=== PATIENT | female | born 1940 | race Caucasian/White ===

== ENCOUNTER 2017-03-13 14:03 | Inpatient (IN) | payer OTHER ==
[2017-03-13] MEDS ORDERED: ACETAMINOPHEN 1000 MG/100 ML VIAL (NON FORMULARY) IVPB ONE (14:24)
[2017-03-13] MEDS ORDERED: SODIUM CHLORIDE 1,000 ML IV STA ×2 (14:24→16:05)
[2017-03-13] MEDS ORDERED: ACETAMINOPHEN INJECTION 100 ML IVPB ONE (14:29)
--- NOTE | 2017-03-13 14:39 | PDOC ---
History of Present Illness - General History Source: Old Records Exam Limitations: Clinical Condition <ShayeVidya - Last Filed: 03/13/17 16:14> - General History Source: EMS, Old Records Exam Limitations: Other (AMS) - History of Present Illness Initial Comments: 03/13/17 14:44 The patient is a 76-year-old woman, from [facility], with a significant past medical history of hypertension, diabetes mellitus and Alzheimer's dementia who presents to the emergency department via EMS for further evaluation of altered mental status. Patient has been admitted in the past for hyperglycemia and hypotension. Upon ER arrival, patient was noted to have a rectal temperature of 101.6, heart rate of 104, respiratory rate of 24, blood pressure of 112/59 and an oxygen saturation of 100%. Today, patient was noted to be hyperglycemic at 411. HPI is limited, as patient syffers form dementia and is unable to provide history. Sepsis protocol initiated. Allergies: No Known Drug Allergies. Past Surgical History: None reported Social History: Unknown if ever smoked. No EtOH and recreational drug use, Primary Care Physician: Dr. Cash Reynoso <Sarah Kumari - Last Filed: 03/13/17 16:35> - General Chief Complaint: Altered Mental Status Stated Complaint: ALTERED MENTAL STATUS Time Seen by Provider: 03/13/17 14:20 Past History - Past Medical History Dementia: Yes Diabetes: Yes (ALZHEIMERS) HTN: Yes - Psycho/Social/Smoking Cessation Hx Anxiety: No Suicidal Ideation: No Smoking Status: No Smoking History: Unknown if ever smoked Number of Cigarettes Smoked Daily: 0 Hx Alcohol Use: No Drug/Substance Use Hx: No Substance Use Type: None <Vidya Cr - Last Filed: 03/13/17 16:14> <Sarah Kumari - Last Filed: 03/13/17 16:35> - Past Medical History Allergies/Adverse Reactions: Allergies Allergy/AdvReac Type Severity Reaction Status Date / Time No Known Allergies Allergy Verified 08/18/16 16:47 Home Medications: Ambulatory Orders Acetaminophen [Pain Relief] 650 mg PO QID PRN 03/13/17 Cholecalciferol (Vitamin D3) [Vitamin D3] 1,000 unit PO DAILY 03/13/17 Glimepiride [Amaryl] 4 mg PO DAILY 03/13/17 Guaifenesin/D-Methorphan Hb/PE [Tussin Cf Max M-S Cold Liquid] 118 ml PO QID PRN 03/13/17 Insulin Glargine,Hum.rec.anlog [Lantus Solostar PEN (NF)] 0 units SQ ACBK Insulin Lispro [Humalog] 0 unit SQ ASDIR 03/13/17 Memantine HCl [Namenda -] 10 mg PO BID 03/13/17 Review of Systems - Review of Systems Able to Perform ROS?: No (AMS) <KumariSarah lopes - Last Filed: 03/13/17 16:35> *Physical Exam - Vital Signs Last Vital Signs Temp Pulse Resp BP Pulse Ox 101.6 F H 104 H 24 112/59 100 03/13/17 14:15 03/13/17 14:15 03/13/17 14:15 03/13/17 14:15 03/13/17 14:15 <Vidya Cr - Last Filed: 03/13/17 16:14> - Vital Signs Last Vital Signs Temp Pulse Resp BP Pulse Ox 101.6 F H 104 H 24 112/59 100 03/13/17 14:15 03/13/17 14:15 03/13/17 14:15 03/13/17 14:15 03/13/17 14:15 - Physical Exam Comments: 03/13/17 14:45 GENERAL: Somnolent. Not arousable to painful stimuli. HEENT: Normocephalic, atraumatic. PERRLA, EOMI. No conjunctival pallor. Sclera are non-icteric. Dry mucous membranes. Oropharynx is clear. NECK: Supple. Full ROM. No JVD. CARDIOVASCULAR: Regular rate and rhythm. No murmurs, rubs, or gallops. PULMONARY: Crackles at the left lung base ABDOMINAL: Soft. Non-tender. Non-distended. No rebound or guarding. No organomegaly. Normoactive bowel sounds. : Indwelling Menchaca with foul odor. MUSCULOSKELETAL: Normal range of motion at all joints. No bony deformities or tenderness. No CVA tenderness. EXTREMITIES: No cyanosis. No clubbing. No edema. No calf tenderness. SKIN: Warm and dry. Normal capillary refill. No rashes. No jaundice. NEUROLOGICAL: Somnolent. Not arousable to painful stimuli. PSYCHIATRIC: Cooperative. Good eye contact. Appropriate mood and affect. <Sarah Kumari - Last Filed: 03/13/17 16:35> Heart Score/ECG Review #1 General ECG Interpretation: Normal Rate (Sinus tachycardia at 105 bpm), Normal Intervals, No acute ischemic changes <Sarah Kumari - Last Filed: 03/13/17 16:35> ED Treatment Course - LABORATORY CBC & Chemistry Diagram: 03/13/17 14:45 03/13/17 14:45 - RADIOLOGY Radiology Studies Ordered: Category Date Time Status HEAD CT WITHOUT CONTRAST [CT] Stat CT Scan 03/13/17 14:29 Ordered CHEST X-RAY PORTABLE* [RAD] Stat Radiology 03/13/17 14:23 Taken <MaxlukeVidya - Last Filed: 03/13/17 16:14> - LABORATORY CBC & Chemistry Diagram: 03/13/17 14:45 03/13/17 14:45 - RADIOLOGY Radiograph Interpretation: 03/13/17 14:46 EXAM: RAD/CHEST X-RAY PORTABLE Interpreted by Dr. Ulices Oviedo IMPRESSION: No evidence of pneumonia, atelectasis, pleural effusion or pneumothorax. No evidence of vascular congestion. The cardiac silhouette is not enlarged. No evidence of widening of the superior mediastinum. EKG leads are noted. Radiopaque tubing projecting over the lungs. EKG leads are noted. Intact visualized osseous structures. <Sarah Kumari - Last Filed: 03/13/17 16:35> Medical Decision Making - Medical Decision Making 03/13/17 16:06 76-year-old female with history of diabetes, dementia and Alzheimer's disease, indwelling menchaca presents the emergency department with altered mental status; the urine in the menchaca bag appears purulent. Differential diagnosis includes but is not limited to: Urinary tract infection, pneumonia, electrolyte abnormality, dehydration, toxic/metabolic derangement, intra-cranial process. Plan: 1. Prieto culture 2. CT head 3. IV fluids for hydration 4. IV antibiotics 6. Observe and reevaluate 03/13/17 16:07 Addendum: Labs were reviewed and are noted in the EMR. Her WBC is 17k and the urine analysis is positive for UTI. The BUN/creatinine are elevated from the baseline. The patient was given ceftriaxone. Will admit to medicine for IV antibiotics, IVF hydration and monitoring of SHERLYN. <Vidya Cr - Last Filed: 03/13/17 16:14> *DC/Admit/Observation/Transfer - Discharge Dispostion Admit: Yes <Vidya Cr - Last Filed: 03/13/17 16:14> - Attestations Scribe Attestion: 03/13/17 14:45 Documentation prepared by Sarah Kumari, acting as medical editor for Vidya Cr MD. <Sarah Kumari - Last Filed: 03/13/17 16:35> Diagnosis at time of Disposition: Altered mental status, Urinary tract infection, Acute kidney injury, Sepsis - Discharge Dispostion Condition at time of disposition: Stable - Referrals Referrals: Cash Reynoso MD [Primary Care Provider] -
[2017-03-13 15:30] LABS: BASOPHIL 0.2 % (0-2.0); MCH 28.6 pg (25.7-33.7); MCHC 32.2 g/dl (32.0-36.0); MEAN CELL VOLUME 88.9 fl (80-96); MEAN PLT VOLUME 8.9 fl (7.5-11.1); NEUTROPHILS 85.6 % (42.8-82.8); PLATELET COUNT 338 K/MM3 (134-434); RDW 14.2 % (11.6-15.6); WHITE BLOOD COUNT 17.4 K/mm3 (4.0-10.0)
[2017-03-13 15:31] LABS: ALBUMIN 2.8 g/dl (3.4-5.0); ANION GAP 13 (8-16); BILIRUBIN,TOTAL 0.5 mg/dL (0.2-1.0); CALCIUM 9.2 mg/dL (8.5-10.1); CO2 22 mmol/L (21-32); COCKROFT - GAULT 19.1165; CREATININE 2.2 mg/dL (0.55-1.02); PHOSPHOROUS 2.3 mg/dL (2.5-4.9); SGPT/ALT 51 U/L (12-78); TOT PROT 7.1 g/dl (6.4-8.2)
[2017-03-13 15:34] LABS: ALK PHOS 186 U/L (45-117); TROPONIN I 0.02 ng/ml (0.00-0.05)
[2017-03-13 15:36] LABS: MAGNESIUM 2.2 mg/dL (1.8-2.4); SGOT/AST 48 U/L (15-37)
[2017-03-13 15:37] LABS: GLUCOSE,RANDOM 384 mg/dL (74-106)
[2017-03-13 15:41] LABS: URINE APPEARANCE TURBID; URINE BILIRUBIN NEGATIVE (NEGATIVE); URINE COLOR YELLOW; URINE GLUCOSE (UA) 3+ (NEGATIVE); URINE KETONE TRACE (NEGATIVE); URINE NITRITE NEGATIVE (NEGATIVE); URINE UROBILINOGEN NEGATIVE E.U./dl (0.2-1.0)
[2017-03-13 15:49] LABS: URINE BLOOD 2+ (NEGATIVE); URINE LEUK ESTERASE 3+ (NEGATIVE); URINE PROTEIN 2+ (NEGATIVE)
[2017-03-13] MEDS ORDERED: CEFTRIAXONE 2 GM in DEXTROSE 5%-WATER - 100 ML IVPB ONE (16:04)
[2017-03-13 16:12] LABS: URINE WBC 2006 /hpf (3-5)
[2017-03-13 16:13] LABS: URINE RBC 84 /hpf (0-3)
[2017-03-13] MEDS ORDERED: CEFTRIAXONE 100 ML IVPB ONE (16:16)
--- NOTE | 2017-03-13 16:33 | HP ---
CHIEF COMPLAINT: Altered mental status PCP: Dr. Reynoso HISTORY OF PRESENT ILLNESS: This is a 76-year-old female resident of the [facility] with a history of HTN, IDDM, obstructive uropathy with chronic indwelling Engel catheter and Alzheimer's dementia brought in to the ED via EMS with a report of altered mental status. Her daughter reports that the patient is non-verbal at baseline, but today is not interacting at all. ER course was notable for: (1) EBC 17.4 (2) UA with 2006 WBCs (3) Cr 2.2 (0.9 on prior visit in 08/2016) (4) Glucose 384 with AG 13 and negative acetone Recent Travel: None PAST MEDICAL HISTORY: As above PAST SURGICAL HISTORY: None reported Social History: SNF resident Smoking: None Alcohol: None Family History: Non-contributory to this admission Allergies No Known Allergies Allergy (Verified 08/18/16 16:47) HOME MEDICATIONS: Home Medications Medication Instructions Recorded Acetaminophen [Pain Relief] 650 mg PO QID PRN 03/13/17 Cholecalciferol (Vitamin D3) 1,000 unit PO DAILY 03/13/17 [Vitamin D3] Glimepiride [Amaryl] 4 mg PO DAILY 03/13/17 Guaifenesin/D-Methorphan Hb/PE 118 ml PO QID PRN 03/13/17 [Tussin Cf Max M-S Cold Liquid] Insulin Glargine,Hum.rec.anlog 0 units SQ ACBK 03/13/17 [Lantus Solostar PEN (NF)] Insulin Lispro [Humalog] 0 unit SQ ASDIR 03/13/17 Memantine HCl [Namenda -] 10 mg PO BID 03/13/17 REVIEW OF SYSTEMS Patient is unable to participate PHYSICAL EXAMINATION Vital Signs - 24 hr 03/13/17 03/13/17 14:15 14:51 Temperature 101.6 F H Pulse Rate 104 H Pulse Rate [ 98 H Left Radial] Respiratory 24 16 Rate Blood Pressure 112/59 Blood Pressure 116/74 [Right Arm] O2 Sat by Pulse 100 100 Oximetry (%) GENERAL: Lethargic but arousable. HEAD: Normal with no signs of trauma. EYES: Pupils equal, round and reactive to light, extraocular movements intact, sclera anicteric, conjunctiva clear. No lid lag. EARS, NOSE, THROAT: Ears normal, nares patent, oropharynx clear without exudates. Moist mucous membranes. NECK: Normal range of motion, supple without lymphadenopathy, JVD, or masses. LUNGS: Breath sounds equal, clear to auscultation bilaterally. No wheezes, and no crackles. No accessory muscle use. HEART: Regular rate and rhythm, normal S1 and S2 without murmur, rub or gallop. ABDOMEN: Soft, suprapubic tenderness, not distended, normoactive bowel sounds, no guarding, no rebound, no masses. No hepatomegaly or splenomegaly. MUSCULOSKELETAL: Normal range of motion at all joints. No bony deformities or tenderness. No CVA tenderness. UPPER EXTREMITIES: 2+ pulses, warm, well-perfused. No cyanosis. No clubbing. No peripheral edema. LOWER EXTREMITIES: 2+ pulses, warm, well-perfused. No calf tenderness. No peripheral edema. NEUROLOGICAL: Cranial nerves II-XII intact. Nonverbal at baseline. SKIN: Warm, dry, normal turgor, no rashes or lesions noted, normal capillary refill. Laboratory Results - last 24 hr 03/13/17 03/13/17 03/13/17 14:39 14:45 14:45 WBC 17.4 H D RBC 4.56 Hgb 13.0 D Hct 40.6 MCV 88.9 MCHC 32.2 RDW 14.2 D Plt Count 338 D MPV 8.9 Neutrophils % 85.6 H D Lymphocytes % 7.3 L D Monocytes % 6.9 Eosinophils % 0.0 D Basophils % 0.2 Sodium Potassium Chloride Carbon Dioxide Anion Gap BUN Creatinine Creat Clearance w eGFR POC Glucometer > 400 Random Glucose Lactic Acid 2.875 H* Calcium Phosphorus Magnesium Total Bilirubin AST ALT Alkaline Phosphatase Troponin I Total Protein Albumin Urine Color Urine Appearance Urine pH Urine Protein Urine Glucose (UA) Urine Ketones Urine Blood Urine Nitrite Urine Bilirubin Urine Urobilinogen Ur Leukocyte Esterase Urine RBC Urine WBC 03/13/17 03/13/17 14:45 15:10 WBC RBC Hgb Hct MCV MCHC RDW Plt Count MPV Neutrophils % Lymphocytes % Monocytes % Eosinophils % Basophils % Sodium 139 Potassium 5.9 H D Chloride 104 Carbon Dioxide 22 Anion Gap 13 BUN 48 H D Creatinine 2.2 H D Creat Clearance w eGFR 21.82 POC Glucometer Random Glucose 384 H* D Lactic Acid Calcium 9.2 Phosphorus 2.3 L D Magnesium 2.2 Total Bilirubin 0.5 D AST 48 H D ALT 51 D Alkaline Phosphatase 186 H D Troponin I 0.02 Total Protein 7.1 Albumin 2.8 L Urine Color Yellow Urine Appearance Turbid Urine pH 8.0 D Urine Protein 2+ H Urine Glucose (UA) 3+ H Urine Ketones Trace H Urine Blood 2+ H Urine Nitrite Negative Urine Bilirubin Negative Urine Urobilinogen Negative Ur Leukocyte Esterase 3+ H Urine RBC 84 Urine WBC 2005 ASSESSMENT/PLAN: 76 year old female with altered mental status, likely secondary to UTI/sepsis. Problem List - Problem (1) Sepsis Assessment/Plan: -Likely secondary to UTI -Ceftriaxone 1g daily based on prior cultures showing graham-sensitive E coli; low threshold to broaden coverage if not clinically improving -IVF -Lactic acid intermediate at 2.8 - repeat now -Change Engel catheter -Follow up blood and urine cultures -Tylenol prn fever Code(s): A41.9 - SEPSIS, UNSPECIFIED ORGANISM (2) Urinary tract infection Assessment/Plan: -As above Code(s): N39.0 - URINARY TRACT INFECTION, SITE NOT SPECIFIED (3) Acute kidney injury Assessment/Plan: -Suspect secondary to dehydration; expect improvement with IVF -Follow, avoid nephrotoxic meds as able Code(s): N17.9 - ACUTE KIDNEY FAILURE, UNSPECIFIED (4) Altered mental status Assessment/Plan: -Likely secondary to infection Code(s): R41.82 - ALTERED MENTAL STATUS, UNSPECIFIED (5) HTN (hypertension) Assessment/Plan: -At goal -No home medications listed -Observe Code(s): I10 - ESSENTIAL (PRIMARY) HYPERTENSION (6) Dementia Assessment/Plan: -Continue Namenda -Fall risk precautions Code(s): F03.90 - UNSPECIFIED DEMENTIA WITHOUT BEHAVIORAL DISTURBANCE Qualifiers: Dementia type: Alzheimer's disease Alzheimer's disease onset: unspecified onset Dementia behavioral disturbance: without behavioral disturbance Qualified Code(s): G30.9 - Alzheimer's disease, unspecified; F02.80 - Dementia in other diseases classified elsewhere without behavioral disturbance (7) Insulin dependent diabetes mellitus Assessment/Plan: -Hold Glimepiride while inpatient -ISS -FSACHS -Diabetic diet Code(s): E11.9 - TYPE 2 DIABETES MELLITUS WITHOUT COMPLICATIONS Z79.4 - GROUP HOME (CURRENT) USE OF INSULIN (8) Hyperkalemia Assessment/Plan: -No associated EKG changes -Expect improvement with hydration, insulin -Follow closely Code(s): E87.5 - HYPERKALEMIA (9) DVT prophylaxis Assessment/Plan: -Moderate risk -Sqh 5000 units tid -PT DNR/DNI Code(s): [id number] - Visit type - Emergency Visit Emergency Visit: Yes ED Registration Date: 03/13/17 Care time: The patient presented to the Emergency Department on the above date and was hospitalized for further evaluation of their emergent condition. - New Patient This patient is new to me today: Yes Date on this admission: 03/14/17 - Critical Care Critical Care patient: No
[2017-03-13] MEDS ORDERED: ONDANSETRON 4 MG/2 ML VIAL IVPB PRN (16:52)
[2017-03-13 16:59] LABS: ACETONE SERUM NEGATIVE (NEGATIVE)
[2017-03-13] MEDS ORDERED: SODIUM CHLORIDE 1,000 ML IV SCH (17:00)
[2017-03-13] MEDS: HEPARIN NA (PORCINE) 5,000 UNITS/ML 1ML VIAL SQ SCH (21:53)
[2017-03-13] MEDS: DOCUSATE SODIUM 100 MG CAPSULE (FP) PO SCH (21:53)
[2017-03-13] MEDS: MEMANTINE HCL 10 MG TABLET (FP) PO SCH (21:54)
[2017-03-13] MEDS: INSULIN SLIDING SCALE (NOVOLOG) 1 VIAL SQ SCH (21:56)
[2017-03-14 02:50] VITALS: BMI 22.2
[2017-03-14] MEDS: DOCUSATE SODIUM 100 MG CAPSULE (FP) PO SCH ×4 (06:37→21:58)
[2017-03-14] MEDS: INSULIN SLIDING SCALE (NOVOLOG) 1 VIAL SQ SCH ×4 (06:40→22:01)
[2017-03-14] MEDS: HEPARIN NA (PORCINE) 5,000 UNITS/ML 1ML VIAL SQ SCH ×3 (06:40→21:53)
[2017-03-14 07:32] LABS: BASOPHIL 0.2 % (0-2.0); EOSINOPHIL 0.2 % (0-4.5); MCH 29.1 pg (25.7-33.7); MCHC 33.1 g/dl (32.0-36.0); MEAN CELL VOLUME 88.1 fl (80-96); MEAN PLT VOLUME 8.5 fl (7.5-11.1); NEUTROPHILS 84.5 % (42.8-82.8); PLATELET COUNT 270 K/MM3 (134-434); WHITE BLOOD COUNT 15.6 K/mm3 (4.0-10.0)
[2017-03-14 08:37] LABS: ALBUMIN 2.5 g/dl (3.4-5.0); BILIRUBIN,TOTAL 0.5 mg/dL (0.2-1.0); CALCIUM 8.4 mg/dL (8.5-10.1); COCKROFT - GAULT 36.958; CREATININE 1.2 mg/dL (0.55-1.02); MAGNESIUM 2.1 mg/dL (1.8-2.4); TOT PROT 6.2 g/dl (6.4-8.2)
[2017-03-14] MEDS ORDERED: PT OWN MED DRAWER 7, Y5N ONE (09:14)
[2017-03-14] MEDS: cefTRIAXone 1 GM/50 ML BAG (PRE-DOCKED) IVPB SCH (09:16)
[2017-03-14] MEDS: CHOLECALCIFEROL (VITAMIN D3) 1,000 UNIT TABLET (FP) PO SCH (09:16)
[2017-03-14] MEDS: MEMANTINE HCL 10 MG TABLET (FP) PO SCH ×2 (09:16→21:54)
[2017-03-14] MEDS ORDERED: CEFTRIAXONE 1 GM in DEXTROSE 5%-WATER - 50 ML IVPB SCH (10:00)
[2017-03-14] MEDS ORDERED: INSULIN (NOVOLOG) ASPART 100 UNITS/ML 10ML VIAL ONE ×2 (12:24→20:25)
--- NOTE | 2017-03-14 13:26 | EKG ---
Test Reason : Blood Pressure : / mmHG Vent. Rate : 104 BPM Atrial Rate : 104 BPM P-R Int : 128 ms QRS Dur : 068 ms QT Int : 328 ms P-R-T Axes : 071 039 054 degrees QTc Int : 431 ms SINUS TACHYCARDIA OTHERWISE NORMAL ECG WHEN COMPARED WITH ECG OF 19-AUG-2016 09:48, T WAVE INVERSION NO LONGER EVIDENT IN INFERIOR LEADS T WAVE INVERSION NO LONGER EVIDENT IN ANTERIOR LEADS Confirmed by MELA BECK, LETICIA ([id number]) on 03/14/2017 1:26:05 PM Referred By: Confirmed By:LETICIA PLAZA MD
--- NOTE | 2017-03-14 16:42 | PN ---
Physical Exam: SUBJECTIVE: Patient seen and examined. She is awake, non verbal at baseline. OBJECTIVE: Vital Signs Period Temp Pulse Resp BP Sys/Bob Pulse Ox Last 24 Hr 97.7 F-100.6 F 87-105 16-20 119-128/63-74 93-100 Pe Neuro: non verbal, awake, alert Pulm: diminished bases, no cough, no wheezing CV: s1 s2 rrr no mrg Abd: s nt nd +bs : menchaca Ext: no le edema msk: + rigidity CBCD WBC 15.6 K/mm3 (4.0-10.0) H 03/14/17 06:00 RBC 3.98 M/mm3 (3.60-5.2) 03/14/17 06:00 Hgb 11.6 GM/dL (10.7-15.3) D 03/14/17 06:00 Hct 35.1 % (32.4-45.2) 03/14/17 06:00 MCV 88.1 fl (80-96) 03/14/17 06:00 MCHC 33.1 g/dl (32.0-36.0) 03/14/17 06:00 RDW 14.0 % (11.6-15.6) 03/14/17 06:00 Plt Count 270 K/MM3 (134-434) D 03/14/17 06:00 MPV 8.5 fl (7.5-11.1) 03/14/17 06:00 CMP Sodium 144 mmol/L (136-145) 03/14/17 06:00 Potassium 4.3 mmol/L (3.5-5.1) D 03/14/17 06:00 Chloride 111 mmol/L (98-107) H 03/14/17 06:00 Carbon Dioxide 20 mmol/L (21-32) L 03/14/17 06:00 Anion Gap 13 (8-16) 03/14/17 06:00 BUN 44 mg/dL (7-18) H 03/14/17 06:00 Creatinine 1.2 mg/dL (0.55-1.02) H D 03/14/17 06:00 Creat Clearance w eGFR 43.91 (>60) 03/14/17 06:00 Calcium 8.4 mg/dL (8.5-10.1) L 03/14/17 06:00 Total Bilirubin 0.5 mg/dL (0.2-1.0) 03/14/17 06:00 AST 46 U/L (15-37) H 03/14/17 06:00 ALT 44 U/L (12-78) 03/14/17 06:00 Alkaline Phosphatase 151 U/L (45-117) H 03/14/17 06:00 Total Protein 6.2 g/dl (6.4-8.2) L 03/14/17 06:00 Albumin 2.5 g/dl (3.4-5.0) L 03/14/17 06:00 Laboratory Tests 03/13/17 20:30 Lactic Acid 1.851 Active Medications Generic Name Dose Route Start Last Admin Trade Name Freq PRN Reason Stop Dose Admin Acetaminophen 650 mg 03/13/17 16:52 Tylenol - PO Q4H PRN FEVER OR PAIN Ceftriaxone Sodium 1 gm 03/14/17 10:00 03/14/17 09:16 Rocephin 1gm Ivpb (Pre-Docked) IVPB 1 gm DAILY DAVID Administration Cholecalciferol 1,000 unit 03/14/17 10:00 03/14/17 09:16 Vitamin D3 - PO 1,000 unit DAILY DAVID Administration Docusate Sodium 100 mg 03/13/17 22:00 03/14/17 14:45 Colace - PO Not Given TID DAVID Heparin Sodium (Porcine) 5,000 unit 03/13/17 22:00 03/14/17 14:44 Heparin - SQ 5,000 unit TID DAVID Administration Insulin Aspart 1 vial 03/13/17 22:00 03/14/17 11:26 Novolog Vial Sliding Scale - SQ 4 unit ACHS DAVID Administration Protocol Memantine 10 mg 03/13/17 22:00 03/14/17 09:16 Namenda - PO 10 mg BID DAVID Administration Ondansetron HCl 4 mg 03/13/17 16:52 Zofran Injection IVPB Q6H PRN NAUSEA Assessment: 76 year old female with altered mental status, likely secondary to UTI/sepsis. Plan: 1. Sepsis d/t UTI - Ux pre trivedi proteus species, await finalization - Continue ceftriaxone (day 2) - Menchaca changed 03/13 - Blood cx negative 2. Urinary tract infection -As above 3. SHERLYN - Improved with fluids, likely due to dehydration - Continue gentle fluids 4. Altered mental status -Likely secondary to infection 5. HTN - Controlled off meds - Monitor 6. Dementia -Continue Namenda 7. DM II -Hold Glimepiride while inpatient -ISS, BGM ACHS 8. DVT prophylaxis -Sqh 5000 units tid -PT CODE STATUS: DNR/DNI Visit type - Emergency Visit Emergency Visit: Yes ED Registration Date: 03/13/17 Care time: The patient presented to the Emergency Department on the above date and was hospitalized for further evaluation of their emergent condition. - New Patient This patient is new to me today: Yes Date on this admission: 03/14/17 - Critical Care Critical Care patient: No
[2017-03-14] MEDS: SODIUM CHLORIDE 1,000 ML IV SCH (18:01)
[2017-03-14] MEDS: ACETAMINOPHEN 325 MG TABLET (FP) PO PRN (21:54)
[2017-03-15] MEDS: DOCUSATE SODIUM 100 MG CAPSULE (FP) PO SCH ×3 (06:32→22:23)
[2017-03-15] MEDS: HEPARIN NA (PORCINE) 5,000 UNITS/ML 1ML VIAL SQ SCH ×3 (06:33→22:28)
[2017-03-15] MEDS: INSULIN SLIDING SCALE (NOVOLOG) 1 VIAL SQ SCH ×4 (06:35→22:36)
[2017-03-15] MEDS: SODIUM CHLORIDE 1,000 ML IV SCH (06:50)
[2017-03-15 07:27] LABS: BASOPHIL 0.1 % (0-2.0); EOSINOPHIL 0.8 % (0-4.5); MCH 29.4 pg (25.7-33.7); MEAN CELL VOLUME 89.2 fl (80-96); MEAN PLT VOLUME 8.5 fl (7.5-11.1); NEUTROPHILS 79.7 % (42.8-82.8); PLATELET COUNT 224 K/MM3 (134-434); RDW 14.5 % (11.6-15.6); WHITE BLOOD COUNT 7.6 K/mm3 (4.0-10.0)
[2017-03-15 07:45] LABS: ALBUMIN 2.2 g/dl (3.4-5.0); ANION GAP 11 (8-16); CALCIUM 8.2 mg/dL (8.5-10.1); CO2 23 mmol/L (21-32); GLUCOSE,RANDOM 158 mg/dL (74-106)
[2017-03-15 07:51] LABS: ALK PHOS 139 U/L (45-117); BILIRUBIN,TOTAL 0.3 mg/dL (0.2-1.0); CREATININE 0.8 mg/dL (0.55-1.02); SGOT/AST 36 U/L (15-37); SGPT/ALT 37 U/L (12-78); TOT PROT 5.6 g/dl (6.4-8.2)
[2017-03-15] MEDS: MEMANTINE HCL 10 MG TABLET (FP) PO SCH ×2 (10:01→22:28)
[2017-03-15] MEDS: cefTRIAXone 1 GM/50 ML BAG (PRE-DOCKED) IVPB SCH (10:01)
[2017-03-15] MEDS: CHOLECALCIFEROL (VITAMIN D3) 1,000 UNIT TABLET (FP) PO SCH (10:02)
--- NOTE | 2017-03-15 10:44 | PN ---
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, Physician Chief Complaint: patient is more awake today on ivf WBC trending down - Current Medication List Current Medications: Active Medications Acetaminophen (Tylenol -) 650 mg PO Q4H PRN PRN Reason: FEVER OR PAIN Last Admin: 03/14/17 21:54 Dose: 650 mg Ceftriaxone Sodium (Rocephin 1gm Ivpb (Pre-Docked)) 1 gm IVPB DAILY [facility] Last Admin: 03/15/17 10:01 Dose: 1 gm Cholecalciferol (Vitamin D3 -) 1,000 unit PO DAILY [facility] Last Admin: 03/15/17 10:02 Dose: 1,000 unit Docusate Sodium (Colace -) 100 mg PO TID [facility] Last Admin: 03/15/17 06:32 Dose: Not Given Heparin Sodium (Porcine) (Heparin -) 5,000 unit SQ TID [facility] Last Admin: 03/15/17 06:33 Dose: 5,000 unit Sodium Chloride (Normal Saline -) 1,000 mls @ 83 mls/hr IV ASDIR [facility] Last Admin: 03/15/17 06:50 Dose: 83 mls/hr Insulin Aspart (Novolog Vial Sliding Scale -) 1 vial SQ ACHS [facility] PRN Reason: Protocol Last Admin: 03/15/17 06:35 Dose: Not Given Memantine (Namenda -) 10 mg PO BID [facility] Last Admin: 03/15/17 10:01 Dose: 10 mg Ondansetron HCl (Zofran Injection) 4 mg IVPB Q6H PRN PRN Reason: NAUSEA - Objective Vital Signs: Vital Signs Temperature 99.8 F H 03/15/17 10:13 Pulse Rate 79 03/15/17 10:13 Respiratory Rate 18 03/15/17 10:13 Blood Pressure 140/60 03/15/17 10:13 O2 Sat by Pulse Oximetry (%) 100 03/14/17 21:00 Constitutional: Yes: Calm Cardiovascular: Yes: Regular Rate and Rhythm, S1, S2 Respiratory: Yes: CTA Bilaterally Gastrointestinal: Yes: Soft Genitourinary: Yes: Engel Present Edema: No Labs: CBC, BMP 03/15/17 06:00 03/15/17 06:00 Problem List - Problems (1) Hypernatremia Assessment/Plan: stop NS as sodium is 150 and chloride is high as well renal eval patient is diabetic as well ,will await renal input regarding choice of ivf fluids trend sodium Code(s): E87.0 - HYPEROSMOLALITY AND HYPERNATREMIA (2) Acute kidney injury Assessment/Plan: improving with hydration Code(s): N17.9 - ACUTE KIDNEY FAILURE, UNSPECIFIED (3) Altered mental status Assessment/Plan: sec to uti now improving Code(s): R41.82 - ALTERED MENTAL STATUS, UNSPECIFIED (4) Sepsis Assessment/Plan: fever curve trending down as well iv abx proteus UTI awaitng final report wbc and lactic acid is normal too Code(s): A41.9 - SEPSIS, UNSPECIFIED ORGANISM (5) Urinary tract infection Assessment/Plan: iv rocephin awaiting sensititvite with regards to aabx Code(s): N39.0 - URINARY TRACT INFECTION, SITE NOT SPECIFIED (6) Diabetes Assessment/Plan: will restart amaryl slding scale Code(s): E11.9 - TYPE 2 DIABETES MELLITUS WITHOUT COMPLICATIONS Qualifiers: Diabetes mellitus type: type 2 (7) Dementia Assessment/Plan: namenda Code(s): F03.90 - UNSPECIFIED DEMENTIA WITHOUT BEHAVIORAL DISTURBANCE Qualifiers: Dementia type: Alzheimer's disease Alzheimer's disease onset: unspecified onset Dementia behavioral disturbance: without behavioral disturbance Qualified Code(s): G30.9 - Alzheimer's disease, unspecified; F02.80 - Dementia in other diseases classified elsewhere without behavioral disturbance Assessment/Plan folow sodium awaiting final urine cx report
--- NOTE | 2017-03-15 12:52 | PN ---
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 (short form) - Note 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: will repeat bMP to see sodium and chloride level Problem List - Problems (1) Hypernatremia Code(s): E87.0 - HYPEROSMOLALITY AND HYPERNATREMIA (2) Acute kidney injury Code(s): N17.9 - ACUTE KIDNEY FAILURE, UNSPECIFIED (3) Altered mental status Code(s): R41.82 - ALTERED MENTAL STATUS, UNSPECIFIED (4) Sepsis Code(s): A41.9 - SEPSIS, UNSPECIFIED ORGANISM (5) Urinary tract infection Code(s): N39.0 - URINARY TRACT INFECTION, SITE NOT SPECIFIED (6) Diabetes Code(s): E11.9 - TYPE 2 DIABETES MELLITUS WITHOUT COMPLICATIONS Qualifiers: Diabetes mellitus type: type 2 (7) Dementia Code(s): F03.90 - UNSPECIFIED DEMENTIA WITHOUT BEHAVIORAL DISTURBANCE Qualifiers: Dementia type: Alzheimer's disease Alzheimer's disease onset: unspecified onset Dementia behavioral disturbance: without behavioral disturbance Qualified Code(s): G30.9 - Alzheimer's disease, unspecified; F02.80 - Dementia in other diseases classified elsewhere without behavioral disturbance
[2017-03-15] MEDS ORDERED: SODIUM CHLORIDE 0.45% 1,000 ML IV SCH (13:00)
[2017-03-15] MEDS ORDERED: sitaGLIPtin PHOSPHATE 50 MG TABLET PO ONE (13:15)
--- NOTE | 2017-03-15 13:22 | CONSULT ---
Consult - text type - Consultation Consultation Note: Renal Consult for SHERLYN and Hypernatremia This is a 76 year old woman with PMhx of Hypertension, DM Type 2, Alzheimers Dementia, non-verbal who presented to the ED with AMS and found to have SHERLYN adn Hypernatremia. Pt was more lethargic in the NH as per the daughter. Pt found to have fever upon ED evalulation. Pt started on isotonic saline and Abx since admission. SHERLYN resolvd but Na up trended to 150. Pt is non-verbal. As per nurse she is able to eat and drink with assistance. PMhx: as above Allergies: NKDA Family Hx: NC Social Hx: No T/A/D ROS: unable to obtain because of clinical status Home Medications Medication Instructions Recorded Acetaminophen [Pain Relief] 650 mg PO QID PRN 03/13/17 Cholecalciferol (Vitamin D3) 1,000 unit PO DAILY 03/13/17 [Vitamin D3] Glimepiride [Amaryl] 4 mg PO DAILY 03/13/17 Guaifenesin/D-Methorphan Hb/PE 118 ml PO QID PRN 03/13/17 [Tussin Cf Max M-S Cold Liquid] Insulin Glargine,Hum.rec.anlog 0 units SQ ACBK 03/13/17 [Lantus Solostar PEN (NF)] Insulin Lispro [Humalog] 0 unit SQ ASDIR 03/13/17 Memantine HCl [Namenda -] 10 mg PO BID 03/13/17 Vital Signs Temperature 99.8 F H 03/15/17 10:13 Pulse Rate 79 03/15/17 10:13 Respiratory Rate 18 03/15/17 10:13 Blood Pressure 140/60 03/15/17 10:13 O2 Sat by Pulse Oximetry (%) 100 03/14/17 21:00 Intake & Output 03/12/17 03/13/17 03/14/17 03/15/17 23:59 23:59 23:59 23:59 Intake Total 1000 1200 1000 Output Total 2100 1300 300 Balance -1100 -100 700 Weight 125 lb 8 oz Gen: NAD, awake and alert but non-verbal HEENT: NC/AT, MMM, No JVD CVS: RRR, No M/R Lungs: CTA, no rales or wheeze Abd: soft NT/ND Ext: No edema, clubbing or cyanosis : No bladder distension CBC, BMP 03/15/17 06:00 03/15/17 06:00 Laboratory Tests 03/15/17 06:00 Calcium 8.2 L Current Medications Acetaminophen (Tylenol -) 650 mg PO Q4H PRN PRN Reason: FEVER OR PAIN Last Admin: 03/14/17 21:54 Dose: 650 mg Ceftriaxone Sodium (Rocephin 1gm Ivpb (Pre-Docked)) 1 gm IVPB DAILY [facility] Last Admin: 03/15/17 10:01 Dose: 1 gm Cholecalciferol (Vitamin D3 -) 1,000 unit PO DAILY [facility] Last Admin: 03/15/17 10:02 Dose: 1,000 unit Docusate Sodium (Colace -) 100 mg PO TID [facility] Last Admin: 03/15/17 06:32 Dose: Not Given Glimepiride (Amaryl -) 2 mg PO DAILY@0700 [facility] Heparin Sodium (Porcine) (Heparin -) 5,000 unit SQ TID [facility] Last Admin: 03/15/17 06:33 Dose: 5,000 unit Sodium Chloride (1/2 Normal Saline) 1,000 mls @ 75 mls/hr IV ASDIR [facility] Insulin Aspart (Novolog Vial Sliding Scale -) 1 vial SQ ACHS [facility] PRN Reason: Protocol Last Admin: 03/15/17 12:21 Dose: 4 unit Memantine (Namenda -) 10 mg PO BID [facility] Last Admin: 03/15/17 10:01 Dose: 10 mg Ondansetron HCl (Zofran Injection) 4 mg IVPB Q6H PRN PRN Reason: NAUSEA Sitagliptin Phosphate (Januvia -) 50 mg PO DAILY@0700 [facility] A/P 76 year old woman with PMhx of Hypertension, DM Type 2, Alzheimers Dementia who presented to the ED with AMS and found to have SHERLYN adn Hypernatremia. #Hypernatremia Free water deficit is 2L start 1/2 NS at 100cc per hour Trend Na Q24hrs Free water intake as tolerated no clinical signs to indicate DI #Acute Renal failure Secondary to volume deletion in setting of UTI improved s/p isotonic saline #UTI on Ceftriaxone #AMS likely secondary to UTI near baseline now #Anemia Trend CBC no indication for transfusion at this time Check iron studies Thank you will follow Orlin Toledo DO
[2017-03-15] MEDS: SODIUM CHLORIDE 0.45% 1,000 ML IV SCH ×2 (13:43→23:40)
[2017-03-15] MEDS: ACETAMINOPHEN 325 MG TABLET (FP) PO PRN ×2 (17:31→22:32)
[2017-03-16] MEDS ORDERED: PT OWN MED DRAWER 7, Y5N ONE ×2 (06:15→09:22)
[2017-03-16] MEDS: DOCUSATE SODIUM 100 MG CAPSULE (FP) PO SCH ×2 (06:26→14:50)
[2017-03-16] MEDS: INSULIN SLIDING SCALE (NOVOLOG) 1 VIAL SQ SCH ×2 (06:26→11:45)
[2017-03-16] MEDS: HEPARIN NA (PORCINE) 5,000 UNITS/ML 1ML VIAL SQ SCH ×2 (06:26→15:08)
[2017-03-16] MEDS ORDERED: GLIMEPIRIDE 2 MG TABLET (FP) PO SCH (07:00)
[2017-03-16] MEDS ORDERED: sitaGLIPtin PHOSPHATE 50 MG TABLET PO SCH (07:00)
[2017-03-16 07:58] LABS: ALBUMIN 2.1 g/dl (3.4-5.0); ANION GAP 12 (8-16); CO2 22 mmol/L (21-32); GLUCOSE,RANDOM 211 mg/dL (74-106); MAGNESIUM 1.8 mg/dL (1.8-2.4); SGOT/AST 26 U/L (15-37)
[2017-03-16 08:02] LABS: ALK PHOS 153 U/L (45-117); BILIRUBIN,TOTAL 0.2 mg/dL (0.2-1.0); CREATININE 0.8 mg/dL (0.55-1.02); PHOSPHOROUS 2.6 mg/dL (2.5-4.9); SGPT/ALT 32 U/L (12-78); TOT PROT 5.5 g/dl (6.4-8.2)
[2017-03-16] MEDS: cefTRIAXone 1 GM/50 ML BAG (PRE-DOCKED) IVPB SCH (09:29)
[2017-03-16] MEDS: MEMANTINE HCL 10 MG TABLET (FP) PO SCH (09:29)
[2017-03-16] MEDS: CHOLECALCIFEROL (VITAMIN D3) 1,000 UNIT TABLET (FP) PO SCH (09:29)
[2017-03-16] MEDS: SODIUM CHLORIDE 0.45% 1,000 ML IV SCH (11:05)
--- NOTE | 2017-03-16 11:16 | PN ---
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 (short form) - Note 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: Pt was seen by Dr. Markham on prior visit, he will resume care going forward. Orlin Toledo DO
[2017-03-16] MEDS ORDERED: INSULIN (NOVOLOG) ASPART 100 UNITS/ML 10ML VIAL ONE (11:38)
[2017-03-16 13:33] LABS: CALCIUM 7.9 mg/dL (8.5-10.1); COCKROFT - GAULT 55.437; CREATININE 0.8 mg/dL (0.55-1.02)
[2017-03-16 14:21] VITALS: BP 135/58; PULSE 91; TEMP 99.6
--- NOTE | 2017-03-16 14:54 | DS ---
Physical Examination Vital Signs: Vital Signs Temperature 99.6 F 03/16/17 14:19 Pulse Rate 91 H 03/16/17 14:19 Respiratory Rate 20 03/16/17 14:19 Blood Pressure 135/58 03/16/17 14:19 O2 Sat by Pulse Oximetry (%) 100 03/15/17 21:00 sleeping in bed but arousable no distress no fever today wbc now normal labs improving Constitutional: Yes: Calm, Thin Cardiovascular: Yes: Regular Rate and Rhythm, S1, S2 Respiratory: Yes: CTA Bilaterally Gastrointestinal: Yes: Normal Bowel Sounds, Soft Edema: No Neurological: Yes: Alert (responds to her name) Labs: CBC, BMP 03/15/17 06:00 03/16/17 12:35 Discharge Summary Reason For Visit: SEPSIS,ALTERED MENTAL STATUS,ACUTE KIDNEY INJURY Current Active Problems Acute kidney injury (Acute) Altered mental status (Acute) DVT prophylaxis (Acute) Diabetes (Acute) Hyperkalemia (Acute) Hypernatremia (Acute) Insulin dependent diabetes mellitus (Acute) Sepsis (Acute) Urinary tract infection (Acute) Hospital Course: HISTORY OF PRESENT ILLNESS: This is a 76-year-old female resident of the [facility] with a history of HTN, IDDM, obstructive uropathy with chronic indwelling Engel catheter and Alzheimer's dementia brought in to the ED via EMS with a report of altered mental status. Her daughter reports that the patient is non-verbal at baseline, but today is not interacting at all. ER course was notable for: (1) EBC 17.4 (2) UA with 2006 WBCs (3) Cr 2.2 (0.9 on prior visit in 08/2016) (4) Glucose 384 with AG 13 and negative acetone got iv rocephin and 1/2 NS fluids sodium improved UTI proteus sensitive to iv rocephin bgm better will send back to [facility] Condition: Stable - Instructions Referrals: Cash Reynoso MD [Primary Care Provider] - Nevin Parmar MD [Staff Physician] - [facility]position: [facility] - Home Medications Comprehensive Discharge Medication List: Ambulatory Orders Acetaminophen [Pain Relief] 650 mg PO QID PRN 03/13/17 Cholecalciferol (Vitamin D3) [Vitamin D3] 1,000 unit PO DAILY 03/13/17 Glimepiride [Amaryl] 4 mg PO DAILY 03/13/17 Guaifenesin/D-Methorphan Hb/PE [Tussin Cf Max M-S Cold Liquid] 118 ml PO QID PRN 03/13/17 Insulin Glargine,Hum.rec.anlog [Lantus Solostar PEN (NF)] 0 units SQ ACBK Insulin Lispro [Humalog] 0 unit SQ ASDIR 03/13/17 Memantine HCl [Namenda -] 10 mg PO BID 03/13/17
--- NOTE | 2017-03-16 15:20 | PN ---
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, Physician History of Present Illness: Pt seen and examined at bedside. She is known to me from prior admissions. - Current Medication List Current Medications: Active Medications Acetaminophen (Tylenol -) 650 mg PO Q4H PRN PRN Reason: FEVER OR PAIN Last Admin: 03/15/17 22:32 Dose: 650 mg Ceftriaxone Sodium (Rocephin 1gm Ivpb (Pre-Docked)) 1 gm IVPB DAILY [facility] Last Admin: 03/16/17 09:29 Dose: 1 gm Cholecalciferol (Vitamin D3 -) 1,000 unit PO DAILY [facility] Last Admin: 03/16/17 09:29 Dose: 1,000 unit Docusate Sodium (Colace -) 100 mg PO TID [facility] Last Admin: 03/16/17 14:50 Dose: Not Given Glimepiride (Amaryl -) 4 mg PO DAILY@0700 [facility] Heparin Sodium (Porcine) (Heparin -) 5,000 unit SQ TID [facility] Last Admin: 03/16/17 15:08 Dose: 5,000 unit Sodium Chloride (1/2 Normal Saline) 1,000 mls @ 100 mls/hr IV ASDIR [facility] Last Admin: 03/16/17 11:05 Dose: 100 mls/hr Insulin Aspart (Novolog Vial Sliding Scale -) 1 vial SQ ACHS [facility] PRN Reason: Protocol Last Admin: 03/16/17 11:45 Dose: 2 unit Memantine (Namenda -) 10 mg PO BID [facility] Last Admin: 03/16/17 09:29 Dose: 10 mg Ondansetron HCl (Zofran Injection) 4 mg IVPB Q6H PRN PRN Reason: NAUSEA Sitagliptin Phosphate (Januvia -) 50 mg PO DAILY@0700 [facility] Last Admin: 03/16/17 06:26 Dose: 50 mg - Objective Vital Signs: Vital Signs Temperature 99.6 F 03/16/17 14:19 Pulse Rate 91 H 03/16/17 14:19 Respiratory Rate 20 03/16/17 14:19 Blood Pressure 135/58 03/16/17 14:19 O2 Sat by Pulse Oximetry (%) 100 03/15/17 21:00 Constitutional: Yes: Calm Eyes: Yes: Conjunctiva Clear Cardiovascular: Yes: S1, S2 Respiratory: Yes: CTA Bilaterally Gastrointestinal: Yes: Soft Genitourinary: Yes: Engel Present Edema: No Neurological: Yes: Lethargy Labs: CBC, BMP 03/15/17 06:00 03/16/17 12:35 Problem List - Problems (1) Hypernatremia Code(s): E87.0 - HYPEROSMOLALITY AND HYPERNATREMIA Assessment/Plan Current Medications Generic Name Dose Route Start Last Admin Trade Name Freq PRN Reason Stop Dose Admin Acetaminophen 650 mg 03/13/17 16:52 03/15/17 22:32 Tylenol - PO 650 mg Q4H PRN Administration FEVER OR PAIN Ceftriaxone Sodium 1 gm 03/14/17 10:00 03/16/17 09:29 Rocephin 1gm Ivpb (Pre-Docked) IVPB 1 gm DAILY [facility] Administration Cholecalciferol 1,000 unit 03/14/17 10:00 03/16/17 09:29 Vitamin D3 - PO 1,000 unit DAILY [facility] Administration Docusate Sodium 100 mg 03/13/17 22:00 03/16/17 14:50 Colace - PO Not Given TID [facility] Glimepiride 4 mg 03/17/17 07:00 Amaryl - PO DAILY@0700 [facility] Heparin Sodium (Porcine) 5,000 unit 03/13/17 22:00 03/16/17 15:08 Heparin - SQ 5,000 unit TID [facility] Administration Sodium Chloride 1,000 mls @ 100 mls/hr 03/15/17 13:32 03/16/17 11:05 1/2 Normal Saline IV 100 mls/hr ASDIR [facility] Administration Insulin Aspart 1 vial 03/13/17 22:00 03/16/17 11:45 Novolog Vial Sliding Scale - SQ 2 unit ACHS [facility] Administration Protocol Memantine 10 mg 03/13/17 22:00 03/16/17 09:29 Namenda - PO 10 mg BID [facility] Administration Ondansetron HCl 4 mg 03/13/17 16:52 Zofran Injection IVPB Q6H PRN NAUSEA Sitagliptin Phosphate 50 mg 03/16/17 07:00 03/16/17 06:26 Januvia - PO 50 mg DAILY@0700 [facility] Administration Impression 1. SHERLYN resolving 2. hypernatremia improving 3. dementia 4. DM 5. UTI 6. HTN Plan - renal function is improving - sodium is improving - monitor bmp - cont abx for UTI - discussed with medical attending - will follow Dr Markham
[2017-03-17 06:06] LABS: SERUM IRON 22 ug/dL (27-139); TOTAL IRON BINDING CAPACITY 180 ug/dL (250-450); UIBC 158 ug/dL (118-369)
[2017-03-17] MEDS ORDERED: GLIMEPIRIDE 2 MG TABLET (FP) PO SCH (07:00)
== END 2017-03-16 18:18 | DRG 872 ==
LOC: JER 14:03 → JERBED 16:14 → J7W 18:10
PROVIDERS: ADMIT Internal Medicine; ATTEND Family Medicine
DX: A41.9 Sepsis, unspecified organism (principal); N17.9 Acute kidney failure, unspecified; E87.0 Hyperosmolality and hypernatremia; N39.0 Urinary tract infection, site not specified; B96.4 Proteus (mirabilis) (morganii) as the cause of diseases classified elsewhere; I10 Essential (primary) hypertension; E11.9 Type 2 diabetes mellitus without complications; Z79.4 Long term (current) use of insulin; E86.0 Dehydration; G30.9 Alzheimer's disease, unspecified; F02.80 Dementia in other diseases classified elsewhere, unspecified severity, without behavioral disturbance, psychotic disturbance, mood disturbance, and anxiety; E87.5 Hyperkalemia; N13.9 Obstructive and reflux uropathy, unspecified
CPT/HCPCS: 36415; 70450-TC; 71010-TC; 80048; 80053; 81003; 81015; 82009; 82550; 82570; 82728; 82977; 83036; 83540; 83550; 83605; 83735; 84100; 84156; 84300; 84484; 85025; 87040; 87086; 87186; 93005; 93010; 97116-GP; 97161-GP; 99285-25; J1644

== ENCOUNTER 2017-03-19 15:10 | Inpatient (IN) | payer OTHER ==
[2017-03-19 15:57] VITALS: BMI 22.1
--- NOTE | 2017-03-19 16:52 | PDOC ---
History of Present Illness <Bonnie Castrejon - Last Filed: 03/19/17 18:50> - General History Source: Patient Exam Limitations: Clinical Condition - History of Present Illness Initial Comments: 03/19/17 17:16 The patient is a 76 year old female, from [facility], with a significant past medical history of hypertension, diabetes mellitus and Alzheimer's dementia, who presents to the emergency department today for repeat lab work after lab variances from her previous lab work. The rest of the HPI is limited due to the patients clinical condition. PCP: Dr. Cash Reynoso PAST SURGICAL HISTORY: No significant history reported FAMILY HISTORY: No pertinent history reported SOCIAL HISTORY: Unknown if ever smoked. No EtOH. No drug use. MEDICATIONS: Reviewed ALLERGIES: NKDA <Jim Coto - Last Filed: 03/20/17 01:36> - General Chief Complaint: Urinary Problem Stated Complaint: Revisit, Lab Variance Time Seen by Provider: 03/19/17 16:24 Past History - Past Medical History Anemia: No Asthma: No Cancer: No Cardiac Disorders: No CVA: No COPD: No CHF: No Dementia: Yes Diabetes: Yes (ALZHEIMERS) GI Disorders: No Disorders: No HTN: Yes Hypercholesterolemia: No Liver Disease: No Seizures: No Thyroid Disease: No - Surgical History Abdominal Surgery: No Appendectomy: No Cardiac Surgery: No Cholecystectomy: No Lung Surgery: No Neurologic Surgery: No Orthopedic Surgery: No - Psycho/Social/Smoking Cessation Hx Anxiety: No Suicidal Ideation: No Smoking Status: No Smoking History: Unknown if ever smoked Have you smoked in the past 12 months: No Number of Cigarettes Smoked Daily: 0 Hx Alcohol Use: No Drug/Substance Use Hx: No Substance Use Type: None Hx Substance Use Treatment: No <Bonnie Castrejon - Last Filed: 03/19/17 18:50> <Jim Coto - Last Filed: 03/20/17 01:36> - Past Medical History Allergies/Adverse Reactions: Allergies Allergy/AdvReac Type Severity Reaction Status Date / Time No Known Allergies Allergy Verified 08/18/16 16:47 Home Medications: Ambulatory Orders Acetaminophen [Pain Relief] 650 mg PO QID PRN 03/13/17 Cholecalciferol (Vitamin D3) [Vitamin D3] 1,000 unit PO DAILY 03/13/17 Glimepiride [Amaryl] 4 mg PO DAILY 03/13/17 Insulin Lispro [Humalog] 0 unit SQ ASDIR 03/13/17 Memantine HCl [Namenda -] 10 mg PO BID 03/13/17 Guaifenesin/D-Methorphan Hb/PE [Tussin Cf Max M-S Cold Liquid] 5 ml PO QID PRN 03/19/17 Insulin Glargine,Hum.rec.anlog [Lantus (nf)] 15 units SQ AM 03/19/17 Nut.tx.gluc.intoler,Lac-Fr,Soy [Glucerna] 237 ml PO TID 03/19/17 Review of Systems - Review of Systems Able to Perform ROS?: No <Jim Coto - Last Filed: 03/20/17 01:36> *Physical Exam - Vital Signs Last Vital Signs Temp Pulse Resp BP Pulse Ox 98.0 F 79 18 140/80 98 03/19/17 15:15 03/19/17 15:15 03/19/17 15:15 03/19/17 15:15 03/19/17 15:15 <Bonnie Castrejon - Last Filed: 03/19/17 18:50> - Vital Signs Last Vital Signs Temp Pulse Resp BP Pulse Ox 98.0 F 79 18 140/80 98 03/19/17 15:15 03/19/17 15:15 03/19/17 15:15 03/19/17 15:15 03/19/17 15:15 - Physical Exam Comments: GENERAL: Well developed, well nourished. Awake and alert. No acute distress. HEENT: Normocephalic, atraumatic. PERRLA, EOMI. No conjunctival pallor. Sclera are non- icteric. Moist mucous membranes. Oropharynx is clear. NECK: Supple. Full ROM. No JVD. Carotid pulses 2+ and symmetric, without bruits. No thyromegaly. No lymphadenopathy. CARDIOVASCULAR: Regular rate and rhythm. No murmurs, rubs, or gallops. Distal pulses are 2+ and symmetric. PULMONARY: No evidence of respiratory distress. Lungs clear to auscultation bilaterally. No wheezing, rales or rhonchi. ABDOMINAL: (+) Soft. protuberant, tender on palpation. With [place] and leg bag No rebound or guarding. No organomegaly. Normoactive bowel sounds. MUSCULOSKELETAL Normal range of motion at all joints. No bony deformities or tenderness. No CVA tenderness. EXTREMITIES: No cyanosis. No clubbing. No edema. No calf tenderness. SKIN: (+) Very warm. Dry. Normal capillary refill. No rashes. No jaundice. NEUROLOGICAL: Alert, awake, appropriate. Cranial nerves 2-12 intact. No deficits to light touch and temperature in face, upper extremities and lower extremities. No motor deficits in the in face, upper extremities and lower extremities. Normoreflexic in the upper and lower extremities. Normal speech. Toes are down-going bilaterally. Gait is normal without ataxia. PSYCHIATRIC: Cooperative. Good eye contact. Appropriate mood and affect. <Jim Coto - Last Filed: 03/20/17 01:36> Heart Score/ECG Review - ECG Impressions Comment:: Sinus rhythm with premature atrial complexes. Otherwise normal ECG Vent rate 77 bpm <Jim Coto - Last Filed: 03/20/17 01:36> ED Treatment Course - LABORATORY CBC & Chemistry Diagram: 03/19/17 17:10 03/19/17 17:10 - RADIOLOGY Radiology Studies Ordered: Category Date Time Status CHEST X-RAY PORTABLE* [RAD] Stat Radiology 03/19/17 16:37 Ordered <Bonnie Castrejon - Last Filed: 03/19/17 18:50> - LABORATORY CBC & Chemistry Diagram: 03/19/17 17:10 03/19/17 17:10 - RADIOLOGY Radiograph Interpretation: 03/19/17 18:41 EXAM#: TYPE/EXAM: RESULT: [id number] RAD/CHEST X-RAY PORTABLE* HISTORY PROVIDED: Sepsis. A single frontal portable projection of the chest at 5:10 PM is submitted. The heart size is within normal limits. The lung tracy are free of pulmonary infiltrates or pleural effusions. There is tortuosity and calcification of the thoracic aorta and degenerative changes of the thoracic spine. IMPRESSION: No acute disease. Reported By: Garland Lagos MD 03/19/17 1964 <Jim Coto - Last Filed: 03/20/17 01:36> Medical Decision Making - Medical Decision Making 03/19/17 17:[address] Lesia monsivais. Awaiting call back. 03/19/17 18:[address] Graf placed. Awaiting call back. 03/19/17 18:25 Dr. Graf called into ED to inform us that the patient is under Dr. Parmar's care. 03/19/17 18:[address] Agata monsivais, Dr. Haile is commercial collections specialist. Awaiting call back. 03/19/17 18:38 Dr. Haile called into ED. Case discussed. Agreed to admit. EXAM: Ultrasound abdomen limited, right upper quadrant IMAGES: 54 INDICATION: Elevated LFTs DATE OF SERVICE: 2017-03-20 00:53:07.0 COMPARISON: none FINDINGS: The liver is normal, without mass or biliary duct dilation. A tiny gallstones or sludge without secondary findings of cholecystitis. The CBD is not dilated and measures3 millimeters in diameter. Right kidney measures 9.0centimeters in length and is unremarkable. The visualized aorta and IVC are normal. Pancreas is partially obscured, but contains a 7 mm mm hypoechogenic structure, possibly a cyst IMPRESSION: Tiny gallstones or sludge without secondary signs for cholecystitis. Possible pancreatic head cyst may be followed up with nonemergent enhanced CT or MRI. THIS DOCUMENT HAS BEEN ELECTRONICALLY SIGNED Alvaro Escobar MD 03/20/2017 01:31 EST <Jim Coto - Last Filed: 03/20/17 01:36> *DC/Admit/Observation/Transfer - Discharge Dispostion Admit: Yes <Bonnie Castrejon - Last Filed: 03/19/17 18:50> - Attestations Scribe Attestion: Documentation prepared by Jim Coto, acting as medical education manager for Bonnie Castrejon MD. <Jim Coto - Last Filed: 03/20/17 01:36> Diagnosis at time of Disposition: Gram-positive bacteremia, Elevated liver function tests, Insulin dependent diabetes mellitus Dementia Qualifiers: Dementia type: Alzheimer's disease Alzheimer's disease onset: unspecified onset Dementia behavioral disturbance: without behavioral disturbance Qualified Code(s): G30.9 - Alzheimer's disease, unspecified - Referrals
[2017-03-19 17:21] LABS: EOSINOPHIL 1.6 % (0-4.5); MCH 28.6 pg (25.7-33.7); MCHC 32.9 g/dl (32.0-36.0); MEAN CELL VOLUME 86.8 fl (80-96); MEAN PLT VOLUME 8.4 fl (7.5-11.1); NEUTROPHILS 62.6 % (42.8-82.8); PLATELET COUNT 327 K/MM3 (134-434); RDW 14.1 % (11.6-15.6)
[2017-03-19] MEDS ORDERED: VANCOMYCIN 1,000 MG in DEXTROSE 5%-WATER - 250 ML IVPB ONE (17:35)
[2017-03-19] MEDS ORDERED: PIPERACILLIN/TAZOB 3.375 GM 3.375 GM in DEXTROSE 5%-WATER - 50 ML IVPB ONE (17:36)
[2017-03-19] MEDS ORDERED: VANCOMYCIN 1 GRAM (PRE-DOCKED) 250 ML IVPB ONE (17:38)
[2017-03-19 17:57] LABS: INR 1.03 (0.82-1.09); PROTHROMBIN TIME (PATIENT) 11.3 SEC (9.98-11.88)
[2017-03-19 18:25] LABS: ALBUMIN 2.4 g/dl (3.4-5.0); ALK PHOS 382 U/L (45-117); ANION GAP 14 (8-16); BILIRUBIN,TOTAL 0.2 mg/dL (0.2-1.0); CALCIUM 8.3 mg/dL (8.5-10.1); CO2 25 mmol/L (21-32); CREATININE 0.8 mg/dL (0.55-1.02); GLUCOSE,RANDOM 232 mg/dL (74-106); SGOT/AST 113 U/L (15-37); SGPT/ALT 100 U/L (12-78); TOT PROT 6.4 g/dl (6.4-8.2)
[2017-03-19 18:48] LABS: URINE APPEARANCE CLEAR; URINE BILIRUBIN NEGATIVE (NEGATIVE); URINE BLOOD NEGATIVE (NEGATIVE); URINE COLOR LTYELLOW; URINE GLUCOSE (UA) 3+ (NEGATIVE); URINE KETONE NEGATIVE (NEGATIVE); URINE NITRITE NEGATIVE (NEGATIVE); URINE UROBILINOGEN NEGATIVE E.U./dl (0.2-1.0)
[2017-03-19 18:59] LABS: URINE LEUK ESTERASE TRACE (NEGATIVE); URINE PROTEIN 2+ (NEGATIVE)
[2017-03-19 19:00] LABS: URINE HYALINE CAST 1 /lpf; URINE RBC 4 /hpf (0-3); URINE WBC 6 /hpf (3-5)
[2017-03-19] MEDS ORDERED: PIPERACILLIN/TAZOB 3.375 GM 50 ML IVPB ONE (19:54)
[2017-03-19] MEDS ORDERED: ACETAMINOPHEN 325 MG TABLET (FP) PO PRN (20:31)
[2017-03-19] MEDS: INSULIN DETEMIR 100 UNITS/ML MDV SQ SCH (22:55)
[2017-03-19] MEDS: MEMANTINE HCL 5 MG TABLET (UD) PO SCH (23:00)
[2017-03-20] MEDS ORDERED: INSULIN DETEMIR 100 UNITS/ML MDV SQ ONE
[2017-03-20] MEDS ORDERED: HEMOQUE TEST 1 EACH EACH ONE (00:06)
[2017-03-20 01:29] LABS: MCH 28.6 pg (25.7-33.7); MCHC 33.1 g/dl (32.0-36.0); MEAN CELL VOLUME 86.2 fl (80-96); PLATELET COUNT 324 K/MM3 (134-434)
[2017-03-20 01:57] LABS: ALBUMIN 2.3 g/dl (3.4-5.0); ALK PHOS 349 U/L (45-117); ANION GAP 10 (8-16); BILIRUBIN,TOTAL 0.2 mg/dL (0.2-1.0); CALCIUM 8.3 mg/dL (8.5-10.1); CO2 28 mmol/L (21-32); CREATININE 0.7 mg/dL (0.55-1.02); GLUCOSE,RANDOM 132 mg/dL (74-106); SGOT/AST 84 U/L (15-37); SGPT/ALT 90 U/L (12-78); TOT PROT 6.2 g/dl (6.4-8.2)
[2017-03-20] MEDS: INSULIN SLIDING SCALE (NOVOLOG) 1 VIAL SQ SCH ×4 (08:22→21:33)
[2017-03-20] MEDS: GLIMEPIRIDE 4 MG TABLET (FP) PO SCH (08:43)
[2017-03-20] MEDS: MEMANTINE HCL 5 MG TABLET (UD) PO SCH ×2 (09:12→21:34)
--- NOTE | 2017-03-20 09:15 | HP ---
Admitting History and Physical - Admission History of Present Illness: 76 year old female, from [facility], with a significant past medical history of hypertension, diabetes mellitus and Alzheimer's dementia, who presents to the emergency department today for repeat lab work after lab variances from her previous lab work. The rest of the HPI is limited due to the patients clinical condition. - Past Medical History VEIN PUMPER: Yes: Dementia Cardiovascular: Yes: HTN, Hyperlipdemia, Other (PSVT) Endocrine: Yes: Diabetes Mellitus - Smoking History Smoking history: Unknown if ever smoked Have you smoked in the past 12 months: No Aproximately how many cigarettes per day: 0 - Alcohol/Substance Use Hx Alcohol Use: No - Social History ADL: Support Services History of Recent Travel: No Home Medications - Allergies Allergies/Adverse Reactions: Allergies Allergy/AdvReac Type Severity Reaction Status Date / Time No Known Allergies Allergy Verified 08/18/16 16:47 - Home Medications Home Medications: Ambulatory Orders Acetaminophen [Pain Relief] 650 mg PO QID PRN 03/13/17 Cholecalciferol (Vitamin D3) [Vitamin D3] 1,000 unit PO DAILY 03/13/17 Glimepiride [Amaryl] 4 mg PO DAILY 03/13/17 Insulin Lispro [Humalog] 0 unit SQ ASDIR 03/13/17 Memantine HCl [Namenda -] 10 mg PO BID 03/13/17 Guaifenesin/D-Methorphan Hb/PE [Tussin Cf Max M-S Cold Liquid] 5 ml PO QID PRN 03/19/17 Insulin Glargine,Hum.rec.anlog [Lantus (nf)] 15 units SQ AM 03/19/17 Nut.tx.gluc.intoler,Lac-Fr,Soy [Glucerna] 237 ml PO TID 03/19/17 Physical Examination Vital Signs: Vital Signs Temperature 98.6 F 03/20/17 08:26 Pulse Rate 82 03/20/17 07:17 Respiratory Rate 17 03/20/17 07:17 Blood Pressure 141/63 03/20/17 07:17 O2 Sat by Pulse Oximetry (%) 98 03/20/17 08:08 Cardiovascular: Yes: S1, S2 Respiratory: Yes: Regular, CTA Bilaterally Gastrointestinal: Yes: Normal Bowel Sounds, Soft Edema: No Neurological: Yes: Confusion Labs: CBC, BMP 03/20/17 01:22 03/20/17 01:22 Problem List - Problems (1) Gram-positive bacteremia Assessment/Plan: IV ABX ID CONSULT Code(s): R78.81 - BACTEREMIA (2) Insulin dependent diabetes mellitus Assessment/Plan: BGM SS ENDO Code(s): E11.9 - TYPE 2 DIABETES MELLITUS WITHOUT COMPLICATIONS Z79.4 - FDC (CURRENT) USE OF INSULIN (3) Dementia Assessment/Plan: MONITOR NEURO Code(s): F03.90 - UNSPECIFIED DEMENTIA WITHOUT BEHAVIORAL DISTURBANCE Qualifiers: Dementia type: Alzheimer's disease Alzheimer's disease onset: unspecified onset Dementia behavioral disturbance: without behavioral disturbance Qualified Code(s): G30.9 - Alzheimer's disease, unspecified; F02.80 - Dementia in other diseases classified elsewhere without behavioral disturbance (4) HTN (hypertension) Assessment/Plan: MONITOR ON MEDS Code(s): I10 - ESSENTIAL (PRIMARY) HYPERTENSION
[2017-03-20] MEDS ORDERED: PIPERACILLIN/TAZOB 3.375 GM/50 ML PRE-DOCKED IVPB ONE (10:00)
--- NOTE | 2017-03-20 10:06 | CONSULT ---
Consultation: REQUESTING PROVIDER: Dr. Haile CONSULT REQUEST: We have been asked to medically evaluate this patient for gram positive bacteremia?. HISTORY OF PRESENT ILLNESS: 76 year old female with dementia, brought from [facility] due to lab variance. Patient was recently treated here at [facility] for sepsis secondary to urinary tract infection on 03/13/17. Urine culture was positive for proteus, sensitive to rocephin, which she was treated for. Blood cultures from that admission grew corynebacterium afernetam. Upon today's admission patient was afebrile, no white count, urine analysis was not evident for nitrite or leukocyte esterase. CXR was negative. Patient liver enzymes were elevated along with alk phos. Abdominal ultrasound showed possible pancreatic cyst, negative cholecystitis, or other acute pathology. History/ROS is limited due to patient severe dementia. PMHx included HTN, DM. PHYSICAL EXAMINATION Vital Signs - 24 hr 03/20/17 03/20/17 03/20/17 03:30 07:07 07:17 Temperature 98.9 F 98.0 F Pulse Rate [ 75 78 82 Left] Respiratory 16 17 Rate Blood Pressure 157/76 137/59 141/63 [Left] O2 Sat by Pulse 97 96 97 Oximetry (%) 03/20/17 03/20/17 08:08 08:26 Temperature 98.6 F Pulse Rate [ Left] Respiratory Rate Blood Pressure [Left] O2 Sat by Pulse 98 Oximetry (%) GENERAL: Awake, alert, does not respond to questioning; not oriented HEAD: Normal with no signs of trauma. EYES: Pupils equal, round and reactive to light, extraocular movements intact, sclera anicteric, conjunctiva clear. No lid lag. LUNGS: Breath sounds equal, clear to auscultation bilaterally. No wheezes, and no crackles. No accessory muscle use. HEART: Regular rate and rhythm, normal S1 and S2 without murmur, rub or gallop. ABDOMEN: Soft, slight tenderness to palpation, not distended, normoactive bowel sounds, no guarding, no rebound, no masses. No hepatomegaly or splenomegaly. MUSCULOSKELETAL: Normal range of motion at all joints. No bony deformities or tenderness. No CVA tenderness. UPPER EXTREMITIES: 2+ pulses, warm, well-perfused. No cyanosis. No clubbing. Cap refill <2 seconds. No peripheral edema. LOWER EXTREMITIES: 2+ pulses, warm, well-perfused. No calf tenderness. No peripheral edema. NEUROLOGICAL: demented SKIN: Warm, dry, normal turgor, no rashes or lesions noted. stage I decubitus; no break down CBC, BMP 03/20/17 01:22 03/20/17 01:22 Active Medications Generic Name Dose Route Start Last Admin Trade Name Sheldon PRN Reason Stop Dose Admin Acetaminophen 650 mg 03/19/17 20:31 Tylenol - PO Q6H PRN FEVER OR PAIN Glimepiride 4 mg 03/20/17 07:00 03/20/17 08:43 Amaryl - PO Not Given DAILY@0700 [facility] Insulin Aspart 1 vial 03/19/17 22:00 03/20/17 08:22 Novolog Vial Sliding Scale - SQ Not Given ACHS [facility] Protocol Insulin Detemir 15 units 03/19/17 22:00 03/19/17 22:55 Levemir Vial SQ 15 unit HS DAVID Administration Memantine 5 mg 03/19/17 22:00 03/20/17 09:12 Namenda - PO 5 mg BID DAVID Administration Piperacillin Sod/Tazobactam Sod 3.375 gm 03/20/17 18:00 Zosyn 3.375gm Ivpb (Pre-Docked) IVPB Q8H-IV DAVID Protocol ASSESSMENT/PLAN: 76 year old female, with dementia, [place] due to lab variance. Previous admission blood cultures were positive for cornybacterium, this is most likely a skin contaminant, patient does not show signs of bacteremia or acute infection. Will watch off antibiotics and follow up repeat blood cultures. #lab variance: positive blood cultures form last admission: -afebrile, vital signs wnl; no acute signs of infection -blood cultures from previous admission grew cornybacterium, which is most likely skin contaminant -previous UTI treated and resolved with rocephin -watch off antibiotics -follow up repeat blood cultures #elevated liver function enzymes: -abdominal US significant for 7mm pancreatic cyst , head of pancreas -would recommend follow up with Abdominal/pelvic CT with po/IV contrast Dispo: We will continue to follow the patient. Thank you for this consultative opportunity. Visit type - Emergency Visit Emergency Visit: Yes ED Registration Date: 03/19/17 Care time: The patient presented to the Emergency Department on the above date and was hospitalized for further evaluation of their emergent condition. - New Patient This patient is new to me today: Yes Date on this admission: 03/20/17 - Critical Care Critical Care patient: No
--- NOTE | 2017-03-20 11:06 | PN ---
Teaching Attending Note Name of Resident: Queenie Moreno ATTENDING PHYSICIAN STATEMENT I saw and evaluated the patient. I reviewed the resident's note and discussed the case with the resident. I agree with the resident's findings and plan as documented. SUBJECTIVE: Confused Offers no complaints OBJECTIVE: Cor S1S2 no murmur Lungs clear Abdomen soft, non tender ASSESSMENT AND PLAN: +BC Corynebacterium sp= contaminant UTI- treated Elevated LFTs/ cholelithiasis Observe off antibiotics Consider CT abdo/pelvis / GI evaluation for elevated LFTs/ cholelithiasis
--- NOTE | 2017-03-20 17:12 | EKG ---
Test Reason : Blood Pressure : / mmHG Vent. Rate : 077 BPM Atrial Rate : 077 BPM P-R Int : 126 ms QRS Dur : 070 ms QT Int : 394 ms P-R-T Axes : 069 025 041 degrees QTc Int : 445 ms SINUS RHYTHM WITH PREMATURE ATRIAL COMPLEXES OTHERWISE NORMAL ECG WHEN COMPARED WITH ECG OF 13-MAR-2017 14:18, PREMATURE ATRIAL COMPLEXES ARE NOW PRESENT T WAVE VARIATION Confirmed by KATINA BECK, CINTIA ([id number]) on 03/20/2017 5:12:12 PM Referred By: Confirmed By:CINTIA AMBRIZ MD
--- NOTE | 2017-03-20 17:13 | EKG ---
Test Reason : Blood Pressure : / mmHG Vent. Rate : 076 BPM Atrial Rate : 076 BPM P-R Int : 142 ms QRS Dur : 074 ms QT Int : 390 ms P-R-T Axes : 054 016 031 degrees QTc Int : 438 ms NORMAL SINUS RHYTHM NORMAL ECG WHEN COMPARED WITH ECG OF 13-MAR-2017 14:18, NO SIGNIFICANT CHANGE WAS FOUND Confirmed by CNITIA AMBRIZ MD ([id number]) on 03/20/2017 5:13:03 PM Referred By: Confirmed By:CINTIA AMBRIZ MD
[2017-03-20] MEDS ORDERED: PIPERACILLIN/TAZOB 3.375 GM/50 ML PRE-DOCKED IVPB SCH (18:00)
[2017-03-20] MEDS: INSULIN DETEMIR 100 UNITS/ML MDV SQ SCH (21:34)
[2017-03-21] MEDS: INSULIN SLIDING SCALE (NOVOLOG) 1 VIAL SQ SCH ×4 (06:04→21:42)
[2017-03-21] MEDS: GLIMEPIRIDE 4 MG TABLET (FP) PO SCH (06:34)
--- NOTE | 2017-03-21 08:22 | PN ---
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, Physician - Current Medication List Current Medications: Active Medications Acetaminophen (Tylenol -) 650 mg PO Q6H PRN PRN Reason: FEVER OR PAIN Glimepiride (Amaryl -) 4 mg PO DAILY@0700 [facility] Last Admin: 03/21/17 06:34 Dose: 4 mg Insulin Aspart (Novolog Vial Sliding Scale -) 1 vial SQ ACHS [facility] PRN Reason: Protocol Last Admin: 03/21/17 06:04 Dose: Not Given Insulin Detemir (Levemir Vial) 15 units SQ HS [facility] Last Admin: 03/20/17 21:34 Dose: 15 unit Memantine (Namenda -) 5 mg PO BID [facility] Last Admin: 03/20/17 21:34 Dose: 5 mg Piperacillin Sod/Tazobactam Sod (Zosyn 3.375gm Ivpb (Pre-Docked)) 3.375 gm IVPB Q8H-IV DAVID PRN Reason: Protocol Pneumococcal 13-Valent Conj Vacc (Prevnar 13 Syringe -) 0.5 ml IM .ONCE ONE Stop: 03/21/17 07:27 - Objective Vital Signs: Vital Signs Temperature 97.7 F 03/21/17 07:16 Pulse Rate 98 H 03/21/17 07:16 Respiratory Rate 20 03/21/17 07:16 Blood Pressure 134/62 03/21/17 07:16 O2 Sat by Pulse Oximetry (%) 97 03/20/17 20:47 Cardiovascular: Yes: S1, S2 Respiratory: Yes: Regular, CTA Bilaterally Gastrointestinal: Yes: Normal Bowel Sounds, Soft Neurological: Yes: Confusion Labs: CBC, BMP 03/20/17 01:22 03/20/17 01:22 INR, PTT INR 1.03 (0.82-1.09) 03/19/17 17:10 Problem List - Problems (1) Gram-positive bacteremia Assessment/Plan: OFF ABX PER ID ID CONSULT NOTED--CT SCAN Code(s): R78.81 - BACTEREMIA (2) Insulin dependent diabetes mellitus Assessment/Plan: BGM SS ENDO Code(s): E11.9 - TYPE 2 DIABETES MELLITUS WITHOUT COMPLICATIONS Z79.4 - PRODUCTION TRAINER (CURRENT) USE OF INSULIN (3) Dementia Assessment/Plan: MONITOR NEURO Code(s): F03.90 - UNSPECIFIED DEMENTIA WITHOUT BEHAVIORAL DISTURBANCE Qualifiers: Dementia type: Alzheimer's disease Alzheimer's disease onset: unspecified onset Dementia behavioral disturbance: without behavioral disturbance Qualified Code(s): G30.9 - Alzheimer's disease, unspecified; F02.80 - Dementia in other diseases classified elsewhere without behavioral disturbance (4) HTN (hypertension) Assessment/Plan: MONITOR ON MEDS Code(s): I10 - ESSENTIAL (PRIMARY) HYPERTENSION (5) Abnormal LFTs Assessment/Plan: FOLLOW LABS GI CONSULT CT SCAN Code(s): R79.89 - OTHER SPECIFIED ABNORMAL FINDINGS OF BLOOD CHEMISTRY
[2017-03-21 10:27] LABS: BASOPHIL 0.3 % (0-2.0); MCH 28.8 pg (25.7-33.7); MCHC 33.3 g/dl (32.0-36.0); MEAN CELL VOLUME 86.4 fl (80-96); MEAN PLT VOLUME 7.6 fl (7.5-11.1); NEUTROPHILS 70.1 % (42.8-82.8); PLATELET COUNT 397 K/MM3 (134-434)
[2017-03-21] MEDS: MEMANTINE HCL 5 MG TABLET (UD) PO SCH ×2 (10:35→21:42)
[2017-03-21 10:55] LABS: ALBUMIN 2.5 g/dl (3.4-5.0); ALK PHOS 394 U/L (45-117); ANION GAP 13 (8-16); BILIRUBIN,TOTAL 0.6 mg/dL (0.2-1.0); CALCIUM 8.9 mg/dL (8.5-10.1); CO2 26 mmol/L (21-32); CREATININE 0.6 mg/dL (0.55-1.02); GLUCOSE,RANDOM 115 mg/dL (74-106); SGOT/AST 48 U/L (15-37); SGPT/ALT 73 U/L (12-78)
[2017-03-21] MEDS ORDERED: PNEUMOC 13-VAL CONJ-DIP CRM/PF 0.5 ML DISP.SYRIN IM ONE (11:00)
--- NOTE | 2017-03-21 11:47 | CONSULT ---
Consult Consult Specialty:: endocrine Referred by:: brock kowalski Reason for Consultation:: diabetes mellitus - History of Present Illness Chief Complaint: weakness lethary History of Present Illness: 76 year old female, from [facility], with a significant past medical history of hypertension, diabetes mellitus and Alzheimer's dementia, who presents to the emergency department today for repeat lab work after lab variances from her previous lab work. 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 Cardio/Vascular: Yes: HTN, Hyperlipdemia, Other (PSVT) Endocrine: Yes: Diabetes Mellitus - Alcohol/Substance Use Hx Alcohol Use: No - Smoking History Smoking history: Unknown if ever smoked Have you smoked in the past 12 months: No Aproximately how many cigarettes per day: 0 - Social History ADL: Support Services History of Recent Travel: No Home Medications - Allergies Allergies/Adverse Reactions: Allergies Allergy/AdvReac Type Severity Reaction Status Date / Time No Known Allergies Allergy Verified 08/18/16 16:47 - Home Medications Home Medications: Ambulatory Orders Acetaminophen [Pain Relief] 650 mg PO QID PRN 03/13/17 Cholecalciferol (Vitamin D3) [Vitamin D3] 1,000 unit PO DAILY 03/13/17 Glimepiride [Amaryl] 4 mg PO DAILY 03/13/17 Insulin Lispro [Humalog] 0 unit SQ ASDIR 03/13/17 Memantine HCl [Namenda -] 10 mg PO BID 03/13/17 Guaifenesin/D-Methorphan Hb/PE [Tussin Cf Max M-S Cold Liquid] 5 ml PO QID PRN 03/19/17 Insulin Glargine,Hum.rec.anlog [Lantus (nf)] 15 units SQ AM 03/19/17 Nut.tx.gluc.intoler,Lac-Fr,Soy [Glucerna] 237 ml PO TID 03/19/17 Review of Systems Unable to obtain ROS, reason: dementia - Review of Systems Constitutional: reports: Lethargy, Loss of Appetite, Weakness Physical Exam Vital Signs: Vital Signs Temperature 97.7 F 03/21/17 07:16 Pulse Rate 98 H 03/21/17 07:16 Respiratory Rate 20 03/21/17 07:16 Blood Pressure 134/62 03/21/17 07:16 O2 Sat by Pulse Oximetry (%) 97 03/20/17 20:47 Constitutional: Yes: Calm Eyes: Yes: EOM Intact HENT: Yes: Normocephalic Neck: Yes: Trachea Midline Cardiovascular: Yes: Regular Rate and Rhythm Respiratory: Yes: CTA Bilaterally Gastrointestinal: Yes: Normal Bowel Sounds ...Rectal Exam: Yes: Deferred Renal/: Yes: WNL Breast(s): Yes: WNL Musculoskeletal: Yes: Joint Stiffness, Muscle Pain, Muscle Weakness Extremities: Yes: WNL Edema: No Integumentary: Yes: WNL Neurological: Yes: Alert ...Motor Strength: WNL Psychiatric: Yes: Alert Labs: CBC, BMP 03/21/17 10:01 03/21/17 10:01 Assessment/Plan Current Active Problems Abnormal LFTs (Acute) Elevated liver function tests (Acute) Gram-positive bacteremia (Acute) Insulin dependent diabetes mellitus (Acute) Dementia (Chronic) Abnormal Lab Results 03/21/17 10:01 Random Glucose 115 H AST 48 H D Alkaline Phosphatase 394 H Albumin 2.5 L Laboratory Results - last 24 hr 03/20/17 03/20/17 03/20/17 08:22 18:33 21:32 WBC RBC Hgb Hct MCV MCHC RDW Plt Count MPV Neutrophils % Lymphocytes % Monocytes % Eosinophils % Basophils % Sodium Potassium Chloride Carbon Dioxide Anion Gap BUN Creatinine Creat Clearance w eGFR POC Glucometer 65.90464 184.47743 120 Random Glucose Calcium Total Bilirubin AST ALT Alkaline Phosphatase Total Protein Albumin 03/21/17 03/21/17 03/21/17 05:06 10:01 10:01 WBC 9.0 RBC 4.31 Hgb 12.4 Hct 37.2 MCV 86.4 MCHC 33.3 RDW 14.0 Plt Count 397 D MPV 7.6 Neutrophils % 70.1 Lymphocytes % 20.4 Monocytes % 8.2 Eosinophils % 1.0 Basophils % 0.3 Sodium 139 Potassium 4.1 Chloride 100 Carbon Dioxide 26 Anion Gap 13 BUN 8 D Creatinine 0.6 Creat Clearance w eGFR > 60 POC Glucometer 117 Random Glucose 115 H Calcium 8.9 Total Bilirubin 0.6 D AST 48 H D ALT 73 Alkaline Phosphatase 394 H Total Protein 7.0 Albumin 2.5 L plan:bgm ac hs novolog cvg check hb a1c tsh
--- NOTE | 2017-03-21 18:22 | CONSULT ---
Consult - text type - Consultation Consultation Note: NEUROLOGY CONSULTATION is great appreciated: This 76 yo female [facility] resident with h/o DM, HTN, and Alzheimer's disease. On Insulins, glimepiride and namenda 5 mg BID. Now admitted for infection and elevated LFT's. On Zosyn. ARLEN: Neck rigid in all directions. No bruits. No head trauma. No obvious skin breakdown. NEURO: Lethargic but easily arousable to gentle shake. Follows no commands. No speech. + Glabella, snout, suck, grasps (symmetrical). Full tracy to threat. No facial weakness. Moves all fours with rigid tone. Normal reflexes, reduced KJ's and AJ's. Toes downgoing. Withdraws all fours symetrically to pinch. IMP: Non-focal exam with severe, B/L, cerebral dysfunction (OMS, Chronic) Most likely advanced Alzheimer's Disease (AD). Suggest: Continue nutrition, hydration and supportive care. Doubt efficacy of memantine and would D/C, especially if etiology of elevated LFT's is not apparent. Check B12, TSH. Thank you very much, Kenneth Chou MD
--- NOTE | 2017-03-21 21:25 | CON.GI ---
Consult - History of Present Illness History of Present Illness: 76 F with h/o advanced Alzheimers, DM, HTN, HLD, admitted for evaluation of abnormal labs suggesting sepsis. Repeat BC and Urine C&S negative. I am called to evaluate elevated LFT's. AST/ALT 2 x normal on admission and normal at this time. Aldk phos has remained elevated at ~300 and bilirubin has been normal throughout. (0.2) She is non-verbal and incoherent. CT shows only retained stool. 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 Cardio/Vascular: Yes: HTN, Hyperlipdemia, Other (PSVT) Endocrine: Yes: Diabetes Mellitus - Alcohol/Substance Use Hx Alcohol Use: No - Smoking History Smoking history: Unknown if ever smoked Have you smoked in the past 12 months: No Aproximately how many cigarettes per day: 0 - Social History ADL: Support Services History of Recent Travel: No Home Medications - Allergies Allergies/Adverse Reactions: Allergies Allergy/AdvReac Type Severity Reaction Status Date / Time No Known Allergies Allergy Verified 08/18/16 16:47 - Home Medications Home Medications: Ambulatory Orders Acetaminophen [Pain Relief] 650 mg PO QID PRN 03/13/17 Cholecalciferol (Vitamin D3) [Vitamin D3] 1,000 unit PO DAILY 03/13/17 Glimepiride [Amaryl] 4 mg PO DAILY 03/13/17 Insulin Lispro [Humalog] 0 unit SQ ASDIR 03/13/17 Memantine HCl [Namenda -] 10 mg PO BID 03/13/17 Guaifenesin/D-Methorphan Hb/PE [Tussin Cf Max M-S Cold Liquid] 5 ml PO QID PRN 03/19/17 Insulin Glargine,Hum.rec.anlog [Lantus (nf)] 15 units SQ AM 03/19/17 Nut.tx.gluc.intoler,Lac-Fr,Soy [Glucerna] 237 ml PO TID 03/19/17 Physical Exam-GI Vital Signs: Vital Signs Temperature 97.9 F 03/21/17 15:38 Pulse Rate 97 H 03/21/17 15:38 Respiratory Rate 18 03/21/17 15:38 Blood Pressure 161/91 03/21/17 15:38 O2 Sat by Pulse Oximetry (%) 95 03/21/17 09:00 Constitutional: Yes: Calm, Thin HENT: Yes: Normocephalic Neck: Yes: Supple Cardiovascular: Yes: Regular Rate and Rhythm Respiratory: Yes: CTA Bilaterally Gastrointestinal Inspection: Yes: WNL ...Auscultate: Yes: Normoactive Bowel Sounds ...Palpate: Yes: Soft. No: Hepatomegaly, Tenderness Labs: CBC, BMP 03/21/17 10:01 03/21/17 10:01 INR, PTT INR 1.03 (0.82-1.09) 03/19/17 17:10 Hepatic Panel Total Bilirubin 0.6 mg/dL (0.2-1.0) D 03/21/17 10:01 AST 48 U/L (15-37) H D 03/21/17 10:01 ALT 73 U/L (12-78) 03/21/17 10:01 Alkaline Phosphatase 394 U/L (45-117) H 03/21/17 10:01 Albumin 2.5 g/dl (3.4-5.0) L 03/21/17 10:01 Imaging - Results Cat Scan: Report Reviewed Assessment/Plan 76 F with dementia and an elevated alk phos. CT shows no biliary issue. The U/S reveals gallstones/sludge and a 7 mm cystic lesion in the pancreatic head Rec: Fractionate alk phos. R/O bone source Poss passed stones and sludge. As transaminases are now near normal and no bump in t bili, would manage conservatively. Unlikely she would tolerate MR Start actigal and continue diet
[2017-03-21] MEDS: INSULIN DETEMIR 100 UNITS/ML MDV SQ SCH (21:42)
[2017-03-21] MEDS: URSODIOL 300 MG CAPSULE PO SCH (22:41)
[2017-03-22] MEDS: GLIMEPIRIDE 4 MG TABLET (FP) PO SCH (06:06)
[2017-03-22] MEDS: INSULIN SLIDING SCALE (NOVOLOG) 1 VIAL SQ SCH (06:08)
--- NOTE | 2017-03-22 08:00 | DS ---
Physical Examination Vital Signs: Vital Signs Temperature 97.8 F 03/22/17 07:44 Pulse Rate 78 03/22/17 07:44 Respiratory Rate 20 03/22/17 07:44 Blood Pressure 142/86 03/22/17 07:44 O2 Sat by Pulse Oximetry (%) 95 03/21/17 22:00 Cardiovascular: Yes: S1, S2 Respiratory: Yes: Regular, CTA Bilaterally Gastrointestinal: Yes: Normal Bowel Sounds, Soft Edema: No Neurological: Yes: Alert, Confusion Labs: CBC, BMP 03/21/17 10:01 03/21/17 10:01 Discharge Summary Reason For Visit: DIABETES MELLITIS, GRAM POSITIVE BACTEREMIA Current Active Problems Abnormal LFTs (Acute) Elevated liver function tests (Acute) Gram-positive bacteremia (Acute) Insulin dependent diabetes mellitus (Acute) Dementia (Chronic) Hospital Course: 76 year old female, from [facility], with a significant past medical history of hypertension, diabetes mellitus and Alzheimer's dementia, who presents to the emergency department today for repeat lab work after lab variances from her previous lab work. The rest of the HPI is limited due to the patients clinical condition. 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 Cardiovascular: Yes: HTN, Hyperlipdemia, Other (PSVT) Endocrine: Yes: Diabetes Mellitus Problems (1) Gram-positive bacteremia Assessment/Plan: OFF ABX PER ID ID CONSULT NOTED--CT SCAN NOTED REPEAT NEGATIVE Code(s): R78.81 - BACTEREMIA (2) Insulin dependent [facility] mellitus [facility]): E11.9 - TYPE 2 DIABETES MELLITUS WITHOUT COMPLICATIONS Z79.4 - [facility]CI (CURRENT) USE OF INSULIN (3) Dementia Assessment/Plan: MONITOR NEURO Code(s): F03.90 - UNSPECIFIED DEMENTIA WITHOUT BEHAVIORAL DISTURBANCE Qualifiers: Dementia type: Alzheimer's disease Alzheimer's disease onset: unspecified onset Dementia behavioral disturbance: without behavioral disturbance Qualified Code(s): G30.9 - Alzheimer's disease, unspecified; F02.80 - Dementia in other diseases classified elsewhere without behavioral disturbance (4) HTN (hypertension) Assessment/Plan: MONITOR ON MEDS Code(s): I10 - ESSENTIAL (PRIMARY) HYPERTENSION (5) Abnormal LFTs Assessment/Plan: FOLLOW LABS GI CONSULT--NOTED--POSSIBLE PASSED STONE CT SCAN Code(s): R79.89 - OTHER SPECIFIED ABNORMAL FINDINGS OF BLOOD CHEMISTRY Condition: Stable - Instructions Diet, Activity, Other Instructions: cmp cbc one week Referrals: Nevin Parmar MD [Primary Care Provider] - Disposition: [facility] - Home Medications Comprehensive Discharge Medication List: Ambulatory Orders Acetaminophen [Pain Relief] 650 mg PO QID PRN 03/13/17 Cholecalciferol (Vitamin D3) [Vitamin D3] 1,000 unit PO DAILY 03/13/17 Glimepiride [Amaryl] 4 mg PO DAILY 03/13/17 Insulin Lispro [Humalog] 0 unit SQ ASDIR 03/13/17 Memantine HCl [Namenda -] 10 mg PO BID 03/13/17 Guaifenesin/D-Methorphan Hb/PE [Tussin Cf Max M-S Cold Liquid] 5 ml PO QID PRN 03/19/17 Insulin Glargine,Hum.rec.anlog [Lantus (10mL VIAL) -] 15 units SQ AM 03/19/17 Nut.tx.gluc.intoler,Lac-Fr,Soy [Glucerna] 237 ml PO TID 03/19/17 Ursodiol [Actigal -] 300 mg PO BID #60 tab 03/22/17
[2017-03-22] MEDS ORDERED: PT OWN MED DRAWER 7, Y5N ONE (09:41)
[2017-03-22] MEDS: URSODIOL 300 MG CAPSULE PO SCH (09:49)
[2017-03-22] MEDS: MEMANTINE HCL 5 MG TABLET (UD) PO SCH (09:49)
[2017-03-22 09:52] VITALS: BP 180/67; PULSE 95; TEMP 98.7
[2017-03-26 14:12] LABS: ALKALINE PHOSPHATASE 318 IU/L (39-117); INTESTINAL FRAC.: 0 % (0-18)
== END 2017-03-22 10:58 | DRG 445 ==
LOC: JER 15:10 → JERBED 18:51 → J5S 03-20 19:03
PROVIDERS: ADMIT Family Medicine; ATTEND Family Medicine
DX: K80.20 Calculus of gallbladder without cholecystitis without obstruction (principal); R78.81 Bacteremia; K86.2 Cyst of pancreas; E11.9 Type 2 diabetes mellitus without complications; Z79.4 Long term (current) use of insulin; I10 Essential (primary) hypertension; G30.9 Alzheimer's disease, unspecified; F02.80 Dementia in other diseases classified elsewhere, unspecified severity, without behavioral disturbance, psychotic disturbance, mood disturbance, and anxiety; E78.5 Hyperlipidemia, unspecified; R79.89 Other specified abnormal findings of blood chemistry
CPT/HCPCS: 36415; 71010-TC; 74176-TC; 76705-TC; 80053; 81003; 81015; 84080; 85025; 85027; 85610; 87040; 87086; 90670; 93005; 93010; 99285-25; G0480

== ENCOUNTER 2017-11-27 07:43 | Inpatient (IN) | payer OTHER ==
--- NOTE | 2017-11-27 08:50 | PDOC ---
Attending Attestation - HPI HPI: 11/27/17 16:58 This is a 76 with h/o IDDM, right heel pressure ulcer, HTN, Alzheimer's dementia , SHERLYN, UTI, PNA, and gallstones, BIBA from [facility] for rectal temperature of 102.5. No additional medical history is provided. The patient herself is nonverbal and unable to provide any of her medical history. - Physicial Exam PE: 11/27/17 15:00 GENERAL: Nonverbal, in no acute distress HEAD: No signs of trauma EYES: PERRLA, EOMI, sclera anicteric, conjunctiva clear ENT: Auricles normal inspection, hearing grossly normal, nares patent, oropharynx clear without exudates. Moist mucosa NECK: Normal ROM, supple, no lymphadenopathy, JVD, or masses LUNGS: Breath sounds equal, clear to auscultation bilaterally. No wheezes, and no crackles HEART: Regular rate and rhythm, normal S1 and S2, no murmurs, rubs or gallops ABDOMEN: Soft, nontender, normoactive bowel sounds. No guarding, no rebound. No masses EXTREMITIES: Normal range of motion, no edema. No clubbing or cyanosis. No cords , erythema, or tenderness BACK: No midline spinal tenderness in cervical/thoracic/lumbar region NEUROLOGICAL: Normal speech, cranial nerves intact, negative pronator drift, 5/ 5 strength in all 4 extremities, normal sensation to light touch in all 4 extremities, normal cerebellar exam, normal gait, normal reflexes and tone SKIN: Warm, Dry, normal turgor, no rashes or lesions noted. <Diana Wilder - Last Filed: 11/27/17 16:58> - Resident Resident Name: Dyan Ortiz - ED Attending Attestation I have performed the following: I have examined & evaluated the patient, The case was reviewed & discussed with the resident, I agree w/resident's findings & plan, Exceptions are as noted - Medical Decision Making 11/27/17 10:07 77-year-old female fpc patient with multiple medical problems presents with rectal temperature of 102.5. History is limited. Vitals remarkable for rectal temperature 100.6, vitals otherwise unremarkable. Will do sepsis work up and admit 11/27/17 18:27 Please ignore above physical exam. My exam: GENERAL: Nonverbal, in no acute distress HEAD: No signs of trauma EYES: PERRLA, EOMI, sclera anicteric, conjunctiva clear NECK: Normal ROM, supple, no lymphadenopathy, JVD, or masses LUNGS: Breath sounds equal, clear to auscultation bilaterally. No wheezes, and no crackles HEART: Regular rate and rhythm, normal S1 and S2, no murmurs, rubs or gallops ABDOMEN: Soft, non distended EXTREMITIES: No edema. No clubbing or cyanosis. No cords, erythema, or tenderness NEUROLOGICAL: cranial nerves grossly intact SKIN: Warm, Dry, normal turgor, no rashes or lesions noted. UA + for UTI, lactate elevated to 2.7, pt admitted. <RomanYomna - Last Filed: 11/27/17 18:30>
[2017-11-27 08:53] VITALS: BMI 22.1
[2017-11-27] MEDS ORDERED: SODIUM CHLORIDE 0.9% 1000 ML INFUS.BAG IV PRN (09:01)
--- NOTE | 2017-11-27 09:07 | PDOC ---
History of Present Illness - General Chief Complaint: SIRS, Suspected/Possible Stated Complaint: FEVER Time Seen by Provider: 11/27/17 08:17 History Source: EMS, Jail Records Exam Limitations: Clinical Condition - History of Present Illness Initial Comments: This is a 76 with h/o IDDM, right heel pressure ulcer, HTN, Alzheimer's dementia , SHERLYN, UTI, PNA, pancreatic head mass, and gallstones, BIBA from [facility] for rectal temperature of 102.5. No additional medical history is provided. The patient herself is nonverbal and unable to provide any of her medical history. Past History - Past Medical History Allergies/Adverse Reactions: Allergies Allergy/AdvReac Type Severity Reaction Status Date / Time No Known Allergies Allergy Verified 11/27/17 08:38 Home Medications: Ambulatory Orders Acetaminophen [Pain Relief] 650 mg PO QID PRN 03/13/17 Acetaminophen [Extra Strength Non-Aspirin] 500 mg PO TID PRN 11/27/17 Amlodipine Besylate [Norvasc -] 5 mg PO ONCE 11/27/17 Ascorbate Calcium [Vitamin C] 500 mg PO DAILY 11/27/17 Bethanechol Chloride [Urecholine] 50 mg PO TID 11/27/17 Glimepiride [Amaryl] 4 mg PO DAILY 11/27/17 Heparin - 5,000 unit SCJ BID 11/27/17 Insulin (LOG) Aspart [NovoLOG -] 11/27/17 Insulin (Levemir) [Levemir Vial] 100 unit SCJ ONCE 11/27/17 Memantine HCl [Namenda -] 10 mg PO BID 11/27/17 Multivit with Minerals No.55 [Centrum Flavor Burst Adult] 11/27/17 Ursodiol [Actigall] 300 mg PO BID 11/27/17 Anemia: No Asthma: No Cancer: No Cardiac Disorders: No CVA: No COPD: No CHF: No DVT: No Dementia: Yes Diabetes: Yes (ALZHEIMERS) GI Disorders: No Disorders: No HTN: Yes Hypercholesterolemia: No Liver Disease: No Seizures: No Thyroid Disease: No - Surgical History Abdominal Surgery: No Appendectomy: No Cardiac Surgery: No Cholecystectomy: No Lung Surgery: No Neurologic Surgery: No Orthopedic Surgery: No - Suicide/Smoking/Psychosocial Hx Smoking Status: No Smoking History: Unknown if ever smoked Have you smoked in the past 12 months: No Number of Cigarettes Smoked Daily: 0 Information on smoking cessation initiated: No Hx Alcohol Use: No Drug/Substance Use Hx: No Substance Use Type: None Hx Substance Use Treatment: No *Physical Exam - Vital Signs Last Vital Signs Temp Pulse Resp BP Pulse Ox 100.6 F H 77 18 122/62 100 11/27/17 07:43 11/27/17 07:43 11/27/17 07:43 11/27/17 07:43 11/27/17 07:43 - Physical Exam General Appearance: Yes: Other (chronically ill appearing and malnourished, nonverbal, makes occasional eye contact but is unable to track). No: Apparent Distress HEENT: positive: EOMI, CARLI, Hearing Grossly Normal, Other (dry mucous membranes ). negative: Scleral Icterus (R), Scleral Icterus (L), Nasal Congestion Neck: positive: Trachea midline, Supple. negative: Tender, Rigid, Lymphadenopathy (R), Lymphadenopathy (L) Respiratory/Chest: positive: Lungs Clear, Normal Breath Sounds. negative: Respiratory Distress, Crackles, Rhonchi, Stridor, Wheezing Cardiovascular: positive: Regular Rhythm, Regular Rate, S1, S2, Systolic Murmur (3/6). negative: Edema, JVD Gastrointestinal/Abdominal: positive: Normal Bowel Sounds, Tender (mild tenderness to suprapubic and LLQ regions, no rebound), Soft. negative: Organomegaly, Pulsatile Mass, Guarding Musculoskeletal: positive: Normal Inspection. negative: Decreased Range of Motion, Vertebral Tenderness Extremity: positive: Normal Capillary Refill, Normal Inspection, Normal Range of Motion. negative: Tender, Cyanosis Integumentary: positive: Normal Color, Dry, Warm, Other (healing right heel ulcer without drainage or erythema). negative: Erythema, Rash, Bruising Neurologic: positive: Alert, Other (moves all four extremities, eyes open spontaneously, squeezes examiners fingers when prompted but does not let go when prompted, no vocalizations, patient otherwise unable to participate in neuro exam) ED Treatment Course - LABORATORY CBC & Chemistry Diagram: 11/27/17 09:30 11/27/17 09:30 Medical Decision Making - Medical Decision Making This is a 76 with h/o Alzheimer's dementia, IDDM, UTI, PNA, gallstones; BIBA from [facility] for rectal temp 102.5. On exam she is febrile, mild tachycardia, is nonverbal, reacts with wincing on palpation of LLQ and suprapubic abdomen. DDX IBNLT UTI, PNA, flu, bronchitis, skin infection, etc. Ordered is septic workup incl CBCD CMP Mg Phos lactate cardiac panel VBG PT INR TS UA cx EKG CXR. 11/27/17 10:37 Patient with WBC >13k, Cr 1.4, BG 298, UA positive for UTI. Page is sent to [facility] for patient's PCP Dr. Parmar. Finn ordered and given. 11/27/17 13:28 Second page sent to speak with Pt's primary care team. 11/27/17 13:57 Overhead page sent for Dr. Parmar. 11/27/17 14:34 Dr. Haile is on the phone and I discuss the patient's case with him. He will kindly put in orders for the patient's admission. Per his recommendation, decision to admit is placed for Dr. Parmar. *DC/Admit/Observation/Transfer Diagnosis at time of Disposition: Acute kidney injury Sepsis Qualifiers: Sepsis type: sepsis due to unspecified organism Qualified Code(s): A41.9 - Sepsis, unspecified organism Urinary tract infection Qualifiers: Urinary tract infection type: site unspecified Hematuria presence: with hematuria Qualified Code(s): N39.0 - Urinary tract infection, site not specified - Discharge Dispostion Condition at time of disposition: Guarded Admit: Yes - Referrals - Patient Instructions - Post Discharge Activity
[2017-11-27 09:46] LABS: BASO % 0.5 % (0-2.0); EOS % 0.2 % (0-4.5); HEMATOCRIT 40.7 % (32.4-45.2); HEMOGLOBIN 13.2 GM/dL (10.7-15.3); LYMPH % 13.8 % (8-40); MCH 29.2 pg (25.7-33.7); MCHC 32.4 g/dl (32.0-36.0); MEAN CELL VOLUME 89.9 fl (80-96); MEAN PLT VOLUME 8.3 fl (7.5-11.1); NEUT % 78.5 % (42.8-82.8); PLATELET COUNT 330 K/MM3 (134-434); RBC 4.53 M/mm3 (3.60-5.2); RDW 13.7 % (11.6-15.6); WHITE BLOOD COUNT 13.4 K/mm3 (4.0-10.0)
[2017-11-27 09:56] LABS: INR 1.04 (0.82-1.09); PROTHROMBIN TIME (PATIENT) 11.8 SEC (9.98-11.88)
[2017-11-27 09:58] LABS: ACTIVATED PTT 26.7 SECONDS (26.9-34.4)
[2017-11-27 10:29] LABS: ANION GAP 11 (8-16); BLOOD UREA NITROGEN 45 mg/dL (7-18); CALCIUM 9.6 mg/dL (8.5-10.1); CHLORIDE 102 mmol/L (98-107); CO2 26 mmol/L (21-32); GLUCOSE,RANDOM 298 mg/dL (74-106); POTASSIUM 4.2 mmol/L (3.5-5.1); SGOT/AST 17 U/L (15-37); SODIUM 139 mmol/L (136-145)
[2017-11-27 10:33] LABS: ALBUMIN 3.4 g/dl (3.4-5.0); ALK PHOS 122 U/L (45-117); BILIRUBIN,TOTAL 0.5 mg/dL (0.2-1.0); CREATININE 1.4 mg/dL (0.55-1.02); SGPT/ALT 26 U/L (12-78); TOT PROT 8.2 g/dl (6.4-8.2)
[2017-11-27] MEDS ORDERED: SODIUM CHLORIDE 0.9% 1000 ML INFUS.BAG IV ONE (10:35)
[2017-11-27 10:38] LABS: VENOUS PC02 43.8 mmHg (38-52); VENOUS PH 7.38 (7.32-7.42); VENOUS PO2 28.2 mmHg (28-48)
[2017-11-27 11:48] LABS: URINE APPEARANCE SLCLOUDY; URINE BILIRUBIN NEGATIVE (NEGATIVE); URINE BLOOD 1+ (NEGATIVE); URINE COLOR YELLOW; URINE GLUCOSE (UA) 3+ (NEGATIVE); URINE KETONE NEGATIVE (NEGATIVE); URINE NITRITE POSITIVE (NEGATIVE); URINE UROBILINOGEN NEGATIVE mg/dL (0.2-1.0)
[2017-11-27 12:04] LABS: URINE LEUK ESTERASE 2+ (NEGATIVE); URINE PROTEIN 1+ (NEGATIVE)
[2017-11-27 12:08] LABS: EPI CELLS RARE /HPF (FEW); URINE BACTERIA MODERATE /hpf (NONE SEEN); URINE HYALINE CAST 3 /lpf; URINE MUCUS RARE
[2017-11-27] MEDS ORDERED: PIPERACILLIN/TAZOB 4.5 GM 4.5 GM in DEXTROSE 5%-WATER - 100 ML IVPB ONE (12:11)
[2017-11-27] MEDS ORDERED: PIPERACILLIN/TAZOB 4.5 GM 4.5 GM/100 ML BAG IVPB ONE (13:17)
--- NOTE | 2017-11-27 15:58 | HP ---
Admitting History and Physical - Admission History of Present Illness: This is a 76 with h/o IDDM, right heel pressure ulcer, HTN, Alzheimer's dementia , SHERLYN, UTI, PNA, pancreatic head mass, and gallstones, BIBA from [facility] for rectal temperature of 102.5. No additional medical history is provided. The patient herself is nonverbal and unable to provide any of her medical history. 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 Cardiovascular: Yes: HTN, Hyperlipdemia, Other (PSVT) Endocrine: Yes: Diabetes Mellitus - Smoking History Smoking history: Unknown if ever smoked Have you smoked in the past 12 months: No Aproximately how many cigarettes per day: 0 - Alcohol/Substance Use Hx Alcohol Use: No - Social History ADL: Support Services History of Recent Travel: No Home Medications - Allergies Allergies/Adverse Reactions: Allergies Allergy/AdvReac Type Severity Reaction Status Date / Time No Known Allergies Allergy Verified 11/27/17 08:38 - Home Medications Home Medications: Ambulatory Orders Acetaminophen [Pain Relief] 650 mg PO QID PRN 03/13/17 Cholecalciferol (Vitamin D3) [Vitamin D3] 1,000 unit PO DAILY 03/13/17 Glimepiride [Amaryl] 4 mg PO DAILY 03/13/17 Insulin Lispro [Humalog] 0 unit SQ ASDIR 03/13/17 Memantine HCl [Namenda -] 10 mg PO BID 03/13/17 Guaifen/Dextromethorphan/PE [Tussin Cf Max M-S Cold Liquid] 5 ml PO QID PRN Insulin Glargine,Hum.rec.anlog [Lantus (10mL VIAL) -] 15 units SQ AM 03/19/17 Nut.tx.gluc.intoler,Lac-Fr,Soy [Glucerna] 237 ml PO TID 03/19/17 Ursodiol [Actigal -] 300 mg PO BID #60 tab 03/22/17 Review of Systems Unable to obtain ROS, reason: lethargic Physical Examination Vital Signs: Vital Signs Temperature 100.9 F H 11/27/17 15:47 Pulse Rate 98 H 11/27/17 15:46 Respiratory Rate 22 11/27/17 15:46 Blood Pressure 114/67 11/27/17 15:46 O2 Sat by Pulse Oximetry (%) 100 11/27/17 15:46 Constitutional: Yes: Calm, Thin Cardiovascular: Yes: Regular Rate and Rhythm, S1, S2 Respiratory: Yes: CTA Bilaterally Gastrointestinal: Yes: Normal Bowel Sounds, Soft Edema: No Neurological: Yes: Other (lethargic responds to sternal rub by moving extreites but not talking) Labs: CBC, BMP 11/27/17 09:30 11/27/17 09:30 Problem List - Problems (1) Urinary tract infection Assessment/Plan: med surg iv antibiotic ID eval urine culture Code(s): N39.0 - URINARY TRACT INFECTION, SITE NOT SPECIFIED Qualifiers: Urinary tract infection type: site unspecified Hematuria presence: with hematuria Qualified Code(s): N39.0 - Urinary tract infection, site not specified; R31.9 - Hematuria, unspecified; R31.9 - Hematuria, unspecified (2) Altered mental status Assessment/Plan: toxic metabolic encephalopathy secondary to uti npo for now dvt ppx Code(s): R41.82 - ALTERED MENTAL STATUS, UNSPECIFIED (3) Diabetes Assessment/Plan: bgm sliding scale Code(s): E11.9 - TYPE 2 DIABETES MELLITUS WITHOUT COMPLICATIONS
--- NOTE | 2017-11-27 17:00 | CONSULT ---
Consult Consult Specialty:: Nephrology Reason for Consultation:: SHERLYN - History of Present Illness Chief Complaint: sent in for fever History of Present Illness: Pt is a 77 year old female with pmhx of htn, Alzheimer dementia, SHERLYN, UTI, PNA, and pancreatic head mass who was sent to the ER for fever. She is arousable but unable to give much history. She not verbal. I was called to evaluate her for SHERLYN. 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 Cardio/Vascular: Yes: HTN, Hyperlipdemia, Other (PSVT) Endocrine: Yes: Diabetes Mellitus - Alcohol/Substance Use Hx Alcohol Use: No - Smoking History Smoking history: Unknown if ever smoked Have you smoked in the past 12 months: No Aproximately how many cigarettes per day: 0 - Social History ADL: Support Services History of Recent Travel: No Home Medications - Allergies Allergies/Adverse Reactions: Allergies Allergy/AdvReac Type Severity Reaction Status Date / Time No Known Allergies Allergy Verified 11/27/17 08:38 - Home Medications Home Medications: Ambulatory Orders Acetaminophen [Pain Relief] 650 mg PO QID PRN 03/13/17 Cholecalciferol (Vitamin D3) [Vitamin D3] 1,000 unit PO DAILY 03/13/17 Glimepiride [Amaryl] 4 mg PO DAILY 03/13/17 Insulin Lispro [Humalog] 0 unit SQ ASDIR 03/13/17 Memantine HCl [Namenda -] 10 mg PO BID 03/13/17 Guaifen/Dextromethorphan/PE [Tussin Cf Max M-S Cold Liquid] 5 ml PO QID PRN Insulin Glargine,Hum.rec.anlog [Lantus (10mL VIAL) -] 15 units SQ AM 03/19/17 Nut.tx.gluc.intoler,Lac-Fr,Soy [Glucerna] 237 ml PO TID 03/19/17 Ursodiol [Actigal -] 300 mg PO BID #60 tab 03/22/17 Family Disease History - Family Disease History Family History: Unable to Obtain Review of Systems Unable to obtain ROS, reason: not verbal Physical Exam Vital Signs: Vital Signs Temperature 100.9 F H 11/27/17 15:47 Pulse Rate 98 H 11/27/17 15:46 Respiratory Rate 22 11/27/17 15:46 Blood Pressure 114/67 11/27/17 15:46 O2 Sat by Pulse Oximetry (%) 100 11/27/17 15:46 Constitutional: Yes: Calm Eyes: Yes: Conjunctiva Clear HENT: Yes: Atraumatic Neck: Yes: Supple Cardiovascular: Yes: S1, S2 Respiratory: Yes: CTA Bilaterally Gastrointestinal: Yes: Soft Renal/: Yes: Incontinence Musculoskeletal: Yes: Muscle Weakness Edema: No Neurological: Yes: Other (awake) Labs: CBC, BMP 11/27/17 09:30 11/27/17 09:30 Laboratory Tests 03/19/17 03/20/17 03/21/17 17:10 01:22 10:01 WBC Hgb Sodium Potassium Chloride Carbon Dioxide Anion Gap BUN Creatinine 0.8 0.7 0.6 Lactic Acid 11/27/17 11/27/17 11/27/17 09:30 09:30 09:30 WBC 13.4 H D Hgb 13.2 Sodium 139 Potassium 4.2 Chloride 102 Carbon Dioxide 26 Anion Gap 11 BUN 45 H Creatinine 1.4 H Lactic Acid 2.7 H* 11/27/17 11:50 WBC Hgb Sodium Potassium Chloride Carbon Dioxide Anion Gap BUN Creatinine Lactic Acid 1.8 Imaging - Results Chest X-ray: Report Reviewed Problem List - Problems (1) Acute kidney injury Code(s): N17.9 - ACUTE KIDNEY FAILURE, UNSPECIFIED (2) Sepsis Code(s): A41.9 - SEPSIS, UNSPECIFIED ORGANISM Qualifiers: Sepsis type: sepsis due to unspecified organism Qualified Code(s): A41.9 - Sepsis, unspecified organism (3) Diabetes Code(s): E11.9 - TYPE 2 DIABETES MELLITUS WITHOUT COMPLICATIONS Assessment/Plan Current Medications Generic Name Dose Route Start Last Admin Trade Name Freq PRN Reason Stop Dose Admin Acetaminophen 650 mg 11/27/17 14:42 Tylenol - PO Q6H PRN PAIN OR FEVER Insulin Aspart 1 vial 11/27/17 16:30 Novolog Vial Sliding Scale - SQ ACHS DAVID Protocol Insulin Detemir 15 units 11/27/17 22:00 Levemir Vial SQ HS DAVID Impression 1. SHERLYN 2. fever 3. dementia 4. DM 5. UTI 6. HTN Plan - will start fluids - repeat labs in am - check urine lytes and creatinine - send cultures - will follow - likely sherlyn from prerenal disease - check renal ultrasound Dr Markham
[2017-11-27] MEDS ORDERED: ACETAMINOPHEN 325 MG TABLET (FP) ONE ×2 (17:49→22:20)
[2017-11-27] MEDS: ACETAMINOPHEN 325 MG TABLET (FP) PO PRN ×2 (17:51→22:28)
[2017-11-27] MEDS: INSULIN SLIDING SCALE (NOVOLOG) 1 VIAL SQ SCH ×2 (17:58→23:56)
[2017-11-27] MEDS: SODIUM CHLORIDE 1,000 ML IV SCH ×2 (17:58→23:59)
[2017-11-27] MEDS ORDERED: INSULIN (NOVOLOG) ASPART 100 UNITS/ML 10ML VIAL ONE (23:37)
[2017-11-28] MEDS: INSULIN DETEMIR 100 UNITS/ML MDV SQ SCH ×2 (01:17→21:57)
[2017-11-28] MEDS: ACETAMINOPHEN 325 MG TABLET (FP) PO PRN ×2 (05:18→16:43)
[2017-11-28] MEDS: INSULIN SLIDING SCALE (NOVOLOG) 1 VIAL SQ SCH ×4 (06:20→21:58)
--- NOTE | 2017-11-28 08:09 | EKG ---
Test Reason : Blood Pressure : / mmHG Vent. Rate : 093 BPM Atrial Rate : 093 BPM P-R Int : 138 ms QRS Dur : 068 ms QT Int : 326 ms P-R-T Axes : 065 035 024 degrees QTc Int : 405 ms POOR DATA QUALITY, INTERPRETATION MAY BE ADVERSELY AFFECTED NORMAL SINUS RHYTHM NORMAL ECG WHEN COMPARED WITH ECG OF 19-MAR-2017 17:24, PREMATURE ATRIAL COMPLEXES ARE NO LONGER PRESENT Confirmed by MELA BECK, LETICIA ([id number]) on 11/28/2017 8:09:28 AM Referred By: Confirmed By:LETICIA PLAZA MD
[2017-11-28 08:40] LABS: HEMATOCRIT 33.9 % (32.4-45.2); HEMOGLOBIN 11.3 GM/dL (10.7-15.3); MCH 29.6 pg (25.7-33.7); MCHC 33.3 g/dl (32.0-36.0); MEAN PLT VOLUME 7.7 fl (7.5-11.1); PLATELET COUNT 258 K/MM3 (134-434); RBC 3.81 M/mm3 (3.60-5.2); RDW 13.8 % (11.6-15.6); WHITE BLOOD COUNT 6.7 K/mm3 (4.0-10.0)
[2017-11-28] MEDS ORDERED: PIPERACILLIN/TAZOB 3.375 GM/50 ML PRE-DOCKED IVPB SCH (09:15)
--- NOTE | 2017-11-28 09:17 | CON.ID ---
Consult Consult Specialty:: infectious disease Referred by:: dr watson Reason for Consultation:: fever - History of Present Illness Chief Complaint: fever History of Present Illness: 77 year old femal nonverbal at baseline, sent from [place] with fever of 102, lactic acid 2.7 she was given zosyn in ED after cultures were sent fever workup notable for pyuria she was seen by renal for SHERLYN and IVF was started renal sonogram was done and shows mild left hydronephrosis and urinary retention she required straight cath twice last night, febrile to 102.8 this am blood culture this am GNR no nausea or vomiting noted or reported no diarrhea no cough - History Source History Provided By: Medical Record Limitations to Obtaining History: Clinical Condition - Past Medical History 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, 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 Cardio/Vascular: Yes: HTN, Hyperlipdemia, Other (PSVT) ...: No Endocrine: Yes: Diabetes Mellitus - Alcohol/Substance Use Hx Alcohol Use: No - Smoking History Smoking history: Unknown if ever smoked Have you smoked in the past 12 months: No Aproximately how many cigarettes per day: 0 - Social History Usual Living Arrangement: Longterm ADL: Support Services Occupation: unknown History of Recent Travel: No Home Medications - Allergies Allergies/Adverse Reactions: Allergies Allergy/AdvReac Type Severity Reaction Status Date / Time No Known Allergies Allergy Verified 11/27/17 08:38 - Home Medications Home Medications: Ambulatory Orders Acetaminophen [Pain Relief] 650 mg PO QID PRN 03/13/17 Acetaminophen [Extra Strength Non-Aspirin] 500 mg PO TID PRN 11/27/17 Amlodipine Besylate [Norvasc -] 5 mg PO ONCE 11/27/17 Ascorbate Calcium [Vitamin C] 500 mg PO DAILY 11/27/17 Bethanechol Chloride [Urecholine] 50 mg PO TID 11/27/17 Glimepiride [Amaryl] 4 mg PO DAILY 11/27/17 Heparin - 5,000 unit SCJ BID 11/27/17 Insulin (LOG) Aspart [NovoLOG -] 11/27/17 Insulin (Levemir) [Levemir Vial] 100 unit SCJ ONCE 11/27/17 Memantine HCl [Namenda -] 10 mg PO BID 11/27/17 Multivit with Minerals No.55 [Centrum Flavor Burst Adult] 11/27/17 Ursodiol [Actigall] 300 mg PO BID 11/27/17 Family Disease History - Family Disease History Family History: Unable to Obtain Review of Systems Unable to obtain ROS, reason: limited to RN report - Review of Systems Constitutional: reports: Fever Respiratory: denies: Cough, SOB Gastrointestinal: denies: Diarrhea, Vomiting Physical Exam Vital Signs: Vital Signs Temperature 98.7 F 11/28/17 08:58 Pulse Rate 105 H 11/28/17 06:00 Respiratory Rate 18 11/28/17 06:00 Blood Pressure 135/65 11/28/17 06:00 O2 Sat by Pulse Oximetry (%) 99 11/27/17 23:30 Constitutional: Yes: Well Nourished, No Distress, Calm HENT: Yes: WNL, Atraumatic, Normocephalic Neck: Yes: Supple Respiratory: Yes: CTA Bilaterally Gastrointestinal: Yes: Normal Bowel Sounds, Soft ...Rectal Exam: Yes: Other (suprapubic pain on exam with palpable bladder) Extremities: Yes: WNL Edema: No Wound/Incision: Yes: Other (stage 1 sacral and right heel ulcers) Psychiatric: Yes: Alert (nonverbal) Labs: CBC, BMP 11/28/17 08:10 Microbiology 11/27/17 09:30 Blood Culture - Preliminary Blood - Peripheral Venous Lactose Fermenting Neg Bacilli Imaging - Results Chest X-ray: Report Reviewed, Image Reviewed (no acute infiltate) Ultrasound: Report Reviewed (mild left hydronephrosis, urinary retention) Problem List - Problems (1) Sepsis Code(s): A41.9 - SEPSIS, UNSPECIFIED ORGANISM Qualifiers: Sepsis type: sepsis due to unspecified organism Qualified Code(s): A41.9 - Sepsis, unspecified organism (2) Gram-negative bacteremia Code(s): R78.81 - BACTEREMIA (3) UTI (urinary tract infection) Code(s): N39.0 - URINARY TRACT INFECTION, SITE NOT SPECIFIED (4) Acute urinary retention Code(s): R33.8 - OTHER RETENTION OF URINE (5) Hydronephrosis, left Code(s): N13.30 - UNSPECIFIED HYDRONEPHROSIS Assessment/Plan sepsis with GNR bacteremia- suspected urinary source urinary retention with suprapubic pain [place] placement zosyn ivf f/u cultures further reccomendations to follow
[2017-11-28 09:18] LABS: CHLORIDE 111 mmol/L (98-107); POTASSIUM 3.9 mmol/L (3.5-5.1); SODIUM 146 mmol/L (136-145)
[2017-11-28 11:06] LABS: SGPT/ALT 20 U/L (12-78)
--- NOTE | 2017-11-28 11:36 | PN ---
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, Physician Chief Complaint: UTI,fever History of Present Illness: NAD, in bed seen by Nephrology and ID on iv abx - Current Medication List Current Medications: Active Medications Acetaminophen (Tylenol -) 650 mg PO Q6H PRN PRN Reason: PAIN OR FEVER Last Admin: 11/28/17 05:18 Dose: 650 mg Sodium Chloride (Normal Saline -) 1,000 mls @ 50 mls/hr IV ASDIR DAVID Stop: 11/28/17 17:05 Last Admin: 11/27/17 23:59 Dose: 50 mls/hr Piperacillin Sod/Tazobactam (Sod 3.375 gm/ Dextrose) 100 mls @ 200 mls/hr IVPB Q8H-IV DAVID Insulin Aspart (Novolog Vial Sliding Scale -) 1 vial SQ ACHS DAVID PRN Reason: Protocol Last Admin: 11/28/17 06:20 Dose: 2 units Insulin Detemir (Levemir Vial) 15 units SQ HS DAVID Last Admin: 11/28/17 01:17 Dose: Not Given - Objective Vital Signs: Vital Signs Temperature 98.4 F 11/28/17 10:00 Pulse Rate 76 11/28/17 10:00 Respiratory Rate 18 11/28/17 10:00 Blood Pressure 99/41 11/28/17 10:00 O2 Sat by Pulse Oximetry (%) 97 11/28/17 09:00 Constitutional: Yes: Well Nourished, No Distress, Calm Cardiovascular: Yes: Regular Rate and Rhythm Respiratory: Yes: Regular Gastrointestinal: Yes: WNL Musculoskeletal: Yes: WNL Extremities: Yes: WNL Edema: No Peripheral Pulses WNL: Yes Neurological: Yes: Pre-Existing Deficit, Other (arousable) Labs: CBC, BMP 11/28/17 08:10 11/28/17 08:10 INR, PTT INR 1.04 (0.82-1.09) 11/27/17 09:30 Problem List - Problems (1) Acute kidney injury Assessment/Plan: -seen by nephrology -IVF -renal/bladder u/s noted -monitor trend Code(s): N17.9 - ACUTE KIDNEY FAILURE, UNSPECIFIED (2) Gram-negative bacteremia Assessment/Plan: -seen by ID -on IV abx Code(s): R78.81 - BACTEREMIA (3) Sepsis Assessment/Plan: -seen by ID -on IV abx -IVF -Tyelnol 650 mg po Q6H PRN for fever over 100.0 F Code(s): A41.9 - SEPSIS, UNSPECIFIED ORGANISM Qualifiers: Sepsis type: sepsis due to unspecified organism Qualified Code(s): A41.9 - Sepsis, unspecified organism (4) UTI (urinary tract infection) Assessment/Plan: -seen by ID -on IV abx -IVF Code(s): N39.0 - URINARY TRACT INFECTION, SITE NOT SPECIFIED Assessment/Plan see problem list
[2017-11-28] MEDS: PIPERACILLIN/TAZOB 3.375 GM 3.375 GM in DEXTROSE 5%-WATER - 100 ML IVPB SCH ×2 (11:37→18:15)
[2017-11-28 16:40] LABS: ALBUMIN 2.6 g/dl (3.4-5.0); ANION GAP 10 (8-16); BLOOD UREA NITROGEN 26 mg/dL (7-18); CALCIUM 8.4 mg/dL (8.5-10.1); CO2 25 mmol/L (21-32); GLUCOSE,RANDOM 144 mg/dL (74-106); SGOT/AST 16 U/L (15-37)
[2017-11-28 16:41] LABS: ALK PHOS 79 U/L (45-117); BILIRUBIN,TOTAL 0.5 mg/dL (0.2-1.0); TOT PROT 6.3 g/dl (6.4-8.2)
--- NOTE | 2017-11-28 16:57 | PN ---
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, Physician History of Present Illness: Pt seen and examined at bedside. There is no great change in clinical status. She has positive blood cultures. - Current Medication List Current Medications: Active Medications Acetaminophen (Tylenol -) 650 mg PO Q6H PRN PRN Reason: PAIN OR FEVER Last Admin: 11/28/17 16:43 Dose: 650 mg Sodium Chloride (Normal Saline -) 1,000 mls @ 50 mls/hr IV ASDIR DAVID Stop: 11/28/17 17:05 Last Admin: 11/27/17 23:59 Dose: 50 mls/hr Piperacillin Sod/Tazobactam (Sod 3.375 gm/ Dextrose) 100 mls @ 200 mls/hr IVPB Q8H-IV DAVID Last Admin: 11/28/17 11:37 Dose: 200 mls/hr Insulin Aspart (Novolog Vial Sliding Scale -) 1 vial SQ ACHS DAVID PRN Reason: Protocol Last Admin: 11/28/17 12:12 Dose: 2 units Insulin Detemir (Levemir Vial) 15 units SQ HS DAVID Last Admin: 11/28/17 01:17 Dose: Not Given - Objective Vital Signs: Vital Signs Temperature 99.7 F H 11/28/17 14:55 Pulse Rate 87 11/28/17 14:55 Respiratory Rate 22 11/28/17 14:55 Blood Pressure 119/55 11/28/17 14:55 O2 Sat by Pulse Oximetry (%) 97 11/28/17 09:00 Constitutional: Yes: Calm Eyes: Yes: Conjunctiva Clear Cardiovascular: Yes: S1, S2 Respiratory: Yes: CTA Bilaterally Gastrointestinal: Yes: Soft Genitourinary: Yes: Incontinence Musculoskeletal: Yes: Muscle Weakness Edema: No Neurological: Yes: Confusion Labs: CBC, BMP 11/28/17 08:10 11/28/17 08:10 INR, PTT INR 1.04 (0.82-1.09) 11/27/17 09:30 - ....Imaging Ultrasound: Report Reviewed Problem List - Problems (1) Acute kidney injury Code(s): N17.9 - ACUTE KIDNEY FAILURE, UNSPECIFIED (2) Sepsis Code(s): A41.9 - SEPSIS, UNSPECIFIED ORGANISM Qualifiers: Sepsis type: sepsis due to unspecified organism Qualified Code(s): A41.9 - Sepsis, unspecified organism (3) Diabetes Code(s): E11.9 - TYPE 2 DIABETES MELLITUS WITHOUT COMPLICATIONS Assessment/Plan Current Medications Generic Name Dose Route Start Last Admin Trade Name Sheldon PRN Reason Stop Dose Admin Acetaminophen 650 mg 11/27/17 14:42 11/28/17 16:43 Tylenol - PO 650 mg Q6H PRN Administration PAIN OR FEVER Sodium Chloride 1,000 mls @ 50 mls/hr 11/27/17 17:15 11/27/17 23:59 Normal Saline - IV 11/28/17 17:05 50 mls/hr ASDIR DAVID Administration Piperacillin Sod/Tazobactam 100 mls @ 200 mls/hr 11/28/17 10:00 11/28/17 11: 37 Sod 3.375 gm/ Dextrose IVPB 200 mls/hr Q8H-IV DAVID Administration Insulin Aspart 1 vial 11/27/17 16:30 11/28/17 12:12 Novolog Vial Sliding Scale - SQ 2 units ACHS DAVID Administration Protocol Insulin Detemir 15 units 11/27/17 22:00 11/28/17 01:17 Levemir Vial SQ Not Given HS DAVID Impression 1. NEYMAR 2. fever 3. dementia 4. DM 5. UTI 6. HTN 7. sepsis 8. bacteremia 9. hydronephrosis Plan - follow up repeat labs, still pending - change fluids to 1/2 ns - place [place] as there is retention and mild hydro - urology eval - cont abx - blood cultures reviewed - likely neymar from prerenal disease Dr Markham
[2017-11-28] MEDS: SODIUM CHLORIDE 0.45% 1,000 ML IV SCH (18:09)
[2017-11-28] MEDS ORDERED: INSULIN (NOVOLOG) ASPART 100 UNITS/ML 10ML VIAL ONE (21:44)
[2017-11-28] MEDS ORDERED: amLODIPine BESYLATE 5 MG TABLET (FP) PO SCH (22:00)
[2017-11-28] MEDS: MEMANTINE HCL 10 MG TABLET (FP) PO SCH (22:31)
[2017-11-28] MEDS: HEPARIN NA (PORCINE) 5,000 UNITS/ML 1ML VIAL SQ SCH (22:31)
[2017-11-28] MEDS: URSODIOL 300 MG CAPSULE PO SCH (22:52)
[2017-11-29] MEDS ORDERED: PIPERACILLIN/TAZOB 3.375 GM 3.375 GM in DEXTROSE 5%-WATER - 100 ML IVPB ONE (02:00)
[2017-11-29] MEDS: SODIUM CHLORIDE 0.45% 1,000 ML IV SCH ×3 (06:20→22:06)
[2017-11-29] MEDS: GLIMEPIRIDE 4 MG TABLET (FP) PO SCH (06:21)
[2017-11-29] MEDS: INSULIN SLIDING SCALE (NOVOLOG) 1 VIAL SQ SCH ×4 (06:21→22:05)
[2017-11-29 08:24] LABS: BASO % 0.5 % (0-2.0); EOS % 1.2 % (0-4.5); HEMATOCRIT 31.9 % (32.4-45.2); HEMOGLOBIN 10.6 GM/dL (10.7-15.3); LYMPH % 24.2 % (8-40); MCH 29.5 pg (25.7-33.7); MCHC 33.1 g/dl (32.0-36.0); MEAN PLT VOLUME 7.9 fl (7.5-11.1); MONO % 9.1 % (3.8-10.2); PLATELET COUNT 230 K/MM3 (134-434); RBC 3.58 M/mm3 (3.60-5.2); RDW 13.7 % (11.6-15.6); WHITE BLOOD COUNT 5.1 K/mm3 (4.0-10.0)
[2017-11-29 08:36] LABS: ALBUMIN 2.4 g/dl (3.4-5.0); ALK PHOS 77 U/L (45-117); ANION GAP 12 (8-16); BILIRUBIN,TOTAL 0.3 mg/dL (0.2-1.0); BLOOD UREA NITROGEN 20 mg/dL (7-18); CALCIUM 8.5 mg/dL (8.5-10.1); CHLORIDE 109 mmol/L (98-107); CO2 23 mmol/L (21-32); CREATININE 0.9 mg/dL (0.55-1.02); GLUCOSE,RANDOM 69 mg/dL (74-106); POTASSIUM 3.3 mmol/L (3.5-5.1); SGOT/AST 17 U/L (15-37); SGPT/ALT 20 U/L (12-78); SODIUM 144 mmol/L (136-145); TOT PROT 6.4 g/dl (6.4-8.2)
[2017-11-29] MEDS ORDERED: PT OWN MED DRAWER 7, Y5N ONE ×3 (10:01→21:59)
[2017-11-29] MEDS: MULTIVITAMINS THER W-MINERALS COMBO TABLET (FP) PO SCH (10:18)
[2017-11-29] MEDS: amLODIPine BESYLATE 5 MG TABLET (FP) PO SCH (10:18)
[2017-11-29] MEDS: ASCORBIC ACID 500 MG TABLET (FP) PO SCH (10:19)
[2017-11-29] MEDS: URSODIOL 300 MG CAPSULE PO SCH ×2 (10:19→22:03)
[2017-11-29] MEDS: MEMANTINE HCL 10 MG TABLET (FP) PO SCH ×2 (10:19→22:04)
[2017-11-29] MEDS: HEPARIN NA (PORCINE) 5,000 UNITS/ML 1ML VIAL SQ SCH ×2 (10:19→22:03)
--- NOTE | 2017-11-29 10:37 | PN ---
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, Physician Chief Complaint: UTI,fever History of Present Illness: NAD, in bed seen by Nephrology and ID on iv abx - Current Medication List Current Medications: Active Medications Acetaminophen (Tylenol -) 650 mg PO Q6H PRN PRN Reason: PAIN OR FEVER Last Admin: 11/28/17 16:43 Dose: 650 mg Amlodipine Besylate (Norvasc -) 2.5 mg PO DAILY [facility] Last Admin: 11/29/17 10:18 Dose: 2.5 mg Ascorbic Acid (Vitamin C -) 500 mg PO DAILY [facility] Last Admin: 11/29/17 10:19 Dose: 500 mg Glimepiride (Amaryl -) 4 mg PO DAILY@0700 [facility] Last Admin: 11/29/17 06:21 Dose: 4 mg Heparin Sodium (Porcine) (Heparin -) 5,000 unit SQ BID [facility] Last Admin: 11/29/17 10:19 Dose: 5,000 unit Sodium Chloride (1/2 Normal Saline) 1,000 mls @ 75 mls/hr IV ASDIR [facility] Last Admin: 11/29/17 06:20 Dose: 75 mls/hr Piperacillin Sod/Tazobactam (Sod 3.375 gm/ Sodium Chloride) 100 mls @ 200 mls/ hr IVPB Q8H-IV [facility] Insulin Aspart (Novolog Vial Sliding Scale -) 1 vial SQ ACHS [facility] PRN Reason: Protocol Last Admin: 11/29/17 06:21 Dose: Not Given Insulin Detemir (Levemir Vial) 15 units SQ HS [facility] Last Admin: 11/28/17 21:57 Dose: 15 units Memantine (Namenda -) 10 mg PO BID [facility] Last Admin: 11/29/17 10:19 Dose: 10 mg Multivitamins/Minerals (Theragran-M) 1 each PO DAILY [facility] Last Admin: 11/29/17 10:18 Dose: 1 each Potassium Chloride (K-Dur -) 40 meq PO ONCE ONE Stop: 11/29/17 10:36 Ursodiol (Actigal -) 300 mg PO BID [facility] Last Admin: 11/29/17 10:19 Dose: 300 mg - Objective Vital Signs: Vital Signs Temperature 100.7 F H 11/29/17 06:00 Pulse Rate 75 11/29/17 06:00 Respiratory Rate 20 11/29/17 06:00 Blood Pressure 134/63 11/29/17 06:00 O2 Sat by Pulse Oximetry (%) 98 11/28/17 21:00 Constitutional: Yes: Well Nourished, No Distress, Calm Cardiovascular: Yes: Regular Rate and Rhythm Respiratory: Yes: Regular Gastrointestinal: Yes: Normal Bowel Sounds Musculoskeletal: Yes: WNL Extremities: Yes: WNL Edema: No Peripheral Pulses WNL: Yes Neurological: Yes: Alert, Oriented Psychiatric: Yes: Alert, Oriented Labs: CBC, BMP 11/29/17 07:15 11/29/17 07:15 INR, PTT INR 1.04 (0.82-1.09) 11/27/17 09:30 Problem List - Problems (1) Acute kidney injury Assessment/Plan: -seen by nephrology -IVF -renal/bladder u/s noted -monitor trend Code(s): N17.9 - ACUTE KIDNEY FAILURE, UNSPECIFIED (2) Gram-negative bacteremia Assessment/Plan: -seen by ID -on IV abx Code(s): R78.81 - BACTEREMIA (3) Sepsis Assessment/Plan: -seen by ID -on IV abx -IVF -Tyelnol 650 mg po Q6H PRN for fever over 100.0 F Code(s): A41.9 - SEPSIS, UNSPECIFIED ORGANISM Qualifiers: Sepsis type: sepsis due to unspecified organism Qualified Code(s): A41.9 - Sepsis, unspecified organism (4) UTI (urinary tract infection) Assessment/Plan: -seen by ID -on IV abx -IVF Code(s): N39.0 - URINARY TRACT INFECTION, SITE NOT SPECIFIED Assessment/Plan see problem list
[2017-11-29] MEDS ORDERED: POTASSIUM CHLORIDE TABS 20 MEQ TABLET.ER (FP) PO ONE (11:00)
[2017-11-29] MEDS ORDERED: MEROPENEM 500 MG VIAL (RESTRICTED TO ID) IVPB SCH (14:15)
[2017-11-29] MEDS ORDERED: MEROPENEM 500 MG PUSH 500 MG/10 ML DISP.SYRIN IVPUSH SCH (14:30)
[2017-11-29] MEDS ORDERED: POTASSIUM CHLORIDE ORAL LIQUID 20 MEQ/15 ML PO ONE (14:36)
--- NOTE | 2017-11-29 14:36 | PN ---
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, Physician History of Present Illness: Pt seen and examined at bedside. She appears more comfortable today. - Current Medication List Current Medications: Active Medications Acetaminophen (Tylenol -) 650 mg PO Q6H PRN PRN Reason: PAIN OR FEVER Last Admin: 11/28/17 16:43 Dose: 650 mg Amlodipine Besylate (Norvasc -) 2.5 mg PO DAILY [facility] Last Admin: 11/29/17 10:18 Dose: 2.5 mg Ascorbic Acid (Vitamin C -) 500 mg PO DAILY [facility] Last Admin: 11/29/17 10:19 Dose: 500 mg Glimepiride (Amaryl -) 4 mg PO DAILY@0700 [facility] Last Admin: 11/29/17 06:21 Dose: 4 mg Heparin Sodium (Porcine) (Heparin -) 5,000 unit SQ BID [facility] Last Admin: 11/29/17 10:19 Dose: 5,000 unit Sodium Chloride (1/2 Normal Saline) 1,000 mls @ 75 mls/hr IV ASDIR [facility] Last Admin: 11/29/17 06:20 Dose: 75 mls/hr Meropenem (Merrem (Restricted To Id) -) 500 mg in 10 mls @ 120 mls/hr IVPUSH Q8H-IV [facility] Insulin Aspart (Novolog Vial Sliding Scale -) 1 vial SQ ACHS [facility] PRN Reason: Protocol Last Admin: 11/29/17 11:35 Dose: Not Given Insulin Detemir (Levemir Vial) 15 units SQ HS [facility] Last Admin: 11/28/17 21:57 Dose: 15 units Memantine (Namenda -) 10 mg PO BID [facility] Last Admin: 11/29/17 10:19 Dose: 10 mg Multivitamins/Minerals (Theragran-M) 1 each PO DAILY [facility] Last Admin: 11/29/17 10:18 Dose: 1 each Ursodiol (Actigal -) 300 mg PO BID [facility] Last Admin: 11/29/17 10:19 Dose: 300 mg - Objective Vital Signs: Vital Signs Temperature 100.7 F H 11/29/17 06:00 Pulse Rate 75 11/29/17 06:00 Respiratory Rate 20 11/29/17 06:00 Blood Pressure 134/63 11/29/17 06:00 O2 Sat by Pulse Oximetry (%) 98 11/28/17 21:00 Constitutional: Yes: Calm Eyes: Yes: Conjunctiva Clear HENT: Yes: Atraumatic Neck: Yes: Supple Cardiovascular: Yes: S1, S2 Respiratory: Yes: CTA Bilaterally Gastrointestinal: Yes: Soft Genitourinary: Yes: [place] Present Musculoskeletal: Yes: Muscle Weakness Edema: No Neurological: Yes: Pre-Existing Deficit Labs: CBC, BMP 11/29/17 07:15 11/29/17 07:15 INR, PTT INR 1.04 (0.82-1.09) 11/27/17 09:30 Problem List - Problems (1) Acute kidney injury Code(s): N17.9 - ACUTE KIDNEY FAILURE, UNSPECIFIED (2) Sepsis Code(s): A41.9 - SEPSIS, UNSPECIFIED ORGANISM Qualifiers: Sepsis type: sepsis due to unspecified organism Qualified Code(s): A41.9 - Sepsis, unspecified organism (3) Diabetes Code(s): E11.9 - TYPE 2 DIABETES MELLITUS WITHOUT COMPLICATIONS Assessment/Plan Current Medications Generic Name Dose Route Start Last Admin Trade Name Freq PRN Reason Stop Dose Admin Acetaminophen 650 mg 11/27/17 14:42 11/28/17 16:43 Tylenol - PO 650 mg Q6H PRN Administration PAIN OR FEVER Amlodipine Besylate 2.5 mg 11/29/17 10:00 11/29/17 10:18 Norvasc - PO 2.5 mg DAILY [facility] Administration Ascorbic Acid 500 mg 11/29/17 10:00 11/29/17 10:19 Vitamin C - PO 500 mg DAILY [facility] Administration Glimepiride 4 mg 11/29/17 07:00 11/29/17 06:21 Amaryl - PO 4 mg DAILY@0700 [facility] Administration Heparin Sodium (Porcine) 5,000 unit 11/28/17 22:00 11/29/17 10:19 Heparin - SQ 5,000 unit BID [facility] Administration Sodium Chloride 1,000 mls @ 75 mls/hr 11/28/17 17:00 11/29/17 06:20 1/2 Normal Saline IV 75 mls/hr ASDIR [facility] Administration Meropenem 500 mg in 10 mls @ 120 mls/hr 11/29/17 14:30 Merrem (Restricted To Id) - IVPUSH Q8H-IV [facility] Insulin Aspart 1 vial 11/27/17 16:30 11/29/17 11:35 Novolog Vial Sliding Scale - SQ Not Given ACHS [facility] Protocol Insulin Detemir 15 units 11/27/17 22:00 11/28/17 21:57 Levemir Vial SQ 15 units HS [facility] Administration Memantine 10 mg 11/28/17 22:00 11/29/17 10:19 Namenda - PO 10 mg BID [facility] Administration Multivitamins/Minerals 1 each 11/29/17 10:00 11/29/17 10:18 Theragran-M PO 1 each DAILY [facility] Administration Ursodiol 300 mg 11/28/17 22:15 11/29/17 10:19 Actigal - PO 300 mg BID [facility] Administration Impression 1. SHERLYN 2. fever 3. dementia 4. DM 5. UTI 6. HTN 7. sepsis 8. bacteremia 9. hydronephrosis Plan - replace potassium - cont fluids - maintain menchaca - follow cultures - abx per ID - urology eval for hydro Dr Markham
[2017-11-29] MEDS: ACETAMINOPHEN 325 MG TABLET (FP) PO PRN (15:22)
[2017-11-29] MEDS: PIPERACILLIN/TAZOB 3.375 GM 3.375 GM in SODIUM CHLORIDE 100 ML IVPB SCH (15:44)
--- NOTE | 2017-11-29 15:55 | PN ---
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, Physician Chief Complaint: ID Final blood culture report ESBL E Col Appears comfortable was on Zosyn - Current Medication List Current Medications: Active Medications Acetaminophen (Tylenol -) 650 mg PO Q6H PRN PRN Reason: PAIN OR FEVER Last Admin: 11/29/17 15:22 Dose: 650 mg Amlodipine Besylate (Norvasc -) 2.5 mg PO DAILY [facility] Last Admin: 11/29/17 10:18 Dose: 2.5 mg Ascorbic Acid (Vitamin C -) 500 mg PO DAILY [facility] Last Admin: 11/29/17 10:19 Dose: 500 mg Glimepiride (Amaryl -) 4 mg PO DAILY@0700 [facility] Last Admin: 11/29/17 06:21 Dose: 4 mg Heparin Sodium (Porcine) (Heparin -) 5,000 unit SQ BID [facility] Last Admin: 11/29/17 10:19 Dose: 5,000 unit Sodium Chloride (1/2 Normal Saline) 1,000 mls @ 75 mls/hr IV ASDIR [facility] Last Admin: 11/29/17 06:20 Dose: 75 mls/hr Meropenem (Merrem (Restricted To Id) -) 500 mg in 10 mls @ 120 mls/hr IVPUSH Q8H-IV [facility] Insulin Aspart (Novolog Vial Sliding Scale -) 1 vial SQ ACHS [facility] PRN Reason: Protocol Last Admin: 11/29/17 11:35 Dose: Not Given Insulin Detemir (Levemir Vial) 15 units SQ HS [facility] Last Admin: 11/28/17 21:57 Dose: 15 units Memantine (Namenda -) 10 mg PO BID [facility] Last Admin: 11/29/17 10:19 Dose: 10 mg Multivitamins/Minerals (Theragran-M) 1 each PO DAILY [facility] Last Admin: 11/29/17 10:18 Dose: 1 each Ursodiol (Actigal -) 300 mg PO BID [facility] Last Admin: 11/29/17 10:19 Dose: 300 mg - Objective Vital Signs: Vital Signs Temperature 98.8 F 11/29/17 14:49 Pulse Rate 83 11/29/17 14:49 Respiratory Rate 20 11/29/17 14:49 Blood Pressure 104/59 11/29/17 14:49 O2 Sat by Pulse Oximetry (%) 98 11/28/17 21:00 Constitutional: Yes: Well Nourished, No Distress HENT: Yes: WNL, Atraumatic Neck: Yes: WNL, Supple Cardiovascular: Yes: S1, S2 Respiratory: Yes: WNL, Regular, CTA Bilaterally Gastrointestinal: Yes: WNL, Normal Bowel Sounds, Soft. No: Tenderness, Tenderness, Epigastrium Edema: No Labs: CBC, BMP 11/29/17 07:15 11/29/17 07:15 INR, PTT INR 1.04 (0.82-1.09) 11/27/17 09:30 Assessment/Plan Microbiology 11/27/17 11:30 Urine - Urine Clean Catch Urine Culture - Final Escherichia Coli Esbl [employer] Manager 11/27/17 09:30 Blood - Peripheral Venous Blood Culture - Final Escherichia Coli Esbl [employer] Manager Laboratory Tests 11/27/17 11/29/17 11/29/17 09:30 07:15 07:15 WBC 13.4 H D 5.1 Hgb 10.6 L Hct 31.9 L Plt Count 230 BUN 20 H Assessment Urinary retension left hydronephrosis Gram negative bactermeia uti Resistant organism Plan Contact isolation Ertepenem Will need 14 days of treatment so PICC line advisable [place] [facility]
[2017-11-29] MEDS ORDERED: DEXTROSE 50%-WATER - 25 GM/50 ML VIAL IVPUSH ONE (17:22)
[2017-11-29] MEDS ORDERED: DEXTROSE 50%-WATER - 25 GM/50 ML VIAL ONE (17:28)
[2017-11-29] MEDS: INSULIN DETEMIR 100 UNITS/ML MDV SQ SCH (22:05)
[2017-11-30] MEDS: ACETAMINOPHEN 325 MG TABLET (FP) PO PRN ×2 (01:25→18:02)
[2017-11-30] MEDS: GLIMEPIRIDE 4 MG TABLET (FP) PO SCH (06:38)
[2017-11-30] MEDS: INSULIN SLIDING SCALE (NOVOLOG) 1 VIAL SQ SCH ×4 (06:38→21:32)
[2017-11-30] MEDS ORDERED: PT OWN MED DRAWER 7, Y5N ONE ×2 (09:21→21:24)
[2017-11-30] MEDS: URSODIOL 300 MG CAPSULE PO SCH ×2 (09:42→21:30)
[2017-11-30] MEDS: MEMANTINE HCL 10 MG TABLET (FP) PO SCH ×2 (09:42→21:30)
[2017-11-30] MEDS: ASCORBIC ACID 500 MG TABLET (FP) PO SCH (09:42)
[2017-11-30] MEDS: ERTAPENEM SODIUM 1 GM in SODIUM CHLORIDE 100 ML IVPB SCH (09:42)
[2017-11-30] MEDS: HEPARIN NA (PORCINE) 5,000 UNITS/ML 1ML VIAL SQ SCH ×2 (09:43→21:30)
[2017-11-30] MEDS: amLODIPine BESYLATE 5 MG TABLET (FP) PO SCH (09:43)
[2017-11-30] MEDS: MULTIVITAMINS THER W-MINERALS COMBO TABLET (FP) PO SCH (09:43)
[2017-11-30] MEDS ORDERED: PICC LINE 8 ML FLUSH PROTOCOL IVPUSH PRN ×2 (10:25→10:33)
--- NOTE | 2017-11-30 13:03 | PN ---
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 (short form) - Note 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: intermittent fevers Vital Signs Period Temp Pulse Resp BP Sys/Bob Pulse Ox Last 24 Hr 98.6 F-101.7 F 63-83 18-20 104-141/59-72 98 cor-rrr lungs clear abd soft,mild suprapubic discomfort to palpation men[place]aca ext no edema CBC, BMP 11/29/17 07:15 11/29/17 07:15 Microbiology 11/27/17 09:30 Blood - Peripheral Venous Blood Culture - Preliminary NO GROWTH OBTAINED AFTER 72 HOURS, INCUBATION TO CONTINUE FOR 2 DAYS. 11/27/17 11:30 Urine - Urine Clean Catch Urine Culture - Final Escherichia Coli Esbl Systems Librarian 11/27/17 09:30 Blood - Peripheral Venous Blood Culture - Final Escherichia Coli Esbl Systems Librarian a/p ecoli esbl bacteremia secondary to UTI left hydronephrosis continue ertapenem plan 14 days ertapenem urology consult repeat blood cultures if fevers persist ct scan abd/pelvis if fevers persist d/w Dr Curran Problem List - Problems (1) Sepsis Code(s): A41.9 - SEPSIS, UNSPECIFIED ORGANISM Qualifiers: Sepsis type: sepsis due to unspecified organism Qualified Code(s): A41.9 - Sepsis, unspecified organism (2) Gram-negative bacteremia Code(s): R78.81 - BACTEREMIA (3) UTI (urinary tract infection) Code(s): N39.0 - URINARY TRACT INFECTION, SITE NOT SPECIFIED (4) Acute urinary retention Code(s): R33.8 - OTHER RETENTION OF URINE (5) Hydronephrosis, left Code(s): N13.30 - UNSPECIFIED HYDRONEPHROSIS
--- NOTE | 2017-11-30 13:33 | PN ---
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, Physician Chief Complaint: awake alert has fever 101 renal sono noted for hydropnephrosis and urinary retention urology consult ordered on iv abx got picc line - Current Medication List Current Medications: Active Medications Acetaminophen (Tylenol -) 650 mg PO Q6H PRN PRN Reason: PAIN OR FEVER Last Admin: 11/30/17 01:25 Dose: 650 mg Amlodipine Besylate (Norvasc -) 2.5 mg PO DAILY [facility] Last Admin: 11/30/17 09:43 Dose: 2.5 mg Ascorbic Acid (Vitamin C -) 500 mg PO DAILY [facility] Last Admin: 11/30/17 09:42 Dose: 500 mg Glimepiride (Amaryl -) 4 mg PO DAILY@0700 [facility] Last Admin: 11/30/17 06:38 Dose: 4 mg Heparin Sodium (Porcine) (Heparin -) 5,000 unit SQ BID [facility] Last Admin: 11/30/17 09:43 Dose: 5,000 unit IV Flush (Picc Line Flush) 8 ml IVPUSH PRN PRN PRN Reason: Protocol Sodium Chloride (1/2 Normal Saline) 1,000 mls @ 75 mls/hr IV ASDIR [facility] Last Admin: 11/29/17 22:06 Dose: 75 mls/hr Ertapenem 1 gm/ Sodium (Chloride) 100 mls @ 200 mls/hr IVPB DAILY [facility] PRN Reason: Protocol Last Admin: 11/30/17 09:42 Dose: 200 mls/hr Insulin Aspart (Novolog Vial Sliding Scale -) 1 vial SQ ACHS [facility] PRN Reason: Protocol Last Admin: 11/30/17 12:40 Dose: Not Given Insulin Detemir (Levemir Vial) 15 units SQ HS [facility] Last Admin: 11/29/17 22:05 Dose: 15 units Memantine (Namenda -) 10 mg PO BID [facility] Last Admin: 11/30/17 09:42 Dose: 10 mg Multivitamins/Minerals (Theragran-M) 1 each PO DAILY [facility] Last Admin: 11/30/17 09:43 Dose: 1 each Ursodiol (Actigal -) 300 mg PO BID [facility] Last Admin: 11/30/17 09:42 Dose: 300 mg - Objective Vital Signs: Vital Signs Temperature 98.6 F 11/30/17 09:45 Pulse Rate 72 11/30/17 09:45 Respiratory Rate 18 01/26/18 09:45 Blood Pressure 121/63 11/30/17 09:45 O2 Sat by Pulse Oximetry (%) 98 11/29/17 21:00 Constitutional: Yes: Calm Neck: Yes: Trachea Midline Cardiovascular: Yes: Regular Rate and Rhythm, S1, S2 Respiratory: Yes: CTA Bilaterally Gastrointestinal: Yes: Normal Bowel Sounds, Soft Genitourinary: Yes: [place] Present Neurological: Yes: Alert Labs: CBC, BMP 11/29/17 07:15 11/29/17 07:15 INR, PTT INR 1.04 (0.82-1.09) 11/27/17 09:30 Problem List - Problems (1) Hydronephrosis, left Assessment/Plan: hydro with urinary retention menchaca inserted needs urology evaluation prior to discharge still spiking fevers not ready to dc today Code(s): N13.30 - UNSPECIFIED HYDRONEPHROSIS (2) Urinary tract infection Assessment/Plan: med surg iv antibiotic ID eval noted resistant organism requires ertrapenem cannot be substituted to another abx, picc line for 14 days urine culture noted Microbiology 11/27/17 11:30 Urine - Urine Clean Catch Urine Culture - Final Escherichia Coli Esbl [employer] Technician 11/27/17 09:30 Blood - Peripheral Venous Blood Culture - Final Escherichia Coli Esbl [employer] Technician Code(s): N39.0 - URINARY TRACT INFECTION, SITE NOT SPECIFIED Qualifiers: Urinary tract infection type: site unspecified Hematuria presence: with hematuria Qualified Code(s): N39.0 - Urinary tract infection, site not specified; R31.9 - Hematuria, unspecified; R31.9 - Hematuria, unspecified (3) Altered mental status Assessment/Plan: 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
[2017-11-30] MEDS: SODIUM CHLORIDE 0.45% 1,000 ML IV SCH ×2 (15:36→17:15)
[2017-11-30] MEDS ORDERED: SODIUM CHLORIDE 0.45% 1,000 ML IV SCH (17:31)
--- NOTE | 2017-11-30 17:31 | PN ---
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, Physician History of Present Illness: Pt seen and examined at bedside. She appears comfortable. - Current Medication List Current Medications: Active Medications Acetaminophen (Tylenol -) 650 mg PO Q6H PRN PRN Reason: PAIN OR FEVER Last Admin: 11/30/17 01:25 Dose: 650 mg Amlodipine Besylate (Norvasc -) 2.5 mg PO DAILY [facility] Last Admin: 11/30/17 09:43 Dose: 2.5 mg Ascorbic Acid (Vitamin C -) 500 mg PO DAILY [facility] Last Admin: 11/30/17 09:42 Dose: 500 mg Glimepiride (Amaryl -) 4 mg PO DAILY@0700 [facility] Last Admin: 11/30/17 06:38 Dose: 4 mg Heparin Sodium (Porcine) (Heparin -) 5,000 unit SQ BID [facility] Last Admin: 11/30/17 09:43 Dose: 5,000 unit IV Flush (Picc Line Flush) 8 ml IVPUSH PRN PRN PRN Reason: Protocol Sodium Chloride (1/2 Normal Saline) 1,000 mls @ 75 mls/hr IV ASDIR [facility] Last Admin: 11/30/17 17:15 Dose: Not Given Ertapenem 1 gm/ Sodium (Chloride) 100 mls @ 200 mls/hr IVPB DAILY [facility] PRN Reason: Protocol Last Admin: 11/30/17 09:42 Dose: 200 mls/hr Insulin Aspart (Novolog Vial Sliding Scale -) 1 vial SQ ACHS [facility] PRN Reason: Protocol Last Admin: 11/30/17 17:17 Dose: Not Given Insulin Detemir (Levemir Vial) 15 units SQ HS [facility] Last Admin: 11/29/17 22:05 Dose: 15 units Memantine (Namenda -) 10 mg PO BID [facility] Last Admin: 11/30/17 09:42 Dose: 10 mg Multivitamins/Minerals (Theragran-M) 1 each PO DAILY [facility] Last Admin: 11/30/17 09:43 Dose: 1 each Ursodiol (Actigal -) 300 mg PO BID [facility] Last Admin: 11/30/17 09:42 Dose: 300 mg - Objective Vital Signs: Vital Signs Temperature 98.9 F 11/30/17 15:30 Pulse Rate 79 11/30/17 15:30 Respiratory Rate 18 11/30/17 15:30 Blood Pressure 119/62 11/30/17 15:30 O2 Sat by Pulse Oximetry (%) 98 11/30/17 09:00 Constitutional: Yes: Calm Eyes: Yes: Conjunctiva Clear HENT: Yes: Atraumatic Neck: Yes: Supple Cardiovascular: Yes: S1, S2 Respiratory: Yes: CTA Bilaterally Genitourinary: Yes: [place] Present Musculoskeletal: Yes: Muscle Weakness Extremities: Yes: WNL Edema: No Neurological: Yes: Confusion, Pre-Existing Deficit Labs: CBC, BMP 11/29/17 07:15 11/29/17 07:15 INR, PTT INR 1.04 (0.82-1.09) 11/27/17 09:30 Problem List - Problems (1) Acute kidney injury Code(s): N17.9 - ACUTE KIDNEY FAILURE, UNSPECIFIED (2) Sepsis Code(s): A41.9 - SEPSIS, UNSPECIFIED ORGANISM Qualifiers: Sepsis type: sepsis due to unspecified organism Qualified Code(s): A41.9 - Sepsis, unspecified organism (3) Diabetes Code(s): E11.9 - TYPE 2 DIABETES MELLITUS WITHOUT COMPLICATIONS Assessment/Plan Current Medications Generic Name Dose Route Start Last Admin Trade Name Freq PRN Reason Stop Dose Admin Acetaminophen 650 mg 11/27/17 14:42 11/30/17 01:25 Tylenol - PO 650 mg Q6H PRN Administration PAIN OR FEVER Amlodipine Besylate 2.5 mg 11/29/17 10:00 11/30/17 09:43 Norvasc - PO 2.5 mg DAILY [facility] Administration Ascorbic Acid 500 mg 11/29/17 10:00 11/30/17 09:42 Vitamin C - PO 500 mg DAILY [facility] Administration Glimepiride 4 mg 11/29/17 07:00 11/30/17 06:38 Amaryl - PO 4 mg DAILY@0700 [facility] Administration Heparin Sodium (Porcine) 5,000 unit 11/28/17 22:00 11/30/17 09:43 Heparin - SQ 5,000 unit BID [facility] Administration IV Flush 8 ml 11/30/17 10:33 Picc Line Flush IVPUSH PRN PRN Protocol Sodium Chloride 1,000 mls @ 75 mls/hr 11/28/17 17:00 11/30/17 17:15 1/2 Normal Saline IV Not Given ASDIR [facility] Ertapenem 1 gm/ Sodium 100 mls @ 200 mls/hr 11/30/17 10:00 11/30/17 09:42 Chloride IVPB 200 mls/hr DAILY [facility] Administration Protocol Insulin Aspart 1 vial 11/27/17 16:30 11/30/17 17:17 Novolog Vial Sliding Scale - SQ Not Given ACHS [facility] Protocol Insulin Detemir 15 units 11/27/17 22:00 11/29/17 22:05 Levemir Vial SQ 15 units HS [facility] Administration Memantine 10 mg 11/28/17 22:00 11/30/17 09:42 Namenda - PO 10 mg BID [facility] Administration Multivitamins/Minerals 1 each 11/29/17 10:00 11/30/17 09:43 Theragran-M PO 1 each DAILY [facility] Administration Ursodiol 300 mg 11/28/17 22:15 11/30/17 09:42 Actigal - PO 300 mg BID [facility] Administration Impression 1. SHERLYN 2. fever 3. dementia 4. DM 5. UTI 6. HTN 7. sepsis 8. bacteremia 9. hydronephrosis Plan - decrease rate of fluids - repeat labs in am - maintain menchaca - abx per ID - urology eval for hydro Dr Markham
--- NOTE | 2017-11-30 18:22 | CON.GU ---
Consult Consult Specialty:: urology Referred by:: Dewey - History of Present Illness Chief Complaint: urinary retention with UTI History of Present Illness: Patient is unable to give a history. The patient has a resistant uti treated with ertapenem. The patient was found on sonogram to have urinary retention with right hydronephrosis. Creatinine baseline in 0.9 and went up to 1.4 on . The creatinine has now normalized to baseline once menchaca catheter placed. 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 Cardio/Vascular: Yes: HTN, Hyperlipdemia, Other (PSVT) ...: No Endocrine: Yes: Diabetes Mellitus - Alcohol/Substance Use Hx Alcohol Use: No - Smoking History Smoking history: Unknown if ever smoked Have you smoked in the past 12 months: No Aproximately how many cigarettes per day: 0 - Social History Usual Living Arrangement: [facility] ADL: Support Services Occupation: unknown History of Recent Travel: No Home Medications - Allergies Allergies/Adverse Reactions: Allergies Allergy/AdvReac Type Severity Reaction Status Date / Time No Known Allergies Allergy Verified 11/27/17 08:38 - Home Medications Home Medications: Ambulatory Orders Acetaminophen [Pain Relief] 650 mg PO QID PRN 03/13/17 Acetaminophen [Extra Strength Non-Aspirin] 500 mg PO TID PRN 11/27/17 Amlodipine Besylate [Norvasc -] 5 mg PO ONCE 11/27/17 Ascorbate Calcium [Vitamin C] 500 mg PO DAILY 11/27/17 Bethanechol Chloride [Urecholine] 50 mg PO TID 11/27/17 Glimepiride [Amaryl] 4 mg PO DAILY 11/27/17 Heparin - 5,000 unit SCJ BID 11/27/17 Insulin (LOG) Aspart [NovoLOG -] 11/27/17 Insulin (Levemir) [Levemir Vial] 100 unit SCJ ONCE 11/27/17 Memantine HCl [Namenda -] 10 mg PO BID 11/27/17 Multivit with Minerals No.55 [Centrum Flavor Burst Adult] 11/27/17 Ursodiol [Actigall] 300 mg PO BID 11/27/17 Physical Exam- Vital Signs: Vital Signs Temperature 101.4 F H 11/30/17 17:59 Pulse Rate 79 11/30/17 15:30 Respiratory Rate 18 11/30/17 15:30 Blood Pressure 119/62 11/30/17 15:30 O2 Sat by Pulse Oximetry (%) 98 11/30/17 09:00 Constitutional: Yes: Calm Eyes: Yes: WNL, Conjunctiva Clear HENT: Yes: WNL, Atraumatic, Normocephalic Neck: Yes: WNL, Supple, Trachea Midline Cardiovascular: Yes: Regular Rate and Rhythm Respiratory: Yes: WNL, Regular Gastrointestinal: Yes: WNL, Normal Bowel Sounds Renal/: Yes: WNL, [place] Present Kidneys: Yes: WNL Pelvis: Yes: WNL, Bladder Non Palpable External Genitalia: Yes: WNL Labs: CBC, BMP 11/29/17 07:15 11/29/17 07:15 Assessment/Plan impression acute renal insufficiency uti urinary retention plan maintain menchaca until patient's antibiotic course has ended may be discharged with menchaca follow creatinine after menchaca removal thank you for this consultation
[2017-11-30] MEDS: INSULIN DETEMIR 100 UNITS/ML MDV SQ SCH (21:30)
[2017-11-30] MEDS ORDERED: INSULIN (NOVOLOG) ASPART 100 UNITS/ML 10ML VIAL ONE (21:32)
[2017-12-01] MEDS: ACETAMINOPHEN 325 MG TABLET (FP) PO PRN ×2 (02:08→09:10)
[2017-12-01] MEDS: GLIMEPIRIDE 4 MG TABLET (FP) PO SCH (06:35)
[2017-12-01] MEDS: INSULIN SLIDING SCALE (NOVOLOG) 1 VIAL SQ SCH ×4 (06:36→22:21)
[2017-12-01 07:54] LABS: ANION GAP 9 (8-16); BLOOD UREA NITROGEN 11 mg/dL (7-18); CALCIUM 8.5 mg/dL (8.5-10.1); CHLORIDE 99 mmol/L (98-107); CO2 25 mmol/L (21-32); GLUCOSE,RANDOM 170 mg/dL (74-106); POTASSIUM 3.9 mmol/L (3.5-5.1); SODIUM 133 mmol/L (136-145)
[2017-12-01 07:55] LABS: CREATININE 0.8 mg/dL (0.55-1.02)
--- NOTE | 2017-12-01 09:34 | PN ---
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, Physician Chief Complaint: ID Intermittent fevers discussed with Dr Agata Badillo day 2 - Current Medication List Current Medications: Active Medications Acetaminophen (Tylenol -) 650 mg PO Q6H PRN PRN Reason: PAIN OR FEVER Last Admin: 12/01/17 02:08 Dose: 650 mg Amlodipine Besylate (Norvasc -) 2.5 mg PO DAILY [facility] Last Admin: 11/30/17 09:43 Dose: 2.5 mg Ascorbic Acid (Vitamin C -) 500 mg PO DAILY [facility] Last Admin: 11/30/17 09:42 Dose: 500 mg Glimepiride (Amaryl -) 4 mg PO DAILY@0700 [facility] Last Admin: 12/01/17 06:35 Dose: 4 mg Heparin Sodium (Porcine) (Heparin -) 5,000 unit SQ BID [facility] Last Admin: 11/30/17 21:30 Dose: 5,000 unit IV Flush (Picc Line Flush) 8 ml IVPUSH PRN PRN PRN Reason: Protocol Ertapenem 1 gm/ Sodium (Chloride) 100 mls @ 200 mls/hr IVPB DAILY [facility]ID PRN Reason: Protocol Last Admin: 11/30/17 09:42 Dose: 200 mls/hr Sodium Chloride (1/2 Normal Saline) 1,000 mls @ 40 mls/hr IV ASDIR [facility] Last Admin: 11/30/17 18:02 Dose: 40 mls/hr Insulin Aspart (Novolog Vial Sliding Scale -) 1 vial SQ ACHS DAVID PRN Reason: Protocol Last Admin: 12/01/17 06:36 Dose: 2 units Insulin Detemir (Levemir Vial) 15 units SQ HS [facility] Last Admin: 11/30/17 21:30 Dose: 15 units Memantine (Namenda -) 10 mg PO BID [facility] Last Admin: 11/30/17 21:30 Dose: 10 mg Multivitamins/Minerals (Theragran-M) 1 each PO DAILY [facility] Last Admin: 11/30/17 09:43 Dose: 1 each Ursodiol (Actigal -) 300 mg PO BID [facility] Last Admin: 11/30/17 21:30 Dose: 300 mg - Objective Vital Signs: Vital Signs Temperature 102 F H 12/01/17 06:00 Pulse Rate 88 12/01/17 06:00 Respiratory Rate 20 12/01/17 06:00 Blood Pressure 150/80 12/01/17 06:00 O2 Sat by Pulse Oximetry (%) 98 11/30/17 21:00 Gastrointestinal: Yes: WNL, Normal Bowel Sounds, Soft. No: Tenderness, Tenderness, Epigastrium Labs: CBC, BMP 11/29/17 07:15 12/01/17 07:15 INR, PTT INR 1.04 (0.82-1.09) 11/27/17 09:30 Assessment/Plan Microbiology 11/27/17 11:30 Urine - Urine Clean Catch Urine Culture - Final Escherichia Coli Esbl [employer] 11/27/17 09:30 Blood - Peripheral Venous Blood Culture - Final Escherichia Coli Esbl [employer] Laboratory Tests 11/27/17 11/29/17 12/01/17 09:30 07:15 07:15 WBC 13.4 H D 5.1 Hgb 10.6 L Hct 31.9 L Plt Count 230 BUN 11 Creatinine 0.8 Assessment ESBL E COli pyelopnephritis Plan Suspect will take time to improve. Continue current therapy hopefully fever will diminish soon [place] [facility]
[2017-12-01] MEDS: ERTAPENEM SODIUM 1 GM in SODIUM CHLORIDE 100 ML IVPB SCH (09:43)
[2017-12-01] MEDS: HEPARIN NA (PORCINE) 5,000 UNITS/ML 1ML VIAL SQ SCH ×2 (09:43→22:23)
[2017-12-01] MEDS: URSODIOL 300 MG CAPSULE PO SCH ×2 (09:48→22:22)
[2017-12-01] MEDS: MEMANTINE HCL 10 MG TABLET (FP) PO SCH ×2 (09:48→22:21)
[2017-12-01] MEDS: amLODIPine BESYLATE 5 MG TABLET (FP) PO SCH (09:49)
[2017-12-01] MEDS: MULTIVITAMINS THER W-MINERALS COMBO TABLET (FP) PO SCH (09:49)
[2017-12-01] MEDS: ASCORBIC ACID 500 MG TABLET (FP) PO SCH (09:49)
--- NOTE | 2017-12-01 11:50 | PN ---
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, Physician History of Present Illness: FEBRILE D/W DR SHANNON - Current Medication List Current Medications: Active Medications Acetaminophen (Tylenol -) 650 mg PO Q6H PRN PRN Reason: PAIN OR FEVER Last Admin: 12/01/17 09:10 Dose: 650 mg Amlodipine Besylate (Norvasc -) 2.5 mg PO DAILY [facility] Last Admin: 12/01/17 09:49 Dose: Not Given Ascorbic Acid (Vitamin C -) 500 mg PO DAILY [facility] Last Admin: 12/01/17 09:49 Dose: Not Given Glimepiride (Amaryl -) 4 mg PO DAILY@0700 [facility] Last Admin: 12/01/17 06:35 Dose: 4 mg Heparin Sodium (Porcine) (Heparin -) 5,000 unit SQ BID [facility] Last Admin: 12/01/17 09:43 Dose: 5,000 unit IV Flush (Picc Line Flush) 8 ml IVPUSH PRN PRN PRN Reason: Protocol Ertapenem 1 gm/ Sodium (Chloride) 100 mls @ 200 mls/hr IVPB DAILY DAVID PRN Reason: Protocol Last Admin: 12/01/17 09:43 Dose: 200 mls/hr Sodium Chloride (1/2 Normal Saline) 1,000 mls @ 40 mls/hr IV ASDIR [facility] Last Admin: 11/30/17 18:02 Dose: 40 mls/hr Insulin Aspart (Novolog Vial Sliding Scale -) 1 vial SQ ACHS DAVID PRN Reason: Protocol Last Admin: 12/01/17 06:36 Dose: 2 units Insulin Detemir (Levemir Vial) 15 units SQ HS [facility] Last Admin: 11/30/17 21:30 Dose: 15 units Memantine (Namenda -) 10 mg PO BID [facility] Last Admin: 12/01/17 09:48 Dose: Not Given Multivitamins/Minerals (Theragran-M) 1 each PO DAILY [facility] Last Admin: 12/01/17 09:49 Dose: Not Given Ursodiol (Actigal -) 300 mg PO BID [facility] Last Admin: 12/01/17 09:48 Dose: Not Given - Objective Vital Signs: Vital Signs Temperature 104.8 F H 12/01/17 09:00 Pulse Rate 92 H 12/01/17 09:00 Respiratory Rate 18 12/01/17 09:00 Blood Pressure 132/68 12/01/17 09:00 O2 Sat by Pulse Oximetry (%) 98 11/30/17 21:00 Cardiovascular: Yes: S1, S2 Respiratory: Yes: Regular, CTA Bilaterally Gastrointestinal: Yes: Normal Bowel Sounds, Soft. No: Tenderness Edema: No Labs: CBC, BMP 11/29/17 07:15 12/01/17 07:15 INR, PTT INR 1.04 (0.82-1.09) 11/27/17 09:30 Assessment/Plan - Problems (1) Hydronephrosis, left Assessment/Plan: hydro with urinary retention menchaca inserted urology evaluation noted still spiking fevers cultures noted Code(s): N13.30 - UNSPECIFIED HYDRONEPHROSIS (2) Urinary tract infection Assessment/Plan: med surg iv antibiotic ID eval noted resistant organism requires ertrapenem cannot be substituted to another abx, picc line for 14 days urine culture noted Microbiology 11/27/17 11:30 Urine - Urine Clean Catch Urine Culture - Final Escherichia Coli Esbl [place] 11/27/17 09:30 Blood - Peripheral Venous Blood Culture - Final Escherichia Coli Esbl [place] Code(s): N39.0 - URINARY TRACT INFECTION, SITE NOT SPECIFIED Qualifiers: Urinary tract infection type: site unspecified Hematuria presence: with hematuria Qualified Code(s): N39.0 - Urinary tract infection, site not specified; R31.9 - Hematuria, unspecified; R31.9 - Hematuria, unspecified (3) Altered mental status Assessment/Plan: 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
[2017-12-01] MEDS: ACETAMINOPHEN 650 MG SUPP.RECT PR PRN ×3 (13:15→22:23)
--- NOTE | 2017-12-01 14:15 | PN ---
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 (short form) - Note 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: RENAL Pt seen and examined she is asleep and difficult to arouse Last Vital Signs Temp Pulse Resp BP Pulse Ox 103.2 F H 92 H 18 132/68 95 12/01/17 13:00 12/01/17 09:00 12/01/17 09:00 12/01/17 09:00 12/01/17 09:00 has a tactile fever +jvd lungs rhonchi cvs s1s2 rr abd soft ext edema CBC, BMP 11/29/17 07:15 12/01/17 07:15 Current Medications Generic Name Dose Route Start Last Admin Trade Name Freq PRN Reason Stop Dose Admin Acetaminophen 650 mg 11/27/17 14:42 12/01/17 09:10 Tylenol - PO 650 mg Q6H PRN Administration PAIN OR FEVER Acetaminophen 650 mg 12/01/17 13:52 12/01/17 13:15 Tylenol Suppository - [place] 650 mg Q4H PRN Administration FEVER Amlodipine Besylate 2.5 mg 11/29/17 10:00 12/01/17 09:49 Norvasc - PO Not Given DAILY [facility] Ascorbic Acid 500 mg 11/29/17 10:00 12/01/17 09:49 Vitamin C - PO Not Given DAILY [facility] Glimepiride 4 mg 11/29/17 07:00 12/01/17 06:35 Amaryl - PO 4 mg DAILY@0700 [facility]ID Administration Heparin Sodium (Porcine) 5,000 unit 11/28/17 22:00 12/01/17 09:43 Heparin - SQ 5,000 unit BID [facility]ID Administration IV Flush 8 ml 11/30/17 10:33 Picc Line Flush IVPUSH PRN PRN Protocol Ertapenem 1 gm/ Sodium 100 mls @ 200 mls/hr 11/30/17 10:00 12/01/17 09:43 Chloride IVPB 200 mls/hr DAILY [facility]ID Administration Protocol Sodium Chloride 1,000 mls @ 40 mls/hr 11/30/17 17:31 11/30/17 18:02 1/2 Normal Saline IV 40 mls/hr ASDIR [facility]ID Administration Insulin Aspart 1 vial 11/27/17 16:30 12/01/17 12:16 Novolog Vial Sliding Scale - SQ Not Given ACHS [facility] Protocol Insulin Detemir 15 units 11/27/17 22:00 11/30/17 21:30 Levemir Vial SQ 15 units HS [facility] Administration Memantine 10 mg 11/28/17 22:00 12/01/17 09:48 Namenda - PO Not Given BID [facility] Multivitamins/Minerals 1 each 11/29/17 10:00 12/01/17 09:49 Theragran-M PO Not Given DAILY [facility] Ursodiol 300 mg 11/28/17 22:15 12/01/17 09:48 Actigal - PO Not Given BID [facility] Impression 1. SHERLYN resolved 2. fever 3. dementia 4. DM 5. UTI 6. HTN 7. sepsis 8. bacteremia 9. hydronephrosis 10 mild hyponatremia Plan would continue fluids given fever monitor sodium change fluids to ns MV
[2017-12-01] MEDS ORDERED: SODIUM CHLORIDE 1,000 ML IV SCH (14:30)
[2017-12-01] MEDS ORDERED: DEXTROSE 50%-WATER - 25 GM/50 ML VIAL ONE (22:13)
[2017-12-01] MEDS: INSULIN DETEMIR 100 UNITS/ML MDV SQ SCH (22:22)
[2017-12-01] MEDS ORDERED: DEXTROSE 50%-WATER - 25 GM/50 ML VIAL IVPUSH ONE (22:30)
[2017-12-01] MEDS ORDERED: DEXTROSE 5%-WATER - 1,000 ML IV SCH (22:30)
[2017-12-02] MEDS: ACETAMINOPHEN 650 MG SUPP.RECT PR PRN (04:00)
[2017-12-02] MEDS: GLIMEPIRIDE 4 MG TABLET (FP) PO SCH (06:08)
[2017-12-02] MEDS: INSULIN SLIDING SCALE (NOVOLOG) 1 VIAL SQ SCH ×4 (06:09→21:20)
[2017-12-02 07:50] LABS: BASO % 0.5 % (0-2.0); HEMATOCRIT 34.5 % (32.4-45.2); HEMOGLOBIN 11.2 GM/dL (10.7-15.3); LYMPH % 16.6 % (8-40); MCH 28.7 pg (25.7-33.7); MCHC 32.6 g/dl (32.0-36.0); MEAN PLT VOLUME 8.3 fl (7.5-11.1); MONO % 7.3 % (3.8-10.2); NEUT % 75.6 % (42.8-82.8); PLATELET COUNT 240 K/MM3 (134-434); RBC 3.92 M/mm3 (3.60-5.2); RDW 13.5 % (11.6-15.6); WHITE BLOOD COUNT 11.5 K/mm3 (4.0-10.0)
[2017-12-02 08:12] LABS: CHLORIDE 98 mmol/L (98-107); POTASSIUM 3.4 mmol/L (3.5-5.1); SODIUM 134 mmol/L (136-145)
[2017-12-02 08:28] LABS: ALBUMIN 2.3 g/dl (3.4-5.0); ALK PHOS 91 U/L (45-117); ANION GAP 12 (8-16); BILIRUBIN,TOTAL 0.3 mg/dL (0.2-1.0); BLOOD UREA NITROGEN 17 mg/dL (7-18); CO2 24 mmol/L (21-32); GLUCOSE,RANDOM 204 mg/dL (74-106); SGOT/AST 37 U/L (15-37); SGPT/ALT 31 U/L (12-78); TOT PROT 6.3 g/dl (6.4-8.2)
[2017-12-02] MEDS ORDERED: PT OWN MED DRAWER 7, Y5N ONE (09:36)
[2017-12-02] MEDS: ERTAPENEM SODIUM 1 GM in SODIUM CHLORIDE 100 ML IVPB SCH (09:51)
[2017-12-02] MEDS: HEPARIN NA (PORCINE) 5,000 UNITS/ML 1ML VIAL SQ SCH ×2 (09:53→21:18)
[2017-12-02] MEDS: MEMANTINE HCL 10 MG TABLET (FP) PO SCH ×2 (09:54→21:11)
[2017-12-02] MEDS: URSODIOL 300 MG CAPSULE PO SCH ×2 (09:54→21:11)
[2017-12-02] MEDS: amLODIPine BESYLATE 5 MG TABLET (FP) PO SCH (09:55)
[2017-12-02] MEDS: ASCORBIC ACID 500 MG TABLET (FP) PO SCH (09:55)
[2017-12-02] MEDS: MULTIVITAMINS THER W-MINERALS COMBO TABLET (FP) PO SCH (09:55)
--- NOTE | 2017-12-02 10:23 | PN ---
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, Physician History of Present Illness: FEBRILE D/W DR SHANNON - Current Medication List Current Medications: Active Medications Acetaminophen (Tylenol -) 650 mg PO Q6H PRN PRN Reason: PAIN OR FEVER Last Admin: 12/01/17 09:10 Dose: 650 mg Acetaminophen (Tylenol Suppository -) 650 mg [place] Q4H PRN PRN Reason: FEVER Last Admin: 12/02/17 04:00 Dose: 650 mg Amlodipine Besylate (Norvasc -) 2.5 mg PO DAILY [facility] Last Admin: 12/02/17 09:55 Dose: Not Given Ascorbic Acid (Vitamin C -) 500 mg PO DAILY [facility] Last Admin: 12/02/17 09:55 Dose: Not Given Glimepiride (Amaryl -) 4 mg PO DAILY@0700 [facility] Last Admin: 12/02/17 06:08 Dose: Not Given Heparin Sodium (Porcine) (Heparin -) 5,000 unit SQ BID [facility] Last Admin: 12/02/17 09:53 Dose: 5,000 unit IV Flush (Picc Line Flush) 8 ml IVPUSH PRN PRN PRN Reason: Protocol Ertapenem 1 gm/ Sodium (Chloride) 100 mls @ 200 mls/hr IVPB DAILY DAVID PRN Reason: Protocol Last Admin: 12/02/17 09:51 Dose: 200 mls/hr Dextrose (D5w -) 1,000 mls @ 42 mls/hr IV ASDIR [facility] Last Admin: 12/01/17 22:32 Dose: 42 mls/hr Insulin Aspart (Novolog Vial Sliding Scale -) 1 vial SQ ACHS DAVID PRN Reason: Protocol Last Admin: 12/02/17 06:09 Dose: 4 units Insulin Detemir (Levemir Vial) 15 units SQ HS [facility] Last Admin: 12/01/17 22:22 Dose: Not Given Memantine (Namenda -) 10 mg PO BID [facility] Last Admin: 12/02/17 09:54 Dose: Not Given Multivitamins/Minerals (Theragran-M) 1 each PO DAILY [facility] Last Admin: 12/02/17 09:55 Dose: Not Given Ursodiol (Actigal -) 300 mg PO BID [facility] Last Admin: 12/02/17 09:54 Dose: Not Given - Objective Vital Signs: Vital Signs Temperature 98.6 F 12/02/17 06:00 Pulse Rate 82 12/02/17 06:00 Respiratory Rate 20 12/02/17 06:00 Blood Pressure 113/49 12/02/17 06:00 O2 Sat by Pulse Oximetry (%) 97 12/01/17 21:00 Cardiovascular: Yes: S1, S2 Respiratory: Yes: Regular, CTA Bilaterally Gastrointestinal: Yes: Normal Bowel Sounds, Soft Labs: CBC, BMP 12/02/17 07:15 12/02/17 07:15 INR, PTT INR 1.04 (0.82-1.09) 11/27/17 09:30 Assessment/Plan - Problems (1) Hydronephrosis, left Assessment/Plan: hydro with urinary retention menchaca inserted urology evaluation noted still spiking fevers cultures noted Code(s): N13.30 - UNSPECIFIED HYDRONEPHROSIS (2) Urinary tract infection Assessment/Plan: med surg iv antibiotic ID eval noted resistant organism requires ertrapenem cannot be substituted to another abx, picc line for 14 days urine culture noted Microbiology 11/27/17 11:30 Urine - Urine Clean Catch Urine Culture - Final Escherichia Coli Esbl [employer] 11/27/17 09:30 Blood - Peripheral Venous Blood Culture - Final Escherichia Coli Esbl [facility] Code(s): N39.0 - URINARY TRACT INFECTION, SITE NOT SPECIFIED Qualifiers: Urinary tract infection type: site unspecified Hematuria presence: with hematuria Qualified Code(s): N39.0 - Urinary tract infection, site not specified; R31.9 - Hematuria, unspecified; R31.9 - Hematuria, unspecified (3) Altered mental status Assessment/Plan: 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
--- NOTE | 2017-12-02 13:49 | PN ---
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 (short form) - Note 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: RENAL Pt seen and examined she is asleep and difficult to arouse but appears much better than yesterday Last Vital Signs Temp Pulse Resp BP Pulse Ox 99.5 F 76 18 110/62 97 12/02/17 10:00 12/02/17 10:00 12/02/17 10:00 12/02/17 10:00 12/01/17 21:00 has a tactile fever +jvd lungs rhonchi cvs s1s2 rr abd soft ext no edema CBC, BMP 12/02/17 07:15 12/02/17 07:15 Current Medications Generic Name Dose Route Start Last Admin Trade Name Freq PRN Reason Stop Dose Admin Acetaminophen 650 mg 11/27/17 14:42 12/01/17 09:10 Tylenol - PO 650 mg Q6H PRN Administration PAIN OR FEVER Acetaminophen 650 mg 12/01/17 13:52 12/02/17 04:00 Tylenol Suppository - [place] 650 mg Q4H PRN Administration FEVER Amlodipine Besylate 2.5 mg 11/29/17 10:00 12/02/17 09:55 Norvasc - PO Not Given DAILY [facility] Ascorbic Acid 500 mg 11/29/17 10:00 12/02/17 09:55 Vitamin C - PO Not Given DAILY [facility] Glimepiride 4 mg 11/29/17 07:00 12/02/17 06:08 Amaryl - PO Not Given DAILY@0700 [facility] Heparin Sodium (Porcine) 5,000 unit 11/28/17 22:00 12/02/17 09:53 Heparin - SQ 5,000 unit BID DAVID Administration IV Flush 8 ml 11/30/17 10:33 Picc Line Flush IVPUSH PRN PRN Protocol Ertapenem 1 gm/ Sodium 100 mls @ 200 mls/hr 11/30/17 10:00 12/02/17 09:51 Chloride IVPB 200 mls/hr DAILY [facility] Administration Protocol Dextrose 1,000 mls @ 42 mls/hr 12/01/17 22:30 12/01/17 22:32 D5w - IV 42 mls/hr ASDIR DAVID Administration Insulin Aspart 1 vial 11/27/17 16:30 12/02/17 12:02 Novolog Vial Sliding Scale - SQ Not Given ACHS [facility] Protocol Insulin Detemir 15 units 11/27/17 22:00 12/01/17 22:22 Levemir Vial SQ Not Given HS [facility] Memantine 10 mg 11/28/17 22:00 12/02/17 09:54 Namenda - PO Not Given BID [facility] Multivitamins/Minerals 1 each 11/29/17 10:00 12/02/17 09:55 Theragran-M PO Not Given DAILY [facility] Ursodiol 300 mg 11/28/17 22:15 12/02/17 09:54 Actigal - PO Not Given BID [facility] Impression 1. SHERLYN resolved 2. fever 3. dementia 4. DM 5. UTI 6. HTN 7. sepsis 8. bacteremia 9. hydronephrosis 10 mild hyponatremia Plan fluid was changed due to hypoglycemia last night. Would change to d5ns monitor sodium would dc glimeperide and leave on sliding scale MV
[2017-12-02] MEDS ORDERED: DEXTROSE 5%-NORMAL SALINE 1,000 ML IV SCH (14:00)
[2017-12-02] MEDS: D5-NS + 20 MEQ KCL - 20 MEQ/1,000 ML INFUS.BAG IV SCH (14:48)
[2017-12-02] MEDS: INSULIN DETEMIR 100 UNITS/ML MDV SQ SCH (21:11)
[2017-12-03] MEDS: GLIMEPIRIDE 4 MG TABLET (FP) PO SCH (06:05)
[2017-12-03] MEDS: INSULIN SLIDING SCALE (NOVOLOG) 1 VIAL SQ SCH ×4 (06:05→21:18)
[2017-12-03 07:59] LABS: BASO % 0.3 % (0-2.0); EOS % 0.6 % (0-4.5); HEMATOCRIT 33.2 % (32.4-45.2); HEMOGLOBIN 10.9 GM/dL (10.7-15.3); LYMPH % 20.3 % (8-40); MCHC 32.8 g/dl (32.0-36.0); MEAN CELL VOLUME 88.4 fl (80-96); MEAN PLT VOLUME 8.1 fl (7.5-11.1); MONO % 7.6 % (3.8-10.2); NEUT % 71.2 % (42.8-82.8); PLATELET COUNT 243 K/MM3 (134-434); RBC 3.76 M/mm3 (3.60-5.2); RDW 14.1 % (11.6-15.6); WHITE BLOOD COUNT 6.2 K/mm3 (4.0-10.0)
[2017-12-03 08:08] LABS: ANION GAP 9 (8-16); BLOOD UREA NITROGEN 20 mg/dL (7-18); CALCIUM 7.8 mg/dL (8.5-10.1); CHLORIDE 104 mmol/L (98-107); CO2 25 mmol/L (21-32); GLUCOSE,RANDOM 141 mg/dL (74-106); SODIUM 138 mmol/L (136-145)
[2017-12-03 08:10] LABS: CREATININE 0.8 mg/dL (0.55-1.02)
[2017-12-03] MEDS ORDERED: PT OWN MED DRAWER 7, Y5N ONE ×2 (09:54→21:03)
[2017-12-03] MEDS: HEPARIN NA (PORCINE) 5,000 UNITS/ML 1ML VIAL SQ SCH ×2 (09:57→21:14)
[2017-12-03] MEDS: amLODIPine BESYLATE 5 MG TABLET (FP) PO SCH (09:59)
[2017-12-03] MEDS: MEMANTINE HCL 10 MG TABLET (FP) PO SCH ×2 (09:59→21:15)
[2017-12-03] MEDS: MULTIVITAMINS THER W-MINERALS COMBO TABLET (FP) PO SCH (10:00)
[2017-12-03] MEDS: ASCORBIC ACID 500 MG TABLET (FP) PO SCH (10:00)
[2017-12-03] MEDS: ERTAPENEM SODIUM 1 GM in SODIUM CHLORIDE 100 ML IVPB SCH (10:01)
[2017-12-03] MEDS: URSODIOL 300 MG CAPSULE PO SCH ×2 (10:08→21:14)
--- NOTE | 2017-12-03 10:10 | PN ---
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, Physician Chief Complaint: UTI,fever History of Present Illness: CARMINA, in bed seen by Nephrology and ID on iv abx PICC line Ate her breakfast this AM with no problems febrile x 1 yesterday - Current Medication List Current Medications: Active Medications Acetaminophen (Tylenol -) 650 mg PO Q6H PRN PRN Reason: PAIN OR FEVER Last Admin: 12/01/17 09:10 Dose: 650 mg Acetaminophen (Tylenol Suppository -) 650 mg [place] Q4H PRN PRN Reason: FEVER Last Admin: 12/02/17 04:00 Dose: 650 mg Amlodipine Besylate (Norvasc -) 2.5 mg PO DAILY [facility] Last Admin: 12/02/17 09:55 Dose: Not Given Ascorbic Acid (Vitamin C -) 500 mg PO DAILY [facility] Last Admin: 12/02/17 09:55 Dose: Not Given Heparin Sodium (Porcine) (Heparin -) 5,000 unit SQ BID [facility] Last Admin: 12/02/17 21:18 Dose: 5,000 unit IV Flush (Picc Line Flush) 8 ml IVPUSH PRN PRN PRN Reason: Protocol Ertapenem 1 gm/ Sodium (Chloride) 100 mls @ 200 mls/hr IVPB DAILY DAVID PRN Reason: Protocol Last Admin: 12/02/17 09:51 Dose: 200 mls/hr Dextrose/Sodium Chloride (Dextrose 5%-Normal Saline+20 Meq Kcl -) 20 meq in 1, 000 mls @ 42 mls/hr IV ASDIR [facility] Last Admin: 12/02/17 14:48 Dose: 42 mls/hr Insulin Aspart (Novolog Vial Sliding Scale -) 1 vial SQ ACHS DAVID PRN Reason: Protocol Last Admin: 12/03/17 06:05 Dose: Not Given Insulin Detemir (Levemir Vial) 15 units SQ HS [facility] Last Admin: 12/02/17 21:11 Dose: Not Given Memantine (Namenda -) 10 mg PO BID [facility] Last Admin: 12/02/17 21:11 Dose: Not Given Multivitamins/Minerals (Theragran-M) 1 each PO DAILY [facility] Last Admin: 12/02/17 09:55 Dose: Not Given Ursodiol (Actigal -) 300 mg PO BID [facility] Last Admin: 12/02/17 21:11 Dose: Not Given - Objective Vital Signs: Vital Signs Temperature 99.5 F 12/03/17 06:00 Pulse Rate 70 12/03/17 06:00 Respiratory Rate 18 12/03/17 06:00 Blood Pressure 92/49 12/03/17 06:00 O2 Sat by Pulse Oximetry (%) 98 12/02/17 21:00 Constitutional: Yes: Well Nourished, No Distress, Calm Cardiovascular: Yes: Regular Rate and Rhythm Respiratory: Yes: Regular Gastrointestinal: Yes: Normal Bowel Sounds, Soft Genitourinary: Yes: Engel Present Musculoskeletal: Yes: Muscle Weakness Extremities: Yes: WNL Edema: No Peripheral Pulses WNL: Yes Neurological: Yes: Alert, Pre-Existing Deficit Psychiatric: Yes: Alert Labs: CBC, BMP 12/03/17 06:30 12/03/17 06:30 INR, PTT INR 1.04 (0.82-1.09) 11/27/17 09:30 Problem List - Problems (1) Acute kidney injury Assessment/Plan: -seen by nephrology -IVF -renal/bladder u/s noted -improved Code(s): N17.9 - ACUTE KIDNEY FAILURE, UNSPECIFIED (2) Gram-negative bacteremia Assessment/Plan: -seen by ID -on IV abx Code(s): R78.81 - BACTEREMIA (3) Sepsis Assessment/Plan: -seen by ID -on IV abx -IVF -Tyelnol 650 mg po Q6H PRN for fever over 100.0 F -CT abdomen r/o any secondary source for fever Code(s): A41.9 - SEPSIS, UNSPECIFIED ORGANISM Qualifiers: Sepsis type: sepsis due to unspecified organism Qualified Code(s): A41.9 - Sepsis, unspecified organism (4) UTI (urinary tract infection) Assessment/Plan: -seen by ID -on IV abx -IVF Code(s): N39.0 - URINARY TRACT INFECTION, SITE NOT SPECIFIED (5) FTT (failure to thrive) in adult Assessment/Plan: monitor PO intake -on D5 IVF -d/c amaryl for now -hold levemir for now until blood sugars improved Code(s): R62.7 - ADULT FAILURE TO THRIVE Assessment/Plan see problem list
--- NOTE | 2017-12-03 11:40 | PN ---
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 (short form) - Note 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: intermittent fevers persist no diarrha Vital Signs Period Temp Pulse Resp BP Sys/Bob Pulse Ox Last 24 Hr 98.3 F-100.1 F 70-80 16-18 92-119/46-52 98 cor-rrr lungs clear abd soft,nt ext no edema menchaca intact CBC, BMP 12/03/17 06:30 12/03/17 06:30 Microbiology 11/27/17 09:30 Blood - Peripheral Venous Blood Culture - Final NO GROWTH AFTER 5 DAYS INCUBATION 11/27/17 11:30 Urine - Urine Clean Catch Urine Culture - Final Escherichia Coli Esbl Cig[employer] Patcher 11/27/17 09:30 Blood - Peripheral Venous Blood Culture - Final Escherichia Coli Esbl Cig[employer] Patcher a/p ecoli esbl bacteremia secondary to UTI left hydronephrosis continue ertapenem plan 14 days ertapenem urology consult noted repeat fevers noted repeat blood cultures ordered ct scan abd/pelvis ordered esr/crp in am d/w PMD service Problem List - Problems (1) Sepsis Code(s): A41.9 - SEPSIS, UNSPECIFIED ORGANISM Qualifiers: Sepsis type: sepsis due to unspecified organism Qualified Code(s): A41.9 - Sepsis, unspecified organism (2) Gram-negative bacteremia Code(s): R78.81 - BACTEREMIA (3) UTI (urinary tract infection) Code(s): N39.0 - URINARY TRACT INFECTION, SITE NOT SPECIFIED (4) Acute urinary retention Code(s): R33.8 - OTHER RETENTION OF URINE (5) Hydronephrosis, left Code(s): N13.30 - UNSPECIFIED HYDRONEPHROSIS
--- NOTE | 2017-12-03 13:53 | PN ---
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, Physician History of Present Illness: Pt seen and examined at bedside. She appears comfortable. - Current Medication List Current Medications: Active Medications Acetaminophen (Tylenol -) 650 mg PO Q6H PRN PRN Reason: PAIN OR FEVER Last Admin: 12/01/17 09:10 Dose: 650 mg Acetaminophen (Tylenol Suppository -) 650 mg [place] Q4H PRN PRN Reason: FEVER Last Admin: 12/02/17 04:00 Dose: 650 mg Amlodipine Besylate (Norvasc -) 2.5 mg PO DAILY [facility] Last Admin: 12/03/17 09:59 Dose: 2.5 mg Ascorbic Acid (Vitamin C -) 500 mg PO DAILY [facility] Last Admin: 12/03/17 10:00 Dose: 500 mg Heparin Sodium (Porcine) (Heparin -) 5,000 unit SQ BID [facility] Last Admin: 12/03/17 09:57 Dose: 5,000 unit IV Flush (Picc Line Flush) 8 ml IVPUSH PRN PRN PRN Reason: Protocol Ertapenem 1 gm/ Sodium (Chloride) 100 mls @ 200 mls/hr IVPB DAILY [facility] PRN Reason: Protocol Last Admin: 12/03/17 10:01 Dose: 200 mls/hr Dextrose/Sodium Chloride (Dextrose 5%-Normal Saline+20 Meq Kcl -) 20 meq in 1, 000 mls @ 42 mls/hr IV ASDIR [facility] Last Admin: 12/02/17 14:48 Dose: 42 mls/hr Insulin Aspart (Novolog Vial Sliding Scale -) 1 vial SQ ACHS [facility] PRN Reason: Protocol Last Admin: 12/03/17 12:17 Dose: 4 units Insulin Detemir (Levemir Vial) 15 units SQ HS [facility] Last Admin: 12/02/17 21:11 Dose: Not Given Memantine (Namenda -) 10 mg PO BID [facility] Last Admin: 12/03/17 09:59 Dose: 10 mg Multivitamins/Minerals (Theragran-M) 1 each PO DAILY [facility] Last Admin: 12/03/17 10:00 Dose: 1 each Ursodiol (Actigal -) 300 mg PO BID [facility] Last Admin: 12/03/17 10:08 Dose: Not Given - Objective Vital Signs: Vital Signs Temperature 98.3 F 12/03/17 10:00 Pulse Rate 71 12/03/17 10:00 Respiratory Rate 18 12/03/17 10:00 Blood Pressure 120/57 12/03/17 10:00 O2 Sat by Pulse Oximetry (%) 98 12/02/17 21:00 Constitutional: Yes: Calm Eyes: Yes: Conjunctiva Clear HENT: Yes: Atraumatic Cardiovascular: Yes: S1, S2 Respiratory: Yes: CTA Bilaterally Gastrointestinal: Yes: Soft Genitourinary: Yes: Engel Present Musculoskeletal: Yes: WNL Edema: No Neurological: Yes: Confusion Labs: CBC, BMP 12/03/17 06:30 12/03/17 06:30 INR, PTT INR 1.04 (0.82-1.09) 11/27/17 09:30 Problem List - Problems (1) Acute kidney injury Code(s): N17.9 - ACUTE KIDNEY FAILURE, UNSPECIFIED (2) Sepsis Code(s): A41.9 - SEPSIS, UNSPECIFIED ORGANISM Qualifiers: Sepsis type: sepsis due to unspecified organism Qualified Code(s): A41.9 - Sepsis, unspecified organism (3) Diabetes Code(s): E11.9 - TYPE 2 DIABETES MELLITUS WITHOUT COMPLICATIONS Assessment/Plan Current Medications Generic Name Dose Route Start Last Admin Trade Name Freq PRN Reason Stop Dose Admin Acetaminophen 650 mg 11/27/17 14:42 12/01/17 09:10 Tylenol - PO 650 mg Q6H PRN Administration PAIN OR FEVER Acetaminophen 650 mg 12/01/17 13:52 12/02/17 04:00 Tylenol Suppository - [place] 650 mg Q4H PRN Administration FEVER Amlodipine Besylate 2.5 mg 11/29/17 10:00 12/03/17 09:59 Norvasc - PO 2.5 mg DAILY [facility] Administration Ascorbic Acid 500 mg 11/29/17 10:00 12/03/17 10:00 Vitamin C - PO 500 mg DAILY [facility] Administration Heparin Sodium (Porcine) 5,000 unit 11/28/17 22:00 12/03/17 09:57 Heparin - SQ 5,000 unit BID [facility] Administration IV Flush 8 ml 11/30/17 10:33 Picc Line Flush IVPUSH PRN PRN Protocol Ertapenem 1 gm/ Sodium 100 mls @ 200 mls/hr 11/30/17 10:00 12/03/17 10:01 Chloride IVPB 200 mls/hr DAILY [facility] Administration Protocol Dextrose/Sodium Chloride 20 meq in 1,000 mls @ 42 mls/hr 12/02/17 14:00 12/02 14:48 Dextrose 5%-Normal Saline+20 Meq Kcl - IV 42 mls/hr ASDIR [facility] Administration Insulin Aspart 1 vial 11/27/17 16:30 12/03/17 12:17 Novolog Vial Sliding Scale - SQ 4 units ACHS [facility] Administration Protocol Insulin Detemir 15 units 11/27/17 22:00 12/02/17 21:11 Levemir Vial SQ Not Given HS [facility] Memantine 10 mg 11/28/17 22:00 12/03/17 09:59 Namenda - PO 10 mg BID DAVID Administration Multivitamins/Minerals 1 each 11/29/17 10:00 12/03/17 10:00 Theragran-M PO 1 each DAILY DAVID Administration Ursodiol 300 mg 11/28/17 22:15 12/03/17 10:08 Actigal - PO Not Given BID DAVID Impression 1. SHERLYN 2. fever 3. dementia 4. DM 5. UTI 6. HTN 7. sepsis 8. bacteremia 9. hydronephrosis Plan - labs reviewed - cont current fluids - lytes are stable - repeat in am - abx per ID - urology eval for hydro Dr Markham
[2017-12-03] MEDS: ACETAMINOPHEN 325 MG TABLET (FP) PO PRN (17:59)
[2017-12-03] MEDS: D5-NS + 20 MEQ KCL - 20 MEQ/1,000 ML INFUS.BAG IV SCH (18:00)
[2017-12-03] MEDS ORDERED: INSULIN (NOVOLOG) ASPART 100 UNITS/ML 10ML VIAL ONE (21:17)
[2017-12-03] MEDS: INSULIN DETEMIR 100 UNITS/ML MDV SQ SCH (21:18)
[2017-12-04] MEDS: INSULIN SLIDING SCALE (NOVOLOG) 1 VIAL SQ SCH ×4 (06:27→22:37)
[2017-12-04] MEDS: ACETAMINOPHEN 325 MG TABLET (FP) PO PRN (07:07)
[2017-12-04 08:13] LABS: ANION GAP 7 (8-16); BLOOD UREA NITROGEN 19 mg/dL (7-18); CHLORIDE 108 mmol/L (98-107); CO2 25 mmol/L (21-32); CREATININE 0.8 mg/dL (0.55-1.02); GLUCOSE,RANDOM 157 mg/dL (74-106); POTASSIUM 3.7 mmol/L (3.5-5.1); SODIUM 140 mmol/L (136-145)
[2017-12-04] MEDS ORDERED: POLYETHYLENE GLYCOL 3350 119 GM BTL PO SCH (10:00)
[2017-12-04] MEDS ORDERED: PT OWN MED DRAWER 7, Y5N ONE (10:56)
[2017-12-04] MEDS: ERTAPENEM SODIUM 1 GM in SODIUM CHLORIDE 100 ML IVPB SCH (10:58)
[2017-12-04] MEDS: MEMANTINE HCL 10 MG TABLET (FP) PO SCH ×2 (11:07→22:30)
[2017-12-04] MEDS: ASCORBIC ACID 500 MG TABLET (FP) PO SCH (11:08)
[2017-12-04] MEDS: URSODIOL 300 MG CAPSULE PO SCH ×3 (11:09→22:30)
[2017-12-04] MEDS: MULTIVITAMINS THER W-MINERALS COMBO TABLET (FP) PO SCH (11:11)
[2017-12-04] MEDS: HEPARIN NA (PORCINE) 5,000 UNITS/ML 1ML VIAL SQ SCH ×2 (11:11→22:30)
[2017-12-04] MEDS: amLODIPine BESYLATE 5 MG TABLET (FP) PO SCH (11:19)
--- NOTE | 2017-12-04 11:24 | PN ---
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, Physician Chief Complaint: patient still lethargic had temperature yesterday ate little today - Current Medication List Current Medications: Active Medications Acetaminophen (Tylenol -) 650 mg PO Q6H PRN PRN Reason: PAIN OR FEVER Last Admin: 12/04/17 07:07 Dose: 650 mg Acetaminophen (Tylenol Suppository -) 650 mg [place] Q4H PRN PRN Reason: FEVER Last Admin: 12/02/17 04:00 Dose: 650 mg Amlodipine Besylate (Norvasc -) 2.5 mg PO DAILY [facility] Last Admin: 12/03/17 09:59 Dose: 2.5 mg Ascorbic Acid (Vitamin C -) 500 mg PO DAILY [facility] Last Admin: 12/04/17 11:08 Dose: 500 mg Heparin Sodium (Porcine) (Heparin -) 5,000 unit SQ BID [facility] Last Admin: 12/04/17 11:11 Dose: 5,000 unit IV Flush (Picc Line Flush) 8 ml IVPUSH PRN PRN PRN Reason: Protocol Ertapenem 1 gm/ Sodium (Chloride) 100 mls @ 200 mls/hr IVPB DAILY [facility] PRN Reason: Protocol Last Admin: 12/04/17 10:58 Dose: 200 mls/hr Dextrose/Sodium Chloride (Dextrose 5%-Normal Saline+20 Meq Kcl -) 20 meq in 1, 000 mls @ 42 mls/hr IV ASDIR [facility] Last Admin: 12/03/17 18:00 Dose: Not Given Insulin Aspart (Novolog Vial Sliding Scale -) 1 vial SQ ACHS [facility] PRN Reason: Protocol Last Admin: 12/04/17 06:27 Dose: 2 units Insulin Detemir (Levemir Vial) 15 units SQ HS [facility] Last Admin: 12/03/17 21:18 Dose: 15 units Memantine (Namenda -) 10 mg PO BID [facility] Last Admin: 12/04/17 11:07 Dose: 10 mg Multivitamins/Minerals (Theragran-M) 1 each PO DAILY [facility] Last Admin: 12/04/17 11:11 Dose: 1 each Polyethylene Glycol (Miralax (For Daily Use) -) 17 gm PO BID [facility] Ursodiol (Actigal -) 300 mg PO BID [facility] Last Admin: 12/04/17 11:09 Dose: 300 mg - Objective Vital Signs: Vital Signs Temperature 99.8 F H 12/04/17 06:33 Pulse Rate 75 12/04/17 06:00 Respiratory Rate 18 12/04/17 06:00 Blood Pressure 140/61 12/04/17 06:00 O2 Sat by Pulse Oximetry (%) 99 12/03/17 21:00 Constitutional: Yes: Calm Cardiovascular: Yes: Regular Rate and Rhythm, S1, S2 Respiratory: Yes: Diminished Gastrointestinal: Yes: Normal Bowel Sounds, Soft Genitourinary: Yes: [place] Present Edema: No Labs: CBC, BMP 12/03/17 06:30 12/04/17 06:30 INR, PTT INR 1.04 (0.82-1.09) 11/27/17 09:30 Problem List - Problems (1) Constipation Assessment/Plan: miralax GI evaluation Code(s): K59.00 - CONSTIPATION, UNSPECIFIED (2) Hydronephrosis, left Assessment/Plan: ct scan noted no hydrouteronephrosis seen [place] cath in place appreciate urology evaluation Code(s): N13.30 - UNSPECIFIED HYDRONEPHROSIS (3) Urinary tract infection Assessment/Plan: strict contact isolation iv antibiotic ID eval noted resistant organism requires ertrapenem cannot be substituted to another abx, picc line for 14 days urine culture noted Microbiology 11/27/17 11:30 Urine - Urine Clean Catch Urine Culture - Final Escherichia Coli Esbl Independent Driver 11/27/17 09:30 Blood - Peripheral Venous Blood Culture - Final Escherichia Coli Esbl Independent Driver cannot remove [place] Code(s): N39.0 - URINARY TRACT INFECTION, SITE NOT SPECIFIED Qualifiers: Urinary tract infection type: site unspecified Hematuria presence: with hematuria Qualified Code(s): N39.0 - Urinary tract infection, site not specified; R31.9 - Hematuria, unspecified; R31.9 - Hematuria, unspecified (4) Altered mental status Assessment/Plan: secondary to toxic metabloic encephalopathy seconadry to uti and bacteremia ct scan done show fecal impaction/sterocolitis lung base atelectasis noted GI eval and miralax ordered Microbiology 12/03/17 11:10 Blood - Peripheral Venous Blood Culture - Preliminary NO GROWTH OBTAINED AFTER 24 HOURS, INCUBATION TO CONTINUE FOR 4 DAYS. 12/03/17 10:30 Blood - Peripheral Venous Blood Culture - Preliminary NO GROWTH OBTAINED AFTER 24 HOURS, INCUBATION TO CONTINUE FOR 4 DAYS. blood pressure on lower side will dc amlodipine Code(s): R41.82 - ALTERED MENTAL STATUS, UNSPECIFIED (5) Diabetes Assessment/Plan: bgm sliding scale Code(s): E11.9 - TYPE 2 DIABETES MELLITUS WITHOUT COMPLICATIONS
[2017-12-04] MEDS ORDERED: DEXTROSE 5%-0.45% SALINE 1,000 ML IV SCH ×2 (11:30→17:15)
--- NOTE | 2017-12-04 13:20 | CONSULT ---
Admitting History and Physical - Primary Care Physician PCP: Bina Fierro - Admission Chief Complaint: poor po intake. History of Present Illness: This is a 76 with h/o IDDM, right heel pressure ulcer, HTN, Alzheimer's dementia , SHERLYN, UTI, PNA, pancreatic head mass, and gallstones, BIBA from [facility] for rectal temperature of 102.5. 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: Alzheimer's, Dementia Cardiovascular: Yes: HTN, Hyperlipdemia, Other (PSVT) ...: No Endocrine: Yes: Diabetes Mellitus - Smoking History Smoking history: Unknown if ever smoked Have you smoked in the past 12 months: No Aproximately how many cigarettes per day: 0 - Alcohol/Substance Use Hx Alcohol Use: No - Social History ADL: Support Services Occupation: unknown History of Recent Travel: No History - Admission Reason For Visit: ACUTE KIDNEY INJ,UTI,SEPSIS - General Mental Status: Awake and Alert Attention: Intact Ability to Follow Directions: Poor Head/Neck Control: Fair Speech Evaluation - Communication Primary Language: SPANISH Communication: Yes: Non-Communicable Oral Expression Ability: Yes: Non-Verbal, Non-Vocal - Speech Characteristics Articulation: Yes: Precise - Swallow Evaluation/Bedside Assessment Current Nutritional Intake: Dysphagia Pureed, Thin Liquids Facial Symmetry at Rest: Symmetrical Lingual Movement: Symmetric Laryngeal Movement: Labored,delay initiation Labial Seal: Impaired Bilaterally Oral Prep Time: Increased A-P Transit: Impaired Timing of Swallow: Delayed Coughing/Throat Clear: Yes (thin liquid) Recommendations - Speech Evaluation, Impression/Plan Impression: Non verbal/Non vocal. Impaired bilabial closure with delayed swallow.Apraxia. Cough response with thin liquid. - Dysphagia Impressions/Plan Swallowing Skills: Impaired Dysphagia Impressions: Moderate Impairment, Suspect Aspiration *Silent aspiration: cannot be R/O at bedside Recommendations: Modified Barium Swallow (to upgrade diet as UTI improves.) - Recommendations Diet Consistency: Dysphagia Pureed Medication Administration: Crushed with applesauce Liquids: Kula Thick (on tsp) Supplement: Magic Cup, Ensure Pudding
--- NOTE | 2017-12-04 14:10 | CON.GI ---
Consult Consult Specialty:: GI - History of Present Illness History of Present Illness: A 77 yof, awake, alert, but minimally communicative due to underlying dementia noted to have large rectal stool and stercoral, rectosigmoid changes on CT. No clinical signs of obstuction on exam. Reported to have loose stools, no nomiting , fever, hematochezia. 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 Cardio/Vascular: Yes: HTN, Hyperlipdemia, Other (PSVT) ...: No Endocrine: Yes: Diabetes Mellitus - Alcohol/Substance Use Hx Alcohol Use: No - Smoking History Smoking history: Unknown if ever smoked Have you smoked in the past 12 months: No Aproximately how many cigarettes per day: 0 - Social History Usual Living Arrangement: Detention ADL: Support Services Occupation: unknown History of Recent Travel: No Home Medications - Allergies Allergies/Adverse Reactions: Allergies Allergy/AdvReac Type Severity Reaction Status Date / Time No Known Allergies Allergy Verified 11/27/17 08:38 - Home Medications Home Medications: Ambulatory Orders Acetaminophen [Pain Relief] 650 mg PO QID PRN 03/13/17 Acetaminophen [Extra Strength Non-Aspirin] 500 mg PO TID PRN 11/27/17 Amlodipine Besylate [Norvasc -] 5 mg PO ONCE 11/27/17 Ascorbate Calcium [Vitamin C] 500 mg PO DAILY 11/27/17 Bethanechol Chloride [Urecholine] 50 mg PO TID 11/27/17 Glimepiride [Amaryl] 4 mg PO DAILY 11/27/17 Heparin - 5,000 unit SCJ BID 11/27/17 Insulin (LOG) Aspart [NovoLOG -] 11/27/17 Insulin (Levemir) [Levemir Vial] 100 unit SCJ ONCE 11/27/17 Memantine HCl [Namenda -] 10 mg PO BID 11/27/17 Multivit with Minerals No.55 [Centrum Flavor Burst Adult] 11/27/17 Ursodiol [Actigall] 300 mg PO BID 11/27/17 Family Disease History - Family Disease History Family History: Unremarkable (non-contributory) Review of Systems Findings/Remarks: as per H&P Physical Exam-GI Vital Signs: Vital Signs Temperature 99.8 F H 12/04/17 06:33 Pulse Rate 75 12/04/17 06:00 Respiratory Rate 18 12/04/17 06:00 Blood Pressure 140/61 12/04/17 06:00 O2 Sat by Pulse Oximetry (%) 99 12/03/17 21:00 Constitutional: Yes: No Distress, Calm Eyes: Yes: Conjunctiva Clear HENT: Yes: Atraumatic Neck: Yes: Supple Cardiovascular: Yes: Regular Rate and Rhythm Respiratory: Yes: Regular Gastrointestinal Inspection: No: Distention ...Auscultate: Yes: Normoactive Bowel Sounds ...Palpate: Yes: Soft. No: Firm/Rigid, Guarding, Mass Neurological: Yes: Alert Labs: CBC, BMP 12/03/17 06:30 12/04/17 06:30 INR, PTT INR 1.04 (0.82-1.09) 11/27/17 09:30 CBCD WBC 3.7 K/mm3 (4.0-10.0) L D 12/05/17 06:20 RBC 3.51 M/mm3 (3.60-5.2) L 12/05/17 06:20 Hgb 10.2 GM/dL (10.7-15.3) L 12/05/17 06:20 Hct 31.2 % (32.4-45.2) L 12/05/17 06:20 MCV 89.1 fl (80-96) 12/05/17 06:20 MCHC 32.5 g/dl (32.0-36.0) 12/05/17 06:20 RDW 13.7 % (11.6-15.6) 12/05/17 06:20 Plt Count 290 K/MM3 (134-434) 12/05/17 06:20 MPV 8.0 fl (7.5-11.1) 12/05/17 06:20 CMP Sodium 140 mmol/L (136-145) 12/04/17 06:30 Potassium 3.7 mmol/L (3.5-5.1) 12/04/17 06:30 Chloride 108 mmol/L (98-107) H 12/04/17 06:30 Carbon Dioxide 25 mmol/L (21-32) 12/04/17 06:30 Anion Gap 7 (8-16) L 12/04/17 06:30 BUN 19 mg/dL (7-18) H 12/04/17 06:30 Creatinine 0.8 mg/dL (0.55-1.02) 12/04/17 06:30 Creat Clearance w eGFR 54.05 (>60) 12/02/17 07:15 Calcium 8.0 mg/dL (8.5-10.1) L 12/04/17 06:30 Total Bilirubin 0.3 mg/dL (0.2-1.0) 12/02/17 07:15 AST 37 U/L (15-37) 12/02/17 07:15 ALT 31 U/L (12-78) 12/02/17 07:15 Alkaline Phosphatase 91 U/L (45-117) 12/02/17 07:15 Total Protein 6.3 g/dl (6.4-8.2) L 12/02/17 07:15 Albumin 2.3 g/dl (3.4-5.0) L 12/02/17 07:15 Imaging - Results Cat Scan: Report Reviewed Problem List - Problems (1) Impacted stool in rectum Code(s): K56.41 - FECAL IMPACTION (2) Stercoral ulcer of large intestine Code(s): K63.3 - ULCER OF INTESTINE Assessment/Plan A 77 yof with overflow diarrhea due to rectosigmoid stool impaction. No signs of acute abdomen,bleeding, fever. As discussed with pt's nurse yesterday, will try multiple tap water enemas and observe. Manual disimplaction may be necessary of no response to enemas.
--- NOTE | 2017-12-04 14:53 | PN ---
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 (short form) - Note 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: intermittent fevers persist remains lethargic Vital Signs Period Temp Pulse Resp BP Sys/Bob Pulse Ox Last 24 Hr 98.3 F-100.1 F 60-81 18-20 97-140/47-61 99 cor-rrr lungs decreased bs at bases abd soft,mild suprapubic tenderness to palpation ext no edema CBC, BMP 12/03/17 06:30 12/04/17 06:30 Microbiology 12/03/17 11:10 Blood - Peripheral Venous Blood Culture - Preliminary NO GROWTH OBTAINED AFTER 24 HOURS, INCUBATION TO CONTINUE FOR 4 DAYS. 12/03/17 10:30 Blood - Peripheral Venous Blood Culture - Preliminary NO GROWTH OBTAINED AFTER 24 HOURS, INCUBATION TO CONTINUE FOR 4 DAYS. 11/27/17 09:30 Blood - Peripheral Venous Blood Culture - Final NO GROWTH AFTER 5 DAYS INCUBATION 11/27/17 11:30 Urine - Urine Clean Catch Urine Culture - Final Escherichia Coli Esbl Yarn Handler 11/27/17 09:30 Blood - Peripheral Venous Blood Culture - Final Escherichia Coli Esbl Yarn Handler Current Medications Acetaminophen (Tylenol -) 650 mg PO Q6H PRN PRN Reason: PAIN OR FEVER Last Admin: 12/04/17 07:07 Dose: 650 mg Acetaminophen (Tylenol Suppository -) 650 mg [place] Q4H PRN PRN Reason: FEVER Last Admin: 12/02/17 04:00 Dose: 650 mg Ascorbic Acid (Vitamin C -) 500 mg PO DAILY [facility] Last Admin: 12/04/17 11:08 Dose: 500 mg Heparin Sodium (Porcine) (Heparin -) 5,000 unit SQ BID [facility] Last Admin: 12/04/17 11:11 Dose: 5,000 unit IV Flush (Picc Line Flush) 8 ml IVPUSH PRN PRN PRN Reason: Protocol Ertapenem 1 gm/ Sodium (Chloride) 100 mls @ 200 mls/hr IVPB DAILY DAVID PRN Reason: Protocol Last Admin: 12/04/17 10:58 Dose: 200 mls/hr Dextrose/Sodium Chloride (D5-1/2ns -) 1,000 mls @ 42 mls/hr IV ASDIR [facility] Insulin Aspart (Novolog Vial Sliding Scale -) 1 vial SQ ACHS [facility] PRN Reason: Protocol Last Admin: 12/04/17 12:04 Dose: Not Given Insulin Detemir (Levemir Vial) 15 units SQ HS [facility] Last Admin: 12/03/17 21:18 Dose: 15 units Memantine (Namenda -) 10 mg PO BID [facility] Last Admin: 12/04/17 11:07 Dose: 10 mg Multivitamins/Minerals (Theragran-M) 1 each PO DAILY [facility] Last Admin: 12/04/17 11:11 Dose: 1 each Ursodiol (Actigal -) 300 mg PO BID [facility] Last Admin: 12/04/17 11:09 Dose: [address] scan with fecal impaction/stercoral proctitis a/p ecoli esbl bacteremia secondary to UTI left hydronephrosis stercoral proctocolitis continue ertapenem plan 14 days ertapenem gi eval noted continue ertapenem Problem List - Problems (1) Sepsis Code(s): A41.9 - SEPSIS, UNSPECIFIED ORGANISM Qualifiers: Sepsis type: sepsis due to unspecified organism Qualified Code(s): A41.9 - Sepsis, unspecified organism (2) Gram-negative bacteremia Code(s): R78.81 - BACTEREMIA (3) UTI (urinary tract infection) Code(s): N39.0 - URINARY TRACT INFECTION, SITE NOT SPECIFIED (4) Acute urinary retention Code(s): R33.8 - OTHER RETENTION OF URINE (5) Hydronephrosis, left Code(s): N13.30 - UNSPECIFIED HYDRONEPHROSIS
--- NOTE | 2017-12-04 16:01 | PN ---
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, Physician History of Present Illness: Pt seen and examined at bedside. She is awake and appears comfortable. - Current Medication List Current Medications: Active Medications Acetaminophen (Tylenol -) 650 mg PO Q6H PRN PRN Reason: PAIN OR FEVER Last Admin: 12/04/17 07:07 Dose: 650 mg Acetaminophen (Tylenol Suppository -) 650 mg [place] Q4H PRN PRN Reason: FEVER Last Admin: 12/02/17 04:00 Dose: 650 mg Ascorbic Acid (Vitamin C -) 500 mg PO DAILY [facility] Last Admin: 12/04/17 11:08 Dose: 500 mg Heparin Sodium (Porcine) (Heparin -) 5,000 unit SQ BID [facility] Last Admin: 12/04/17 11:11 Dose: 5,000 unit IV Flush (Picc Line Flush) 8 ml IVPUSH PRN PRN PRN Reason: Protocol Ertapenem 1 gm/ Sodium (Chloride) 100 mls @ 200 mls/hr IVPB DAILY [facility] PRN Reason: Protocol Last Admin: 12/04/17 10:58 Dose: 200 mls/hr Dextrose/Sodium Chloride (D5-1/2ns -) 1,000 mls @ 42 mls/hr IV ASDIR [facility] Insulin Aspart (Novolog Vial Sliding Scale -) 1 vial SQ ACHS [facility] PRN Reason: Protocol Last Admin: 12/04/17 12:04 Dose: Not Given Insulin Detemir (Levemir Vial) 15 units SQ HS [facility] Last Admin: 12/03/17 21:18 Dose: 15 units Memantine (Namenda -) 10 mg PO BID [facility] Last Admin: 12/04/17 11:07 Dose: 10 mg Multivitamins/Minerals (Theragran-M) 1 each PO DAILY [facility] Last Admin: 12/04/17 11:11 Dose: 1 each Ursodiol (Actigal -) 300 mg PO BID [facility] Last Admin: 12/04/17 11:09 Dose: 300 mg - Objective Vital Signs: Vital Signs Temperature 97.7 F 12/04/17 15:40 Pulse Rate 61 12/04/17 15:40 Respiratory Rate 18 12/04/17 15:40 Blood Pressure 122/55 12/04/17 15:40 O2 Sat by Pulse Oximetry (%) 99 12/03/17 21:00 Constitutional: Yes: Calm Eyes: Yes: Conjunctiva Clear HENT: Yes: Atraumatic Neck: Yes: Supple Cardiovascular: Yes: S1, S2 Respiratory: Yes: CTA Bilaterally Gastrointestinal: Yes: Soft Genitourinary: Yes: Engel Present Musculoskeletal: Yes: Muscle Weakness Edema: LLE: Trace, RLE: Trace Neurological: Yes: Pre-Existing Deficit Labs: CBC, BMP 12/03/17 06:30 12/04/17 06:30 INR, PTT INR 1.04 (0.82-1.09) 11/27/17 09:30 Problem List - Problems (1) Acute kidney injury Code(s): N17.9 - ACUTE KIDNEY FAILURE, UNSPECIFIED (2) Sepsis Code(s): A41.9 - SEPSIS, UNSPECIFIED ORGANISM Qualifiers: Sepsis type: sepsis due to unspecified organism Qualified Code(s): A41.9 - Sepsis, unspecified organism (3) Diabetes Code(s): E11.9 - TYPE 2 DIABETES MELLITUS WITHOUT COMPLICATIONS Assessment/Plan Current Medications Generic Name Dose Route Start Last Admin Trade Name Freq PRN Reason Stop Dose Admin Acetaminophen 650 mg 11/27/17 14:42 12/04/17 07:07 Tylenol - PO 650 mg Q6H PRN Administration PAIN OR FEVER Acetaminophen 650 mg 12/01/17 13:52 12/02/17 04:00 Tylenol Suppository - NM 650 mg Q4H PRN Administration FEVER Ascorbic Acid 500 mg 11/29/17 10:00 12/04/17 11:08 Vitamin C - PO Not Given DAILY [facility] Heparin Sodium (Porcine) 5,000 unit 11/28/17 22:00 12/04/17 11:11 Heparin - SQ 5,000 unit BID [facility] Administration IV Flush 8 ml 11/30/17 10:33 Picc Line Flush IVPUSH PRN PRN Protocol Ertapenem 1 gm/ Sodium 100 mls @ 200 mls/hr 11/30/17 10:00 12/04/17 10:58 Chloride IVPB 200 mls/hr DAILY [facility] Administration Protocol Dextrose/Sodium Chloride 1,000 mls @ 42 mls/hr 12/04/17 11:30 12/04/17 15:00 D5-1/2ns - IV 42 mls/hr ASDIR [facility] Administration Insulin Aspart 1 vial 11/27/17 16:30 12/04/17 12:04 Novolog Vial Sliding Scale - SQ Not Given ACHS [facility] Protocol Insulin Detemir 15 units 11/27/17 22:00 12/03/17 21:18 Levemir Vial SQ 15 units HS [facility] Administration Memantine 10 mg 11/28/17 22:00 12/04/17 11:07 Namenda - PO Not Given BID [facility] Multivitamins/Minerals 1 each 11/29/17 10:00 12/04/17 11:11 Theragran-M PO Not Given DAILY [facility] Ursodiol 300 mg 11/28/17 22:15 12/03/17 21:14 Actigal - PO 300 mg BID [facility] Administration Impression 1. SHERLYN 2. fever 3. dementia 4. DM 5. UTI 6. HTN 7. sepsis 8. bacteremia 9. hydronephrosis Plan - d/c fluids - encourage PO intake - repeat labs in am - abx per ID - urology eval for hydro Dr Markham
[2017-12-04] MEDS: INSULIN DETEMIR 100 UNITS/ML MDV SQ SCH (22:37)
[2017-12-05] MEDS: INSULIN SLIDING SCALE (NOVOLOG) 1 VIAL SQ SCH ×3 (06:16→17:08)
[2017-12-05 06:53] LABS: HEMATOCRIT 31.2 % (32.4-45.2); HEMOGLOBIN 10.2 GM/dL (10.7-15.3); MCHC 32.5 g/dl (32.0-36.0); MEAN CELL VOLUME 89.1 fl (80-96); PLATELET COUNT 290 K/MM3 (134-434); RBC 3.51 M/mm3 (3.60-5.2); RDW 13.7 % (11.6-15.6); WHITE BLOOD COUNT 3.7 K/mm3 (4.0-10.0)
[2017-12-05 07:16] LABS: CHLORIDE 108 mmol/L (98-107); POTASSIUM 3.9 mmol/L (3.5-5.1); SODIUM 142 mmol/L (136-145)
[2017-12-05 07:26] LABS: ALBUMIN 2.1 g/dl (3.4-5.0); ALK PHOS 76 U/L (45-117); ANION GAP 8 (8-16); BILIRUBIN,TOTAL 0.3 mg/dL (0.2-1.0); BLOOD UREA NITROGEN 13 mg/dL (7-18); CO2 26 mmol/L (21-32); CREATININE 0.6 mg/dL (0.55-1.02); GLUCOSE,RANDOM 136 mg/dL (74-106); SGOT/AST 26 U/L (15-37); SGPT/ALT 21 U/L (12-78); TOT PROT 5.7 g/dl (6.4-8.2)
--- NOTE | 2017-12-05 08:58 | PN ---
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, Physician History of Present Illness: Soft BMs per pt's nurse this am. Clinically the same, NAD, or discomfort - Current Medication List Current Medications: Active Medications Acetaminophen (Tylenol -) 650 mg PO Q6H PRN PRN Reason: PAIN OR FEVER Last Admin: 12/04/17 07:07 Dose: 650 mg Acetaminophen (Tylenol Suppository -) 650 mg [place] Q4H PRN PRN Reason: FEVER Last Admin: 12/02/17 04:00 Dose: 650 mg Ascorbic Acid (Vitamin C -) 500 mg PO DAILY [facility] Last Admin: 12/04/17 11:08 Dose: Not Given Heparin Sodium (Porcine) (Heparin -) 5,000 unit SQ BID [facility] Last Admin: 12/04/17 22:30 Dose: 5,000 unit IV Flush (Picc Line Flush) 8 ml IVPUSH PRN PRN PRN Reason: Protocol Ertapenem 1 gm/ Sodium (Chloride) 100 mls @ 200 mls/hr IVPB DAILY [facility] PRN Reason: Protocol Last Admin: 12/04/17 10:58 Dose: 200 mls/hr Dextrose/Sodium Chloride (D5-1/2ns -) 1,000 mls @ 42 mls/hr IV ASDIR [facility] Last Admin: 12/04/17 18:11 Dose: 42 mls/hr Insulin Aspart (Novolog Vial Sliding Scale -) 1 vial SQ ACHS [facility] PRN Reason: Protocol Last Admin: 12/05/17 06:16 Dose: 2 units Insulin Detemir (Levemir Vial) 15 units SQ HS [facility] Last Admin: 12/04/17 22:37 Dose: 15 units Memantine (Namenda -) 10 mg PO BID [facility] Last Admin: 12/04/17 22:30 Dose: 10 mg Multivitamins/Minerals (Theragran-M) 1 each PO DAILY [facility] Last Admin: 12/04/17 11:11 Dose: Not Given Ursodiol (Actigal -) 300 mg PO BID [facility] Last Admin: 12/04/17 22:30 Dose: 300 mg - Objective Vital Signs: Vital Signs Temperature 97.8 F 12/05/17 06:00 Pulse Rate 59 L 12/05/17 06:00 Respiratory Rate 20 12/05/17 06:00 Blood Pressure 120/65 12/05/17 06:00 O2 Sat by Pulse Oximetry (%) 99 12/04/17 21:00 Constitutional: Yes: No Distress, Calm Eyes: Yes: Conjunctiva Clear HENT: Yes: Atraumatic Neck: Yes: Supple Respiratory: Yes: Regular Gastrointestinal: Yes: Soft. No: Distention, Tenderness, Tenderness, Epigastrium, Tenderness, Rebound, Vomiting Labs: CBC, BMP 12/05/17 06:20 12/05/17 06:20 INR, PTT INR 1.04 (0.82-1.09) 11/27/17 09:30 Laboratory Results - last 24 hr 12/04/17 12/04/17 12/04/17 06:30 06:30 11:46 WBC RBC Hgb Hct MCV MCH MCHC RDW Plt Count MPV Neutrophils % Lymphocytes % ESR 81 H Sodium 140 Potassium 3.7 Chloride 108 H Carbon Dioxide 25 Anion Gap 7 L BUN 19 H Creatinine 0.8 Creat Clearance w eGFR POC Glucometer 82 Random Glucose 157 H Calcium 8.0 L Total Bilirubin AST ALT Alkaline Phosphatase C-Reactive Protein 7.5 H Total Protein Albumin 12/04/17 12/04/17 12/05/17 17:54 22:27 05:46 WBC RBC Hgb Hct MCV MCH MCHC RDW Plt Count MPV Neutrophils % Lymphocytes % ESR Sodium Potassium Chloride Carbon Dioxide Anion Gap BUN Creatinine Creat Clearance w eGFR POC Glucometer 101 170 152 Random Glucose Calcium Total Bilirubin AST ALT Alkaline Phosphatase C-Reactive Protein Total Protein Albumin 12/05/17 12/05/17 06:20 06:20 WBC 3.7 L D RBC 3.51 L Hgb 10.2 L Hct 31.2 L MCV 89.1 MCH 29.0 MCHC 32.5 RDW 13.7 Plt Count 290 MPV 8.0 Neutrophils % No Result Required. Lymphocytes % No Result Required. ESR Sodium 142 Potassium 3.9 Chloride 108 H Carbon Dioxide 26 Anion Gap 8 BUN 13 Creatinine 0.6 Creat Clearance w eGFR > 60 POC Glucometer Random Glucose 136 H Calcium 8.0 L Total Bilirubin 0.3 AST 26 ALT 21 Alkaline Phosphatase 76 C-Reactive Protein Total Protein 5.7 L Albumin 2.1 L Problem List - Problems (1) Impacted stool in rectum Code(s): K56.41 - FECAL IMPACTION (2) Stercoral ulcer of large intestine Code(s): K63.3 - ULCER OF INTESTINE Assessment/Plan A 77 yof with overflow diarrhea due to rectosigmoid stool impaction. No signs of acute abdomen, bleeding, fever. large soft BMs reported this am by the pt's nurse will continue daily tap water enemas and observe Aspiration precations with liquids. Consider thickened miralax tid
[2017-12-05] MEDS ORDERED: PT OWN MED DRAWER 7, Y5N ONE (09:14)
[2017-12-05] MEDS: ASCORBIC ACID 500 MG TABLET (FP) PO SCH (09:19)
[2017-12-05] MEDS: MULTIVITAMINS THER W-MINERALS COMBO TABLET (FP) PO SCH (09:19)
[2017-12-05] MEDS: ERTAPENEM SODIUM 1 GM in SODIUM CHLORIDE 100 ML IVPB SCH (09:19)
[2017-12-05] MEDS: MEMANTINE HCL 10 MG TABLET (FP) PO SCH (09:19)
[2017-12-05] MEDS: URSODIOL 300 MG CAPSULE PO SCH (09:19)
[2017-12-05] MEDS: HEPARIN NA (PORCINE) 5,000 UNITS/ML 1ML VIAL SQ SCH (09:20)
[2017-12-05] MEDS ORDERED: SENNOSIDES 8.6MG TABLET (FP) PO PRN (09:42)
--- NOTE | 2017-12-05 09:46 | DS ---
Physical Examination Vital Signs: Vital Signs Temperature 97.8 F 12/05/17 06:00 Pulse Rate 59 L 12/05/17 06:00 Respiratory Rate 20 12/05/17 06:00 Blood Pressure 120/65 12/05/17 06:00 O2 Sat by Pulse Oximetry (%) 99 12/04/17 21:00 Cardiovascular: Yes: S1, S2 Respiratory: Yes: Regular, CTA Bilaterally Gastrointestinal: Yes: Normal Bowel Sounds, Soft. No: Tenderness Neurological: Yes: Alert, Confusion Labs: CBC, BMP 12/05/17 06:20 12/05/17 06:20 Discharge Summary Reason For Visit: ACUTE KIDNEY INJ,UTI,SEPSIS Current Active Problems Acute kidney injury (Acute) Acute urinary retention (Acute) Constipation (Acute) FTT (failure to thrive) in adult (Acute) Gram-negative bacteremia (Acute) Hydronephrosis, left (Acute) Impacted stool in rectum (Acute) Sepsis (Acute) Stercoral ulcer of large intestine (Acute) UTI (urinary tract infection) (Acute) Urinary tract infection (Acute) Hospital Course: This is a 76 with h/o IDDM, right heel pressure ulcer, HTN, Alzheimer's dementia , SHERLYN, UTI, PNA, pancreatic head mass, and gallstones, BIBA from [facility] for rectal temperature of 102.5. No additional medical history is provided. The patient herself is nonverbal and unable to provide any of her medical history. 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 Cardiovascular: Yes: HTN, Hyperlipdemia, Other (PSVT) Endocrine: Yes: Diabetes Mellitus - Problems (1) Constipation Assessment/Plan: miralax GI evaluation noted kub if improved will dc Code(s): K59.00 - CONSTIPATION, UNSPECIFIED (2) Hydronephrosis, left Assessment/Plan: ct scan noted no hydronephrosis seen menchaca cath in place appreciate urology evaluation Code(s): N13.30 - UNSPECIFIED HYDRONEPHROSIS (3) Urinary tract infection Assessment/Plan: strict contact isolation iv antibiotic ID eval noted resistant organism requires ertrapenem cannot be substituted to another abx, picc line for 14 days urine culture noted Microbiology 11/27/17 11:30 Urine - Urine Clean Catch Urine Culture - Final Escherichia Coli Esbl Clammer 01/23/18 09:30 Blood - Peripheral Venous Blood Culture - Final Escherichia Coli Esbl Clammer cannot remove menchaca Code(s): N39.0 - URINARY TRACT INFECTION, SITE NOT SPECIFIED Qualifiers: Urinary tract infection type: site unspecified Hematuria presence: with hematuria Qualified Code(s): N39.0 - Urinary tract infection, site not specified; R31.9 - Hematuria, unspecified; R31.9 - Hematuria, unspecified (4) Altered mental status Assessment/Plan: secondary to toxic metabloic encephalopathy seconadry to uti and bacteremia ct scan done show fecal impaction/sterocolitis lung base atelectasis noted GI eval and miralax ordered Microbiology 12/03/17 11:10 Blood - Peripheral Venous Blood Culture - Preliminary NO GROWTH OBTAINED AFTER 24 HOURS, INCUBATION TO CONTINUE FOR 4 DAYS. 12/03/17 10:30 Blood - Peripheral Venous Blood Culture - Preliminary NO GROWTH OBTAINED AFTER 24 HOURS, INCUBATION TO CONTINUE FOR 4 DAYS. blood pressure on lower side will dc amlodipine Code(s): R41.82 - ALTERED MENTAL STATUS, UNSPECIFIED (5) Diabetes Assessment/Plan: bgm sliding scale Code(s): E11.9 - TYPE 2 DIABETES MELLITUS WITHOUT COMPLICATIONS Condition: Improved - Instructions Disposition: RESIDENTIAL FACILITY - Home Medications Comprehensive Discharge Medication List: Ambulatory Orders Acetaminophen [Pain Relief] 650 mg PO QID PRN 03/13/17 Acetaminophen [Extra Strength Non-Aspirin] 500 mg PO TID PRN 11/27/17 Ascorbate Calcium [Vitamin C] 500 mg PO DAILY 11/27/17 Bethanechol Chloride [Urecholine] 50 mg PO TID 11/27/17 Heparin - 5,000 unit SCJ BID 11/27/17 Insulin (LOG) Aspart [NovoLOG -] 11/27/17 Insulin (Levemir) [Levemir Vial] 100 unit SCJ ONCE 11/27/17 Memantine HCl [Namenda -] 10 mg PO BID 11/27/17 Multivit with Minerals No.55 [Centrum Flavor Burst Adult] 11/27/17 Ursodiol [Actigall] 300 mg PO BID 11/27/17 Acetaminophen Suppository [Tylenol .Suppository -] 650 mg WI Q4H PRN supp.rect 12/05/17 Amlodipine Besylate [Norvasc -] 2.5 mg PO DAILY tablet 12/05/17 Ertapenem Sodium [Invanz -] 1 gm IVPB DAILY vial 12/05/17 Picc Line Flush [Picc Line Flush -] 8 ml IVPUSH PRN PRN ml 12/05/17 Polyethylene Glycol 3350 [Miralax 119 gm Btl -] 17 gm PO BID bottle 12/05/17 Sennosides [Senna -] 2 tab PO HS PRN tablet 12/05/17
[2017-12-05 10:42] LABS: PLATELET ESTIMATE NORMAL
--- NOTE | 2017-12-05 12:09 | PN ---
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 (short form) - Note 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: s/p multiple enemas for fecal impaction afebrile Vital Signs Period Temp Pulse Resp BP Sys/Bob Pulse Ox Last 24 Hr 97.3 F-98.5 F 57-64 18-20 106-123/52-65 99 cor-rrr llungs clear abd soft,nt ext no edema CBC, BMP 12/05/17 06:20 12/05/17 06:20 Microbiology 12/03/17 11:10 Blood - Peripheral Venous Blood Culture - Preliminary NO GROWTH OBTAINED AFTER 48 HOURS, INCUBATION TO CONTINUE FOR 3 DAYS. 12/03/17 10:30 Blood - Peripheral Venous Blood Culture - Preliminary NO GROWTH OBTAINED AFTER 48 HOURS, INCUBATION TO CONTINUE FOR 3 DAYS. 11/27/17 09:30 Blood - Peripheral Venous Blood Culture - Final NO GROWTH AFTER 5 DAYS INCUBATION 11/27/17 11:30 Urine - Urine Clean Catch Urine Culture - Final Escherichia Coli Esbl Adjunct Physical Education Instructor 11/27/17 09:30 Blood - Peripheral Venous Blood Culture - Final Escherichia Coli Esbl Adjunct Physical Education Instructor ct scan with fecal impaction/stercoral proctitis a/p ecoli esbl bacteremia secondary to UTI left hydronephrosis stercoral proctocolitis continue ertapenem plan 14 days ertapenem-needs 6 more days of ertapenem repeat cbc in am Problem List - Problems (1) Sepsis Code(s): A41.9 - SEPSIS, UNSPECIFIED ORGANISM Qualifiers: Sepsis type: sepsis due to unspecified organism Qualified Code(s): A41.9 - Sepsis, unspecified organism (2) Gram-negative bacteremia Code(s): R78.81 - BACTEREMIA (3) UTI (urinary tract infection) Code(s): N39.0 - URINARY TRACT INFECTION, SITE NOT SPECIFIED (4) Acute urinary retention Code(s): R33.8 - OTHER RETENTION OF URINE (5) Hydronephrosis, left Code(s): N13.30 - UNSPECIFIED HYDRONEPHROSIS
--- NOTE | 2017-12-05 12:17 | PN ---
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 Non verbal. Nonvocal. Now improved ability to drink from a cup. Reassessed with thin water. No cough but audible vocal wetness. Suspect silent aspiration on thin liquid. Defer diet upgrade without mbs, This can be done as an out pt or in pt.
[2017-12-05 18:46] VITALS: BP 137/57; PULSE 57; TEMP 98.2
== END 2017-12-05 20:35 | DRG 871 ==
LOC: JER 07:43 → JERBED 14:37 → J5S 23:33
PROVIDERS: ADMIT Family Medicine; ATTEND Family Medicine
PROC: 0T9B70Z Drainage of Bladder with Drainage Device, Via Natural or Artificial Opening (ICD-10-PCS; principal; 2017-11-27)
PROC: 05HB33Z Insertion of Infusion Device into Right Basilic Vein, Percutaneous Approach (ICD-10-PCS; 2017-11-30)
PROC: B51MZZA Fluoroscopy of Right Upper Extremity Veins, Guidance (ICD-10-PCS; 2017-11-30)
PROC: B54MZZA Ultrasonography of Right Upper Extremity Veins, Guidance (ICD-10-PCS; 2017-11-30)
DX: A41.51 Sepsis due to Escherichia coli [E. coli] (principal); G92 Toxic encephalopathy; N17.9 Acute kidney failure, unspecified; N39.0 Urinary tract infection, site not specified; N13.30 Unspecified hydronephrosis; N12 Tubulo-interstitial nephritis, not specified as acute or chronic; E87.1 Hypo-osmolality and hyponatremia; K63.3 Ulcer of intestine; L89.151 Pressure ulcer of sacral region, stage 1; L89.612 Pressure ulcer of right heel, stage 2; I10 Essential (primary) hypertension; E11.9 Type 2 diabetes mellitus without complications; Z79.4 Long term (current) use of insulin; G30.9 Alzheimer's disease, unspecified; F02.80 Dementia in other diseases classified elsewhere, unspecified severity, without behavioral disturbance, psychotic disturbance, mood disturbance, and anxiety; N13.9 Obstructive and reflux uropathy, unspecified; R62.7 Adult failure to thrive; R33.9 Retention of urine, unspecified; B96.29 Other Escherichia coli [E. coli] as the cause of diseases classified elsewhere; K56.41 Fecal impaction
CPT/HCPCS: 36415; 36569; 71045-TC; 74018-TC; 74176-TC; 76775-TC; 76856-TC; 77001-TC-FY; 80048; 80053; 81003; 81015; 82436; 82550; 82570; 82803; 82962; 83605; 84133; 84300; 84484; 85025; 85027; 85610; 85651; 85730; 86140; 86850; 86900; 86901; 87040; 87086; 87186; 93005; 93010; 97161-GP; 99283-25; C1751; J1644

== ENCOUNTER 2020-05-19 17:54 | Inpatient (IN) | payer OTHER ==
--- NOTE | 2020-05-19 19:10 | PDOC ---
Documentation entered by Leonarda Friedman SCRIBE, acting as scribe for Rosa Yang DO. Rosa Yang DO: This documentation has been prepared by the Teodoro lambert Nirvannie, SCRIBE, under my direction and personally reviewed by me in its entirety. I confirm that the documentation accurately reflects all work, treatment, procedures, and medical decision making performed by me. History of Present Illness - General Chief Complaint: Injury Stated Complaint: FALL Time Seen by Provider: 05/19/20 18:25 History Source: [facility] Records Exam Limitations: No Limitations, Dementia - History of Present Illness Initial Comments: 05/19/20 19:25 The patient is a 79 year old female with a significant past medical history of IDDM, HTN, Alzheimer's Dementia, SHERLYN, UTI, PNA, subcutaneous heparin BID, pancreatic head mass, and gallstones who presents to the ED via EMS from [facility] s/p mechanical slip and fall. As per nursing staff, the patient's was transporting her from a chair at which time she slid and fell down, prompting her arrival to the ED. Per nursing staff, the patient is at her baseline. History is limited secondary to the patient being nonverbal at baseline thus was obtained via [facility] staff. Past History - Medical History Allergies/Adverse Reactions: Allergies Allergy/AdvReac Type Severity Reaction Status Date / Time No Known Allergies Allergy Verified 05/19/20 18:13 Home Medications: Ambulatory Orders Acetaminophen [Pain Relief] 650 mg PO QID PRN 03/13/17 Acetaminophen [Extra Strength Non-Aspirin] 500 mg PO TID PRN 11/27/17 Ascorbate Calcium [Vitamin C] 500 mg PO DAILY 11/27/17 Bethanechol Chloride [Urecholine] 50 mg PO TID 11/27/17 Heparin - 5,000 unit SCJ BID 11/27/17 Insulin (LOG) Aspart [NovoLOG -] 11/27/17 Insulin (Levemir) [Levemir Vial] 100 unit SCJ ONCE 11/27/17 Memantine HCl [Namenda -] 10 mg PO BID 11/27/17 Multivit with Minerals No.55 [Centrum Flavor Burst Adult] 11/27/17 Ursodiol [Actigall] 300 mg PO BID 11/27/17 Acetaminophen Suppository [Tylenol .Suppository -] 650 mg [place] Q4H PRN supp.rect 12/05/17 Amlodipine Besylate [Norvasc -] 2.5 mg PO DAILY tablet 12/05/17 Ertapenem Sodium [Invanz -] 1 gm IVPB DAILY vial 12/05/17 Picc Line Flush [Picc Line Flush -] 8 ml IVPUSH PRN PRN ml 12/05/17 Polyethylene Glycol 3350 [Miralax 119 gm Btl -] 17 gm PO BID bottle 12/05/17 Sennosides [Senna -] 2 tab PO HS PRN tablet 12/05/17 Anemia: No Asthma: No Cancer: No Cardiac Disorders: No CVA: No COPD: No CHF: No DVT: No Dementia: Yes Diabetes: Yes (ALZHEIMERS) GI Disorders: No Disorders: No HTN: Yes Hypercholesterolemia: No Liver Disease: No Seizures: No Thyroid Disease: No - Surgical History Abdominal Surgery: No Appendectomy: No Cardiac Surgery: No Cholecystectomy: No Lung Surgery: No Neurologic Surgery: No Orthopedic Surgery: No - Psycho-Social/Smoking History Smoking Status: No Smoking History: Never smoked Have you smoked in the past 12 months: No Number of Cigarettes Smoked Daily: 0 - Substance Abuse Hx (Audit-C & DAST Scrn) How often the patient has a drink containing alcohol: Never Score: In Men: 4 or > Positive; In Women: 3 or > Positive: 0 Screen Result (Pos requires Nsg. Audit-10AR): Negative Review of Systems - Review of Systems Able to Perform ROS?: No Comments:: 05/19/20 19:25 Unable to perform an ROS secondary to patient's dementia. *Physical Exam - Vital Signs Last Vital Signs Temp Pulse Resp BP Pulse Ox 97.5 F L 79 16 140/67 100 05/19/20 18:13 05/19/20 18:13 05/19/20 18:13 05/19/20 18:13 05/19/20 18:13 - Physical Exam 05/19/20 19:26 Constitutional: Nonverbal No acute distress. Head: Normocephalic. Atraumatic Eyes: Maintaining eye contact. PERRL. EOMI. Conjunctivae are not pale. ENT: Mucous membranes are moist and intact. Posterior pharynx without exudates or erythema. Uvula midline. Neck: Supple. Full ROM. No lymphadenopathy. Cardiovascular: Regular rate. Regular rhythm. S1, S2 regular. Distal pulses are 2+ and symmetric. Pulmonary/Chest: No evidence of respiratory distress. Clear to auscultation bilaterally No wheezing, rales or rhonchi. Abdominal: Soft and non-distended. There is no tenderness. No rebound, guarding or rigidity. No organomegaly. No palpable masses. Good bowel sounds. Back: No C,T, or L midline tenderness. No stepoffs or deformities. No CVA tenderness. Musculoskeletal: +Rigid LE but, able to range without pain to the hip or pelvis. No edema. No cyanosis. No clubbing. Radial/pedal pulses are intact and 2+ bilaterally Skin: Skin is warm and dry. No petechiae. No purpura. Neurological: Nonverbal at baseline. Psychiatric: Good eye contact. Normal interaction, affect and behavior. Medical Decision Making - Medical Decision Making 05/19/20 19:07 a/p: 79yo female with hx of dementia who is nonverbal at baseline who had a fall today at [facility] -per the nurse, the patients was lifting the patient into a chair when she fell landing on her buttock -pt currently awake -pt without head injury or loc -pt is on SQ heparin for dvt prophylaxis -will send for head ct and c spine given fall -xray pelvis -contacted pts son, did not know the patient had falled, discussed with the Nurse at [facility] who provided the hx -will monitor and reassess 05/19/20 20:[address] neg glu 260 05/19/20 20:44 c spine without fx xray pelvis shows internal rotation without fx of the L hip otherwise normal fecal impaction will give enema and dc back to the MD 05/19/20 20:49 son and nh updated stable for dc back to [facility] Discharge - Discharge Information Problems reviewed: Yes Clinical Impression/Diagnosis: Fecal impaction in rectum, Fall Condition: Stable Disposition: DETENTION FACILITY - Admission No - Follow up/Referral Referrals: Nevin Parmar MD [Primary Care Provider] - - Patient Discharge Instructions Patient Printed Discharge Instructions: How to Prevent Falls, DI for Fecal Impaction Additional Instructions: Please drink plenty of fluids. Please have 2 people to assist with transferring the patient to prevent further falls. Please follow up with your PMD this week and please return to the ER with any further concerns or complaints. - Post Discharge Activity
[2020-05-19] MEDS ORDERED: SODIUM PHOSPHATE/NA BIPHOS 133 ML ENEMA PR ONE (20:45)
[2020-05-19] MEDS ORDERED: FAMOTIDINE 20 MG/50 ML IVPB 20 MG/50 ML MG IVPB ONE (23:09)
[2020-05-19] MEDS ORDERED: ONDANSETRON 4 MG/2 ML VIAL IVPUSH ONE (23:09)
[2020-05-19] MEDS ORDERED: SODIUM CHLORIDE 0.9% 1000 ML INFUS.BAG IV ONE (23:09)
[2020-05-19] MEDS ORDERED: PIPERACILLIN/TAZOB 4.5 GM 4.5 GM in DEXTROSE 5%-WATER 100 ML IVPB ONE (23:39)
[2020-05-19 23:50] LABS: BASO % 0.8 % (0-2.0); EOS % 0.3 % (0-4.5); HEMATOCRIT 44.3 % (32.4-45.2); HEMOGLOBIN 14.5 GM/dL (10.7-15.3); LYMPH % 17.1 % (8-40); MCH 29.5 pg (25.7-33.7); MCHC 32.7 g/dl (32.0-36.0); MEAN CELL VOLUME 90.3 fl (80-96); MEAN PLT VOLUME 8.4 fl (7.5-11.1); MONO % 7.3 % (3.8-10.2); NEUT % 74.5 % (42.8-82.8); PLATELET COUNT 351 K/MM3 (134-434); RBC 4.91 M/mm3 (3.60-5.2); RDW 13.9 % (11.6-15.6); WHITE BLOOD COUNT 18.2 K/mm3 (4.0-10.0)
[2020-05-20] MEDS ORDERED: PIPERACILLIN/TAZOB 4.5 GM 4.5 GM/100 ML BAG IVPB ONE (00:13)
[2020-05-20] MEDS ORDERED: FAMOTIDINE 20 MG/50 ML IVPB 20 MG/50 ML MG IVPB ONE (00:13)
[2020-05-20 00:14] LABS: ALBUMIN 3.3 g/dl (3.4-5.0); ALK PHOS 133 U/L (45-117); ANION GAP 10 MMOL/L (8-16); BILIRUBIN,TOTAL 0.6 mg/dL (0.2-1); BLOOD UREA NITROGEN 18.7 mg/dL (7-18); CALCIUM 9.5 mg/dL (8.5-10.1); CHLORIDE 105 mmol/L (98-107); CO2 23 mmol/L (21-32); CREATININE 1.2 mg/dL (0.55-1.3); GLUCOSE,RANDOM 318 mg/dL (74-106); LIPASE 30 U/L (73-393); POTASSIUM 5.8 mmol/L (3.5-5.1); SGOT/AST 47 U/L (15-37); SGPT/ALT 24 U/L (13-61); SODIUM 138 mmol/L (136-145); TOT PROT 8.1 g/dl (6.4-8.2)
[2020-05-20] MEDS ORDERED: RAPID SEQUENCE INTUBATION KIT NR ONE (00:34)
[2020-05-20] MEDS ORDERED: MIDAZOLAM IN 0.9 % SOD.CHLORID 1 MG/1 ML PLAST..BAG ONE (00:40)
[2020-05-20] MEDS ORDERED: ETOMIDATE 20 MG/10 ML AMPUL IVPUSH ONE (00:54)
[2020-05-20] MEDS ORDERED: ROCURONIUM BROMIDE 50 MG/5 ML VIAL IV ONE (00:54)
[2020-05-20] MEDS ORDERED: CALCIUM GLUCONATE 10% - 1,000 MG/10 ML VIAL IVPUSH ONE (00:55)
[2020-05-20] MEDS ORDERED: MIDAZOLAM 100 MG in SODIUM CHLORIDE 100 ML IVPB SCH (01:00)
[2020-05-20] MEDS ORDERED: VANCOMYCIN 1 GM in D5W (PRE-DOCKED) 1,000 MG/250 ML IVPB ONE ×2 (01:18→12:00)
[2020-05-20 01:36] LABS: BASO % 0.3 % (0-2.0); HEMATOCRIT 47.9 % (32.4-45.2); HEMOGLOBIN 15.5 GM/dL (10.7-15.3); LYMPH % 7.5 % (8-40); MCH 29.3 pg (25.7-33.7); MCHC 32.3 g/dl (32.0-36.0); MEAN CELL VOLUME 90.7 fl (80-96); MEAN PLT VOLUME 8.6 fl (7.5-11.1); MONO % 4.5 % (3.8-10.2); NEUT % 87.7 % (42.8-82.8); PLATELET COUNT 337 K/MM3 (134-434); RBC 5.28 M/mm3 (3.60-5.2); RDW 13.7 % (11.6-15.6); WHITE BLOOD COUNT 19.8 K/mm3 (4.0-10.0)
[2020-05-20 01:38] LABS: EPI CELLS >36 /uL (0-25.1); HYALINE CASTS 10 /uL (0-3.1); URINE APPEARANCE TURBID; URINE BILIRUBIN NEGATIVE (NEGATIVE); URINE COLOR YELLOW; URINE GLUCOSE (UA) 3+ (NEGATIVE); URINE KETONE NEGATIVE (NEGATIVE); URINE LEUK ESTERASE 2+ (NEGATIVE); URINE NITRITE POSITIVE (NEGATIVE); URINE PROTEIN 1+ (NEGATIVE); URINE RBC 746 /uL (0-23.9); URINE UROBILINOGEN 0.2 mg/dL (0.2-1.0); URINE WBC 1221 /uL (0-25.8)
[2020-05-20 01:44] LABS: INR 1.05 (0.83-1.09); PROTHROMBIN TIME (PATIENT) 12.4 SEC (9.7-13.0)
[2020-05-20 01:46] LABS: ACTIVATED PTT 34.9 SECONDS (25.2-36.5)
[2020-05-20] MEDS ORDERED: PANTOPRAZOLE SODIUM 80 MG/200 ML BAG IVPB ONE (02:01)
[2020-05-20 02:03] LABS: ALBUMIN 3.8 g/dl (3.4-5.0); BILIRUBIN,TOTAL 0.5 mg/dL (0.2-1); BLOOD UREA NITROGEN 19.6 mg/dL (7-18); CALCIUM 9.4 mg/dL (8.5-10.1); CREATININE 1.2 mg/dL (0.55-1.3); POTASSIUM 3.7 mmol/L (3.5-5.1); TOT PROT 8.4 g/dl (6.4-8.2)
[2020-05-20 02:05] LABS: N-TERMINAL BNP 345.9 pg/ml (5-450)
[2020-05-20] MEDS ORDERED: LACTATED RINGERS SOLUTION 1000 ML INFUS.BAG IV ONE ×2 (02:07→07:36)
[2020-05-20] MEDS: PANTOPRAZOLE SODIUM 80 MG in SODIUM CHLORIDE 100 ML IVPB SCH ×2 (02:45→10:24)
--- NOTE | 2020-05-20 03:46 | CONSULT ---
Consultation: [facility] / [facility] Radiology Report for CTA of Chest, Abdomen, and Pelvis: THIS IS A PRELIMINARY REPORT FROM IMAGING LEISURE STUDIES PROFESSOR DATE OF SERVICE: 2020-05-20 03:17:01 IMAGES: [id number] EXAM: CHEST CTA and CTA abdomen and pelvis with and without contrast HISTORY: GI bleed and hypoxia COMPARISON: CT abdomen pelvis dated 12/03/17 FINDINGS: CTA chest: Endotracheal and nasogastric tubes are in appropriate position There is no PE . No aortic aneurysm or dissection. Heart size is normal. Coronary artery calcifications are noted. The trachea and bronchi are patent. There is no pleural or pericardial effusion. Mild to moderate scattered dependent atelectasis is noted without evidence of pneumonia.. No fractures identified. CTA abdomen and pelvis: Evaluation limited by streak artifact from the patient's arms at the sides. Small bilateral nonobstructing renal stones are noted. Bilateral renal cortical thinning is noted , possibly due to renal artery stenosis. Normal liver, gallbladder, pancreas, spleen, adrenal glands. The stomach and abdominal small and large bowel are normal. There is no aortic dissection or aneurysm. There is no significant retroperitoneal lymphadenopathy. The pelvic small and large bowel are notable for a very large amount of rectosigmoid stool with rectal distention suggesting fecal impaction. The appendix is normal. The uterus and adnexal structures are normal. Urinary bladder is collapsed by a Menchaca catheter but could be mildly inflamed , suggesting cystitis. There is no pelvic free fluid. No discrete pelvic lymphadenopathy is identified IMPRESSION: No acute thoracic pathology. Small bilateral renal stones and bilateral renal cortical thinning which may be due to renal artery stenosis. Possible cystitis. Possible fecal impaction. One or more of the following dose reduction techniques were used: automated exposure control, adjustment of the mA and/or kV according to patient size, use of iterative reconstructive technique. THIS DOCUMENT HAS BEEN ELECTRONICALLY SIGNED Alvaro Escobar MD 05/20/2020 04:45 EST <José Miguel Kc - Last Filed: 05/20/20 04:58> Consultation: REQUESTING PROVIDER: Dr. Yang CONSULT REQUEST: We have been asked to medically evaluate this patient for (specify). HISTORY OF PRESENT ILLNESS: Pt is a 79 yo F with PMHx IDDM, HTN, UTIs, Alzheimer's Dementia, pancreatic head mass, and gallstones presenting to the ED after an unwitnessed fall while she was being transferred into a chair by her at her senior living ([facility]). No head trauma or LOC occurred at the time. Pt was examined in the ED and was found to be stable for discharge back to [facility]. While awaiting transport, she became diaphoretic and developed bilious, non-bloody emesis. About 100 cc of bilious emesis was suctioned from the patient's posterior pharynx. Pt likely aspirated some of the contents of the emesis, as per ED report. She subsequently became acutely hypoxic and required intubation. In the ED, pt was found to have sinus bradycardia on EKG. CXR and CT Abd/Pelvis done while in ED. UA with positive nitrites and leukocyte esterase in the ED, but with epithelial cells. Pt was also found to have fecal impaction and was given an enema. Pt hx limited by the fact that the pt is non-verbal and non-ambulatory at baseline. REVIEW OF SYSTEMS: Unable to assess ROS as pt is nonverbal at baseline. PHYSICAL EXAMINATION Vital Signs - 24 hr 05/19/20 05/20/20 18:13 01:34 Temperature 97.5 F L Pulse Rate 79 Respiratory 16 14 Rate Blood Pressure 140/67 O2 Sat by Pulse 100 100 Oximetry (%) GENERAL: Pt is sedated and intubated. HEAD: Normocephalic atraumatic. EYES: Pupils equal, round and reactive to light, conjunctiva clear. EARS, NOSE, THROAT: Oropharynx clear without exudates. Moist mucous membranes. NECK: Supple without lymphadenopathy. LUNGS: Breath sounds equal, scattered rhonchi appreciated on auscultation bilaterally. No wheezes, and no crackles. No accessory muscle use. HEART: Regular rate and rhythm, normal S1 and S2 without murmur, rub or gallop. ABDOMEN: Soft, nontender, mildly distended abdomen, normoactive bowel sounds. MUSCULOSKELETAL: No bony deformities. Limited MSK exam as pt is sedated and intubated. UPPER EXTREMITIES: 2+ pulses, warm, well-perfused. No peripheral edema. LOWER EXTREMITIES: 2+ pulses, warm, well-perfused. No peripheral edema. NEUROLOGICAL: Pt is sedated. Non-verbal at baseline. SKIN: Warm, dry, normal turgor, no rashes or lesions noted. Laboratory Results - last 24 hr 05/19/20 05/19/20 05/19/20 20:28 23:38 23:38 WBC 18.2 H RBC 4.91 Hgb 14.5 Hct 44.3 D MCV 90.3 MCH 29.5 MCHC 32.7 RDW 13.9 Plt Count 351 D MPV 8.4 Absolute Neuts (auto) 13.6 H Neutrophils % 74.5 Lymphocytes % 17.1 Monocytes % 7.3 Eosinophils % 0.3 Basophils % 0.8 Nucleated RBC % 0 PT with INR INR PTT (Actin FS) VBG pH POC VBG pCO2 POC VBG pO2 VBG HCO3 VBG O2 Sat (Nish) VBG Base Excess Sodium 138 Potassium 5.8 H Chloride 105 Carbon Dioxide 23 Anion Gap 10 BUN 18.7 H Creatinine 1.2 Est GFR (CKD-EPI)AfAm 50.48 Est GFR (CKD-EPI)NonAf 43.56 POC Glucometer 260 Random Glucose 318 H Calcium 9.5 Total Bilirubin 0.6 AST 47 H ALT 24 Alkaline Phosphatase 133 H Creatine Kinase 111 Troponin I < 0.02 Total Protein 8.1 Albumin 3.3 L Lipase 30 L Urine Color Urine Appearance Urine pH Ur Specific [place] Urine Protein Urine Glucose (UA) Urine Ketones Urine Blood Urine Nitrite Urine Bilirubin Urine Urobilinogen Ur Leukocyte Esterase Urine WBC (Auto) Urine RBC (Auto) Urine Casts (Auto) U Epithel Cells (Auto) Urine Bacteria (Auto) 05/20/20 05/20/20 05/20/20 00:00 00:53 01:06 WBC 19.8 H RBC 5.28 H Hgb 15.5 H Hct 47.9 H MCV 90.7 MCH 29.3 MCHC 32.3 RDW 13.7 Plt Count 337 MPV 8.6 Absolute Neuts (auto) 17.3 H Neutrophils % 87.7 H Lymphocytes % 7.5 L D Monocytes % 4.5 Eosinophils % 0.0 D Basophils % 0.3 Nucleated RBC % 0 PT with INR INR PTT (Actin FS) VBG pH Cancelled POC VBG pCO2 Cancelled POC VBG pO2 Cancelled VBG HCO3 Cancelled VBG O2 Sat (Nish) Cancelled VBG Base Excess Cancelled Sodium Potassium Chloride Carbon Dioxide Anion Gap BUN Creatinine Est GFR (CKD-EPI)AfAm Est GFR (CKD-EPI)NonAf POC Glucometer Random Glucose Calcium Total Bilirubin AST ALT Alkaline Phosphatase Creatine Kinase Troponin I Total Protein Albumin Lipase Urine Color Yellow Urine Appearance Turbid Urine pH 5.0 Ur Specific [place] 1.017 Urine Protein 1+ H Urine Glucose (UA) 3+ H Urine Ketones Negative Urine Blood 2+ H Urine Nitrite Positive H Urine Bilirubin Negative Urine Urobilinogen 0.2 Ur Leukocyte Esterase 2+ H Urine WBC (Auto) 1221 Urine RBC (Auto) 746 Urine Casts (Auto) 10 U Epithel Cells (Auto) >36 Urine Bacteria (Auto) >10,000 05/20/20 01:06 WBC RBC Hgb Hct MCV MCH MCHC RDW Plt Count MPV Absolute Neuts (auto) Neutrophils % Lymphocytes % Monocytes % Eosinophils % Basophils % Nucleated RBC % PT with INR 12.40 INR 1.05 PTT (Actin FS) 34.9 VBG pH POC VBG pCO2 POC VBG pO2 VBG HCO3 VBG O2 Sat (Nish) VBG Base Excess Sodium Potassium Chloride Carbon Dioxide Anion Gap BUN Creatinine Est GFR (CKD-EPI)AfAm Est GFR (CKD-EPI)NonAf POC Glucometer Random Glucose Calcium Total Bilirubin AST ALT Alkaline Phosphatase Creatine Kinase Troponin I Total Protein Albumin Lipase Urine Color Urine Appearance Urine pH Ur Specific [place] Urine Protein Urine Glucose (UA) Urine Ketones Urine Blood Urine Nitrite Urine Bilirubin Urine Urobilinogen Ur Leukocyte Esterase Urine WBC (Auto) Urine RBC (Auto) Urine Casts (Auto) U Epithel Cells (Auto) Urine Bacteria (Auto) Active Medications Generic Name Dose Route Start Last Admin Trade Name Freq PRN Reason Stop Dose Admin Midazolam HCl 100 mg/ Sodium 100 mls @ 1 mls/hr 05/20/20 01:00 Chloride IVPB TITR DAVID Protocol 1 MG/HR Pantoprazole Sodium 80 mg/ 100 mls @ 10 mls/hr 05/20/20 01:00 Sodium Chloride IVPB 05/23/20 00:59 Q10H DAVID 8 MG/HR ASSESSMENT/PLAN: Pt is a 79 yo F with PMHx IDDM, HTN, possible recurrent UTIs, Alzheimer's Dementia, pancreatic head mass, and gallstones being admitted to the ICU s/p intubation for airway protection after an acute hypoxic event 2/2 possible aspiration and refractory to supplemental O2. Pt is sedated and intubated. #Neuro Alzheimer's dementia; non-verbal at baseline - pt sedated on versed #CV Hx of HTN Hx of HLD Pattern of bigeminy noted on repeat 12 lead EKG, resolved spontaneously was again noted on telemetry monitoring during menchaca insertion (suspect 2/2 to invasive interventions) Initial and 2hr delta troponins negative - low concern for ACS - no current antihypertensives - continue home statin #Pulm Acute hypoxic event 2/2 possible aspiration Intubated on volume-assist control ventilation; intubated for airway protection - monitor ABGs - monitor CXR for development of any changes (i.e. aspiration pneumonia) - maintain SpO2>92 GI Fecal impaction vs possible proctitis (hx of similar) Possible upper GI bleed - enema given in the ED; monitor for bowel movements - f/u CT A/P - will trend H/H - Protonix drip - can consider GI consultation if GI symptoms worsen; although not immediately necessary #Endo Hx of IDDM - BGM with ISS; and home levemir #ID Hx of UTIs Suspected Urinary Tract Infection (Nitrites/Leuk Est + but with epithelial ani ls; Urine Cx pending) with concern for sepsis Concern for aspiration pneumonia - Repeat UA; f/u Blood and Urine Cx - IV vanc + zosyn for empiric coverage started; will switch to Meropenem as pt has hx of Blood Cx + for ESBL EColi - ID consulted; awaiting antibiotic recommendations - monitor WBC - monitor for changes in CXR - lactate elevated; will trend after fluid bolus #MSK Recent fall - Can consider B12, folate, RPR, and TSH - PT consult when appropriate #FEN - LR IV fluid bolus but no maintenance given possible aspiration event - NPO for now - monitor CMP; replete lytes PRN #Ppx - GI: protonix - DVT: SCDs #LTD - ETT - 05/20 - 7.5 in tube, 20 @ the lip - Menchaca - 05/20 Dispo: Will monitor the pt in the ICU. Thank you for this consultative opportunity. <Seth Burch - Last Filed: 05/20/20 08:56> Visit type - Emergency Visit Emergency Visit: Yes ED Registration Date: 05/20/20 Care time: The patient presented to the Emergency Department on the above date and was hospitalized for further evaluation of their emergent condition. - New Patient This patient is new to me today: Yes Date on this admission: 05/20/20 - Critical Care Critical Care patient: Yes Total Critical Care Time (in minutes): 38 Critical Care Statement: The care of this patient involved high complexity decision making to prevent further life threatening deterioration of the patient's condition and/or to evaluate & treat vital organ system(s) failure or risk of failure. <Seth Burch - Last Filed: 05/20/20 08:56> ATTENDING PHYSICIAN STATEMENT I saw and evaluated the patient. I reviewed the resident's note and discussed the case with the resident. I agree with the resident's findings and plan as documented. SUBJECTIVE: OBJECTIVE: ASSESSMENT AND PLAN: <Seth Burch - Last Filed: 05/20/20 08:56>
[2020-05-20 04:17] LABS: ARTERIAL BLD GAS O2 SATURATION 98.4 mmHg (95-98); ARTERIAL BLOOD GAS PO2 137.3 mmHg (80-100); ARTERIAL BLOOD GAS pH 7.275 (7.350-7.450)
[2020-05-20 04:23] LABS: ALLENS TEST POSITIVE
[2020-05-20 04:24] LABS: VENT MODE A/C; VENT RATE 14
[2020-05-20] MEDS ORDERED: DEXTROSE 5%-WATER 100 ML IVPB ONE ×3 (05:55→18:07)
[2020-05-20] MEDS ORDERED: PIPERACILLIN/TAZOBACTAM 4.5 GM VIAL IVPB ONE (05:55)
[2020-05-20] MEDS ORDERED: PIPERACILLIN/TAZOB 4.5 GM 4.5 GM in DEXTROSE 5%-WATER 100 ML IVPB ONE (06:00)
[2020-05-20] MEDS: INSULIN SLIDING SCALE (NOVOLOG) 1 VIAL SQ SCH ×4 (06:23→23:24)
[2020-05-20 06:34] LABS: HEMATOCRIT 47.5 % (32.4-45.2); HEMOGLOBIN 15.3 GM/dL (10.7-15.3); MCH 29.4 pg (25.7-33.7); MCHC 32.2 g/dl (32.0-36.0); MEAN CELL VOLUME 91.5 fl (80-96); MEAN PLT VOLUME 8.3 fl (7.5-11.1); PLATELET COUNT 367 K/MM3 (134-434); RDW 13.9 % (11.6-15.6)
[2020-05-20 06:45] LABS: EPI CELLS 17 /uL (0-25.1); HYALINE CASTS 1 /uL (0-3.1); URINE APPEARANCE CLEAR; URINE BACTERIA 749 /uL (0-1359); URINE BILIRUBIN NEGATIVE (NEGATIVE); URINE COLOR YELLOW; URINE GLUCOSE (UA) 3+ (NEGATIVE); URINE KETONE 1+ (NEGATIVE); URINE LEUK ESTERASE NEGATIVE (NEGATIVE); URINE NITRITE NEGATIVE (NEGATIVE); URINE PROTEIN 2+ (NEGATIVE); URINE RBC 15 /uL (0-23.9); URINE UROBILINOGEN 0.2 mg/dL (0.2-1.0); URINE WBC 34 /uL (0-25.8)
[2020-05-20 06:45] LABS: ARTERIAL BLD GAS O2 SATURATION 98.9 mmHg (95-98); ARTERIAL BLOOD GAS BASE EXCESS -5.4 mmol/L (-2-2); ARTERIAL BLOOD GAS PO2 165.2 mmHg (80-100); ARTERIAL BLOOD GAS pH 7.304 (7.350-7.450)
[2020-05-20] MEDS ORDERED: INSULIN SLIDING SCALE (NOVOLOG) 1 VIAL SQ SCH (07:00)
[2020-05-20 07:03] LABS: ALLENS TEST POSITIVE
[2020-05-20 07:04] LABS: ALBUMIN 3.6 g/dl (3.4-5.0); BILIRUBIN,TOTAL 1.3 mg/dL (0.2-1); BLOOD UREA NITROGEN 16.3 mg/dL (7-18); CALCIUM 9.6 mg/dL (8.5-10.1); CREATININE 1.2 mg/dL (0.55-1.3); MAGNESIUM 1.7 mg/dL (1.8-2.4); PHOSPHOROUS 6.9 mg/dL (2.5-4.9); TOT PROT 8.2 g/dl (6.4-8.2)
[2020-05-20 07:07] LABS: VENT MODE A/C; VENT RATE 14
[2020-05-20] MEDS ORDERED: INSULIN (NOVOLOG) ASPART 100 UNITS/ML 10ML VIAL ONE ×3 (07:24→16:51)
[2020-05-20] MEDS ORDERED: MAGNESIUM 2GM/50ML STERILE WATER IVPB IVPB ONE (07:30)
--- NOTE | 2020-05-20 08:55 | PN ---
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, Physician - Current Medication List Current Medications: Active Medications Ascorbic Acid (Vitamin C Oral Solution -) 500 mg GT DAILY [facility] Atorvastatin Calcium (Lipitor -) 10 mg GT HS [facility]ID Chlorhexidine Gluconate (Hibiclens For Decolonization -) 1 applic TP HS [facility]ID Midazolam HCl 100 mg/ Sodium (Chloride) 100 mls @ 1 mls/hr IVPB TITR [facility]ID; Protocol Last Titration: 05/20/20 04:03 Dose: 3 mg/hr, 3 mls/hr Documented by: Pantoprazole Sodium 80 mg/ (Sodium Chloride) 100 mls @ 10 mls/hr IVPB Q10H [facility]ID Stop: 05/23/20 00:59 Last Admin: 05/20/20 02:45 Dose: 10 mls/hr Documented by: Meropenem 1 gm/ Dextrose 100 mls @ 200 mls/hr IVPB Q8H-IV [facility]ID Insulin Aspart (Novolog Vial Sliding Scale -) 1 vial SQ ACHS DAVID; Protocol Last Admin: 05/20/20 06:23 Dose: 12 units Documented by: Insulin Detemir (Levemir Vial) 35 units SQ DAILY [facility] Mupirocin (Bactroban Ointment (For Decolonization) -) 1 applic NS BID [facility] Stop: 05/25/20 09:59 Polyethylene Glycol (Miralax (For Daily Use) -) 17 gm GT BID [facility]ID Vancomycin HCl (Vancomycin (Pre-Docked)) 1,000 mg IVPB ONCE ONE; Protocol Stop: 05/20/20 12:01 - Objective Vital Signs: Vital Signs Temperature 98.2 F 05/20/20 08:30 Pulse Rate 98 H 05/20/20 08:53 Respiratory Rate 17 05/20/20 08:53 Blood Pressure 143/81 05/20/20 08:00 O2 Sat by Pulse Oximetry (%) 100 05/20/20 08:53 Cardiovascular: Yes: S1, S2 Respiratory: Yes: Mechanically Ventilated, Rhonchi Gastrointestinal: Yes: Normal Bowel Sounds, Soft Labs: CBC, BMP 05/20/20 05:00 05/20/20 05:00 INR, PTT INR 1.05 (0.83-1.09) 05/20/20 01:06 Problem List - Problems (1) Respiratory failure Assessment/Plan: VENT SUPPORT PULM CONSULT IV ABX Code(s): J96.90 - RESPIRATORY FAILURE, UNSP, UNSP W HYPOXIA OR HYPERCAPNIA (2) Pneumonia Assessment/Plan: CXR NOTED IV ABX ID AND PULM Code(s): J18.9 - PNEUMONIA, UNSPECIFIED ORGANISM (3) Sepsis Assessment/Plan: CULTURES IV ABX LACTIC ACID HIGH IVF Code(s): A41.9 - SEPSIS, UNSPECIFIED ORGANISM Qualifiers: Sepsis type: sepsis due to unspecified organism Qualified Code(s): A41.9 - Sepsis, unspecified organism (4) Fall Assessment/Plan: 1ST NAD REPEAT Code(s): W19.XXXA - UNSPECIFIED FALL, INITIAL ENCOUNTER
[2020-05-20] MEDS: INSULIN (LEVEMIR) 100 UNITS/ML UNITS SQ SCH (09:00)
[2020-05-20] MEDS ORDERED: MEMANTINE HCL 10 MG TABLET (FP) GT SCH (10:00)
[2020-05-20] MEDS ORDERED: PATIENT'S OWN MEDICATION (NON-FORMULARY) (Ascorbate Calcium [Vitamin C] 500 MG) GT SCH (10:00)
[2020-05-20] MEDS ORDERED: MEROPENEM 1 GM in DEXTROSE 5%-WATER 100 ML IVPB SCH (10:00)
[2020-05-20] MEDS: POLYETHYLENE GLYCOL 3350 119 GM BTL GT SCH ×2 (10:22→22:55)
[2020-05-20] MEDS: ASCORBIC ACID 500 MG/5 ML UNIT DOSE CUP GT SCH (10:22)
[2020-05-20] MEDS ORDERED: MEROPENEM 1 GM VIAL (RESTRICTED TO ID) IVPB ONE ×2 (10:25→18:07)
[2020-05-20] MEDS ORDERED: SODIUM CHLORIDE 0.45% 1,000 ML IV SCH (10:30)
[2020-05-20] MEDS: MUPIROCIN 2% TOPICAL OINTMENT FOR DECOLONIZATION NS SCH ×2 (10:45→23:19)
--- NOTE | 2020-05-20 10:50 | PN ---
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 (short form) - Note 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: ID CONSULT DICTATED ACUTE RESP FAILURE PROBABLE ASP PNEUMONIA UTI R/O SEPSIS SECONDARY TO UTI AZOTEMIA MARKED LEUKOCYTOSIS UNCONTROLLED DM OBS S/P FALL HX ESBL LACTIC ACIDOSIS AWAIT SEPSIS WORKUP EMPIRIC MEROPENEM VENTILATORY / HEMODYNAMIC SUPPORT PROGNOSIS GUARDED CRITICAL CARE TIME 35MIN
--- NOTE | 2020-05-20 11:49 | EKG ---
Test Reason : Blood Pressure : / mmHG Vent. Rate : 051 BPM Atrial Rate : 051 BPM P-R Int : 150 ms QRS Dur : 072 ms QT Int : 484 ms P-R-T Axes : 064 064 036 degrees QTc Int : 446 ms SINUS BRADYCARDIA WITH PREMATURE SUPRAVENTRICULAR COMPLEXES OTHERWISE NORMAL ECG WHEN COMPARED WITH ECG OF 27-NOV-2017 09:52, PREMATURE SUPRAVENTRICULAR COMPLEXES ARE NOW PRESENT VENT. RATE HAS DECREASED BY 42 BPM NONSPECIFIC T WAVE ABNORMALITY NO LONGER EVIDENT IN ANTERIOR LEADS Confirmed by JAYDEN MAHARAJ MD ([id number]) on 05/20/2020 11:49:02 AM Referred By: Confirmed By:JAYDEN MAHARAJ MD
--- NOTE | 2020-05-20 11:52 | EKG ---
Test Reason : Blood Pressure : / mmHG Vent. Rate : 095 BPM Atrial Rate : 095 BPM P-R Int : 168 ms QRS Dur : 082 ms QT Int : 362 ms P-R-T Axes : 079 066 051 degrees QTc Int : 454 ms SINUS RHYTHM WITH FREQUENT PREMATURE VENTRICULAR COMPLEXES IN A PATTERN OF BIGEMINY ABNORMAL ECG WHEN COMPARED WITH ECG OF 19-MAY-2020 23:28, PREMATURE VENTRICULAR COMPLEXES ARE NOW PRESENT PREMATURE SUPRAVENTRICULAR COMPLEXES ARE NO LONGER PRESENT VENT. RATE HAS INCREASED BY 44 BPM T WAVE INVERSION NOW EVIDENT IN INFERIOR LEADS T WAVE INVERSION NOW EVIDENT IN LATERAL LEADS Confirmed by JAYDEN MAHARAJ MD ([id number]) on 05/20/2020 11:52:31 AM Referred By: Confirmed By:JAYDEN MAHARAJ MD
--- NOTE | 2020-05-20 12:11 | CONS ---
DATE OF CONSULTATION: DATE OF DICTATION: 05/20/2020 CHIEF COMPLAINT/HISTORY OF PRESENT ILLNESS: The patient is a 79-year-old female who is evaluated for sepsis. History was obtained from the chart as she cannot give a history at the present time. She is intubated, on mechanical ventilation in the intensive care unit. The patient is a residential resident. According to the notes, she is nonverbal at baseline. She was admitted to the hospital on May 19, 2020, after a mechanical fall. There were no reports of any significant trauma. No reports of head trauma or loss of consciousness. She presented to the emergency room where she was evaluated. She was found to be in a stable condition and was to be returned to the residential. She, however, developed episode of diaphoresis, nausea, vomiting, and apparent aspiration. Bilious vomitus was suctioned from her oropharynx. The patient's course was complicated by hypoxemia with an O2 saturation of 88%. She required intubation. She is presently intubated in the intensive care unit on mechanical ventilation. Her course was further complicated by marked leukocytosis and pyuria. CAT scan of the head was negative for acute infarct or bleed. A CAT scan of the chest, abdomen, and pelvis was performed. She was noted to have atelectasis of the left midlung field as well as fecal impaction in the rectosigmoid with stercoral colitis. Her initial laboratory showed a marked leukocytosis, elevated blood sugar, and pyuria. She was empirically treated with meropenem. At the present time she is sedated on the ventilator. She has had episodes of hypothermia. PAST MEDICAL HISTORY: Positive for dementia, insulin-dependent diabetes mellitus, hypertension, chronic kidney disease, pneumonia, UTI, history of pancreatic mass, cholelithiasis. ALLERGIES: No known allergies. MEDICATIONS: Medications at the present time include meropenem, vancomycin, Zemuron, Lipitor, Amidate, Pepcid, Protonix, insulin. SOCIAL HISTORY: She resides in a residential facility. According to the notes, nonverbal at baseline. Nonsmoker, nondrinker. REVIEW OF SYSTEMS: Neurologic: Positive for dementia. No loss of consciousness, seizure activity, or focal weakness. Cardiac: Negative chest pain or palpitations. Respiratory: As per HPI. Gastrointestinal: As per HPI. Genitourinary: Positive for urinary tract infection. LABORATORY DATA: White count 30.0, 87 neutrophils, 7 lymphocytes, 4 monocytes. Hematocrit 47.5, platelets 367. BUN 16, creatinine 1.2. Glucose 421. Lactic acid 6.7. Urinalysis: White cells 1221. Cultures are pending. Total bilirubin 1.3, alkaline phosphatase 144, AST 42. PHYSICAL EXAMINATION: General: She is sedated, on the ventilator. Vital Signs: Temperature 98.2, blood pressure 145/75, pulse 98, regular. Respirations 17 per minute. HEENT: Sclerae are anicteric. Patient is orally intubated. Cardiovascular: Heart sounds S1, S2. Lungs: Air entry bilaterally. Abdomen: Obese, soft, nontender. Extremities: With 1+ edema. Negative Homans sign. IMPRESSION: 1. Acute respiratory failure. 2. Probable aspiration pneumonia. 3. Urinary tract infection, rule out sepsis secondary to urinary tract infection. 4. Azotemia. 5. Marked leukocytosis. 6. Uncontrolled diabetes mellitus. 7. History of dementia. 8. History of fall. 9. History of extended-spectrum beta-lactamase. 10. Lactic acidosis. Await sepsis workup. Continue ventilatory and hemodynamic support. Empiric antibiotic coverage with meropenem plus stat dose vancomycin. Contact precautions. Prognosis is guarded. CRITICAL CARE TIME SPENT: Thirty-five minutes. Thank you for the kind referral. PREETHI ROWLAND M.D. [id number]
--- NOTE | 2020-05-20 12:59 | PN ---
Physical Exam: SUBJECTIVE: Patient seen and examined. Pt remains intubated and sedated. OBJECTIVE: Vital Signs Period Temp Pulse Resp BP Sys/Bob Pulse Ox Last 24 Hr 95.6 F-98.2 F 51-101 14-24 124-200/65-106 86-100 GENERAL: The patient is sedated HEENT: NCAT, ETT in place. NG tube in place. LUNGS: Breath sounds equal, clear to auscultation bilaterally HEART: Regular rate and rhythm, S1, S2 without murmur ABDOMEN: Soft, non-distended. No masses palpated. EXTREMITIES: warm, well-perfused, no edema. Laboratory Last Values WBC 30.0 K/mm3 (4.0-10.0) H 05/20/20 05:00 RBC 5.20 M/mm3 (3.60-5.2) 05/20/20 05:00 Hgb 15.3 GM/dL (10.7-15.3) 05/20/20 05:00 Hct 47.5 % (32.4-45.2) H 05/20/20 05:00 MCV 91.5 fl (80-96) 05/20/20 05:00 MCH 29.4 pg (25.7-33.7) 05/20/20 05:00 MCHC 32.2 g/dl (32.0-36.0) 05/20/20 05:00 RDW 13.9 % (11.6-15.6) 05/20/20 05:00 Plt Count 367 K/MM3 (134-434) 05/20/20 05:00 MPV 8.3 fl (7.5-11.1) 05/20/20 05:00 Absolute Neuts (auto) 17.3 K/mm3 (1.5-8.0) H 05/20/20 01:06 Neutrophils % 87.7 % (42.8-82.8) H 05/20/20 01:06 Lymphocytes % 7.5 % (8-40) L D 05/20/20 01:06 Monocytes % 4.5 % (3.8-10.2) 05/20/20 01:06 Eosinophils % 0.0 % (0-4.5) D 05/20/20 01:06 Basophils % 0.3 % (0-2.0) 05/20/20 01:06 Nucleated RBC % 0 % (0-0) 05/20/20 01:06 PT with INR 12.40 SEC (9.7-13.0) 05/20/20 01:06 INR 1.05 (0.83-1.09) 05/20/20 01:06 PTT (Actin FS) 34.9 SECONDS (25.2-36.5) 05/20/20 01:06 Anticoagulation Therapy No Result Required. 05/20/20 06:29 Puncture Site Right radial 05/20/20 06:29 Patient Temperature No Result Required. 05/20/20 06:29 ABG pH 7.304 (7.350-7.450) L 05/20/20 06:29 ABG pCO2 42.90 mmHg (35-45) 05/20/20 06:29 ABG pO2 165.2 mmHg (80-100) H 05/20/20 06:29 ABG HCO3 20.8 mmol/L (22-27) L 05/20/20 06:29 ABG O2 Sat (Measured) 98.9 mmHg (95-98) H 05/20/20 06:29 ABG O2 Content No Result Required. 05/20/20 06:29 ABG Base Excess -5.4 mmol/L (-2-2) L 05/20/20 06:29 Dennis Test Positive 05/20/20 06:29 VBG pH Cancelled 05/20/20 00:00 POC VBG pCO2 Cancelled 05/20/20 00:00 POC VBG pO2 Cancelled 05/20/20 00:00 VBG HCO3 Cancelled 05/20/20 00:00 VBG O2 Sat (Nish) Cancelled 05/20/20 00:00 VBG Base Excess Cancelled 05/20/20 00:00 Patient On Oxygen Yes 05/20/20 06:29 O2 Delivery Device Vent 05/20/20 06:29 Oxygen Flow Rate 50% 05/20/20 06:29 Vent Mode A/c 05/20/20 06:29 Vent Rate 14 05/20/20 06:29 Mechanical Rate Vent 05/20/20 06:29 PEEP 5.0 cmH2O 05/20/20 06:29 Pressure Support Vent 400 05/20/20 06:29 Sodium 138 mmol/L (136-145) 05/20/20 05:00 Potassium 5.0 mmol/L (3.5-5.1) 05/20/20 05:00 Chloride 101 mmol/L (98-107) 05/20/20 05:00 Carbon Dioxide 24 mmol/L (21-32) 05/20/20 05:00 Anion Gap 14 MMOL/L (8-16) 05/20/20 05:00 BUN 16.3 mg/dL (7-18) 05/20/20 05:00 Creatinine 1.2 mg/dL (0.55-1.3) 05/20/20 05:00 Est GFR (CKD-EPI)AfAm 50.48 05/20/20 05:00 Est GFR (CKD-EPI)NonAf 43.56 05/20/20 05:00 POC Glucometer 297 UNITS (80-120) 05/20/20 11:13 Random Glucose 421 mg/dL (74-106) H* 05/20/20 05:00 Lactic Acid 6.2 mmol/L (0.4-2.0) H* 05/20/20 10:22 Calcium 9.6 mg/dL (8.5-10.1) 05/20/20 05:00 Phosphorus 6.9 mg/dL (2.5-4.9) H 05/20/20 05:00 Magnesium 1.7 mg/dL (1.8-2.4) L 05/20/20 05:00 Total Bilirubin 1.3 mg/dL (0.2-1) H 05/20/20 05:00 AST 42 U/L (15-37) H 05/20/20 05:00 ALT 23 U/L (13-61) 05/20/20 05:00 Alkaline Phosphatase 144 U/L (45-117) H 05/20/20 05:00 Creatine Kinase 48 U/L (26-192) 05/20/20 01:06 Troponin I < 0.02 ng/ml (0.00-0.05) 05/20/20 01:06 B-Natriuretic Peptide 345.9 pg/ml (5-450) 05/20/20 01:06 Total Protein 8.2 g/dl (6.4-8.2) 05/20/20 05:00 Albumin 3.6 g/dl (3.4-5.0) 05/20/20 05:00 Lipase 30 U/L (73-393) L 05/19/20 23:38 Urine Color Yellow 05/20/20 03:53 Urine Appearance Clear 05/20/20 03:53 Urine pH 7.0 (5.0-8.0) D 05/20/20 03:53 Ur Specific [place] 1.017 (1.010-1.035) 05/20/20 03:53 Urine Protein 2+ (NEGATIVE) H 05/20/20 03:53 Urine Glucose (UA) 3+ (NEGATIVE) H 05/20/20 03:53 Urine Ketones 1+ (NEGATIVE) H 05/20/20 03:53 Urine Blood Trace (NEGATIVE) 05/20/20 03:53 Urine Nitrite Negative (NEGATIVE) 05/20/20 03:53 Urine Bilirubin Negative (NEGATIVE) 05/20/20 03:53 Urine Urobilinogen 0.2 mg/dL (0.2-1.0) 05/20/20 03:53 Ur Leukocyte Esterase Negative (NEGATIVE) 05/20/20 03:53 Urine WBC (Auto) 34 /uL (0-25.8) 05/20/20 03:53 Urine RBC (Auto) 15 /uL (0-23.9) 05/20/20 03:53 Urine Casts (Auto) 1 /uL (0-3.1) 05/20/20 03:53 U Epithel Cells (Auto) 17 /uL (0-25.1) 05/20/20 03:53 Urine Bacteria (Auto) 749 /uL (0-1359) 05/20/20 03:53 Blood Type O POSITIVE 05/20/20 05:52 Antibody Screen Negative 05/20/20 05:52 Active Medications Ascorbic Acid (Vitamin C Oral Solution -) 500 mg GT DAILY [facility] Last Admin: 05/20/20 10:22 Dose: Not Given Documented by: Atorvastatin Calcium (Lipitor -) 10 mg GT HS [facility] Chlorhexidine Gluconate (Hibiclens For Decolonization -) 1 applic TP HS DAVID Midazolam HCl 100 mg/ Sodium (Chloride) 100 mls @ 1 mls/hr IVPB TITR DAVID; Protocol Last Titration: 05/20/20 10:00 Dose: 0 mg/hr, 0 mls/hr Documented by: Sodium Chloride (1/2 Normal Saline) 1,000 mls @ 83 mls/hr IV ASDIR [facility] Last Admin: 05/20/20 11:28 Dose: 83 mls/hr Documented by: Meropenem 1 gm/ Dextrose 100 mls @ 200 mls/hr IVPB Q8H-IV [facility] Insulin Aspart (Novolog Vial Sliding Scale -) 1 vial SQ ACHS [facility]; Protocol Last Admin: 05/20/20 11:16 Dose: 6 units Documented by: Insulin Detemir (Levemir Vial) 35 units SQ DAILY [facility] Last Admin: 05/20/20 09:00 Dose: 35 unit Documented by: Mupirocin (Bactroban Ointment (For Decolonization) -) 1 applic NS BID [facility] Stop: 05/25/20 09:59 Pantoprazole Sodium (Protonix Iv) 40 mg IVPUSH DAILY [facility] Polyethylene Glycol (Miralax (For Daily Use) -) 17 gm GT BID [facility] Last Admin: 05/20/20 10:22 Dose: Not Given Documented by: ASSESSMENT/PLAN: Pt is a 79 yo F with PMHx IDDM, HTN, UTIs, Alzheimer's Dementia, pancreatic head mass, and gallstones presenting to the ED after an unwitnessed fall, was optimized for discharge. However, during her waiting to be discharged, she becam e diaphoretic and approximate 100 cc of bilious emesis was suctioned from the patient's posterior pharynx. Pt likely aspirated some of the contents of the emesis. Pt likely suffered from acutely hypoxic event secondary to aspiration and required intubation. Pt was on minimal ventilation settings. She remains intubated and was placed on sedation vacation with plans for extubation. #Neuro Alzheimer's dementia; non-verbal at baseline -sedation vacation -assess mental status #CV Hx of HTN Hx of HLD -EKG showed pattern of bigeminy likely secondary to invasive interventions. Resolves spontaneously -Initial and 2hr delta troponins negative - low concern for ACS - no current antihypertensives - continue home statin #Pulm Acute hypoxic event 2/2 possible aspiration Intubated on volume-assist control ventilation; intubated for airway protection - monitor ABGs, CXR for development of any changes - maintain SpO2>92 -Plans for sedation vacation with possible extubation -Vent settings: 14/320/40%/5 #GI Fecal impaction vs possible proctitis (hx of similar) - enema given in the ED; Miralax BID - Protonix IV 40mg #Endo Hx of IDDM - BGM with ISS and home levemir #ID Hx of UTIs Suspected Urinary Tract Infection (Nitrites/Leuk Est + but with epithelial cells; Urine Cx pending) with concern for sepsis Concern for aspiration pneumonia - Repeat UA; f/u Blood and Urine Cx - ID consulted. Recommended Meropenem, pt has hx of Blood Cx + for ESBL EColi - monitor WBC - monitor for changes in CXR - trending lactate 4.5-->6.7-->6.2 #MSK Recent fall - PT consult when appropriate #FEN - LR IV fluid bolus but no maintenance given possible aspiration event - NPO for now - monitor CMP; replete lytes PRN #Ppx - GI: protonix - DVT: SCDs #LTD - ETT - 05/20 - Engel - 05/20 #Dispo: Will continue monitoring in the ICU. Visit type - Emergency Visit Emergency Visit: Yes ED Registration Date: 05/20/20 Care time: The patient presented to the Emergency Department on the above date and was hospitalized for further evaluation of their emergent condition. - New Patient This patient is new to me today: Yes Date on this admission: 05/23/20 - Critical Care Critical Care patient: Yes Total Critical Care Time (in minutes): 38 Critical Care Statement: The care of this patient involved high complexity decision making to prevent further life threatening deterioration of the patient's condition and/or to evaluate & treat vital organ system(s) failure or risk of failure. ATTENDING PHYSICIAN STATEMENT I saw and evaluated the patient. I reviewed the resident's note and discussed the case with the resident. I agree with the resident's findings and plan as documented. SUBJECTIVE: OBJECTIVE: ASSESSMENT AND PLAN:
--- NOTE | 2020-05-20 13:15 | PN ---
Teaching Attending Note Name of Resident: Chichi Shine ATTENDING PHYSICIAN STATEMENT I saw and evaluated the patient. I reviewed the resident's note and discussed the case with the resident. I agree with the resident's findings and plan as documented. SUBJECTIVE: Patient seen and examined in the ICU. Intubated and sedated. No pressors. Intake & Output 05/17/20 05/18/20 05/19/20 05/20/20 23:59 23:59 23:59 23:59 Intake Total 1392 Output Total 1650 Balance -258 Weight 140 lb 133 lb 6 oz Last Vital Signs Temp Pulse Resp BP Pulse Ox 98.2 F 100 H 16 137/65 100 05/20/20 08:30 05/20/20 12:00 05/20/20 12:09 05/20/20 12:00 05/20/20 12:09 Active Medications Ascorbic Acid (Vitamin C Oral Solution -) 500 mg GT DAILY [facility] Last Admin: 05/20/20 10:22 Dose: Not Given Documented by: Atorvastatin Calcium (Lipitor -) 10 mg GT HS [facility] Chlorhexidine Gluconate (Hibiclens For Decolonization -) 1 applic TP HS [facility]ID Midazolam HCl 100 mg/ Sodium (Chloride) 100 mls @ 1 mls/hr IVPB TITR [facility]; Protocol Last Titration: 05/20/20 10:00 Dose: 0 mg/hr, 0 mls/hr Documented by: Sodium Chloride (1/2 Normal Saline) 1,000 mls @ 83 mls/hr IV ASDIR [facility] Last Admin: 05/20/20 11:28 Dose: 83 mls/hr Documented by: Meropenem 1 gm/ Dextrose 100 mls @ 200 mls/hr IVPB Q8H-IV [facility]ID Insulin Aspart (Novolog Vial Sliding Scale -) 1 vial SQ ACHS [facility]; Protocol Last Admin: 05/20/20 11:16 Dose: 6 units Documented by: Insulin Detemir (Levemir Vial) 35 units SQ DAILY [facility] Last Admin: 05/20/20 09:00 Dose: 35 unit Documented by: Mupirocin (Bactroban Ointment (For Decolonization) -) 1 applic NS BID [facility] Stop: 05/25/20 09:59 Pantoprazole Sodium (Protonix Iv) 40 mg IVPUSH DAILY [facility] Polyethylene Glycol (Miralax (For Daily Use) -) 17 gm GT BID [facility] Last Admin: 05/20/20 10:22 Dose: Not Given Documented by: GENERAL: sedated and intubated. HEAD: Normocephalic atraumatic. EYES: Pupils equal, round and reactive to light, conjunctiva clear. EARS, NOSE, THROAT: Oropharynx clear without exudates. Moist mucous membranes. NECK: Supple without lymphadenopathy. LUNGS: Vented, scattered biltateral rhonchi. No wheezes, and no crackles. HEART: Regular rate and rhythm, normal S1 and S2 without murmur, rub or gallop. ABDOMEN: Soft, nontender, mildly distended abdomen, normoactive bowel sounds. MUSCULOSKELETAL: No bony deformities. Limited MSK exam as pt is sedated and intubated. UPPER EXTREMITIES: 2+ pulses, warm, well-perfused. No peripheral edema. LOWER EXTREMITIES: 2+ pulses, warm, well-perfused. No peripheral edema. NEUROLOGICAL: sedated SKIN: Warm, dry, normal turgor, no rashes or lesions noted. Laboratory Results - last 24 hr 05/19/20 05/19/20 05/19/20 20:28 23:38 23:38 WBC 18.2 H RBC 4.91 Hgb 14.5 Hct 44.3 D MCV 90.3 MCH 29.5 MCHC 32.7 RDW 13.9 Plt Count 351 D MPV 8.4 Absolute Neuts (auto) 13.6 H Neutrophils % 74.5 Lymphocytes % 17.1 Monocytes % 7.3 Eosinophils % 0.3 Basophils % 0.8 Nucleated RBC % 0 PT with INR INR PTT (Actin FS) VBG pH POC VBG pCO2 POC VBG pO2 VBG HCO3 VBG O2 Sat (Nish) VBG Base Excess Sodium 138 Potassium 5.8 H Chloride 105 Carbon Dioxide 23 Anion Gap 10 BUN 18.7 H Creatinine 1.2 Est GFR (CKD-EPI)AfAm 50.48 Est GFR (CKD-EPI)NonAf 43.56 POC Glucometer 260 Random Glucose 318 H Calcium 9.5 Total Bilirubin 0.6 AST 47 H ALT 24 Alkaline Phosphatase 133 H Creatine Kinase 111 Troponin I < 0.02 Total Protein 8.1 Albumin 3.3 L Lipase 30 L Urine Color Urine Appearance Urine pH Ur Specific [place] Urine Protein Urine Glucose (UA) Urine Ketones Urine Blood Urine Nitrite Urine Bilirubin Urine Urobilinogen Ur Leukocyte Esterase Urine WBC (Auto) Urine RBC (Auto) Urine Casts (Auto) U Epithel Cells (Auto) Urine Bacteria (Auto) 05/20/20 05/20/20 05/20/20 00:00 00:53 01:06 WBC 19.8 H RBC 5.28 H Hgb 15.5 H Hct 47.9 H MCV 90.7 MCH 29.3 MCHC 32.3 RDW 13.7 Plt Count 337 MPV 8.6 Absolute Neuts (auto) 17.3 H Neutrophils % 87.7 H Lymphocytes % 7.5 L D Monocytes % 4.5 Eosinophils % 0.0 D Basophils % 0.3 Nucleated RBC % 0 PT with INR INR PTT (Actin FS) VBG pH Cancelled POC VBG pCO2 Cancelled POC VBG pO2 Cancelled VBG HCO3 Cancelled VBG O2 Sat (Nish) Cancelled VBG Base Excess Cancelled Sodium Potassium Chloride Carbon Dioxide Anion Gap BUN Creatinine Est GFR (CKD-EPI)AfAm Est GFR (CKD-EPI)NonAf POC Glucometer Random Glucose Calcium Total Bilirubin AST ALT Alkaline Phosphatase Creatine Kinase Troponin I Total Protein Albumin Lipase Urine Color Yellow Urine Appearance Turbid Urine pH 5.0 Ur Specific [place] 1.017 Urine Protein 1+ H Urine Glucose (UA) 3+ H Urine Ketones Negative Urine Blood 2+ H Urine Nitrite Positive H Urine Bilirubin Negative Urine Urobilinogen 0.2 Ur Leukocyte Esterase 2+ H Urine WBC (Auto) 1221 Urine RBC (Auto) 746 Urine Casts (Auto) 10 U Epithel Cells (Auto) >36 Urine Bacteria (Auto) >10,000 05/20/20 01:06 WBC RBC Hgb Hct MCV MCH MCHC RDW Plt Count MPV Absolute Neuts (auto) Neutrophils % Lymphocytes % Monocytes % Eosinophils % Basophils % Nucleated RBC % PT with INR 12.40 INR 1.05 PTT (Actin FS) 34.9 VBG pH POC VBG pCO2 POC VBG pO2 VBG HCO3 VBG O2 Sat (Nish) VBG Base Excess Sodium Potassium Chloride Carbon Dioxide Anion Gap BUN Creatinine Est GFR (CKD-EPI)AfAm Est GFR (CKD-EPI)NonAf POC Glucometer Random Glucose Calcium Total Bilirubin AST ALT Alkaline Phosphatase Creatine Kinase Troponin I Total Protein Albumin Lipase Urine Color Urine Appearance Urine pH Ur Specific [place] Urine Protein Urine Glucose (UA) Urine Ketones Urine Blood Urine Nitrite Urine Bilirubin Urine Urobilinogen Ur Leukocyte Esterase Urine WBC (Auto) Urine RBC (Auto) Urine Casts (Auto) U Epithel Cells (Auto) Urine Bacteria (Auto) ASSESSMENT/PLAN: Acute Respiratory Failure due to aspiration pneumonitis R/O COVID19 : Low suspicion IDDM HTN History of recurrent UTIs Alzheimer's Dementia Pancreatic head mass Gallstones Bigeminy DM Hold sedation to assess mental status Wean trials once mental status is improved Strict I & O ABX coverage Follow cultures VTE prophylaxis GI prophylaxis Glycemic control Requires ICU monitoring Dr Dunn Critical care time spent in reviewing chart, evaluating patient and formulating plan - 36 minutes.
[2020-05-20] MEDS: MEROPENEM 1 GM in DEXTROSE 5%-WATER 100 ML IVPB SCH (18:10)
[2020-05-20] MEDS ORDERED: PT OWN MED DRAWER 7, Y5N ONE (18:48)
[2020-05-20] MEDS: ATORVASTATIN CA 10 MG TABLET (FP) GT SCH (23:00)
[2020-05-20] MEDS: PROPOFOL 1,000,000 MCG/100 ML VIAL IVPB SCH (23:00)
[2020-05-20] MEDS: SODIUM CHLORIDE 0.45% 1,000 ML IV SCH (23:01)
[2020-05-20] MEDS: CHLORHEXIDINE GLUCONATE 4% CLEANSER FOR DECOLONIZATION TP SCH (23:23)
[2020-05-21] MEDS ORDERED: DEXTROSE 5%-WATER 100 ML IVPB ONE ×3 (01:13→18:00)
[2020-05-21] MEDS ORDERED: MEROPENEM 1 GM VIAL (RESTRICTED TO ID) IVPB ONE ×3 (01:13→18:00)
[2020-05-21] MEDS: MEROPENEM 1 GM in DEXTROSE 5%-WATER 100 ML IVPB SCH ×3 (01:17→18:48)
[2020-05-21 06:30] LABS: ARTERIAL BLD GAS O2 SATURATION 98.8 mmHg (95-98); ARTERIAL BLOOD GAS BASE EXCESS 0.9 mmol/L (-2-2); ARTERIAL BLOOD GAS pH 7.407 (7.350-7.450)
[2020-05-21] MEDS: INSULIN SLIDING SCALE (NOVOLOG) 1 VIAL SQ SCH ×4 (06:37→23:01)
[2020-05-21 06:38] LABS: ALLENS TEST POSITIVE; VENT MODE A/C; VENT RATE 14
[2020-05-21 07:02] LABS: BASO % 0.4 % (0-2.0); EOS % 0.5 % (0-4.5); HEMATOCRIT 41.5 % (32.4-45.2); HEMOGLOBIN 13.6 GM/dL (10.7-15.3); LYMPH % 13.6 % (8-40); MCH 29.3 pg (25.7-33.7); MCHC 32.9 g/dl (32.0-36.0); MEAN CELL VOLUME 89.2 fl (80-96); MONO % 9.4 % (3.8-10.2); NEUT % 76.1 % (42.8-82.8); PLATELET COUNT 265 K/MM3 (134-434); RBC 4.65 M/mm3 (3.60-5.2); RDW 14.1 % (11.6-15.6); WHITE BLOOD COUNT 17.7 K/mm3 (4.0-10.0)
[2020-05-21 07:46] LABS: ALBUMIN 2.6 g/dl (3.4-5.0); BILIRUBIN,TOTAL 0.5 mg/dL (0.2-1); BLOOD UREA NITROGEN 14.1 mg/dL (7-18); CALCIUM 8.7 mg/dL (8.5-10.1); CREATININE 0.9 mg/dL (0.55-1.3); MAGNESIUM 2.1 mg/dL (1.8-2.4); PHOSPHOROUS 3.8 mg/dL (2.5-4.9); POTASSIUM 3.9 mmol/L (3.5-5.1); TOT PROT 6.5 g/dl (6.4-8.2)
[2020-05-21] MEDS: PROPOFOL 1,000,000 MCG/100 ML VIAL IVPB SCH ×3 (09:30→23:00)
[2020-05-21] MEDS ORDERED: PT OWN MED DRAWER 7, Y5N ONE (09:51)
--- NOTE | 2020-05-21 09:58 | PN ---
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, Physician - Current Medication List Current Medications: Active Medications Ascorbic Acid (Vitamin C Oral Solution -) 500 mg GT DAILY [facility] Last Admin: 05/20/20 10:22 Dose: Not Given Documented by: Atorvastatin Calcium (Lipitor -) 10 mg GT HS [facility] Last Admin: 05/20/20 23:00 Dose: 10 mg Documented by: Chlorhexidine Gluconate (Hibiclens For Decolonization -) 1 applic TP HS [facility] Last Admin: 05/20/20 23:23 Dose: 1 applic Documented by: Meropenem 1 gm/ Dextrose 100 mls @ 200 mls/hr IVPB Q8H-IV [facility] Last Admin: 05/21/20 01:17 Dose: 200 mls/hr Documented by: Propofol (Diprivan -) 1,000,000 mcg in 100 mls @ 1.815 mls/hr IVPB TITR [facility]; Protocol Last Titration: 05/21/20 03:00 Dose: 25 mcg/kg/min, 9.075 mls/hr Documented by: Sodium Chloride (1/2 Normal Saline) 1,000 mls @ 125 mls/hr IV ASDIR [facility] Last Admin: 05/20/20 23:01 Dose: 125 mls/hr Documented by: Insulin Aspart (Novolog Vial Sliding Scale -) 1 vial SQ ACHS [facility]; Protocol Last Admin: 05/21/20 06:37 Dose: Not Given Documented by: Insulin Detemir (Levemir Vial) 35 units SQ DAILY [facility] Last Admin: 05/20/20 09:00 Dose: 35 unit Documented by: Mupirocin (Bactroban Ointment (For Decolonization) -) 1 applic NS BID [facility] Stop: 05/25/20 09:59 Last Admin: 05/20/20 23:19 Dose: 1 applic Documented by: Pantoprazole Sodium (Protonix Iv) 40 mg IVPUSH DAILY [facility] Polyethylene Glycol (Miralax (For Daily Use) -) 17 gm GT BID [facility] Last Admin: 05/20/20 22:55 Dose: Not Given Documented by: - Objective Vital Signs: Vital Signs Temperature 98.3 F 05/20/20 20:00 Pulse Rate 89 05/21/20 09:04 Respiratory Rate 16 05/21/20 09:04 Blood Pressure 121/68 05/21/20 09:04 O2 Sat by Pulse Oximetry (%) 100 05/21/20 09:04 Cardiovascular: Yes: S1, S2 Respiratory: Yes: Mechanically Ventilated Gastrointestinal: Yes: Normal Bowel Sounds, Soft Labs: CBC, BMP 05/21/20 06:41 05/21/20 06:41 INR, PTT INR 1.05 (0.83-1.09) 05/20/20 01:06 Problem List - Problems (1) Respiratory failure Assessment/Plan: VENT SUPPORT PULM CONSULT IV ABX Code(s): J96.90 - RESPIRATORY FAILURE, UNSP, UNSP W HYPOXIA OR HYPERCAPNIA (2) Pneumonia Assessment/Plan: CXR NOTED IV ABX ID AND PULM Code(s): J18.9 - PNEUMONIA, UNSPECIFIED ORGANISM (3) Sepsis Assessment/Plan: CULTURES IV ABX LACTIC ACID HIGH IVF Microbiology 05/20/20 00:53 Urine - Urine - Catheterized Urine Culture - Preliminary Lactose Fermenting Neg Bacilli 05/20/20 03:53 Urine - Urine Engel Urine Culture - Preliminary Lactose Fermenting Neg Bacilli 05/20/20 00:22 Blood - Peripheral Venous Blood Culture - Preliminary NO GROWTH OBTAINED AFTER 24 HOURS, INCUBATION TO CONTINUE FOR 4 DAYS. 05/20/20 00:22 Blood - Peripheral Venous Blood Culture - Preliminary NO GROWTH OBTAINED AFTER 24 HOURS, INCUBATION TO CONTINUE FOR 4 DAYS. Laboratory Tests 05/19/20 05/20/20 05/20/20 23:38 01:06 05:00 WBC 18.2 H 19.8 H 30.0 H Lactic Acid 05/20/20 05/21/20 05/21/20 14:00 06:41 06:41 WBC 17.7 H Lactic Acid 5.2 H* 2.7 H* Code(s): A41.9 - SEPSIS, UNSPECIFIED ORGANISM Qualifiers: Sepsis type: sepsis due to unspecified organism Qualified Code(s): A41.9 - Sepsis, unspecified organism (4) Fall Assessment/Plan: 1ST CT HEAD NAD REPEAT Code(s): W19.XXXA - UNSPECIFIED FALL, INITIAL ENCOUNTER
[2020-05-21] MEDS: PANTOPRAZOLE SODIUM 40 MG VIAL IVPUSH SCH (10:09)
[2020-05-21] MEDS: MUPIROCIN 2% TOPICAL OINTMENT FOR DECOLONIZATION NS SCH ×2 (10:09→23:00)
[2020-05-21] MEDS: INSULIN (LEVEMIR) 100 UNITS/ML UNITS SQ SCH (10:09)
[2020-05-21] MEDS: ASCORBIC ACID 500 MG/5 ML UNIT DOSE CUP GT SCH (10:09)
[2020-05-21] MEDS: POLYETHYLENE GLYCOL 3350 119 GM BTL GT SCH ×2 (10:10→22:58)
--- NOTE | 2020-05-21 13:16 | PN ---
Teaching Attending Note Name of Resident: Chichi Shine ATTENDING PHYSICIAN STATEMENT I saw and evaluated the patient. I reviewed the resident's note and discussed the case with the resident. I agree with the resident's findings and plan as documented. SUBJECTIVE: Patient seen and examined in the ICU. Intubated and sedated. No pressors. Intake & Output 05/18/20 05/19/20 05/20/20 05/21/20 23:59 23:59 23:59 23:59 Intake Total 3781 1685 Output Total 3150 200 Balance 631 1485 Weight 140 lb 133 lb 6 oz Last Vital Signs Temp Pulse Resp BP Pulse Ox 98.3 F 89 18 121/68 100 05/20/20 20:00 05/21/20 09:04 05/21/20 11:28 05/21/20 09:04 05/21/20 09:04 Active Medications Ascorbic Acid (Vitamin C Oral Solution -) 500 mg GT DAILY [facility] Last Admin: 05/21/20 10:09 Dose: 500 mg Documented by: Atorvastatin Calcium (Lipitor -) 10 mg GT HS [facility] Last Admin: 05/20/20 23:00 Dose: 10 mg Documented by: Chlorhexidine Gluconate (Hibiclens For Decolonization -) 1 applic TP HS [facility] Last Admin: 05/20/20 23:23 Dose: 1 applic Documented by: Meropenem 1 gm/ Dextrose 100 mls @ 200 mls/hr IVPB Q8H-IV [facility] Last Admin: 05/21/20 10:09 Dose: 200 mls/hr Documented by: Propofol (Diprivan -) 1,000,000 mcg in 100 mls @ 1.815 mls/hr IVPB TITR [facility]; Protocol Last Titration: 05/21/20 03:00 Dose: 25 mcg/kg/min, 9.075 mls/hr Documented by: Sodium Chloride (1/2 Normal Saline) 1,000 mls @ 125 mls/hr IV ASDIR [facility] Last Admin: 05/20/20 23:01 Dose: 125 mls/hr Documented by: Insulin Aspart (Novolog Vial Sliding Scale -) 1 vial SQ ACHS [facility]; Protocol Last Admin: 05/21/20 12:35 Dose: Not Given Documented by: Insulin Detemir (Levemir Vial) 35 units SQ DAILY [facility] Last Admin: 05/21/20 10:09 Dose: 35 unit Documented by: Mupirocin (Bactroban Ointment (For Decolonization) -) 1 applic NS BID [facility] Stop: 05/25/20 09:59 Last Admin: 05/21/20 10:09 Dose: 1 applic Documented by: Pantoprazole Sodium (Protonix Iv) 40 mg IVPUSH DAILY [facility] Last Admin: 05/21/20 10:09 Dose: 40 mg Documented by: Polyethylene Glycol (Miralax (For Daily Use) -) 17 gm GT BID [facility] Last Admin: 05/21/20 10:10 Dose: Not Given Documented by: GENERAL: sedated and intubated. HEAD: Normocephalic atraumatic. EYES: Pupils equal, round and reactive to light, conjunctiva clear. EARS, NOSE, THROAT: Oropharynx clear without exudates. Moist mucous membranes. NECK: Supple without lymphadenopathy. LUNGS: Vented, scattered biltateral rhonchi. No wheezes, and no crackles. HEART: Regular rate and rhythm, normal S1 and S2 without murmur, rub or gallop. ABDOMEN: Soft, nontender, mildly distended abdomen, normoactive bowel sounds. MUSCULOSKELETAL: No bony deformities. Limited MSK exam as pt is sedated and intubated. UPPER EXTREMITIES: 2+ pulses, warm, well-perfused. No peripheral edema. LOWER EXTREMITIES: 2+ pulses, warm, well-perfused. No peripheral edema. NEUROLOGICAL: sedated SKIN: Warm, dry, normal turgor, no rashes or lesions noted. Laboratory Results - last 24 hr 05/20/20 05/20/20 05/20/20 01:06 14:00 16:41 WBC RBC Hgb Hct MCV MCH MCHC RDW Plt Count MPV Absolute Neuts (auto) Neutrophils % Lymphocytes % Monocytes % Eosinophils % Basophils % Nucleated RBC % Anticoagulation Therapy Puncture Site Patient Temperature ABG pH ABG pCO2 ABG pO2 ABG HCO3 ABG O2 Sat (Measured) ABG O2 Content ABG Base Excess Dennis Test Patient On Oxygen O2 Delivery Device Oxygen Flow Rate Vent Mode Vent Rate Mechanical Rate PEEP Pressure Support Vent Sodium Potassium Chloride Carbon Dioxide Anion Gap BUN Creatinine Est GFR (CKD-EPI)AfAm Est GFR (CKD-EPI)NonAf POC Glucometer 197 Random Glucose Lactic Acid 5.2 H* Calcium Phosphorus Magnesium Total Bilirubin AST ALT Alkaline Phosphatase Total Protein Albumin COVID-19 (MIKE) Not detected 05/20/20 05/21/20 05/21/20 23:10 06:00 06:37 WBC RBC Hgb Hct MCV MCH MCHC RDW Plt Count MPV Absolute Neuts (auto) Neutrophils % Lymphocytes % Monocytes % Eosinophils % Basophils % Nucleated RBC % Anticoagulation Therapy No Result Required. Puncture Site Right radial Patient Temperature No Result Required. ABG pH 7.407 ABG pCO2 41.90 ABG pO2 141.0 H ABG HCO3 25.8 ABG O2 Sat (Measured) 98.8 H ABG O2 Content No Result Required. ABG Base Excess 0.9 Dennis Test Positive Patient On Oxygen Yes O2 Delivery Device Vent Oxygen Flow Rate 40% Vent Mode A/c Vent Rate 14 Mechanical Rate Yes PEEP 5.0 Pressure Support Vent 320 Sodium Potassium Chloride Carbon Dioxide Anion Gap BUN Creatinine Est GFR (CKD-EPI)AfAm Est GFR (CKD-EPI)NonAf POC Glucometer 76 73 Random Glucose Lactic Acid Calcium Phosphorus Magnesium Total Bilirubin AST ALT Alkaline Phosphatase Total Protein Albumin COVID- (MIKE) 05/21/20 05/21/20 05/21/20 06:41 06:41 06:41 WBC 17.7 H RBC 4.65 Hgb 13.6 Hct 41.5 MCV 89.2 MCH 29.3 MCHC 32.9 RDW 14.1 Plt Count 265 D MPV 8.0 Absolute Neuts (auto) 13.5 H Neutrophils % 76.1 Lymphocytes % 13.6 D Monocytes % 9.4 D Eosinophils % 0.5 D Basophils % 0.4 Nucleated RBC % 0 Anticoagulation Therapy Puncture Site Patient Temperature ABG pH ABG pCO2 ABG pO2 ABG HCO3 ABG O2 Sat (Measured) ABG O2 Content ABG Base Excess Dennis Test Patient On Oxygen O2 Delivery Device Oxygen Flow Rate Vent Mode Vent Rate Mechanical Rate PEEP Pressure Support Vent Sodium 140 Potassium 3.9 Chloride 107 Carbon Dioxide 20 L Anion Gap 13 BUN 14.1 Creatinine 0.9 Est GFR (CKD-EPI)AfAm 71.48 Est GFR (CKD-EPI)NonAf 61.67 POC Glucometer Random Glucose 76 Lactic Acid 2.7 H* Calcium 8.7 Phosphorus 3.8 Magnesium 2.1 Total Bilirubin 0.5 AST 27 ALT 18 Alkaline Phosphatase 106 Total Protein 6.5 Albumin 2.6 L COVID-19 (MIKE) 05/21/20 12:33 WBC RBC Hgb Hct MCV MCH MCHC RDW Plt Count MPV Absolute Neuts (auto) Neutrophils % Lymphocytes % Monocytes % Eosinophils % Basophils % Nucleated RBC % Anticoagulation Therapy Puncture Site Patient Temperature ABG pH ABG pCO2 ABG pO2 ABG HCO3 ABG O2 Sat (Measured) ABG O2 Content ABG Base Excess Dennis Test Patient On Oxygen O2 Delivery Device Oxygen Flow Rate Vent Mode Vent Rate Mechanical Rate PEEP Pressure Support Vent Sodium Potassium Chloride Carbon Dioxide Anion Gap BUN Creatinine Est GFR (CKD-EPI)AfAm Est GFR (CKD-EPI)NonAf POC Glucometer 94 Random Glucose Lactic Acid Calcium Phosphorus Magnesium Total Bilirubin AST ALT Alkaline Phosphatase Total Protein Albumin COVID-19 (MIKE) ASSESSMENT/PLAN: Acute Respiratory Failure due to aspiration pneumonitis R/O COVID19 : Low suspicion IDDM HTN History of recurrent UTIs Alzheimer's Dementia Pancreatic head mass Gallstones Bigeminy DM Hold sedation to assess mental status Wean trials once mental status is improved Strict I & O ABX coverage Follow cultures VTE prophylaxis GI prophylaxis Glycemic control Requires ICU monitoring Dr Dunn Critical care time spent in reviewing chart, evaluating patient and formulating plan - 36 minutes.
--- NOTE | 2020-05-21 14:02 | PN ---
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, Physician History of Present Illness: SEDATED ON VENTILATOR AFEBRILE NO ACUTE DISTRESS WBC IMPROVED BC (-) URINE C/S LF - Current Medication List Current Medications: Active Medications Ascorbic Acid (Vitamin C Oral Solution -) 500 mg GT DAILY [facility] Last Admin: 05/21/20 10:09 Dose: 500 mg Documented by: Atorvastatin Calcium (Lipitor -) 10 mg GT HS [facility] Last Admin: 05/20/20 23:00 Dose: 10 mg Documented by: Chlorhexidine Gluconate (Hibiclens For Decolonization -) 1 applic TP HS [facility] Last Admin: 05/20/20 23:23 Dose: 1 applic Documented by: Meropenem 1 gm/ Dextrose 100 mls @ 200 mls/hr IVPB Q8H-IV [facility] Last Admin: 05/21/20 10:09 Dose: 200 mls/hr Documented by: Propofol (Diprivan -) 1,000,000 mcg in 100 mls @ 1.815 mls/hr IVPB TITR [facility]; Protocol Last Titration: 05/21/20 03:00 Dose: 25 mcg/kg/min, 9.075 mls/hr Documented by: Sodium Chloride (1/2 Normal Saline) 1,000 mls @ 125 mls/hr IV ASDIR [facility] Last Admin: 05/20/20 23:01 Dose: 125 mls/hr Documented by: Insulin Aspart (Novolog Vial Sliding Scale -) 1 vial SQ ACHS [facility]; Protocol Last Admin: 05/21/20 12:35 Dose: Not Given Documented by: Insulin Detemir (Levemir Vial) 35 units SQ DAILY [facility] Last Admin: 05/21/20 10:09 Dose: 35 unit Documented by: Mupirocin (Bactroban Ointment (For Decolonization) -) 1 applic NS BID [facility] Stop: 05/25/20 09:59 Last Admin: 05/21/20 10:09 Dose: 1 applic Documented by: Pantoprazole Sodium (Protonix Iv) 40 mg IVPUSH DAILY [facility] Last Admin: 05/21/20 10:09 Dose: 40 mg Documented by: Polyethylene Glycol (Miralax (For Daily Use) -) 17 gm GT BID [facility] Last Admin: 05/21/20 10:10 Dose: Not Given Documented by: - Objective Vital Signs: Vital Signs Temperature 98.3 F 05/20/20 20:00 Pulse Rate 89 05/21/20 09:04 Respiratory Rate 18 05/21/20 11:28 Blood Pressure 121/68 05/21/20 09:04 O2 Sat by Pulse Oximetry (%) 100 05/21/20 09:04 Constitutional: Yes: Obese Eyes: Yes: Conjunctiva Clear Cardiovascular: Yes: Regular Rate and Rhythm, S1, S2 Respiratory: Yes: CTA Bilaterally Gastrointestinal: Yes: Normal Bowel Sounds, Soft, Abdomen, Obese. No: Tenderness Edema: Yes Edema: LLE: 1+, RLE: 1+ Labs: CBC, BMP 05/21/20 06:41 05/21/20 06:41 INR, PTT INR 1.05 (0.83-1.09) 05/20/20 01:06 Assessment/Plan ACUTE RESPIRATORY FAILURE PROBABLE ASP PNEUMONIA UTI HX ESBL LACTIC ACIDOSIS LEUKOCYTOSIS IMPROVED AWAIT C/S CONTINUE MEROPENEM VENTILATORY/ HEMODYNAMIC SUPPORT
--- NOTE | 2020-05-21 17:08 | PN ---
Physical Exam: SUBJECTIVE: Patient seen and examined. Pt remained intubated. Overnight, was placed on propofol. Placed on sedation vacation at 8AM this morning. Upon evaluation, pt following some commands. Squeezes hands when asked. OBJECTIVE: Vital Signs Period Temp Pulse Resp BP Sys/Bob Pulse Ox Last 24 Hr 98.3 F-99.5 F 87-105 15-19 105-139/63-88 87-100 GENERAL: Pt not sedation. Lying on bed. Not in acute distress. HEENT: NCAT. ETT in place. NG tube in place. LUNGS: Clear to auscultation b/l. HEART: Regular rate and rhythm, S1, S2 without murmur ABDOMEN: Soft, nondistended, normoactive bowel sounds EXTREMITIES: warm, well-perfused. No pitting edema. SKIN: Warm, dry Laboratory Last Values WBC 17.7 K/mm3 (4.0-10.0) H 05/21/20 06:41 RBC 4.65 M/mm3 (3.60-5.2) 05/21/20 06:41 Hgb 13.6 GM/dL (10.7-15.3) 05/21/20 06:41 Hct 41.5 % (32.4-45.2) 05/21/20 06:41 MCV 89.2 fl (80-96) 05/21/20 06:41 MCH 29.3 pg (25.7-33.7) 05/21/20 06:41 MCHC 32.9 g/dl (32.0-36.0) 05/21/20 06:41 RDW 14.1 % (11.6-15.6) 05/21/20 06:41 Plt Count 265 K/MM3 (134-434) D 05/21/20 06:41 MPV 8.0 fl (7.5-11.1) 05/21/20 06:41 Absolute Neuts (auto) 13.5 K/mm3 (1.5-8.0) H 05/21/20 06:41 Neutrophils % 76.1 % (42.8-82.8) 05/21/20 06:41 Lymphocytes % 13.6 % (8-40) D 05/21/20 06:41 Monocytes % 9.4 % (3.8-10.2) D 05/21/20 06:41 Eosinophils % 0.5 % (0-4.5) D 05/21/20 06:41 Basophils % 0.4 % (0-2.0) 05/21/20 06:41 Nucleated RBC % 0 % (0-0) 05/21/20 06:41 PT with INR 12.40 SEC (9.7-13.0) 05/20/20 01:06 INR 1.05 (0.83-1.09) 05/20/20 01:06 PTT (Actin FS) 34.9 SECONDS (25.2-36.5) 05/20/20 01:06 Anticoagulation Therapy No Result Required. 05/21/20 06:00 Puncture Site Right radial 05/21/20 06:00 Patient Temperature No Result Required. 05/21/20 06:00 ABG pH 7.407 (7.350-7.450) 05/21/20 06:00 ABG pCO2 41.90 mmHg (35-45) 05/21/20 06:00 ABG pO2 141.0 mmHg (80-100) H 05/21/20 06:00 ABG HCO3 25.8 mmol/L (22-27) 05/21/20 06:00 ABG O2 Sat (Measured) 98.8 mmHg (95-98) H 05/21/20 06:00 ABG O2 Content No Result Required. 05/21/20 06:00 ABG Base Excess 0.9 mmol/L (-2-2) 05/21/20 06:00 Dennis Test Positive 05/21/20 06:00 VBG pH Cancelled 05/20/20 00:00 POC VBG pCO2 Cancelled 05/20/20 00:00 POC VBG pO2 Cancelled 05/20/20 00:00 VBG HCO3 Cancelled 05/20/20 00:00 VBG O2 Sat (Nish) Cancelled 05/20/20 00:00 VBG Base Excess Cancelled 05/20/20 00:00 Patient On Oxygen Yes 05/21/20 06:00 O2 Delivery Device Vent 05/21/20 06:00 Oxygen Flow Rate 40% 05/21/20 06:00 Vent Mode A/c 05/21/20 06:00 Vent Rate 14 05/21/20 06:00 Mechanical Rate Yes 05/21/20 06:00 PEEP 5.0 cmH2O 05/21/20 06:00 Pressure Support Vent 320 05/21/20 06:00 Sodium 140 mmol/L (136-145) 05/21/20 06:41 Potassium 3.9 mmol/L (3.5-5.1) 05/21/20 06:41 Chloride 107 mmol/L (98-107) 05/21/20 06:41 Carbon Dioxide 20 mmol/L (21-32) L 05/21/20 06:41 Anion Gap 13 MMOL/L (8-16) 05/21/20 06:41 BUN 14.1 mg/dL (7-18) 05/21/20 06:41 Creatinine 0.9 mg/dL (0.55-1.3) 05/21/20 06:41 Est GFR (CKD-EPI)AfAm 71.48 05/21/20 06:41 Est GFR (CKD-EPI)NonAf 61.67 05/21/20 06:41 POC Glucometer 94 UNITS (80-120) 05/21/20 12:33 Random Glucose 76 mg/dL (74-106) 05/21/20 06:41 Lactic Acid 2.7 mmol/L (0.4-2.0) H* 05/21/20 06:41 Calcium 8.7 mg/dL (8.5-10.1) 05/21/20 06:41 Phosphorus 3.8 mg/dL (2.5-4.9) 05/21/20 06:41 Magnesium 2.1 mg/dL (1.8-2.4) 05/21/20 06:41 Total Bilirubin 0.5 mg/dL (0.2-1) 05/21/20 06:41 AST 27 U/L (15-37) 05/21/20 06:41 ALT 18 U/L (13-61) 05/21/20 06:41 Alkaline Phosphatase 106 U/L (45-117) 05/21/20 06:41 Creatine Kinase 48 U/L (26-192) 05/20/20 01:06 Troponin I < 0.02 ng/ml (0.00-0.05) 05/20/20 01:06 B-Natriuretic Peptide 345.9 pg/ml (5-450) 05/20/20 01:06 Total Protein 6.5 g/dl (6.4-8.2) 05/21/20 06:41 Albumin 2.6 g/dl (3.4-5.0) L 05/21/20 06:41 Lipase 30 U/L (73-393) L 05/19/20 23:38 Urine Color Yellow 05/20/20 03:53 Urine Appearance Clear 05/20/20 03:53 Urine pH 7.0 (5.0-8.0) D 05/20/20 03:53 Ur Specific [place] 1.017 (1.010-1.035) 05/20/20 03:53 Urine Protein 2+ (NEGATIVE) H 05/20/20 03:53 Urine Glucose (UA) 3+ (NEGATIVE) H 05/20/20 03:53 Urine Ketones 1+ (NEGATIVE) H 05/20/20 03:53 Urine Blood Trace (NEGATIVE) 05/20/20 03:53 Urine Nitrite Negative (NEGATIVE) 05/20/20 03:53 Urine Bilirubin Negative (NEGATIVE) 05/20/20 03:53 Urine Urobilinogen 0.2 mg/dL (0.2-1.0) 05/20/20 03:53 Ur Leukocyte Esterase Negative (NEGATIVE) 05/20/20 03:53 Urine WBC (Auto) 34 /uL (0-25.8) 05/20/20 03:53 Urine RBC (Auto) 15 /uL (0-23.9) 05/20/20 03:53 Urine Casts (Auto) 1 /uL (0-3.1) 05/20/20 03:53 U Epithel Cells (Auto) 17 /uL (0-25.1) 05/20/20 03:53 Urine Bacteria (Auto) 749 /uL (0-1359) 05/20/20 03:53 COVID-19 (MIKE) Not detected (Not Detected) 05/20/20 01:06 Blood Type O POSITIVE 05/20/20 05:52 Antibody Screen Negative 05/20/20 05:52 Active Medications Ascorbic Acid (Vitamin C Oral Solution -) 500 mg GT DAILY [facility] Last Admin: 05/21/20 10:09 Dose: 500 mg Documented by: Atorvastatin Calcium (Lipitor -) 10 mg GT HS [facility] Last Admin: 05/20/20 23:00 Dose: 10 mg Documented by: Chlorhexidine Gluconate (Hibiclens For Decolonization -) 1 applic TP HS [facility] Last Admin: 05/20/20 23:23 Dose: 1 applic Documented by: Meropenem 1 gm/ Dextrose 100 mls @ 200 mls/hr IVPB Q8H-IV [facility] Last Admin: 05/21/20 10:09 Dose: 200 mls/hr Documented by: Propofol (Diprivan -) 1,000,000 mcg in 100 mls @ 1.815 mls/hr IVPB TITR [facility]; Protocol Last Titration: 05/21/20 03:00 Dose: 25 mcg/kg/min, 9.075 mls/hr Documented by: Sodium Chloride (1/2 Normal Saline) 1,000 mls @ 125 mls/hr IV ASDIR [facility] Last Admin: 05/20/20 23:01 Dose: 125 mls/hr Documented by: Insulin Aspart (Novolog Vial Sliding Scale -) 1 vial SQ ACHS [facility]; Protocol Last Admin: 05/21/20 12:35 Dose: Not Given Documented by: Insulin Detemir (Levemir Vial) 35 units SQ DAILY [facility] Last Admin: 05/21/20 10:09 Dose: 35 unit Documented by: Mupirocin (Bactroban Ointment (For Decolonization) -) 1 applic NS BID [facility] Stop: 05/25/20 09:59 Last Admin: 05/21/20 10:09 Dose: 1 applic Documented by: Pantoprazole Sodium (Protonix Iv) 40 mg IVPUSH DAILY [facility] Last Admin: 05/21/20 10:09 Dose: 40 mg Documented by: Polyethylene Glycol (Miralax (For Daily Use) -) 17 gm GT BID [facility] Last Admin: 05/21/20 10:10 Dose: Not Given Documented by: ASSESSMENT/PLAN: Pt is a 79 yo F with PMHx IDDM, HTN, UTIs, Alzheimer's Dementia, pancreatic head mass, and gallstones presenting to the ED after an unwitnessed fall, was optimized for discharge. However, during her waiting to be discharged, she became diaphoretic and approximate 100 cc of bilious emesis was suctioned from the patient's posterior pharynx. Pt likely aspirated some of the contents of the emesis. Pt likely suffered from acutely hypoxic event secondary to aspiration and required intubation. Pt was on minimal ventilation settings. She remains intubated and was placed on sedation vacation with plans for extubation. Pt was following commands intermittently. Was placed on CPAP setting, but SpO2 <88%, so replaced volume a/c with plans to extubate tomorrow. #Neuro Alzheimer's dementia; non-verbal at baseline -sedation vacation -assess mental status. Intermittently follows commands. #CV Hx of HTN Hx of HLD -EKG showed pattern of bigeminy likely secondary to invasive interventions. Resolves spontaneously -Initial and 2hr delta troponins negative - low concern for ACS - no current antihypertensives - continue home statin #Pulm Acute hypoxic event 2/2 possible aspiration Intubated on volume-assist control ventilation; intubated for airway protection - Hold ABGs, CXR for development of any changes - maintain SpO2>92 -Plans for sedation vacation with possible extubation -Vent settings: 14/320/40%/5 -Attempted to place on CPAP, but pt did not tolerate. Wean off vent once mental status improves. #GI Fecal impaction vs possible proctitis (hx of similar) - enema given in the ED; Miralax BID - Protonix IV 40mg #Endo Hx of IDDM - BGM with ISS and home levemir #ID Hx of UTIs Suspected Urinary Tract Infection (Nitrites/Leuk Est + but with epithelial cells; Urine Cx lactose forming negative bacilli) with concern for sepsis Concern for aspiration pneumonia - Repeat UA; f/u Blood (negative in last 24h) and Urine Cx - ID consulted. Recommended continue Meropenem, as pt has hx of Blood Cx + for ESBL EColi - monitor WBC - trending lactate 4.5-->6.7-->6.2-->2.7 - COVID negative #MSK Recent fall - PT consult when appropriate #FEN - LR IV fluid bolus but no maintenance given possible aspiration event - NPO for now - monitor CMP; replete lytes PRN #Ppx - GI: protonix - DVT: SCDs #LTD - ETT - 05/20 - Engel - 05/20 #Dispo: Will continue monitoring in the ICU. Visit type - Emergency Visit Emergency Visit: Yes ED Registration Date: 05/20/20 Care time: The patient presented to the Emergency Department on the above date and was hospitalized for further evaluation of their emergent condition. - New Patient This patient is new to me today: No - Critical Care Critical Care patient: Yes Total Critical Care Time (in minutes): 38 Critical Care Statement: The care of this patient involved high complexity decision making to prevent further life threatening deterioration of the patient's condition and/or to evaluate & treat vital organ system(s) failure or risk of failure. ATTENDING PHYSICIAN STATEMENT I saw and evaluated the patient. I reviewed the resident's note and discussed the case with the resident. I agree with the resident's findings and plan as documented. SUBJECTIVE: OBJECTIVE: ASSESSMENT AND PLAN:
[2020-05-21] MEDS: ATORVASTATIN CA 10 MG TABLET (FP) GT SCH (22:57)
[2020-05-21] MEDS: SODIUM CHLORIDE 0.45% 1,000 ML IV SCH (22:58)
[2020-05-21] MEDS ORDERED: DEXTROSE 50%-WATER - 25 GM/50 ML VIAL IVPUSH ONE (23:01)
[2020-05-21] MEDS ORDERED: DEXTROSE 50%-WATER 25 GM/50 ML DISP.SYRIN ONE (23:01)
[2020-05-21] MEDS ORDERED: FENTANYL IVPB 500 MCG/100 ML BAG IVPB SCH (23:15)
[2020-05-21] MEDS: CHLORHEXIDINE GLUCONATE 4% CLEANSER FOR DECOLONIZATION TP SCH (23:16)
[2020-05-22] MEDS: FENTANYL IVPB 500 MCG/100 ML BAG IVPB SCH (00:11)
[2020-05-22] MEDS ORDERED: MEROPENEM 1 GM VIAL (RESTRICTED TO ID) IVPB ONE ×3 (01:28→17:33)
[2020-05-22] MEDS ORDERED: DEXTROSE 5%-WATER 100 ML IVPB ONE ×3 (01:29→17:33)
[2020-05-22] MEDS: MEROPENEM 1 GM in DEXTROSE 5%-WATER 100 ML IVPB SCH ×3 (01:34→17:37)
[2020-05-22] MEDS ORDERED: ALBUTEROL SO4 2.5/IPRATROPIUM 0.5 INH SOL 3 ML VIAL.NEB. NEB ONE (03:00)
[2020-05-22] MEDS: INSULIN SLIDING SCALE (NOVOLOG) 1 VIAL SQ SCH ×4 (06:09→22:21)
[2020-05-22 07:21] LABS: BASO % 0.4 % (0-2.0); EOS % 1.4 % (0-4.5); HEMATOCRIT 40.2 % (32.4-45.2); LYMPH % 20.5 % (8-40); MCH 28.8 pg (25.7-33.7); MCHC 32.4 g/dl (32.0-36.0); MEAN CELL VOLUME 88.8 fl (80-96); MEAN PLT VOLUME 8.2 fl (7.5-11.1); MONO % 10.1 % (3.8-10.2); NEUT % 67.6 % (42.8-82.8); PLATELET COUNT 236 K/MM3 (134-434); RBC 4.53 M/mm3 (3.60-5.2); RDW 14.1 % (11.6-15.6); WHITE BLOOD COUNT 12.7 K/mm3 (4.0-10.0)
[2020-05-22 07:54] LABS: ALBUMIN 2.4 g/dl (3.4-5.0); BLOOD UREA NITROGEN 12.6 mg/dL (7-18); CALCIUM 8.7 mg/dL (8.5-10.1); CREATININE 0.9 mg/dL (0.55-1.3); PHOSPHOROUS 2.9 mg/dL (2.5-4.9); POTASSIUM 3.4 mmol/L (3.5-5.1); TOT PROT 6.2 g/dl (6.4-8.2)
[2020-05-22 07:59] LABS: BILIRUBIN,TOTAL 0.6 mg/dL (0.2-1)
--- NOTE | 2020-05-22 09:27 | PN ---
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, Physician History of Present Illness: OFF SEDATION REMAINS ON VENTILATOR AFEBRILE NO ACUTE DISTRESS WBC IMPROVED 12K BC (-) URINE C/S LF - Current Medication List Current Medications: Active Medications Ascorbic Acid (Vitamin C Oral Solution -) 500 mg GT DAILY [facility] Last Admin: 05/21/20 10:09 Dose: 500 mg Documented by: Atorvastatin Calcium (Lipitor -) 10 mg GT HS [facility] Last Admin: 05/21/20 22:57 Dose: 10 mg Documented by: Chlorhexidine Gluconate (Hibiclens For Decolonization -) 1 applic TP HS [facility] Last Admin: 05/21/20 23:16 Dose: 1 applic Documented by: Meropenem 1 gm/ Dextrose 100 mls @ 200 mls/hr IVPB Q8H-IV [facility] Last Admin: 05/22/20 01:34 Dose: 200 mls/hr Documented by: Propofol (Diprivan -) 1,000,000 mcg in 100 mls @ 1.815 mls/hr IVPB TITR [facility]; Protocol Last Titration: 05/22/20 05:15 Dose: 0 mcg/kg/min, 0 mls/hr Documented by: Sodium Chloride (1/2 Normal Saline) 1,000 mls @ 125 mls/hr IV ASDIR [facility] Last Admin: 05/21/20 22:58 Dose: Not Given Documented by: Fentanyl (Sublimaze Ivpb) 500 mcg in 100 mls @ 2 mls/hr IVPB TITR [facility]; Protocol Last Titration: 05/22/20 05:30 Dose: 0 mcg/hr, 0 mls/hr Documented by: Potassium Chloride (Potassium Chloride 10 Meq Premix Ivpb -) 10 meq in 100 mls @ 100 mls/hr IVPB Q60M [facility] Stop: 05/22/20 12:14 Insulin Aspart (Novolog Vial Sliding Scale -) 1 vial SQ ACHS [facility]; Protocol Last Admin: 05/22/20 06:09 Dose: Not Given Documented by: Insulin Detemir (Levemir Vial) 35 units SQ DAILY [facility] Last Admin: 05/21/20 10:09 Dose: 35 unit Documented by: Mupirocin (Bactroban Ointment (For Decolonization) -) 1 applic NS BID [facility] Stop: 05/25/20 09:59 Last Admin: 05/21/20 23:00 Dose: 1 applic Documented by: Pantoprazole Sodium (Protonix Iv) 40 mg IVPUSH DAILY [facility] Last Admin: 05/21/20 10:09 Dose: 40 mg Documented by: Polyethylene Glycol (Miralax (For Daily Use) -) 17 gm GT BID [facility] Last Admin: 05/21/20 22:58 Dose: Not Given Documented by: - Objective Vital Signs: Vital Signs Temperature 98.4 F 05/22/20 06:00 Pulse Rate 94 H 05/22/20 08:00 Respiratory Rate 16 05/22/20 08:00 Blood Pressure 151/52 L 05/22/20 08:00 O2 Sat by Pulse Oximetry (%) 100 05/22/20 08:00 Constitutional: Yes: No Distress Eyes: Yes: Conjunctiva Clear Cardiovascular: Yes: Regular Rate and Rhythm, S1, S2 Respiratory: Yes: Mechanically Ventilated Gastrointestinal: Yes: Normal Bowel Sounds. No: Tenderness Edema: Yes Labs: CBC, BMP 05/22/20 06:38 05/22/20 06:38 INR, PTT INR 1.05 (0.83-1.09) 05/20/20 01:06 Assessment/Plan ACUTE RESPIRATORY FAILURE PROBABLE ASP PNEUMONIA UTI HX ESBL LACTIC ACIDOSIS RESOLVED LEUKOCYTOSIS IMPROVED AWAIT C/S CONTINUE MEROPENEM VENTILATORY/ HEMODYNAMIC SUPPORT
[2020-05-22] MEDS ORDERED: PT OWN MED DRAWER 7, Y5N ONE (10:15)
[2020-05-22] MEDS: MUPIROCIN 2% TOPICAL OINTMENT FOR DECOLONIZATION NS SCH ×2 (10:20→21:30)
[2020-05-22] MEDS: KCL 10 MEQ IVPB 10 MEQ/100 ML INFUS.BAG IVPB SCH ×3 (10:20→12:58)
[2020-05-22] MEDS: POLYETHYLENE GLYCOL 3350 119 GM BTL GT SCH ×2 (10:21→22:20)
[2020-05-22] MEDS: ASCORBIC ACID 500 MG/5 ML UNIT DOSE CUP GT SCH (10:21)
[2020-05-22] MEDS: PANTOPRAZOLE SODIUM 40 MG VIAL IVPUSH SCH (10:21)
[2020-05-22] MEDS: INSULIN (LEVEMIR) 100 UNITS/ML UNITS SQ SCH (11:03)
[2020-05-22] MEDS: SODIUM CHLORIDE 0.45% 1,000 ML IV SCH ×2 (11:04→22:20)
--- NOTE | 2020-05-22 12:49 | PN ---
Teaching Attending Note Name of Resident: Elizabeth Zhu ATTENDING PHYSICIAN STATEMENT I saw and evaluated the patient. I reviewed the resident's note and discussed the case with the resident. I agree with the resident's findings and plan as documented. SUBJECTIVE: Patient seen and examined in the ICU. Remains intubated. AC Mode of vent. Off sedation. Does not follow commands. Blinks to threat. No pressors. Intake & Output 05/19/20 05/20/20 05/21/20 05/22/20 23:59 23:59 23:59 23:59 Intake Total 3781 3385 1601 Output Total 3150 900 750 Balance 631 2485 851 Weight 140 lb 133 lb 6 oz 133 lb 135 lb 11.2 oz Last Vital Signs Temp Pulse Resp BP Pulse Ox 98.4 F 94 H 18 151/52 L 100 05/22/20 06:00 05/22/20 08:00 05/22/20 09:00 05/22/20 08:00 05/22/20 09:00 Active Medications Ascorbic Acid (Vitamin C Oral Solution -) 500 mg GT DAILY [facility] Last Admin: 05/22/20 10:21 Dose: 500 mg Documented by: Atorvastatin Calcium (Lipitor -) 10 mg GT HS [facility] Last Admin: 05/21/20 22:57 Dose: 10 mg Documented by: Chlorhexidine Gluconate (Hibiclens For Decolonization -) 1 applic TP HS [facility] Last Admin: 05/21/20 23:16 Dose: 1 applic Documented by: Meropenem 1 gm/ Dextrose 100 mls @ 200 mls/hr IVPB Q8H-IV [facility] Last Admin: 05/22/20 10:18 Dose: 200 mls/hr Documented by: Sodium Chloride (1/2 Normal Saline) 1,000 mls @ 125 mls/hr IV ASDIR [facility] Last Admin: 05/22/20 11:04 Dose: 125 mls/hr Documented by: Fentanyl (Sublimaze Ivpb) 500 mcg in 100 mls @ 2 mls/hr IVPB TITR [facility]; Protocol Last Titration: 05/22/20 05:30 Dose: 0 mcg/hr, 0 mls/hr Documented by: Insulin Aspart (Novolog Vial Sliding Scale -) 1 vial SQ ACHS [facility]; Protocol Last Admin: 05/22/20 11:03 Dose: Not Given Documented by: Insulin Detemir (Levemir Vial) 35 units SQ DAILY [facility] Last Admin: 05/22/20 11:03 Dose: 35 unit Documented by: Multi-Ingredient Lotion (Eucerin (Small Jar) -) 1 applic TP BID [facility] Mupirocin (Bactroban Ointment (For Decolonization) -) 1 applic NS BID [facility] Stop: 05/25/20 09:59 Last Admin: 05/22/20 10:20 Dose: 1 applic Documented by: Pantoprazole Sodium (Protonix Iv) 40 mg IVPUSH DAILY [facility] Last Admin: 05/22/20 10:21 Dose: 40 mg Documented by: Polyethylene Glycol (Miralax (For Daily Use) -) 17 gm GT BID [facility] Last Admin: 05/22/20 10:21 Dose: Not Given Documented by: GENERAL: Intubated, arousable. HEAD: Normocephalic atraumatic. EYES: Pupils equal, round and reactive to light, conjunctiva clear. EARS, NOSE, THROAT: Oropharynx clear without exudates. Moist mucous membranes. NECK: Supple without lymphadenopathy. LUNGS: Vented, scattered biltateral rhonchi. No wheezes, and no crackles. HEART: Regular rate and rhythm, normal S1 and S2 without murmur, rub or gallop. ABDOMEN: Soft, nontender, mildly distended abdomen, normoactive bowel sounds. MUSCULOSKELETAL: No bony deformities. UPPER EXTREMITIES: 2+ pulses, warm, well-perfused. No peripheral edema. LOWER EXTREMITIES: 2+ pulses, warm, well-perfused. No peripheral edema. NEUROLOGICAL: not following commands SKIN: Warm, dry, normal turgor, no rashes or lesions noted. Laboratory Results - last 24 hr 05/21/20 05/21/20 05/21/20 17:37 22:59 23:50 WBC RBC Hgb Hct MCV MCH MCHC RDW Plt Count MPV Absolute Neuts (auto) Neutrophils % Lymphocytes % Monocytes % Eosinophils % Basophils % Nucleated RBC % Sodium Potassium Chloride Carbon Dioxide Anion Gap BUN Creatinine Est GFR (CKD-EPI)AfAm Est GFR (CKD-EPI)NonAf POC Glucometer 80 54 148 Random Glucose Lactic Acid Calcium Phosphorus Magnesium Total Bilirubin AST ALT Alkaline Phosphatase Total Protein Albumin 05/22/20 05/22/20 05/22/20 05:53 06:38 06:38 WBC 12.7 H RBC 4.53 Hgb 13.0 Hct 40.2 MCV 88.8 MCH 28.8 MCHC 32.4 RDW 14.1 Plt Count 236 MPV 8.2 Absolute Neuts (auto) 8.6 H Neutrophils % 67.6 Lymphocytes % 20.5 D Monocytes % 10.1 Eosinophils % 1.4 D Basophils % 0.4 Nucleated RBC % 0 Sodium 140 Potassium 3.4 L Chloride 104 Carbon Dioxide 24 Anion Gap 11 BUN 12.6 Creatinine 0.9 Est GFR (CKD-EPI)AfAm 71.48 Est GFR (CKD-EPI)NonAf 61.67 POC Glucometer 117 Random Glucose 119 H Lactic Acid Calcium 8.7 Phosphorus 2.9 Magnesium 2.0 Total Bilirubin 0.6 AST 21 ALT 16 Alkaline Phosphatase 101 Total Protein 6.2 L Albumin 2.4 L 05/22/20 05/22/20 06:38 11:02 WBC RBC Hgb Hct MCV MCH MCHC RDW Plt Count MPV Absolute Neuts (auto) Neutrophils % Lymphocytes % Monocytes % Eosinophils % Basophils % Nucleated RBC % Sodium Potassium Chloride Carbon Dioxide Anion Gap BUN Creatinine Est GFR (CKD-EPI)AfAm Est GFR (CKD-EPI)NonAf POC Glucometer 124 Random Glucose Lactic Acid 1.8 Calcium Phosphorus Magnesium Total Bilirubin AST ALT Alkaline Phosphatase Total Protein Albumin ASSESSMENT/PLAN: Acute Respiratory Failure due to aspiration pneumonitis R/O COVID19 : Low suspicion IDDM HTN History of recurrent UTIs Alzheimer's Dementia Pancreatic head mass Gallstones Bigeminy DM Hold sedation Wean trials Strict I & O ABX coverage Follow cultures VTE prophylaxis GI prophylaxis Glycemic control Requires ICU monitoring Dr Dunn Critical care time spent in reviewing chart, evaluating patient and formulating plan - 36 minutes.
[2020-05-22] MEDS: MINERAL OIL/PETROLAT/WATER TOPICAL CREAM 113 GM JAR TP SCH ×2 (12:59→22:21)
--- NOTE | 2020-05-22 14:02 | PN ---
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, Physician - Current Medication List Current Medications: Active Medications Ascorbic Acid (Vitamin C Oral Solution -) 500 mg GT DAILY [facility] Last Admin: 05/22/20 10:21 Dose: 500 mg Documented by: Atorvastatin Calcium (Lipitor -) 10 mg GT HS [facility] Last Admin: 05/21/20 22:57 Dose: 10 mg Documented by: Chlorhexidine Gluconate (Hibiclens For Decolonization -) 1 applic TP HS [facility] Last Admin: 05/21/20 23:16 Dose: 1 applic Documented by: Meropenem 1 gm/ Dextrose 100 mls @ 200 mls/hr IVPB Q8H-IV [facility] Last Admin: 05/22/20 10:18 Dose: 200 mls/hr Documented by: Sodium Chloride (1/2 Normal Saline) 1,000 mls @ 125 mls/hr IV ASDIR [facility] Last Admin: 05/22/20 11:04 Dose: 125 mls/hr Documented by: Fentanyl (Sublimaze Ivpb) 500 mcg in 100 mls @ 2 mls/hr IVPB TITR [facility]; Protocol Last Titration: 05/22/20 05:30 Dose: 0 mcg/hr, 0 mls/hr Documented by: Insulin Aspart (Novolog Vial Sliding Scale -) 1 vial SQ ACHS [facility]; Protocol Last Admin: 05/22/20 11:03 Dose: Not Given Documented by: Insulin Detemir (Levemir Vial) 35 units SQ DAILY [facility] Last Admin: 05/22/20 11:03 Dose: 35 unit Documented by: Multi-Ingredient Lotion (Eucerin (Small Jar) -) 1 applic TP BID [facility] Last Admin: 05/22/20 12:59 Dose: 1 applic Documented by: Mupirocin (Bactroban Ointment (For Decolonization) -) 1 applic NS BID [facility] Stop: 05/25/20 09:59 Last Admin: 05/22/20 10:20 Dose: 1 applic Documented by: Pantoprazole Sodium (Protonix Iv) 40 mg IVPUSH DAILY [facility] Last Admin: 05/22/20 10:21 Dose: 40 mg Documented by: Polyethylene Glycol (Miralax (For Daily Use) -) 17 gm GT BID [facility] Last Admin: 05/22/20 10:21 Dose: Not Given Documented by: - Objective Vital Signs: Vital Signs Temperature 98.9 F 05/22/20 10:00 Pulse Rate 110 H 05/22/20 12:00 Respiratory Rate 16 05/22/20 12:00 Blood Pressure 135/62 05/22/20 12:00 O2 Sat by Pulse Oximetry (%) 100 05/22/20 12:00 Cardiovascular: Yes: S1, S2 Respiratory: Yes: Mechanically Ventilated Gastrointestinal: Yes: Normal Bowel Sounds, Soft Labs: CBC, BMP 05/22/20 06:38 05/22/20 06:38 INR, PTT INR 1.05 (0.83-1.09) 05/20/20 01:06 Problem List - Problems (1) Respiratory failure Assessment/Plan: VENT SUPPORT PULM CONSULT IV ABX Code(s): J96.90 - RESPIRATORY FAILURE, UNSP, UNSP W HYPOXIA OR HYPERCAPNIA (2) Pneumonia Assessment/Plan: CXR NOTED IV ABX ID AND PULM Code(s): J18.9 - PNEUMONIA, UNSPECIFIED ORGANISM (3) Sepsis Assessment/Plan: CULTURES IV ABX LACTIC ACID HIGH IVF Microbiology 05/20/20 00:53 Urine - Urine - Catheterized Urine Culture - Preliminary Lactose Fermenting Neg Bacilli 05/20/20 03:53 Urine - Urine Engel Urine Culture - Preliminary Lactose Fermenting Neg Bacilli 05/20/20 00:22 Blood - Peripheral Venous Blood Culture - Preliminary NO GROWTH OBTAINED AFTER 24 HOURS, INCUBATION TO CONTINUE FOR 4 DAYS. 05/20/20 00:22 Blood - Peripheral Venous Blood Culture - Preliminary NO GROWTH OBTAINED AFTER 24 HOURS, INCUBATION TO CONTINUE FOR 4 DAYS. Laboratory Tests 05/19/20 05/20/20 05/20/20 23:38 01:06 05:00 WBC 18.2 H 19.8 H 30.0 H Lactic Acid 05/20/20 05/21/20 05/21/20 14:00 06:41 06:41 WBC 17.7 H Lactic Acid 5.2 H* 2.7 H* Code(s): A41.9 - SEPSIS, UNSPECIFIED ORGANISM Qualifiers: Sepsis type: sepsis due to unspecified organism Qualified Code(s): A41.9 - Sepsis, unspecified organism (4) Fall Assessment/Plan: 1ST CT HEAD NAD REPEAT Code(s): W19.XXXA - UNSPECIFIED FALL, INITIAL ENCOUNTER
--- NOTE | 2020-05-22 19:31 | PN ---
Physical Exam: SUBJECTIVE: Patient seen and examined. Minimally alert. Extubated during rounds, placed on venti-mask 40%, and is now on NC. OBJECTIVE: Vital Signs Period Temp Pulse Resp BP Sys/Bob Pulse Ox Last 24 Hr 97.6 F-98.9 F 72-110 13-19 102-151/52-82 98-100 GENERAL: Pt is somewhat arousable, responsive to noxious stimuli. HEAD: Normal with no signs of trauma. EYES: PERRL, conjunctiva clear. ENT: Ears normal, nares patent, moist mucous membranes. NECK: Trachea midline. LUNGS: Clear to auscultation bilaterally anteriorly HEART: Regular rate and rhythm, 3/6 systolic click. ABDOMEN: Soft, nondistended, normoactive bowel sounds. EXTREMITIES: Warm, well-perfused, edema LUE. NEUROLOGICAL: Cranial nerves II through XII grossly intact. Normal speech, gait not observed. PSYCH: Normal mood, normal affect. SKIN: Warm, dry, normal turgor. Laboratory Results - last 24 hr 05/21/20 05/21/20 05/22/20 22:59 23:50 05:53 WBC RBC Hgb Hct MCV MCH MCHC RDW Plt Count MPV Absolute Neuts (auto) Neutrophils % Lymphocytes % Monocytes % Eosinophils % Basophils % Nucleated RBC % Sodium Potassium Chloride Carbon Dioxide Anion Gap BUN Creatinine Est GFR (CKD-EPI)AfAm Est GFR (CKD-EPI)NonAf POC Glucometer 54 148 117 Random Glucose Lactic Acid Calcium Phosphorus Magnesium Total Bilirubin AST ALT Alkaline Phosphatase Total Protein Albumin 05/22/20 05/22/20 05/22/20 06:38 06:38 06:38 WBC 12.7 H RBC 4.53 Hgb 13.0 Hct 40.2 MCV 88.8 MCH 28.8 MCHC 32.4 RDW 14.1 Plt Count 236 MPV 8.2 Absolute Neuts (auto) 8.6 H Neutrophils % 67.6 Lymphocytes % 20.5 D Monocytes % 10.1 Eosinophils % 1.4 D Basophils % 0.4 Nucleated RBC % 0 Sodium 140 Potassium 3.4 L Chloride 104 Carbon Dioxide 24 Anion Gap 11 BUN 12.6 Creatinine 0.9 Est GFR (CKD-EPI)AfAm 71.48 Est GFR (CKD-EPI)NonAf 61.67 POC Glucometer Random Glucose 119 H Lactic Acid 1.8 Calcium 8.7 Phosphorus 2.9 Magnesium 2.0 Total Bilirubin 0.6 AST 21 ALT 16 Alkaline Phosphatase 101 Total Protein 6.2 L Albumin 2.4 L 05/22/20 05/22/20 11:02 16:41 WBC RBC Hgb Hct MCV MCH MCHC RDW Plt Count MPV Absolute Neuts (auto) Neutrophils % Lymphocytes % Monocytes % Eosinophils % Basophils % Nucleated RBC % Sodium Potassium Chloride Carbon Dioxide Anion Gap BUN Creatinine Est GFR (CKD-EPI)AfAm Est GFR (CKD-EPI)NonAf POC Glucometer 124 136 Random Glucose Lactic Acid Calcium Phosphorus Magnesium Total Bilirubin AST ALT Alkaline Phosphatase Total Protein Albumin Active Medications Generic Name Dose Route Start Last Admin Trade Name Freq PRN Reason Stop Dose Admin Ascorbic Acid 500 mg 05/20/20 10:00 05/22/20 10:21 Vitamin C Oral Solution - GT 500 mg DAILY [facility] Administration Atorvastatin Calcium 10 mg 05/20/20 22:00 05/21/20 22:57 Lipitor - GT 10 mg HS [facility] Administration Chlorhexidine Gluconate 1 applic 05/20/20 22:00 05/21/20 23:16 Hibiclens For Decolonization - TP 1 applic HS [facility] Administration Meropenem 1 gm/ Dextrose 100 mls @ 200 mls/hr 05/20/20 18:00 05/22/20 17:37 IVPB 200 mls/hr Q8H-IV [facility] Administration Sodium Chloride 1,000 mls @ 125 mls/hr 05/20/20 21:45 05/22/20 11:04 1/2 Normal Saline IV 125 mls/hr ASDIR [facility] Administration Fentanyl 500 mcg in 100 mls @ 2 mls/hr 05/22/20 00:03 05/22/20 05:30 Sublimaze Ivpb IVPB 0 mcg/hr TITR [facility] 0 mls/hr Titration Protocol 10 MCG/HR Insulin Aspart 1 vial 05/20/20 07:00 05/22/20 16:46 Novolog Vial Sliding Scale - SQ Not Given ACHS [facility] Protocol Insulin Detemir 35 units 05/20/20 10:00 05/22/20 11:03 Levemir Vial SQ 35 unit DAILY [facility] Administration Multi-Ingredient Lotion 1 applic 05/22/20 12:00 05/22/20 12:59 Eucerin (Small Jar) - TP 1 applic BID [facility] Administration Mupirocin 1 applic 05/20/20 10:00 05/22/20 10:20 Bactroban Ointment (For Decolonization) - NS 05/25/20 09:59 1 applic BID [facility] Administration Pantoprazole Sodium 40 mg 05/21/20 10:00 05/22/20 10:21 Protonix Iv IVPUSH 40 mg DAILY [facility] Administration Polyethylene Glycol 17 gm 05/20/20 10:00 05/22/20 10:21 Miralax (For Daily Use) - GT Not Given BID [facility] ASSESSMENT/PLAN: Pt is a 79 y/o female with IDDM, HTN, Alzheimer's, pancreatic head mass, and gallstones presenting to the ED after an unwitnessed fall, was optimized for discharge. However, during her waiting to be discharged, she became diaphoretic and approximate 100 cc of bilious emesis was suctioned from the patient's posterior pharynx. Pt likely aspirated some of the contents of the emesis. Pt likely suffered from acutely hypoxic event secondary to aspiration and required intubation. #neuro -hx Alzheimer's, non-verbal at baseline -off sedation this morning, minimally responsive but is responsive to noxious stimuli #cardio -hemodynamically stable -hold HTN meds -continue home statin #pulm -acute hypoxic event 2/2 possible aspiration -extubated today, place on venti-mask 40% now on NC satting well -monitor O2 sats keep >90 #renal -hypokalemia -replete #GI -NPO today following extubation -consider NG feeds tomorrow if stable -Protonix IV 40mg #endo -IDDM -BGMs -SSI -home Levemir #ID -hx ESBL UTI -urine cx 05/20 positive for E. coli with sensitivity for glen -possible aspiration during hypoxic event, empiric tx for PNA -meropenem day 3 -ID following DVT Ppx SCDs FEN 1/2 NS 125mL/hr no labs needed tomorrow consider starting Glucerna tube feeds tomorrow dispo ICU FULL CODE Visit type - Emergency Visit Emergency Visit: Yes ED Registration Date: 05/20/20 Care time: The patient presented to the Emergency Department on the above date and was hospitalized for further evaluation of their emergent condition. - New Patient This patient is new to me today: Yes Date on this admission: 05/22/20 - Critical Care Critical Care patient: Yes Total Critical Care Time (in minutes): 36 Critical Care Statement: The care of this patient involved high complexity decision making to prevent further life threatening deterioration of the patient's condition and/or to evaluate & treat vital organ system(s) failure or risk of failure. ATTENDING PHYSICIAN STATEMENT I saw and evaluated the patient. I reviewed the resident's note and discussed the case with the resident. I agree with the resident's findings and plan as documented. SUBJECTIVE: OBJECTIVE: ASSESSMENT AND PLAN:
[2020-05-22] MEDS: ATORVASTATIN CA 10 MG TABLET (FP) GT SCH (21:30)
[2020-05-22] MEDS: CHLORHEXIDINE GLUCONATE 4% CLEANSER FOR DECOLONIZATION TP SCH (21:30)
[2020-05-23] MEDS: FENTANYL IVPB 500 MCG/100 ML BAG IVPB SCH (01:06)
[2020-05-23] MEDS ORDERED: DEXTROSE 5%-WATER 100 ML IVPB ONE ×3 (02:01→11:12)
[2020-05-23] MEDS ORDERED: MEROPENEM 1 GM VIAL (RESTRICTED TO ID) IVPB ONE ×2 (02:01→09:39)
[2020-05-23] MEDS: MEROPENEM 1 GM in DEXTROSE 5%-WATER 100 ML IVPB SCH ×2 (02:08→09:44)
[2020-05-23] MEDS ORDERED: DEXTROSE 50%-WATER 25 GM/50 ML DISP.SYRIN ONE (06:58)
[2020-05-23] MEDS: DEXTROSE 50%-WATER - 25 GM/50 ML VIAL IVPUSH ONE ×2 (07:24→08:29)
[2020-05-23] MEDS: INSULIN SLIDING SCALE (NOVOLOG) 1 VIAL SQ SCH ×4 (07:24→21:30)
[2020-05-23] MEDS ORDERED: PT OWN MED DRAWER 7, Y5N ONE (09:39)
[2020-05-23] MEDS: PANTOPRAZOLE SODIUM 40 MG VIAL IVPUSH SCH (09:43)
[2020-05-23] MEDS: ASCORBIC ACID 500 MG/5 ML UNIT DOSE CUP GT SCH (09:44)
[2020-05-23] MEDS: MUPIROCIN 2% TOPICAL OINTMENT FOR DECOLONIZATION NS SCH ×2 (09:44→21:33)
[2020-05-23] MEDS: MINERAL OIL/PETROLAT/WATER TOPICAL CREAM 113 GM JAR TP SCH ×2 (09:44→21:34)
[2020-05-23] MEDS: POLYETHYLENE GLYCOL 3350 119 GM BTL GT SCH ×2 (09:44→21:34)
--- NOTE | 2020-05-23 10:31 | PN ---
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, Physician History of Present Illness: EXTUBATED AWAKE, MAKES EYE CONTACT AFEBRILE WBC IMPROVED 12K BC (-) URINE C/S E COLI - Current Medication List Current Medications: Active Medications Ascorbic Acid (Vitamin C Oral Solution -) 500 mg GT DAILY [facility] Last Admin: 05/23/20 09:44 Dose: 500 mg Documented by: Atorvastatin Calcium (Lipitor -) 10 mg GT HS [facility] Last Admin: 05/22/20 21:30 Dose: 10 mg Documented by: Chlorhexidine Gluconate (Hibiclens For Decolonization -) 1 applic TP HS [facility] Last Admin: 05/22/20 21:30 Dose: 1 applic Documented by: Meropenem 1 gm/ Dextrose 100 mls @ 200 mls/hr IVPB Q8H-IV [facility] Last Admin: 05/23/20 09:44 Dose: 200 mls/hr Documented by: Sodium Chloride (1/2 Normal Saline) 1,000 mls @ 125 mls/hr IV ASDIR [facility] Last Admin: 05/22/20 22:20 Dose: 125 mls/hr Documented by: Fentanyl (Sublimaze Ivpb) 500 mcg in 100 mls @ 2 mls/hr IVPB TITR [facility]; Protocol Last Admin: 05/23/20 01:06 Dose: Not Given Documented by: Insulin Aspart (Novolog Vial Sliding Scale -) 1 vial SQ ACHS [facility]; Protocol Last Admin: 05/23/20 07:24 Dose: Not Given Documented by: Insulin Detemir (Levemir Vial) 35 units SQ DAILY [facility] Last Admin: 05/22/20 11:03 Dose: 35 unit Documented by: Multi-Ingredient Lotion (Eucerin (Small Jar) -) 1 applic TP BID [facility] Last Admin: 05/23/20 09:44 Dose: 1 applic Documented by: Mupirocin (Bactroban Ointment (For Decolonization) -) 1 applic NS BID [facility] Stop: 05/25/20 09:59 Last Admin: 05/23/20 09:44 Dose: 1 applic Documented by: Pantoprazole Sodium (Protonix Iv) 40 mg IVPUSH DAILY [facility] Last Admin: 05/23/20 09:43 Dose: 40 mg Documented by: Polyethylene Glycol (Miralax (For Daily Use) -) 17 gm GT BID [facility] Last Admin: 05/23/20 09:44 Dose: 17 gm Documented by: - Objective Vital Signs: Vital Signs Temperature 98.8 F 05/23/20 08:00 Pulse Rate 88 05/23/20 10:00 Respiratory Rate 22 H 05/23/20 10:00 Blood Pressure 150/68 05/23/20 10:00 O2 Sat by Pulse Oximetry (%) 100 05/23/20 10:00 Constitutional: Yes: No Distress Eyes: Yes: Conjunctiva Clear Cardiovascular: Yes: Regular Rate and Rhythm, S1, S2 Respiratory: Yes: Diminished Gastrointestinal: Yes: Normal Bowel Sounds, Soft. No: Tenderness Edema: Yes Edema: LLE: 2+, RLE: 2+ Labs: CBC, BMP 05/22/20 06:38 05/22/20 06:38 INR, PTT INR 1.05 (0.83-1.09) 05/20/20 01:06 Assessment/Plan ACUTE RESPIRATORY FAILURE S/P EXTUBATION PROBABLE ASP PNEUMONIA UTI E COLI HX ESBL LACTIC ACIDOSIS RESOLVED LEUKOCYTOSIS IMPROVED SUBSTITUTE CEFTRIAXONE
--- NOTE | 2020-05-23 10:35 | PN ---
Physical Exam: SUBJECTIVE: Patient seen and examined at bedside- no acute events overnight; patients sugar ran low this AM otherwise no events - she denies any pain OBJECTIVE: Vital Signs Period Temp Pulse Resp BP Sys/Bob Pulse Ox Last 24 Hr 98 F-98.8 F 85-121 14-22 120-150/62-79 100-100 GENERAL: The patient is awake, alert, tracks with eyes EYES: PEEERLA: EOMI; no scleral icterus s. NECK: no JVD; no lymphadenopathy LUNGS: CTA b/l no rales, rhonchi or wheezing HEART: Regular rate and rhythm, S1, S2 3/6 systolic murmur ABDOMEN: Soft, NT/ND no wincing upon palpatio +BS in all 4 quadrants EXTREMITIES: 2+ pulses, warm, well-perfused, + edema B/L arms and LE . NEUROLOGICAL: tracks PSYCH: Normal mood, normal affect. SKIN: Warm, dry, normal turgor, no rashes or lesions noted Laboratory Results - last 24 hr 05/22/20 05/22/20 05/22/20 11:02 16:41 22:12 POC Glucometer 124 136 91 05/23/20 05/23/20 05/23/20 06:48 07:48 09:00 POC Glucometer 39 88 122 Active Medications Generic Name Dose Route Start Last Admin Trade Name Sheldon PRN Reason Stop Dose Admin Ascorbic Acid 500 mg 05/20/20 10:00 05/23/20 09:44 Vitamin C Oral Solution - GT 500 mg DAILY [facility] Administration Atorvastatin Calcium 10 mg 05/20/20 22:00 05/22/20 21:30 Lipitor - GT 10 mg HS [facility] Administration Chlorhexidine Gluconate 1 applic 05/20/20 22:00 05/22/20 21:30 Hibiclens For Decolonization - TP 1 applic HS [facility] Administration Sodium Chloride 1,000 mls @ 125 mls/hr 05/20/20 21:45 05/22/20 22:20 1/2 Normal Saline IV 125 mls/hr ASDIR [facility] Administration Fentanyl 500 mcg in 100 mls @ 2 mls/hr 05/22/20 00:03 05/23/20 01:06 Sublimaze Ivpb IVPB Not Given TITR [facility] Protocol 10 MCG/HR Ceftriaxone Sodium 2 gm/ 100 mls @ 100 mls/hr 05/23/20 10:45 Dextrose IVPB DAILY [facility] Protocol Insulin Aspart 1 vial 05/20/20 07:00 05/23/20 07:24 Novolog Vial Sliding Scale - SQ Not Given ACHS [facility] Protocol Insulin Detemir 35 units 05/20/20 10:00 05/22/20 11:03 Levemir Vial SQ 35 unit DAILY [facility] Administration Multi-Ingredient Lotion 1 applic 05/22/20 12:00 05/23/20 09:44 Eucerin (Small Jar) - TP 1 applic BID [facility] Administration Mupirocin 1 applic 05/20/20 10:00 05/23/20 09:44 Bactroban Ointment (For Decolonization) - NS 05/25/20 09:59 1 applic BID [facility] Administration Pantoprazole Sodium 40 mg 05/21/20 10:00 05/23/20 09:43 Protonix Iv IVPUSH 40 mg DAILY [facility] Administration Polyethylene Glycol 17 gm 05/20/20 10:00 05/23/20 09:44 Miralax (For Daily Use) - GT 17 gm BID [facility] Administration ASSESSMENT/PLAN: Pt is a 79 y/o female with IDDM, HTN, Alzheimer's, pancreatic head mass, and gallstones presenting to the ED after an unwitnessed fall, was optimized for discharge however aspirated requiring intubation now extubated #neuro -hx Alzheimer's, non-verbal at baseline #cardio -hemodynamically stable -hold HTN meds -continue home statin #pulm -acute hypoxic event 2/2 possible aspiration -extubated yesterday; now on nasal cannula -monitor O2 sats keep >90 #renal monitor electrolytes #GI -will start feeds today -Protonix IV 40mg #endo -IDDM -BGMs -SSI -will need to decrease levemir as patients sugars have been running low #ID -hx ESBL UTI -urine cx 05/20 positive for E. coli with sensitivity for glen -possible aspiration during hypoxic event, empiric tx for PNA -meropenem day 4 -ID following DVT Ppx SCDs FEN 1/2 NS 125mL/hr no labs needed tomorrow will start glucerna feeds dispo: transfer to /s Problem List - Problems (1) Fall Code(s): W19.XXXA - UNSPECIFIED FALL, INITIAL ENCOUNTER (2) Pneumonia Code(s): J18.9 - PNEUMONIA, UNSPECIFIED ORGANISM (3) Respiratory failure Code(s): J96.90 - RESPIRATORY FAILURE, UNSP, UNSP W HYPOXIA OR HYPERCAPNIA Visit type - Emergency Visit Emergency Visit: Yes ED Registration Date: 05/20/20 Care time: The patient presented to the Emergency Department on the above date and was hospitalized for further evaluation of their emergent condition. - New Patient This patient is new to me today: Yes Date on this admission: 05/23/20 - Critical Care Critical Care patient: Yes Total Critical Care Time (in minutes): 35 Critical Care Statement: The care of this patient involved high complexity decision making to prevent further life threatening deterioration of the patient's condition and/or to evaluate & treat vital organ system(s) failure or risk of failure. ATTENDING PHYSICIAN STATEMENT I saw and evaluated the patient. I reviewed the resident's note and discussed the case with the resident. I agree with the resident's findings and plan as documented. SUBJECTIVE: OBJECTIVE: ASSESSMENT AND PLAN:
[2020-05-23] MEDS: CEFTRIAXONE 2 GM in DEXTROSE 5%-WATER 100 ML IVPB SCH (11:15)
--- NOTE | 2020-05-23 11:35 | PN ---
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, Physician - Current Medication List Current Medications: Active Medications Ascorbic Acid (Vitamin C Oral Solution -) 500 mg GT DAILY [facility] Last Admin: 05/23/20 09:44 Dose: 500 mg Documented by: Atorvastatin Calcium (Lipitor -) 10 mg GT HS [facility] Last Admin: 05/22/20 21:30 Dose: 10 mg Documented by: Chlorhexidine Gluconate (Hibiclens For Decolonization -) 1 applic TP HS [facility] Last Admin: 05/22/20 21:30 Dose: 1 applic Documented by: Sodium Chloride (1/2 Normal Saline) 1,000 mls @ 125 mls/hr IV ASDIR [facility] Last Admin: 05/22/20 22:20 Dose: 125 mls/hr Documented by: Fentanyl (Sublimaze Ivpb) 500 mcg in 100 mls @ 2 mls/hr IVPB TITR [facility]; Protocol Last Admin: 05/23/20 01:06 Dose: Not Given Documented by: Ceftriaxone Sodium 2 gm/ (Dextrose) 100 mls @ 100 mls/hr IVPB DAILY [facility]; Protocol Last Admin: 05/23/20 11:15 Dose: 100 mls/hr Documented by: Insulin Aspart (Novolog Vial Sliding Scale -) 1 vial SQ ACHS [facility]; Protocol Last Admin: 05/23/20 11:05 Dose: Not Given Documented by: Insulin Detemir (Levemir Vial) 35 units SQ DAILY [facility] Last Admin: 05/22/20 11:03 Dose: 35 unit Documented by: Multi-Ingredient Lotion (Eucerin (Small Jar) -) 1 applic TP BID [facility] Last Admin: 05/23/20 09:44 Dose: 1 applic Documented by: Mupirocin (Bactroban Ointment (For Decolonization) -) 1 applic NS BID [facility] Stop: 05/25/20 09:59 Last Admin: 05/23/20 09:44 Dose: 1 applic Documented by: Pantoprazole Sodium (Protonix Iv) 40 mg IVPUSH DAILY [facility] Last Admin: 05/23/20 09:43 Dose: 40 mg Documented by: Polyethylene Glycol (Miralax (For Daily Use) -) 17 gm GT BID [facility] Last Admin: 05/23/20 09:44 Dose: 17 gm Documented by: - Objective Vital Signs: Vital Signs Temperature 98.8 F 05/23/20 08:00 Pulse Rate 88 05/23/20 10:00 Respiratory Rate 22 H 07/19/20 10:00 Blood Pressure 150/68 05/23/20 10:00 O2 Sat by Pulse Oximetry (%) 100 05/23/20 10:00 Cardiovascular: Yes: S1, S2 Respiratory: Yes: Mechanically Ventilated Gastrointestinal: Yes: Normal Bowel Sounds, Soft. No: Tenderness Labs: CBC, BMP 05/22/20 06:38 05/22/20 06:38 INR, PTT INR 1.05 (0.83-1.09) 05/20/20 01:06 Problem List - Problems (1) Respiratory failure Assessment/Plan: VENT SUPPORT PULM CONSULT IV ABX Code(s): J96.90 - RESPIRATORY FAILURE, UNSP, UNSP W HYPOXIA OR HYPERCAPNIA (2) Pneumonia Assessment/Plan: CXR NOTED IV ABX ID AND PULM Code(s): J18.9 - PNEUMONIA, UNSPECIFIED ORGANISM (3) Sepsis Assessment/Plan: CULTURES IV ABX LACTIC ACID HIGH IVF Microbiology 05/20/20 00:53 Urine - Urine - Catheterized Urine Culture - Preliminary Lactose Fermenting Neg Bacilli 05/20/20 03:53 Urine - Urine Engel Urine Culture - Preliminary Lactose Fermenting Neg Bacilli 05/20/20 00:22 Blood - Peripheral Venous Blood Culture - Preliminary NO GROWTH OBTAINED AFTER 24 HOURS, INCUBATION TO CONTINUE FOR 4 DAYS. 05/20/20 00:22 Blood - Peripheral Venous Blood Culture - Preliminary NO GROWTH OBTAINED AFTER 24 HOURS, INCUBATION TO CONTINUE FOR 4 DAYS. Laboratory Tests 05/19/20 05/20/20 05/20/20 23:38 01:06 05:00 WBC 18.2 H 19.8 H 30.0 H Lactic Acid 05/20/20 05/21/20 05/21/20 14:00 06:41 06:41 WBC 17.7 H Lactic Acid 5.2 H* 2.7 H* Code(s): A41.9 - SEPSIS, UNSPECIFIED ORGANISM Qualifiers: Sepsis type: sepsis due to unspecified organism Qualified Code(s): A41.9 - Sepsis, unspecified organism (4) Fall Assessment/Plan: 1ST CT HEAD NAD REPEAT Code(s): W19.XXXA - UNSPECIFIED FALL, INITIAL ENCOUNTER
--- NOTE | 2020-05-23 13:15 | PN ---
Teaching Attending Note Name of Resident: Celina Murcia ATTENDING PHYSICIAN STATEMENT I saw and evaluated the patient. I reviewed the resident's note and discussed the case with the resident. I agree with the resident's findings and plan as documented. SUBJECTIVE: Patient seen and examined in the ICU. Remains extubated on NC O2. Intermittently tracks, does not follow commands. No pressors. Intake & Output 05/20/20 05/21/20 05/22/20 05/23/20 23:59 23:59 23:59 23:59 Intake Total 3781 3385 3481 1375 Output Total 3150 900 2050 1300 Balance 631 2485 1431 75 Weight 133 lb 6 oz 133 lb 135 lb 11.2 oz 137 lb 4.8 oz Last Vital Signs Temp Pulse Resp BP Pulse Ox 98.8 F 88 20 149/78 100 05/23/20 08:00 05/23/20 12:00 05/23/20 12:00 05/23/20 12:00 05/23/20 10:00 Active Medications Ascorbic Acid (Vitamin C Oral Solution -) 500 mg GT DAILY [facility] Last Admin: 05/23/20 09:44 Dose: 500 mg Documented by: Atorvastatin Calcium (Lipitor -) 10 mg GT HS [facility] Last Admin: 05/22/20 21:30 Dose: 10 mg Documented by: Chlorhexidine Gluconate (Hibiclens For Decolonization -) 1 applic TP HS [facility] Last Admin: 05/22/20 21:30 Dose: 1 applic Documented by: Sodium Chloride (1/2 Normal Saline) 1,000 mls @ 125 mls/hr IV ASDIR [facility] Last Admin: 05/22/20 22:20 Dose: 125 mls/hr Documented by: Fentanyl (Sublimaze Ivpb) 500 mcg in 100 mls @ 2 mls/hr IVPB TITR [facility]; Protocol Last Admin: 05/23/20 01:06 Dose: Not Given Documented by: Ceftriaxone Sodium 2 gm/ (Dextrose) 100 mls @ 100 mls/hr IVPB DAILY [facility]; Protocol Last Admin: 05/23/20 11:15 Dose: 100 mls/hr Documented by: Insulin Aspart (Novolog Vial Sliding Scale -) 1 vial SQ ACHS [facility]; Protocol Last Admin: 05/23/20 11:05 Dose: Not Given Documented by: Insulin Detemir (Levemir Vial) 20 units SQ 0700 [facility] Multi-Ingredient Lotion (Eucerin (Small Jar) -) 1 applic TP BID [facility] Last Admin: 05/23/20 09:44 Dose: 1 applic Documented by: Mupirocin (Bactroban Ointment (For Decolonization) -) 1 applic NS BID [facility] Stop: 05/25/20 09:59 Last Admin: 05/23/20 09:44 Dose: 1 applic Documented by: Pantoprazole Sodium (Protonix Iv) 40 mg IVPUSH DAILY [facility] Last Admin: 05/23/20 09:43 Dose: 40 mg Documented by: Polyethylene Glycol (Miralax (For Daily Use) -) 17 gm GT BID [facility] Last Admin: 05/23/20 09:44 Dose: 17 gm Documented by: GENERAL: Extubated, awake, NAD HEAD: Normocephalic atraumatic. EYES: Pupils equal, round and reactive to light, conjunctiva clear. EARS, NOSE, THROAT: Oropharynx clear without exudates. Moist mucous membranes. NECK: Supple without lymphadenopathy. LUNGS: few scattered biltateral rhonchi. No wheezes, and no crackles. HEART: Regular rate and rhythm, normal S1 and S2 without murmur, rub or gallop. ABDOMEN: Soft, nontender, mildly distended abdomen, normoactive bowel sounds. MUSCULOSKELETAL: No bony deformities. UPPER EXTREMITIES: 2+ pulses, warm, well-perfused. No peripheral edema. LOWER EXTREMITIES: 2+ pulses, warm, well-perfused. No peripheral edema. NEUROLOGICAL: not following commands SKIN: Warm, dry, normal turgor, no rashes or lesions noted. Laboratory Results - last 24 hr 05/22/20 05/22/20 05/23/20 16:41 22:12 06:48 POC Glucometer 136 91 39 05/23/20 05/23/20 05/23/20 07:48 09:00 11:03 POC Glucometer 88 122 129 ASSESSMENT/PLAN: Acute Respiratory Failure due to aspiration pneumonitis COVID19 ruled out IDDM HTN History of recurrent UTIs Alzheimer's Dementia Pancreatic head mass Gallstones Bigeminy DM Supplemental O2 to maintain saturation Strict I & O ABX VTE prophylaxis GI prophylaxis Glycemic control May need PEG Floor Dr Dunn
[2020-05-23] MEDS: INSULIN (LEVEMIR) 100 UNITS/ML UNITS SQ SCH (14:13)
[2020-05-23] MEDS: ATORVASTATIN CA 10 MG TABLET (FP) GT SCH (21:33)
[2020-05-23] MEDS: CHLORHEXIDINE GLUCONATE 4% CLEANSER FOR DECOLONIZATION TP SCH (21:33)
[2020-05-24] MEDS: INSULIN SLIDING SCALE (NOVOLOG) 1 VIAL SQ SCH ×4 (06:11→21:40)
--- NOTE | 2020-05-24 07:28 | PN ---
Physical Exam: SUBJECTIVE: Patient seen and examined Pt is a 79 y/o female with IDDM, HTN, Alzheimer's, pancreatic head mass, and gallstones presenting to the ED after an unwitnessed fall, was optimized for discharge however aspirated requiring intubation now extubated - pt pulled out NG tube overnight; replaced. will start tube feeds. awaiting cxr confirmation - glucose has been running low but better overnight and this morning OBJECTIVE: Vital Signs Period Temp Pulse Resp BP Sys/Bob Pulse Ox Last 24 Hr 98.4 F-99.8 F 87-110 10-22 126-159/64-92 96-100 GENERAL: The patient is awake, alert, tracks with eyes EYES: PEEERLA: EOMI; no scleral icterus NECK: no JVD; no lymphadenopathy LUNGS: CTA b/l no rales, rhonchi or wheezing HEART: Regular rate and rhythm, S1, S2 3/6 systolic murmur ABDOMEN: Soft, NT/ND no wincing upon palpatio +BS in all 4 quadrants EXTREMITIES: 2+ pulses, warm, well-perfused, + edema B/L arms and LE . NEUROLOGICAL: tracks PSYCH: Normal mood, normal affect. SKIN: Warm, dry, normal turgor, no rashes or lesions noted Laboratory Results - last 24 hr 05/23/20 05/23/20 05/23/20 07:48 09:00 11:03 POC Glucometer 88 122 129 05/23/20 05/23/20 05/24/20 16:30 21:30 06:01 POC Glucometer 70 147 151 Active Medications Generic Name Dose Route Start Last Admin Trade Name Sheldon PRN Reason Stop Dose Admin Ascorbic Acid 500 mg 05/20/20 10:00 05/23/20 09:44 Vitamin C Oral Solution - GT 500 mg DAILY [facility]ID Administration Atorvastatin Calcium 10 mg 05/20/20 22:00 05/23/20 21:33 Lipitor - GT 10 mg HS DAVID Administration Chlorhexidine Gluconate 1 applic 05/20/20 22:00 05/23/20 21:33 Hibiclens For Decolonization - TP 1 applic HS DAVID Administration Ceftriaxone Sodium 2 gm/ 100 mls @ 100 mls/hr 05/23/20 10:45 05/23/20 11:15 Dextrose IVPB 100 mls/hr DAILY [facility] Administration Protocol Insulin Aspart 1 vial 05/20/20 07:00 07/20/20 06:11 Novolog Vial Sliding Scale - SQ 2 units ACHS [facility] Administration Protocol Insulin Detemir 20 units 05/24/20 07:00 Levemir Vial SQ 0700 [facility] Multi-Ingredient Lotion 1 applic 05/22/20 12:00 05/23/20 21:34 Eucerin (Small Jar) - TP 1 applic BID [facility] Administration Mupirocin 1 applic 05/20/20 10:00 05/23/20 21:33 Bactroban Ointment (For Decolonization) - NS 05/25/20 09:59 1 applic BID [facility]ID Administration Pantoprazole Sodium 40 mg 05/21/20 10:00 05/23/20 09:43 Protonix Iv IVPUSH 40 mg DAILY [facility] Administration Polyethylene Glycol 17 gm 05/20/20 10:00 05/23/20 21:34 Miralax (For Daily Use) - GT 17 gm BID [facility]ID Administration ASSESSMENT/PLAN: ASSESSMENT/PLAN: Pt is a 79 y/o female with IDDM, HTN, Alzheimer's, pancreatic head mass, and gallstones presenting to the ED after an unwitnessed fall, was optimized for discharge however aspirated requiring intubation. Now extubated. #neuro -hx Alzheimer's, non-verbal at baseline #cardio -hemodynamically stable -hold HTN meds -continue home statin #pulm -acute hypoxic event 2/2 possible aspiration -extubated yesterday; now on nasal cannula -monitor O2 sats keep >90 #renal monitor electrolytes #GI -will start feeds today -Protonix IV 40mg #endo -IDDM -BGMs -SSI -will need to decrease levemir as patients sugars have been running low #ID -hx ESBL UTI -urine cx 05/20 positive for E. coli with sensitivity for glen -possible aspiration during hypoxic event, empiric tx for PNA -meropenem day 5 -ID following DVT Ppx SCDs FEN make sure 1/2 NS 125mL/hr no labs needed tomorrow will start glucerna feeds dispo: transfer to m/s ATTENDING PHYSICIAN STATEMENT I saw and evaluated the patient. I reviewed the resident's note and discussed the case with the resident. I agree with the resident's findings and plan as documented. SUBJECTIVE: OBJECTIVE: ASSESSMENT AND PLAN:
[2020-05-24] MEDS: INSULIN (LEVEMIR) 100 UNITS/ML UNITS SQ SCH (09:19)
[2020-05-24] MEDS ORDERED: PT OWN MED DRAWER 7, Y5N ONE (09:23)
[2020-05-24] MEDS ORDERED: DEXTROSE 5%-WATER 100 ML IVPB ONE (09:24)
[2020-05-24] MEDS: PANTOPRAZOLE SODIUM 40 MG VIAL IVPUSH SCH (09:31)
[2020-05-24] MEDS: ASCORBIC ACID 500 MG/5 ML UNIT DOSE CUP GT SCH (09:32)
[2020-05-24] MEDS: CEFTRIAXONE 2 GM in DEXTROSE 5%-WATER 100 ML IVPB SCH (09:32)
[2020-05-24] MEDS: POLYETHYLENE GLYCOL 3350 119 GM BTL GT SCH ×2 (09:33→21:40)
[2020-05-24] MEDS: MUPIROCIN 2% TOPICAL OINTMENT FOR DECOLONIZATION NS SCH ×2 (09:33→21:39)
--- NOTE | 2020-05-24 09:34 | PN ---
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, Physician - Current Medication List Current Medications: Active Medications Ascorbic Acid (Vitamin C Oral Solution -) 500 mg GT DAILY [facility] Last Admin: 05/23/20 09:44 Dose: 500 mg Documented by: Atorvastatin Calcium (Lipitor -) 10 mg GT HS [facility] Last Admin: 05/23/20 21:33 Dose: 10 mg Documented by: Chlorhexidine Gluconate (Hibiclens For Decolonization -) 1 applic TP HS [facility] [place] Last Admin: 05/23/20 21:33 Dose: 1 applic Documented by: Ceftriaxone Sodium 2 gm/ (Dextrose) 100 mls @ 100 mls/hr IVPB DAILY [facility]; Protocol Last Admin: 05/23/20 11:15 Dose: 100 mls/hr Documented by: Insulin Aspart (Novolog Vial Sliding Scale -) 1 vial SQ ACHS [facility]; Protocol Last Admin: 05/24/20 06:11 Dose: 2 units Documented by: Insulin Detemir (Levemir Vial) 20 units SQ 0700 [facility] Last Admin: 05/24/20 09:19 Dose: 20 units Documented by: Multi-Ingredient Lotion (Eucerin (Small Jar) -) 1 applic TP BID [facility] Last Admin: 05/23/20 21:34 Dose: 1 applic Documented by: Mupirocin (Bactroban Ointment (For Decolonization) -) 1 applic NS BID [facility] Stop: 05/25/20 09:59 Last Admin: 05/23/20 21:33 Dose: 1 applic Documented by: Pantoprazole Sodium (Protonix Iv) 40 mg IVPUSH DAILY [facility] [place] Last Admin: 05/23/20 09:43 Dose: 40 mg Documented by: Polyethylene Glycol (Miralax (For Daily Use) -) 17 gm GT BID [facility] [place] Last Admin: 05/23/20 21:34 Dose: 17 gm Documented by: - Objective Vital Signs: Vital Signs Temperature 99.2 F 05/24/20 08:00 Pulse Rate 93 H 05/24/20 08:00 Respiratory Rate 17 05/24/20 08:00 Blood Pressure 128/68 05/24/20 08:00 O2 Sat by Pulse Oximetry (%) 98 05/24/20 08:39 Cardiovascular: Yes: S1, S2 Respiratory: Yes: Diminished, On Nasal O2, Other (EXTUBATED) Gastrointestinal: Yes: Normal Bowel Sounds, Soft. No: Tenderness Labs: CBC, BMP 05/22/20 06:38 05/22/20 06:38 INR, PTT INR 1.05 (0.83-1.09) 05/20/20 01:06 Problem List - Problems (1) Respiratory failure Assessment/Plan: VENT SUPPORT--EXTUBATED PULM CONSULT IV ABX Code(s): J96.90 - RESPIRATORY FAILURE, UNSP, UNSP W HYPOXIA OR HYPERCAPNIA (2) Pneumonia Assessment/Plan: CXR NOTED IV ABX ID AND PULM Code(s): J18.9 - PNEUMONIA, UNSPECIFIED ORGANISM (3) Sepsis Assessment/Plan: CULTURES IV ABX LACTIC ACID HIGH IVF Microbiology 05/20/20 00:22 Blood - Peripheral Venous Blood Culture - Preliminary NO GROWTH OBTAINED AFTER 96 HOURS, INCUBATION TO CONTINUE FOR 1 DAYS. 05/20/20 00:22 Blood - Peripheral Venous Blood Culture - Preliminary NO GROWTH OBTAINED AFTER 96 HOURS, INCUBATION TO CONTINUE FOR 1 DAYS. 05/20/20 03:53 Urine - Urine Engel Urine Culture - Final Escherichia Coli 05/20/20 00:53 Urine - Urine - Catheterized Urine Culture - Final Escherichia Coli Code(s): A41.9 - SEPSIS, UNSPECIFIED ORGANISM Qualifiers: Sepsis type: sepsis due to unspecified organism Qualified Code(s): A41.9 - Sepsis, unspecified organism (4) Fall Assessment/Plan: 1ST CT HEAD NAD REPEAT Code(s): W19.XXXA - UNSPECIFIED FALL, INITIAL ENCOUNTER
[2020-05-24] MEDS: MINERAL OIL/PETROLAT/WATER TOPICAL CREAM 113 GM JAR TP SCH ×2 (09:35→21:39)
--- NOTE | 2020-05-24 10:49 | PN ---
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, Physician History of Present Illness: REMAINS EXTUBATED AWAKE, MAKES EYE CONTACT AFEBRILE WBC IMPROVED 12K BC (-) URINE C/S E COLI - Current Medication List Current Medications: Active Medications Ascorbic Acid (Vitamin C Oral Solution -) 500 mg GT DAILY [facility] Last Admin: 05/24/20 09:32 Dose: 500 mg Documented by: Atorvastatin Calcium (Lipitor -) 10 mg GT HS [facility] Last Admin: 05/23/20 21:33 Dose: 10 mg Documented by: Chlorhexidine Gluconate (Hibiclens For Decolonization -) 1 applic TP HS [facility] Last Admin: 05/23/20 21:33 Dose: 1 applic Documented by: Ceftriaxone Sodium 2 gm/ (Dextrose) 100 mls @ 100 mls/hr IVPB DAILY [facility]; Protocol Last Admin: 05/24/20 09:32 Dose: 100 mls/hr Documented by: Insulin Aspart (Novolog Vial Sliding Scale -) 1 vial SQ ACHS [facility]; Protocol Last Admin: 05/24/20 06:11 Dose: 2 units Documented by: Insulin Detemir (Levemir Vial) 20 units SQ 0700 [facility] Last Admin: 05/24/20 09:19 Dose: 20 units Documented by: Multi-Ingredient Lotion (Eucerin (Small Jar) -) 1 applic TP BID [facility] Last Admin: 05/24/20 09:35 Dose: 1 applic Documented by: Mupirocin (Bactroban Ointment (For Decolonization) -) 1 applic NS BID [facility] Stop: 05/25/20 09:59 Last Admin: 05/24/20 09:33 Dose: 1 applic Documented by: Pantoprazole Sodium (Protonix Iv) 40 mg IVPUSH DAILY [facility] Last Admin: 05/24/20 09:31 Dose: 40 mg Documented by: Polyethylene Glycol (Miralax (For Daily Use) -) 17 gm GT BID [facility] Last Admin: 05/24/20 09:33 Dose: 17 gm Documented by: - Objective Vital Signs: Vital Signs Temperature 99.2 F 05/24/20 08:00 Pulse Rate 96 H 05/24/20 10:00 Respiratory Rate 17 05/24/20 10:00 Blood Pressure 123/63 05/24/20 10:00 O2 Sat by Pulse Oximetry (%) 99 05/24/20 10:00 Constitutional: Yes: No Distress Eyes: Yes: Conjunctiva Clear Cardiovascular: Yes: Regular Rate and Rhythm, S1, S2 Respiratory: Yes: Diminished Gastrointestinal: Yes: Normal Bowel Sounds, Soft, Abdomen, Obese. No: Tenderness Edema: Yes Labs: CBC, BMP 05/22/20 06:38 05/22/20 06:38 INR, PTT INR 1.05 (0.83-1.09) 05/20/20 01:06 Assessment/Plan ACUTE RESPIRATORY FAILURE S/P EXTUBATION PROBABLE ASP PNEUMONIA UTI E COLI HX ESBL LACTIC ACIDOSIS RESOLVED LEUKOCYTOSIS IMPROVED CONTINUE CEFTRIAXONE
--- NOTE | 2020-05-24 11:52 | PN ---
Teaching Attending Note Name of Resident: Seth Burch ATTENDING PHYSICIAN STATEMENT I saw and evaluated the patient. I reviewed the resident's note and discussed the case with the resident. I agree with the resident's findings and plan as documented. SUBJECTIVE: Pt seen and examined in the ICU. Pt poorly responsive. No fevers recorded. On NGT feeds. OBJECTIVE: Vital Signs Period Temp Pulse Resp BP Sys/Bob Pulse Ox Last 24 Hr 98.4 F-99.8 F 88-110 10-20 123-159/63-92 96-100 Intake & Output 05/21/20 05/22/20 05/23/20 05/24/20 23:59 23:59 23:59 23:59 Intake Total 3385 3481 2885 Output Total 900 2050 3250 400 Balance 2485 1431 -365 -400 Weight 60.328 kg 61.552 kg 62.278 kg 64.047 kg Gen: poorly responsive Heart: RRR Lung: decreased breath sounds at the bases Abd: soft, nontender Ext: no edema CBC, BMP 05/22/20 06:38 05/22/20 06:38 Active Medications Ascorbic Acid (Vitamin C Oral Solution -) 500 mg GT DAILY [facility] Last Admin: 05/24/20 09:32 Dose: 500 mg Documented by: Atorvastatin Calcium (Lipitor -) 10 mg GT HS [facility] Last Admin: 05/23/20 21:33 Dose: 10 mg Documented by: Chlorhexidine Gluconate (Hibiclens For Decolonization -) 1 applic TP HS [facility] Last Admin: 05/23/20 21:33 Dose: 1 applic Documented by: Ceftriaxone Sodium 2 gm/ (Dextrose) 100 mls @ 100 mls/hr IVPB DAILY [facility]; Protocol Last Admin: 05/24/20 09:32 Dose: 100 mls/hr Documented by: Insulin Aspart (Novolog Vial Sliding Scale -) 1 vial SQ ACHS [facility]; Protocol Last Admin: 05/24/20 06:11 Dose: 2 units Documented by: Insulin Detemir (Levemir Vial) 20 units SQ 0700 [facility] Last Admin: 05/24/20 09:19 Dose: 20 units Documented by: Multi-Ingredient Lotion (Eucerin (Small Jar) -) 1 applic TP BID [facility] Last Admin: 05/24/20 09:35 Dose: 1 applic Documented by: Mupirocin (Bactroban Ointment (For Decolonization) -) 1 applic NS BID [facility] Stop: 05/25/20 09:59 Last Admin: 05/24/20 09:33 Dose: 1 applic Documented by: Pantoprazole Sodium (Protonix Iv) 40 mg IVPUSH DAILY [facility] Last Admin: 05/24/20 09:31 Dose: 40 mg Documented by: Polyethylene Glycol (Miralax (For Daily Use) -) 17 gm GT BID [facility] Last Admin: 05/24/20 09:33 Dose: 17 gm Documented by: ASSESSMENT AND PLAN: Acute Hypoxic Respiratory Failure improving Pneumonia likely Aspiration HTN DM Pancreatic Mass Dementia - continue antibiotics - O2 to keep SpO2 >90% - replete lytes - enteral feeds - aspiration precautions - may need PEG placement - DVT prophylaxis - can monitor on floor
--- NOTE | 2020-05-24 14:11 | PN ---
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 (short form) - Note 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: Transfer Note: Subjective: Patient seen and examined at bedside. Pt non-verbal at baseline. She was drowsy this morning and minimally arousable. Saturating well on NC. No acute events overnight. NG tube re-placed after pt pulled out original NG tube. Objective: Vital Signs Period Temp Pulse Resp BP Sys/Bob Pulse Ox Last 24 Hr 98.4 F-99.8 F 87-110 10-22 126-159/64-92 96-100 GENERAL: The patient is drowsy this morning and minimally arousable EYES: PERRLA; no scleral icterus; no conjunctival pallor NECK: supple; no LAD LUNGS: equal breath sounds; CTAB; no wheezing, crackles, or rhonchi HEART: Regular rate and rhythm, S1, S2; 3/6 systolic murmur ABDOMEN: Soft, NT/ND, +BS in all 4 quadrants EXTREMITIES: 2+ pulses, warm, well-perfused, mild edema b/l arms and LE NEUROLOGICAL: unable to assess as pt was drowsy and minimally arousable SKIN: Warm, dry, normal turgor, no rashes or lesions noted Assessment/Plan Hospital Course 79 yo female PMHx IDDM, HTN, Alzheimer's dementia, pancreatic head mass, and gallstones presenting to the ED after an unwitnessed fall, was optimized for discharge however aspirated requiring intubation to protect airway. CT Abdomen/Pelvis done while in the ED showed possible fecal impaction and cystitis. ID was consulted. Pt was treated with IV antibiotics for cystitis and and concern for aspiration. She was extubated successfully on 05/22. Patient has been optimized and is stable for transfer to the floors. Plan #neuro hx Alzheimer's, non-verbal at baseline #cardio hemodynamically stable -hold HTN meds -continue home statin #pulm acute hypoxic event 2/2 possible aspiration -extubated 05/22; now on nasal cannula -monitor O2 sats keep >90 #renal monitor electrolytes #GI -will re-start feeds today with new NG tube placed -Protonix IV 40mg #endo IDDM -BGMs -SSI -levemir decreased to 20 units #ID hx ESBL UTI; but no ESBL E. Coli during this admission -urine cx 05/20 positive for E. coli; started on ceftriaxone (in place of meropenem) on 05/24 -possible aspiration during hypoxic event, empiric tx for PNA -ID following DVT Ppx SCDs FEN no fluids now replete lytes prn will start glucerna feeds Dispo: transfer to med/surg
[2020-05-24 15:57] VITALS: BMI 25.0
[2020-05-24] MEDS: ATORVASTATIN CA 10 MG TABLET (FP) GT SCH (21:39)
[2020-05-24] MEDS: CHLORHEXIDINE GLUCONATE 4% CLEANSER FOR DECOLONIZATION TP SCH (21:39)
[2020-05-25] MEDS: INSULIN SLIDING SCALE (NOVOLOG) 1 VIAL SQ SCH ×4 (06:12→21:20)
[2020-05-25] MEDS: INSULIN (LEVEMIR) 100 UNITS/ML UNITS SQ SCH (06:12)
--- NOTE | 2020-05-25 09:38 | PN ---
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, Physician - Current Medication List Current Medications: Active Medications Ascorbic Acid (Vitamin C Oral Solution -) 500 mg GT DAILY [facility] Last Admin: 05/24/20 09:32 Dose: 500 mg Documented by: Atorvastatin Calcium (Lipitor -) 10 mg GT HS [facility] Last Admin: 05/24/20 21:39 Dose: 10 mg Documented by: Chlorhexidine Gluconate (Hibiclens For Decolonization -) 1 applic TP HS [facility] Last Admin: 05/24/20 21:39 Dose: 1 applic Documented by: Ceftriaxone Sodium 2 gm/ (Dextrose) 100 mls @ 100 mls/hr IVPB DAILY [facility]; Protocol Last Admin: 05/24/20 09:32 Dose: 100 mls/hr Documented by: Insulin Aspart (Novolog Vial Sliding Scale -) 1 vial SQ ACHS [facility]; Protocol Last Admin: 05/25/20 06:12 Dose: 4 units Documented by: Insulin Detemir (Levemir Vial) 20 units SQ 0700 [facility] Last Admin: 05/25/20 06:12 Dose: 20 units Documented by: Multi-Ingredient Lotion (Eucerin (Small Jar) -) 1 applic TP BID [facility] Last Admin: 05/24/20 21:39 Dose: 1 applic Documented by: Mupirocin (Bactroban Ointment (For Decolonization) -) 1 applic NS BID [facility] Stop: 05/25/20 09:59 Last Admin: 05/24/20 21:39 Dose: 1 applic Documented by: Pantoprazole Sodium (Protonix Iv) 40 mg IVPUSH DAILY [facility] Last Admin: 05/24/20 09:31 Dose: 40 mg Documented by: Polyethylene Glycol (Miralax (For Daily Use) -) 17 gm GT BID [facility] Last Admin: 05/24/20 21:40 Dose: 17 gm Documented by: - Objective Vital Signs: Vital Signs Temperature 100.0 F H 05/25/20 05:00 Pulse Rate 96 H 05/25/20 06:00 Respiratory Rate 21 H 05/25/20 06:00 Blood Pressure 131/66 05/25/20 06:00 O2 Sat by Pulse Oximetry (%) 91 L 05/25/20 06:00 Cardiovascular: Yes: S1, S2 Respiratory: Yes: Regular, CTA Bilaterally Gastrointestinal: Yes: Normal Bowel Sounds, Soft. No: Tenderness Neurological: Yes: Alert, Confusion Labs: CBC, BMP 05/22/20 06:38 05/22/20 06:38 INR, PTT INR 1.05 (0.83-1.09) 05/20/20 01:06 Problem List - Problems (1) Respiratory failure Assessment/Plan: VENT SUPPORT--EXTUBATED PULM CONSULT IV ABX Code(s): J96.90 - RESPIRATORY FAILURE, UNSP, UNSP W HYPOXIA OR HYPERCAPNIA (2) Pneumonia Assessment/Plan: CXR NOTED IV ABX ID AND PULM Code(s): J18.9 - PNEUMONIA, UNSPECIFIED ORGANISM (3) Sepsis Assessment/Plan: CULTURES IV ABX LACTIC ACID HIGH IVF Microbiology 05/20/20 00:22 Blood - Peripheral Venous Blood Culture - Preliminary NO GROWTH OBTAINED AFTER 96 HOURS, INCUBATION TO CONTINUE FOR 1 DAYS. 05/20/20 00:22 Blood - Peripheral Venous Blood Culture - Preliminary NO GROWTH OBTAINED AFTER 96 HOURS, INCUBATION TO CONTINUE FOR 1 DAYS. 05/20/20 03:53 Urine - Urine Engel Urine Culture - Final Escherichia Coli 05/20/20 00:53 Urine - Urine - Catheterized Urine Culture - Final Escherichia Coli Code(s): A41.9 - SEPSIS, UNSPECIFIED ORGANISM Qualifiers: Sepsis type: sepsis due to unspecified organism Qualified Code(s): A41.9 - Sepsis, unspecified organism (4) Fall Assessment/Plan: 1ST CT HEAD NAD REPEAT Code(s): W19.XXXA - UNSPECIFIED FALL, INITIAL ENCOUNTER (5) Nutritional problems Assessment/Plan: ON NGT SWALLOW EVAL Code(s): E63.8 - OTHER SPECIFIED NUTRITIONAL DEFICIENCIES
[2020-05-25] MEDS ORDERED: PT OWN MED DRAWER 7, Y5N ONE (10:20)
[2020-05-25] MEDS ORDERED: DEXTROSE 5%-WATER 100 ML IVPB ONE (10:21)
[2020-05-25] MEDS: POLYETHYLENE GLYCOL 3350 119 GM BTL GT SCH ×2 (10:24→22:22)
[2020-05-25] MEDS: CEFTRIAXONE 2 GM in DEXTROSE 5%-WATER 100 ML IVPB SCH (10:24)
[2020-05-25] MEDS: MINERAL OIL/PETROLAT/WATER TOPICAL CREAM 113 GM JAR TP SCH ×2 (10:24→21:46)
[2020-05-25] MEDS: ASCORBIC ACID 500 MG/5 ML UNIT DOSE CUP GT SCH (10:24)
[2020-05-25] MEDS: PANTOPRAZOLE SODIUM 40 MG VIAL IVPUSH SCH (10:24)
--- NOTE | 2020-05-25 10:50 | CONSULT ---
Admitting History and Physical - Primary Care Physician PCP: Duane Latif MD - Admission History of Present Illness: Per EMR notes- 79 yo F with PMHx IDDM, HTN, possible recurrent UTIs, Alzheimer's Dementia, pancreatic head mass, and gallstones being admitted to the ICU s/p intubation for airway protection after an acute hypoxic event 2/2 possible aspiration and refractory to supplemental O2. Pt was waiting for transportation back to [facility] when she developed n/v - bilious and diaphoresis. Pt most likely aspirated, about 100cc of bilious vomitus was suctioned from the patients posterior pharynx Pt was sedated and intubated 05/19. Now extubated a couple of days ago. NGT in place. hx Alzheimer's, non-verbal at baseline Known to me from 2016 and 2018. Non verbal. Tolerated puree/nectar in 2018. 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 Cardiovascular: Yes: HTN, Hyperlipdemia, Other (PSVT) ...: No Endocrine: Yes: Diabetes Mellitus - Smoking History Smoking history: Never smoked Have you smoked in the past 12 months: No Aproximately how many cigarettes per day: 0 - Alcohol/Substance Use Hx Alcohol Use: No - Social History ADL: Support Services Occupation: unknown History of Recent Travel: No History - Admission Reason For Visit: URINARY TRACT INFECTION, SEPSIS, FECAL IMPACTION - Diagnostics X-ray: Report Reviewed - General Mental Status: Awake and Alert, Confused, Flat Affect Attention: Moderate Impairment Ability to Follow Directions: Poor (but seems to understand, pursing and swallowing when asked if she was hungry) Head/Neck Control: Needs Assist - Hearing Hearing: Functional Hearing Aide: No With Patient: No Speech Evaluation - Communication Primary Language: DOMINICAN Communication: Yes: Non-Communicable Oral Expression Ability: Yes: Non-Verbal, Non-Vocal - Speech Characteristics Articulation: Yes: Precise - Language/Auditory Comprehension Observation: Able to respond to yes/no queries: No, Comprehends Conversational Speech: Yes (simple, suspected) - Language/Verbal Expression Functional Communication Status: Yes: Severely Impaired - Swallow Evaluation/Bedside Assessment Current Nutritional Intake: NPO, NG Tube Oral Secretions: Yes: WFL Facial Symmetry at Rest: Symmetrical Laryngeal Movement: Able to Palpate, Labored,delay initiation Rate of Intake: WFL Bolus Size: WFL Labial Seal: WFL Oral Prep Time: WFL A-P Transit: WFL Pocketing: None Timing of Swallow: Delayed Coughing/Throat Clear: Yes (delayed with puree trial, however, nursing reports this occurs without po ) Recommendations - Speech Evaluation, Impression/Plan Impression: Nonverbal, baseline. Readily accepted puree trial, slight grimace with swallow. Delayed swallow but fairly brisk once triggered. Pursed lips to receive more - Disposition Discharge to: [facility] Facility - Dysphagia Impressions/Plan Dysphagia Impressions: Mild Impairment, Ongoing Evaluation *Silent aspiration: cannot be R/O at bedside Dysphagia Treatment Plan: Small Bites, Chin Tuck/Down, Facilitative Feeding, Safe Rate, 1/2 tsp. at a time, Elevate HOB during feed Recommendations: Modified Barium Swallow (if cough, congestion fever with po trials), Other (consider d/c ngt for po trials) - Recommendations Diet Consistency: Dysphagia Pureed Medication Administration: Crushed with applesauce Liquids: [place] Thick (on tsp) Supplement: Magic Cup, Ensure Pudding
--- NOTE | 2020-05-25 11:03 | PN ---
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 (short form) - Note 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: PULMONARY Pt seen and examined in the ICU. More arousable today. Low grade temp overnight. Vital Signs Period Temp Pulse Resp BP Sys/Bob Pulse Ox Last 24 Hr 98.4 F-100.0 F 83-96 13-21 110-135/52-101 91-99 Intake & Output 05/22/20 05/23/20 05/24/20 05/25/20 23:59 23:59 23:59 23:59 Intake Total 3481 2885 100 Output Total 2050 3250 1650 300 Balance 1431 -365 -1550 -300 Weight 61.552 kg 62.278 kg 64.047 kg 63.231 kg Gen: more alert Heart: RRR Lung: decreased breath sounds at the bases Abd: soft, nontender Ext: no edema CBC, BMP 05/22/20 06:38 05/22/20 06:38 Active Medications Ascorbic Acid (Vitamin C Oral Solution -) 500 mg GT DAILY [facility] Last Admin: 05/25/20 10:24 Dose: 500 mg Documented by: Atorvastatin Calcium (Lipitor -) 10 mg GT HS [facility] Last Admin: 05/24/20 21:39 Dose: 10 mg Documented by: Chlorhexidine Gluconate (Hibiclens For Decolonization -) 1 applic TP HS [facility] Last Admin: 05/24/20 21:39 Dose: 1 applic Documented by: Ceftriaxone Sodium 2 gm/ (Dextrose) 100 mls @ 100 mls/hr IVPB DAILY [facility]; Protocol Last Admin: 05/25/20 10:24 Dose: 100 mls/hr Documented by: Insulin Aspart (Novolog Vial Sliding Scale -) 1 vial SQ ACHS [facility]; Protocol Last Admin: 05/25/20 06:12 Dose: 4 units Documented by: Insulin Detemir (Levemir Vial) 20 units SQ 0700 [facility] Last Admin: 05/25/20 06:12 Dose: 20 units Documented by: Multi-Ingredient Lotion (Eucerin (Small Jar) -) 1 applic TP BID [facility] Last Admin: 05/25/20 10:24 Dose: 1 applic Documented by: Pantoprazole Sodium (Protonix Iv) 40 mg IVPUSH DAILY [facility] Last Admin: 05/25/20 10:24 Dose: 40 mg Documented by: Polyethylene Glycol (Miralax (For Daily Use) -) 17 gm GT BID [facility] Last Admin: 05/25/20 10:24 Dose: 17 gm Documented by: A/P Acute Hypoxic Respiratory Failure improving Pneumonia likely Aspiration UTI HTN DM Pancreatic Mass Dementia - continue antibiotics - O2 to keep SpO2 >90% - replete lytes - enteral feeds - aspiration precautions - may need PEG placement - DVT prophylaxis - can monitor on floor
[2020-05-25 12:09] LABS: ALBUMIN 2.4 g/dl (3.4-5.0); BILIRUBIN,TOTAL 0.2 mg/dL (0.2-1); BLOOD UREA NITROGEN 18.1 mg/dL (7-18); CALCIUM 8.7 mg/dL (8.5-10.1); CREATININE 0.8 mg/dL (0.55-1.3); MAGNESIUM 2.1 mg/dL (1.8-2.4); POTASSIUM 3.6 mmol/L (3.5-5.1); TOT PROT 6.1 g/dl (6.4-8.2)
--- NOTE | 2020-05-25 13:30 | CONSULT ---
Consult Consult Specialty:: PM&R Dr Zuniga for Dr Hdz - History of Present Illness History of Present Illness: This is a 79 year old woman with a medical history of Alzheimer's dementia, nonverbal, HTN, PNA, gallstones, pancreatic head mass, SHERLYN, UTI, IDDM, who was admitted to the hospital following a fall ( was assisting her in transfers). Pelvic XR 05/19/2020 showed fecal retention/ impaction, without fractures. CT head 05/19/2020 shows mild to moderate multilevel DDD/ DJD without acute pathology; CT head shows no acute pathology with moderate to marked periventricular and subcortical chronic microvascular ichemic changes. She started vomiting coffee- ground fluid; NGT was placed and she was admitted to airway protection. She wsa diagnosed with sepsis 2/2 PNA for which Pulm was consulted; UCx grew E coli. She was successfully extubated. She has not been seen by therapy. Physiatry was consulted for further recommendations. 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 Cardio/Vascular: Yes: HTN, Hyperlipdemia, Other (PSVT) ...: No Endocrine: Yes: Diabetes Mellitus - Alcohol/Substance Use Hx Alcohol Use: No - Smoking History Smoking history: Never smoked Have you smoked in the past 12 months: No Aproximately how many cigarettes per day: 0 - Social History Usual Living Arrangement: [facility] ADL: Support Services Occupation: unknown History of Recent Travel: No Home Medications - Allergies Allergies/Adverse Reactions: Allergies Allergy/AdvReac Type Severity Reaction Status Date / Time No Known Allergies Allergy Verified 05/19/20 18:13 - Home Medications Home Medications: Ambulatory Orders Heparin - 5,000 unit SCJ BID 11/27/17 Insulin (LOG) Aspart [NovoLOG -] See Protocol SQ ACHS 11/27/17 Insulin (Levemir) [Levemir Vial] 35 unit SCJ AM 11/27/17 Multivit with Minerals No.55 [Centrum Flavor Burst Adult] 1 tab PO DAILY 11/27/17 Polyethylene Glycol 3350 [Miralax 119 gm Btl -] 17 gm PO BID bottle 12/05/17 Sennosides [Senna -] 2 tab PO HS PRN tablet 12/05/17 Atorvastatin Ca [Lipitor] 1 tablet PO DAILY 05/20/20 Bethanechol Chloride [Urecholine] 50 mg PO TID 05/20/20 Cholecalciferol (Vitamin D3) [Vitamin D3 -] 1,000 unit PO DAILY 05/20/20 Vit A/Vitamin D3/E/Aloe V/Zinc [Periguard Ointment] 100 gm TP BID 05/20/20 Zinc Oxide 20% Topical Oint 1 applic TP PRN PRN 05/20/20 Review of Systems Findings/Remarks: unable to obtain ROS- pt nonverbal at baseline Physical Exam Vital Signs: Vital Signs Temperature 98.4 F 05/25/20 10:00 Pulse Rate 84 05/25/20 12:00 Respiratory Rate 05/25/20 12:00 Blood Pressure 124/72 05/25/20 12:00 O2 Sat by Pulse Oximetry (%) 98 05/25/20 12:00 Musculoskeletal: Yes: Other (General: calm elderly F sitting in bed NAD, awake, not following directions or looking at this examiner; does not participate in BUE/ BLE MMT, no volutional movement noted 0/5 BUE/ BLE, passively R shoulder flexion to 75 degrees, L shoulder flexion to 45 degrees, B knee ROM 15-45 degrees and B HF to 60 degrees without grimacing; no BLE pitting edema or B calf tenderness) Labs: CBC, BMP 05/22/20 06:38 05/25/20 10:20 Imaging - Results X-ray: Report Reviewed (as per HPI) Cat Scan: Report Reviewed (as per HPI) Assessment/Plan Impression: 1) Deficits mobility/ ADLs 2) Gait abnormality 3) Nonverbal with hx Alzheimer's dementia 4) Sepsis 2/2 UTI/ PNA 5) Resp failure now extubated 6) UGIB, resolved 7) HTN 8) hx gallstones 9) hx pancreatic head mass 10) IDDM 11) BMI WNL 12) Up to date pneumovax, no documented flu shot Recommendations: 1) PT for PROM, strengthening and functional mobility 2) Falls, safety precautions 3) Cardiopulmonary precautions 4) DVT ppx: off AC 2/2 UGIB, +SCDs 5) Skin protection: float heels, q2 hour turning 6) Bowel regimen prn 7) Diabetic precautions 8) Continue plan as per primary team 9) Discharge planning: to return to [facility]/ SNF Thank you for this referral.
--- NOTE | 2020-05-25 13:43 | PN ---
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, Physician History of Present Illness: REMAINS EXTUBATED AWAKE, APPEARS ALERT NOT CONVERSANT AFEBRILE BC (-) URINE C/S E COLI - Current Medication List Current Medications: Active Medications Ascorbic Acid (Vitamin C Oral Solution -) 500 mg GT DAILY [facility] Last Admin: 05/25/20 10:24 Dose: 500 mg Documented by: Atorvastatin Calcium (Lipitor -) 10 mg GT HS [facility] Last Admin: 05/24/20 21:39 Dose: 10 mg Documented by: Chlorhexidine Gluconate (Hibiclens For Decolonization -) 1 applic TP HS [facility] Last Admin: 05/24/20 21:39 Dose: 1 applic Documented by: Ceftriaxone Sodium 2 gm/ (Dextrose) 100 mls @ 100 mls/hr IVPB DAILY [facility]; Protocol Last Admin: 05/25/20 10:24 Dose: 100 mls/hr Documented by: Insulin Aspart (Novolog Vial Sliding Scale -) 1 vial SQ ACHS [facility]; Protocol Last Admin: 05/25/20 11:58 Dose: 2 units Documented by: Insulin Detemir (Levemir Vial) 20 units SQ 0700 [facility] Last Admin: 05/25/20 06:12 Dose: 20 units Documented by: Multi-Ingredient Lotion (Eucerin (Small Jar) -) 1 applic TP BID [facility] Last Admin: 05/25/20 10:24 Dose: 1 applic Documented by: Pantoprazole Sodium (Protonix Iv) 40 mg IVPUSH DAILY [facility] Last Admin: 05/25/20 10:24 Dose: 40 mg Documented by: Polyethylene Glycol (Miralax (For Daily Use) -) 17 gm GT BID [facility] Last Admin: 05/25/20 10:24 Dose: 17 gm Documented by: - Objective Vital Signs: Vital Signs Temperature 98.4 F 05/25/20 10:00 Pulse Rate 84 05/25/20 12:00 Respiratory Rate 20 05/25/20 12:00 Blood Pressure 124/72 05/25/20 12:00 O2 Sat by Pulse Oximetry (%) 98 05/25/20 12:00 Constitutional: Yes: No Distress Eyes: Yes: Conjunctiva Clear Cardiovascular: Yes: Regular Rate and Rhythm, S1, S2 Respiratory: Yes: CTA Bilaterally Gastrointestinal: Yes: Normal Bowel Sounds, Soft. No: Tenderness Labs: CBC, BMP 05/22/20 06:38 05/25/20 10:20 INR, PTT INR 1.05 (0.83-1.09) 05/20/20 01:06 Assessment/Plan ACUTE RESPIRATORY FAILURE S/P EXTUBATION PROBABLE ASP PNEUMONIA UTI E COLI HX ESBL LACTIC ACIDOSIS RESOLVED LEUKOCYTOSIS IMPROVED CONTINUE CEFTRIAXONE
[2020-05-25] MEDS ORDERED: CHLORHEXIDINE GLUCONATE 4% CLEANSER FOR DECOLONIZATION TP SCH (22:00)
[2020-05-25] MEDS ORDERED: ATORVASTATIN CA 10 MG TABLET (FP) GT SCH (22:00)
[2020-05-26] MEDS: INSULIN SLIDING SCALE (NOVOLOG) 1 VIAL SQ SCH ×4 (06:05→21:41)
[2020-05-26] MEDS: INSULIN (LEVEMIR) 100 UNITS/ML UNITS SQ SCH ×2 (06:05→06:15)
[2020-05-26 08:37] LABS: BASO % 0.5 % (0-2.0); EOS % 0.5 % (0-4.5); HEMATOCRIT 39.7 % (32.4-45.2); HEMOGLOBIN 12.9 GM/dL (10.7-15.3); LYMPH % 13.3 % (8-40); MCH 29.4 pg (25.7-33.7); MCHC 32.6 g/dl (32.0-36.0); MEAN CELL VOLUME 90.2 fl (80-96); MONO % 8.7 % (3.8-10.2); PLATELET COUNT 305 K/MM3 (134-434); RBC 4.41 M/mm3 (3.60-5.2); RDW 13.8 % (11.6-15.6); WHITE BLOOD COUNT 9.7 K/mm3 (4.0-10.0)
[2020-05-26 09:07] LABS: ALBUMIN 2.5 g/dl (3.4-5.0); BILIRUBIN,TOTAL 0.4 mg/dL (0.2-1); BLOOD UREA NITROGEN 16.7 mg/dL (7-18); CREATININE 0.8 mg/dL (0.55-1.3); POTASSIUM 3.9 mmol/L (3.5-5.1); TOT PROT 6.7 g/dl (6.4-8.2)
--- NOTE | 2020-05-26 09:20 | PN ---
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, Physician - Current Medication List Current Medications: Active Medications Ascorbic Acid (Vitamin C Oral Solution -) 500 mg GT DAILY [facility] Atorvastatin Calcium (Lipitor -) 10 mg PO HS [facility] Ceftriaxone Sodium 2 gm/ (Dextrose) 100 mls @ 100 mls/hr IVPB DAILY [facility]; Protocol Last Admin: 05/25/20 10:24 Dose: 100 mls/hr Documented by: Insulin Aspart (Novolog Vial Sliding Scale -) 1 vial SQ ACHS [facility]; Protocol Last Admin: 05/26/20 06:05 Dose: Not Given Documented by: Insulin Detemir (Levemir Vial) 20 units SQ 0700 [facility] Last Admin: 05/26/20 06:15 Dose: 20 units Documented by: Multi-Ingredient Lotion (Eucerin (Small Jar) -) 1 applic TP BID [facility] Last Admin: 05/25/20 21:46 Dose: 1 applic Documented by: Pantoprazole Sodium (Protonix Iv) 40 mg IVPUSH DAILY [facility] Polyethylene Glycol (Miralax (For Daily Use) -) 17 gm GT BID [facility] Last Admin: 05/25/20 22:22 Dose: Not Given Documented by: - Objective Vital Signs: Vital Signs Temperature 97.5 F L 05/26/20 05:00 Pulse Rate 68 05/26/20 05:00 Respiratory Rate 18 05/25/20 20:48 Blood Pressure 132/63 05/26/20 05:00 O2 Sat by Pulse Oximetry (%) 98 05/25/20 20:48 Cardiovascular: Yes: Regular Rate and Rhythm Respiratory: Yes: Regular, CTA Bilaterally Gastrointestinal: Yes: Normal Bowel Sounds, Soft Labs: CBC, BMP 05/26/20 08:10 05/26/20 08:10 INR, PTT INR 1.05 (0.83-1.09) 05/20/20 01:06 Problem List - Problems (1) Respiratory failure Assessment/Plan: VENT SUPPORT--EXTUBATED PULM CONSULT IV ABX Code(s): J96.90 - RESPIRATORY FAILURE, UNSP, UNSP W HYPOXIA OR HYPERCAPNIA (2) Pneumonia Assessment/Plan: CXR NOTED IV ABX ID AND PULM Code(s): J18.9 - PNEUMONIA, UNSPECIFIED ORGANISM (3) Sepsis Assessment/Plan: CULTURES IV ABX LACTIC ACID HIGH IVF Microbiology 05/20/20 00:22 Blood - Peripheral Venous Blood Culture - Preliminary NO GROWTH OBTAINED AFTER 96 HOURS, INCUBATION TO CONTINUE FOR 1 DAYS. 05/20/20 00:22 Blood - Peripheral Venous Blood Culture - Preliminary NO GROWTH OBTAINED AFTER 96 HOURS, INCUBATION TO CONTINUE FOR 1 DAYS. 05/20/20 03:53 Urine - Urine Engel Urine Culture - Final Escherichia Coli 05/20/20 00:53 Urine - Urine - Catheterized Urine Culture - Final Escherichia Coli Code(s): A41.9 - SEPSIS, UNSPECIFIED ORGANISM Qualifiers: Sepsis type: sepsis due to unspecified organism Qualified Code(s): A41.9 - Sepsis, unspecified organism (4) Fall Assessment/Plan: 1ST CT HEAD NAD REPEAT Code(s): W19.XXXA - UNSPECIFIED FALL, INITIAL ENCOUNTER (5) Nutritional problems Assessment/Plan: SWALLOW EVAL NOTED TRIAL OF DYSPHAGIA DIET Code(s): E63.8 - OTHER SPECIFIED NUTRITIONAL DEFICIENCIES
[2020-05-26] MEDS ORDERED: DEXTROSE 5%-WATER 100 ML IVPB ONE (09:25)
[2020-05-26] MEDS: CEFTRIAXONE 2 GM in DEXTROSE 5%-WATER 100 ML IVPB SCH (09:30)
[2020-05-26] MEDS: PANTOPRAZOLE SODIUM 40 MG VIAL IVPUSH SCH (09:30)
[2020-05-26] MEDS: POLYETHYLENE GLYCOL 3350 119 GM BTL GT SCH ×2 (09:30→21:39)
[2020-05-26] MEDS: ASCORBIC ACID 500 MG/5 ML UNIT DOSE CUP GT SCH (09:30)
[2020-05-26] MEDS: MINERAL OIL/PETROLAT/WATER TOPICAL CREAM 113 GM JAR TP SCH ×2 (09:31→21:39)
--- NOTE | 2020-05-26 10:16 | PN ---
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, Physician History of Present Illness: pulmonary lethargic,on nasal o2,-resp distress - Current Medication List Current Medications: Active Medications Ascorbic Acid (Vitamin C Oral Solution -) [address] [facility] Last Admin: 05/26/20 09:30 Dose: 500 mg Documented by: Atorvastatin Calcium (Lipitor -) 10 mg PO HS [facility] Ceftriaxone Sodium 2 gm/ (Dextrose) 100 mls @ 100 mls/hr IVPB DAILY [facility]; Protocol Last Admin: 05/26/20 09:30 Dose: 100 mls/hr Documented by: Insulin Aspart (Novolog Vial Sliding Scale -) [address] [facility]; Protocol Last Admin: 05/26/20 06:05 Dose: Not Given Documented by: Insulin Detemir (Levemir Vial) [address] [facility] Last Admin: 05/26/20 06:15 Dose: 20 units Documented by: Multi-Ingredient Lotion (Eucerin (Small Jar) -) [address] [facility] Last Admin: 05/26/20 09:31 Dose: 1 applic Documented by: Pantoprazole Sodium (Protonix Iv) [address] [facility] Last Admin: 05/26/20 09:30 Dose: 40 mg Documented by: Polyethylene Glycol (Miralax (For Daily Use) -) [address] [facility] Last Admin: 05/26/20 09:30 Dose: 17 gm Documented by: - Objective Vital Signs: Vital Signs Temperature 97.6 F 05/26/20 10:00 Pulse Rate 77 05/26/20 10:00 Respiratory Rate 20 05/26/20 10:00 Blood Pressure 140/76 05/26/20 10:00 O2 Sat by Pulse Oximetry (%) 100 05/26/20 10:00 Constitutional: Yes: Well Nourished, Other (lethargic) Eyes: Yes: WNL HENT: Yes: WNL Neck: Yes: WNL Cardiovascular: Yes: Regular Rate and Rhythm, S1, S2 Respiratory: Yes: Diminished Gastrointestinal: Yes: Normal Bowel Sounds, Soft Extremities: Yes: WNL Edema: No Labs: CBC, BMP 05/26/20 08:10 05/26/20 08:10 INR, PTT INR 1.05 (0.83-1.09) 05/20/20 01:06 Problem List - Problems (1) Acute hypoxemic respiratory failure Code(s): J96.01 - ACUTE RESPIRATORY FAILURE WITH HYPOXIA (2) Pneumonia Code(s): J18.9 - PNEUMONIA, UNSPECIFIED ORGANISM (3) Diabetes Code(s): E11.9 - TYPE 2 DIABETES MELLITUS WITHOUT COMPLICATIONS (4) HTN (hypertension) Code(s): I10 - ESSENTIAL (PRIMARY) HYPERTENSION Assessment/Plan A/P Acute Hypoxic Respiratory Failure improving Pneumonia likely Aspiration UTI HTN DM Pancreatic Mass Dementia - continue antibiotics - O2 to keep SpO2 >90% - monitor lytes - enteral feeds - aspiration precautions - DVT prophylaxis DR MARCANO
--- NOTE | 2020-05-26 10:47 | PN ---
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, MANAGER REVIEW - Note 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: Selected Entries 05/25/20 05/25/20 05/25/20 00:00 01:00 02:00 Breakfast Diet Tolerated Temperature 99.4 F Pulse Rate 86 93 H 90 Blood Pressure 110/52 L 124/61 127/60 O2 Sat by Pulse 95 95 96 Oximetry (%) Oxygen Delivery Method 05/25/20 05/25/20 05/25/20 03:00 04:00 05:00 Breakfast Diet Tolerated Temperature 100.0 F H Pulse Rate 91 H 92 H 90 Blood Pressure 135/101 H 131/65 135/57 L O2 Sat by Pulse 92 L 96 97 Oximetry (%) Oxygen Delivery Method 05/25/20 05/25/20 05/25/20 06:00 09:00 10:00 Breakfast Diet Tolerated Temperature 98.4 F Pulse Rate 96 H 83 Blood Pressure 131/66 126/54 L O2 Sat by Pulse 91 L 98 98 Oximetry (%) Oxygen Delivery Room Air Method 05/25/20 05/25/20 05/25/20 12:00 14:00 16:00 Breakfast Diet Tolerated Temperature Pulse Rate Blood Pressure O2 Sat by Pulse 98 99 98 Oximetry (%) Oxygen Delivery Method 05/25/20 05/25/20 05/26/20 19:47 20:48 05:00 Breakfast Diet Tolerated Well Temperature 97.5 F L Pulse Rate Blood Pressure 132/63 O2 Sat by Pulse 98 Oximetry (%) Oxygen Delivery Room Air Method 05/26/20 05/26/20 09:25 10:00 Breakfast 75% Diet Tolerated Well Temperature 97.6 F Pulse Rate Blood Pressure 140/76 O2 Sat by Pulse 100 Oximetry (%) Oxygen Delivery Method Laboratory Tests 05/26/20 08:10 WBC 9.7 NGT D/C'D On puree/nectar with good acceptance/tolerance. mEDS CRUSHED/GIVEN IN APPLESAUCE Suggest cancel MBS. Doing well
[2020-05-26] MEDS ORDERED: INSULIN (NOVOLOG) ASPART 100 UNITS/ML 10ML VIAL ONE (11:47)
[2020-05-26] MEDS: ATORVASTATIN CA 10 MG TABLET (FP) PO SCH (21:39)
[2020-05-27] MEDS: INSULIN (LEVEMIR) 100 UNITS/ML UNITS SQ SCH (06:41)
[2020-05-27] MEDS: INSULIN SLIDING SCALE (NOVOLOG) 1 VIAL SQ SCH ×4 (06:41→22:11)
--- NOTE | 2020-05-27 08:26 | DS ---
Physical Examination Vital Signs: Vital Signs Temperature 98.2 F 05/27/20 05:13 Pulse Rate 75 05/27/20 05:13 Respiratory Rate 20 05/27/20 05:13 Blood Pressure 100/64 05/27/20 05:13 O2 Sat by Pulse Oximetry (%) 96 05/27/20 05:13 Cardiovascular: Yes: Regular Rate and Rhythm Respiratory: Yes: Regular, CTA Bilaterally Gastrointestinal: Yes: Normal Bowel Sounds, Soft Labs: CBC, BMP 05/26/20 08:10 05/26/20 08:10 Discharge Summary Problems reviewed: Yes Reason For Visit: URINARY TRACT INFECTION, SEPSIS, FECAL IMPACTION Current Active Problems Acute hypoxemic respiratory failure (Acute) Fall (Acute) Impacted stool in rectum (Acute) Nutritional problems (Acute) Pneumonia (Acute) Respiratory failure (Acute) Hospital Course: - Problems (1) Respiratory failure Assessment/Plan: VENT SUPPORT--EXTUBATED PULM CONSULT IV ABX --To po if ok with ID Code(s): J96.90 - RESPIRATORY FAILURE, UNSP, UNSP W HYPOXIA OR HYPERCAPNIA (2) Pneumonia Assessment/Plan: CXR NOTED IV ABX--TO po if ok with ID ID AND PULM Code(s): J18.9 - PNEUMONIA, UNSPECIFIED ORGANISM (3) Sepsis Assessment/Plan: CULTURES-- IV ABX--UTI LACTIC ACID HIGH IVF Microbiology 05/20/20 00:22 Blood - Peripheral Venous Blood Culture - Preliminary NO GROWTH OBTAINED AFTER 96 HOURS, INCUBATION TO CONTINUE FOR 1 DAYS. 05/20/20 00:22 Blood - Peripheral Venous Blood Culture - Preliminary NO GROWTH OBTAINED AFTER 96 HOURS, INCUBATION TO CONTINUE FOR 1 DAYS. 05/20/20 03:53 Urine - Urine Engel Urine Culture - Final Escherichia Coli 05/20/20 00:53 Urine - Urine - Catheterized Urine Culture - Final Escherichia Coli Code(s): A41.9 - SEPSIS, UNSPECIFIED ORGANISM Qualifiers: Sepsis type: sepsis due to unspecified organism Qualified Code(s): A41.9 - Sepsis, unspecified organism (4) Fall Assessment/Plan: 1ST CT HEAD NAD REPEAT Code(s): W19.XXXA - UNSPECIFIED FALL, INITIAL ENCOUNTER (5) Nutritional problems Assessment/Plan: SWALLOW EVAL NOTED TRIAL OF DYSPHAGIA DIET--Tolerating Code(s): E63.8 - OTHER SPECIFIED NUTRITIONAL DEFICIENCIES Condition: Stable - Instructions Referrals: Annabi,Iyad, MD [Primary Care Provider] - - Home Medications Comprehensive Discharge Medication List: Ambulatory Orders Heparin - 5,000 unit SCJ BID 11/27/17 Insulin (LOG) Aspart [NovoLOG -] See Protocol SQ ACHS 11/27/17 Insulin (Levemir) [Levemir Vial] 35 unit SCJ AM 11/27/17 Multivit with Minerals No.55 [Centrum Flavor Burst Adult] 1 tab PO DAILY 11/27/17 Polyethylene Glycol 3350 [Miralax 119 gm Btl -] 17 gm PO BID bottle 12/05/17 Sennosides [Senna -] 2 tab PO HS PRN tablet 12/05/17 Atorvastatin Ca [Lipitor] 1 tablet PO DAILY 05/20/20 Bethanechol Chloride [Urecholine] 50 mg PO TID 05/20/20 Cholecalciferol (Vitamin D3) [Vitamin D3 -] 1,000 unit PO DAILY 05/20/20 Zinc Oxide 20% Topical Oint 1 applic TP PRN PRN 05/20/20 Cefuroxime Axetil [Ceftin -] 500 mg PO Q12H #10 tablet 05/27/20 Insulin Sliding Scale [Novolog Vial Sliding Scale -] 1 vial SQ ACHS units 05/27/20 Mineral Oil/Petrolat,Wht/Water [Eucerin (Small Jar) -] 1 applic TP BID jar 05/27/20 Pantoprazole Sodium [Protonix -] 40 mg PO DAILY #30 tablet.ec 05/27/20
[2020-05-27] MEDS ORDERED: INSULIN (LEVEMIR) 100 UNITS/ML UNITS SQ ONE ×2 (09:45→12:00)
[2020-05-27] MEDS ORDERED: DEXTROSE 5%-WATER 100 ML IVPB ONE (09:46)
[2020-05-27] MEDS: PANTOPRAZOLE SODIUM 40 MG VIAL IVPUSH SCH (10:13)
[2020-05-27] MEDS: POLYETHYLENE GLYCOL 3350 119 GM BTL GT SCH ×2 (10:14→22:13)
[2020-05-27] MEDS: CEFTRIAXONE 2 GM in DEXTROSE 5%-WATER 100 ML IVPB SCH (10:21)
[2020-05-27] MEDS: MINERAL OIL/PETROLAT/WATER TOPICAL CREAM 113 GM JAR TP SCH ×2 (10:24→22:05)
--- NOTE | 2020-05-27 10:42 | PN ---
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: Selected Entries 05/26/20 05/26/20 05/26/20 05:00 09:00 09:25 Breakfast 75% Diet Tolerated Well Lunch Supper Temperature 97.5 F L Blood Pressure 132/63 O2 Sat by Pulse 100 Oximetry (%) Oxygen Delivery Room Air Method 05/26/20 05/26/20 05/26/20 10:00 13:46 17:00 Breakfast Diet Tolerated Well Well Lunch 75% Supper Temperature 97.6 F 99.4 F 99.3 F Blood Pressure 140/76 115/67 126/65 O2 Sat by Pulse 100 Oximetry (%) Oxygen Delivery Method 05/26/20 05/26/20 05/27/20 18:55 21:00 05:13 Breakfast Diet Tolerated Well Lunch Supper 75% Temperature 99.3 F 98.2 F Blood Pressure 127/69 100/64 O2 Sat by Pulse 97 Oximetry (%) Oxygen Delivery Room Air Method Laboratory Tests 05/26/20 08:10 WBC 9.7 On puree/nectar with good acceptance/tolerance. mEDS CRUSHED/GIVEN IN APPLESAUCE MBS not indicated. Doing well Continue diet at ID.
[2020-05-27] MEDS: ASCORBIC ACID 500 MG/5 ML UNIT DOSE CUP GT SCH (12:27)
--- NOTE | 2020-05-27 13:46 | PN ---
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 (short form) - Note 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: NAD on RA. No acute events overnight. Intake & Output 05/24/20 05/25/20 05/26/20 05/27/20 23:59 23:59 23:59 23:59 Intake Total 100 390 100 Output Total 1650 500 Balance -1550 -110 100 Weight 141 lb 3.2 oz 139 lb 6.4 oz 129 lb 11.2 oz 131 lb Last Vital Signs Temp Pulse Resp BP Pulse Ox 98 F 76 20 132/57 L 98 05/27/20 09:00 05/27/20 09:00 05/27/20 09:00 05/27/20 09:00 05/27/20 09:00 Active Medications Ascorbic Acid (Vitamin C Oral Solution -) 500 mg GT DAILY [facility] Last Admin: 05/27/20 12:27 Dose: 500 mg Documented by: Atorvastatin Calcium (Lipitor -) 10 mg PO HS [facility] Last Admin: 05/26/20 21:39 Dose: 10 mg Documented by: Ceftriaxone Sodium 2 gm/ (Dextrose) 100 mls @ 100 mls/hr IVPB DAILY [facility]; Protocol Last Admin: 05/27/20 10:21 Dose: 100 mls/hr Documented by: Insulin Aspart (Novolog Vial Sliding Scale -) 1 vial SQ ACHS [facility]; Protocol Last Admin: 05/27/20 12:26 Dose: 4 units Documented by: Insulin Detemir (Levemir Vial) 20 units SQ 0700 [facility] Last Admin: 05/27/20 06:41 Dose: Not Given Documented by: Multi-Ingredient Lotion (Eucerin (Small Jar) -) 1 applic TP BID [facility] Last Admin: 05/27/20 10:24 Dose: 1 applic Documented by: Pantoprazole Sodium (Protonix Iv) 40 mg IVPUSH DAILY [facility] Last Admin: 05/27/20 10:13 Dose: 40 mg Documented by: Polyethylene Glycol (Miralax (For Daily Use) -) 17 gm GT BID [facility] Last Admin: 05/27/20 10:14 Dose: Not Given Documented by: Constitutional: Yes: NAD Eyes: Yes: WNL HENT: Yes: WNL Neck: Yes: WNL Cardiovascular: Yes: Regular Rate and Rhythm, S1, S2 Respiratory: Yes: Diminished Gastrointestinal: Yes: Normal Bowel Sounds, Soft Extremities: Yes: WNL Edema: No Labs: Laboratory Results - last 24 hr 05/26/20 05/26/20 05/27/20 16:17 21:40 06:39 POC Glucometer 62 197 78 05/27/20 05/27/20 09:43 11:56 POC Glucometer 177 230 Problem List - Problems (1) Acute hypoxemic respiratory failure Code(s): J96.01 - ACUTE RESPIRATORY FAILURE WITH HYPOXIA (2) Pneumonia Code(s): J18.9 - PNEUMONIA, UNSPECIFIED ORGANISM (3) Diabetes Code(s): E11.9 - TYPE 2 DIABETES MELLITUS WITHOUT COMPLICATIONS (4) HTN (hypertension) Code(s): I10 - ESSENTIAL (PRIMARY) HYPERTENSION Assessment/Plan Acute Hypoxic Respiratory Failure improving Pneumonia likely Aspiration UTI HTN DM Pancreatic Mass Dementia - ABX pr ID - O2 as needed - aspiration precautions - DVT prophylaxis Dr Dunn
--- NOTE | 2020-05-27 21:03 | PN ---
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, Physician History of Present Illness: AWAKE, APPEARS ALERT NOT CONVERSANT LOW GRADE TEMP WBC WNL BC (-) URINE C/S E COLI - Current Medication List Current Medications: Active Medications Ascorbic Acid (Vitamin C Oral Solution -) 500 mg GT DAILY [facility] Last Admin: 05/27/20 12:27 Dose: 500 mg Documented by: Atorvastatin Calcium (Lipitor -) 10 mg PO HS [facility] Last Admin: 05/26/20 21:39 Dose: 10 mg Documented by: Ceftriaxone Sodium 2 gm/ (Dextrose) 100 mls @ 100 mls/hr IVPB DAILY [facility]; Protocol Last Admin: 05/27/20 10:21 Dose: 100 mls/hr Documented by: Insulin Aspart (Novolog Vial Sliding Scale -) 1 vial SQ ACHS [facility]; Protocol Last Admin: 05/27/20 16:09 Dose: Not Given Documented by: Insulin Detemir (Levemir Vial) 16 units SQ AM [facility] Multi-Ingredient Lotion (Eucerin (Small Jar) -) 1 applic TP BID [facility] Last Admin: 05/27/20 10:24 Dose: 1 applic Documented by: Pantoprazole Sodium (Protonix -) 40 mg PO DAILY [facility] Polyethylene Glycol (Miralax (For Daily Use) -) 17 gm GT BID [facility] Last Admin: 05/27/20 10:14 Dose: Not Given Documented by: - Objective Vital Signs: Vital Signs Temperature 99.7 F H 05/27/20 18:00 Pulse Rate 97 H 05/27/20 18:00 Respiratory Rate 20 05/27/20 18:00 Blood Pressure 143/96 05/27/20 18:00 O2 Sat by Pulse Oximetry (%) 98 05/27/20 09:00 Constitutional: Yes: No Distress Eyes: Yes: Conjunctiva Clear Cardiovascular: Yes: Regular Rate and Rhythm, S1, S2 Respiratory: Yes: CTA Bilaterally Gastrointestinal: Yes: Normal Bowel Sounds, Soft Edema: No Labs: CBC, BMP 05/26/20 08:10 05/26/20 08:10 INR, PTT INR 1.05 (0.83-1.09) 05/20/20 01:06 Assessment/Plan ACUTE RESPIRATORY FAILURE S/P EXTUBATION PROBABLE ASP PNEUMONIA UTI E COLI HX ESBL LACTIC ACIDOSIS RESOLVED LEUKOCYTOSIS IMPROVED CONTINUE CEFTRIAXONE
[2020-05-27] MEDS: ATORVASTATIN CA 10 MG TABLET (FP) PO SCH (22:04)
[2020-05-27] MEDS ORDERED: INSULIN (NOVOLOG) ASPART 100 UNITS/ML 10ML VIAL ONE (22:10)
[2020-05-28] MEDS: INSULIN SLIDING SCALE (NOVOLOG) 1 VIAL SQ SCH ×2 (06:08→11:24)
[2020-05-28] MEDS ORDERED: PT OWN MED DRAWER 7, Y5N ONE ×2 (06:54→09:51)
[2020-05-28] MEDS ORDERED: INSULIN (LEVEMIR) 100 UNITS/ML UNITS SQ SCH (07:00)
--- NOTE | 2020-05-28 09:43 | DS ---
Physical Examination Vital Signs: Vital Signs Temperature 98.9 F 05/28/20 05:48 Pulse Rate 88 05/28/20 05:48 Respiratory Rate 18 05/28/20 05:48 Blood Pressure 148/75 05/28/20 05:48 O2 Sat by Pulse Oximetry (%) 94 L 05/28/20 05:48 Cardiovascular: Yes: Regular Rate and Rhythm Respiratory: Yes: Regular, CTA Bilaterally Gastrointestinal: Yes: Normal Bowel Sounds, Soft Edema: No Labs: CBC, BMP 05/26/20 08:10 05/26/20 08:10 Discharge Summary Problems reviewed: Yes Reason For Visit: URINARY TRACT INFECTION, SEPSIS, FECAL IMPACTION Current Active Problems Acute hypoxemic respiratory failure (Acute) Fall (Acute) Impacted stool in rectum (Acute) Nutritional problems (Acute) Pneumonia (Acute) Respiratory failure (Acute) Hospital Course: - Problems (1) Respiratory failure Assessment/Plan: VENT SUPPORT--EXTUBATED PULM CONSULT IV ABX --To po if ok with ID Code(s): J96.90 - RESPIRATORY FAILURE, UNSP, UNSP W HYPOXIA OR HYPERCAPNIA (2) Pneumonia Assessment/Plan: CXR NOTED IV ABX--TO po if ok with ID ID AND PULM Code(s): J18.9 - PNEUMONIA, UNSPECIFIED ORGANISM (3) Sepsis Assessment/Plan: CULTURES-- IV ABX--UTI LACTIC ACID HIGH IVF Microbiology 05/20/20 00:22 Blood - Peripheral Venous Blood Culture - Preliminary NO GROWTH OBTAINED AFTER 96 HOURS, INCUBATION TO CONTINUE FOR 1 DAYS. 05/20/20 00:22 Blood - Peripheral Venous Blood Culture - Preliminary NO GROWTH OBTAINED AFTER 96 HOURS, INCUBATION TO CONTINUE FOR 1 DAYS. 05/20/20 03:53 Urine - Urine Engel Urine Culture - Final Escherichia Coli 05/20/20 00:53 Urine - Urine - Catheterized Urine Culture - Final Escherichia Coli Code(s): A41.9 - SEPSIS, UNSPECIFIED ORGANISM Qualifiers: Sepsis type: sepsis due to unspecified organism Qualified Code(s): A41.9 - Sepsis, unspecified organism (4) Fall Assessment/Plan: 1ST CT HEAD NAD REPEAT Code(s): W19.XXXA - UNSPECIFIED FALL, INITIAL ENCOUNTER (5) Nutritional problems Assessment/Plan: SWALLOW EVAL NOTED TRIAL OF DYSPHAGIA DIET--Tolerating Code(s): E63.8 - OTHER SPECIFIED NUTRITIONAL DEFICIENCIES Condition: Stable - Instructions Referrals: Nevin Parmar MD [Primary Care Provider] - - Home Medications Comprehensive Discharge Medication List: Ambulatory Orders Heparin - 5,000 unit SCJ BID 11/27/17 Insulin (LOG) Aspart [NovoLOG -] See Protocol SQ ACHS 11/27/17 Insulin (Levemir) [Levemir Vial] 35 unit SCJ AM 11/27/17 Multivit with Minerals No.55 [Centrum Flavor Burst Adult] 1 tab PO DAILY 11/27/17 Polyethylene Glycol 3350 [Miralax 119 gm Btl -] 17 gm PO BID bottle 12/05/17 Sennosides [Senna -] 2 tab PO HS PRN tablet 12/05/17 Atorvastatin Ca [Lipitor] 1 tablet PO DAILY 05/20/20 Bethanechol Chloride [Urecholine] 50 mg PO TID 05/20/20 Cholecalciferol (Vitamin D3) [Vitamin D3 -] 1,000 unit PO DAILY 05/20/20 Zinc Oxide 20% Topical Oint 1 applic TP PRN PRN 05/20/20 Cefuroxime Axetil [Ceftin -] 500 mg PO Q12H #10 tablet 05/27/20 Insulin Sliding Scale [Novolog Vial Sliding Scale -] 1 vial SQ ACHS units 05/27/20 Mineral Oil/Petrolat,Wht/Water [Eucerin (Small Jar) -] 1 applic TP BID jar 05/27/20 Pantoprazole Sodium [Protonix -] 40 mg PO DAILY #30 tablet.ec 05/27/20
[2020-05-28] MEDS ORDERED: DEXTROSE 5%-WATER 100 ML IVPB ONE (09:49)
[2020-05-28] MEDS: POLYETHYLENE GLYCOL 3350 119 GM BTL GT SCH (09:51)
[2020-05-28] MEDS ORDERED: PANTOPRAZOLE 40 MG TABLET PO SCH (10:00)
--- NOTE | 2020-05-28 10:06 | PN ---
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 (short form) - Note 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: PULMONARY RESTING COMFORTABLY VSS/AFEBRILE Constitutional: Yes: NAD Eyes: Yes: WNL HENT: Yes: WNL Neck: Yes: WNL Cardiovascular: Yes: Regular Rate and Rhythm, S1, S2 Respiratory: Yes: Diminished Gastrointestinal: Yes: Normal Bowel Sounds, Soft Extremities: Yes: WNL Edema: No Labs/meds/notes/images reviewed Acute Hypoxic Respiratory Failure improved Pneumonia likely Aspiration UTI HTN DM Pancreatic Mass Dementia - ABX pr ID - Glycemic control - O2 as needed - aspiration precautions - DVT prophylaxis Guillermo NAVARRO MD
[2020-05-28] MEDS: MINERAL OIL/PETROLAT/WATER TOPICAL CREAM 113 GM JAR TP SCH (10:28)
[2020-05-28] MEDS: CEFTRIAXONE 2 GM in DEXTROSE 5%-WATER 100 ML IVPB SCH (10:29)
[2020-05-28] MEDS: ASCORBIC ACID 500 MG/5 ML UNIT DOSE CUP GT SCH (10:30)
[2020-05-28 14:42] VITALS: BP 126/67; PULSE 81; TEMP 97.6
== END 2020-05-28 13:27 | DRG 871 ==
LOC: JER 17:54 → JERBED 05-20 02:07 → JICU 05-20 03:36 → J6S 05-25 16:26
PROVIDERS: ADMIT Family Medicine; ATTEND Family Medicine
PROC: 5A1945Z Respiratory Ventilation, 24-96 Consecutive Hours (ICD-10-PCS; principal; 2020-05-20)
PROC: 0BH17EZ Insertion of Endotracheal Airway into Trachea, Via Natural or Artificial Opening (ICD-10-PCS; 2020-05-20)
PROC: 0DH673Z Insertion of Infusion Device into Stomach, Via Natural or Artificial Opening (ICD-10-PCS; 2020-05-20)
DX: A41.89 Other specified sepsis (principal); J96.01 Acute respiratory failure with hypoxia; J69.0 Pneumonitis due to inhalation of food and vomit; E87.2 Acidosis; N39.0 Urinary tract infection, site not specified; K92.2 Gastrointestinal hemorrhage, unspecified; K86.9 Disease of pancreas, unspecified; I10 Essential (primary) hypertension; E11.9 Type 2 diabetes mellitus without complications; B96.20 Unspecified Escherichia coli [E. coli] as the cause of diseases classified elsewhere; D72.829 Elevated white blood cell count, unspecified; G30.9 Alzheimer's disease, unspecified; F02.80 Dementia in other diseases classified elsewhere, unspecified severity, without behavioral disturbance, psychotic disturbance, mood disturbance, and anxiety; K56.41 Fecal impaction; R00.8 Other abnormalities of heart beat; W18.30XA Fall on same level, unspecified, initial encounter; Y92.098 Other place in other non-institutional residence as the place of occurrence of the external cause; E11.65 Type 2 diabetes mellitus with hyperglycemia; K80.80 Other cholelithiasis without obstruction; E63.8 Other specified nutritional deficiencies
CPT/HCPCS: 36415; 36600; 70450-TC; 71045-TC-FY; 71275-TC; 72125-TC; 72170-TC-FY; 74174-TC; 80053; 81003; 82550; 82803; 82962; 83605; 83690; 83735; 83880; 84100; 84484; 85025; 85027; 85610; 85730; 86850; 86900; 86901; 87040; 87086; 87186; 93005; 93010; 94002; 97162-GP; 99285-25; U0003

== ENCOUNTER 2020-07-09 12:15 | Inpatient (IN) | payer OTHER ==
[2020-07-09] MEDS ORDERED: ATROPINE SULFATE 1 MG/10 ML DISP.SYRIN ONE (12:26)
--- NOTE | 2020-07-09 12:31 | PDOC ---
History of Present Illness - History of Present Illness Initial Comments: 07/09/20 13:22 80yo F h/o respiratory failure, dementia, and DM, nonverbal at baseline [facility]/ hypoxia, diaphoresis, and cold, clammy skin. Per [facility] RN she was "found with SpO2 80% on RA, then vomited some yellow fluid. She was cold and clammy, and a temperature read attempt was unsuccessful. She was given 15L O2 NRB, which increased her sat to 90% but her heartrate decreased to 41." EMS administered 0.5mg Atropine, which increased the HR to the 150s. On arrival she had SpO2 95%, BP 150s/70s, HR 120s, ST on monitor, tachypnic 25/min. Rectal temp = 99.2. <Layo Gutiérrez - Last Filed: 07/09/20 21:20> <Colin Barber - Last Filed: 07/09/20 21:30> - General Stated Complaint: UNRESPONSIVE Time Seen by Provider: 07/09/20 12:18 Past History - Medical History Anemia: No Asthma: No Cancer: No Cardiac Disorders: No CVA: No COPD: No CHF: No DVT: No Dementia: Yes Diabetes: Yes ([place]IMERS) GI Disorders: No Disorders: No HTN: Yes Hypercholesterolemia: No Liver Disease: No Seizures: No Thyroid Disease: No - Surgical History Abdominal Surgery: No Appendectomy: No Cardiac Surgery: No Cholecystectomy: No Lung Surgery: No Neurologic Surgery: No Orthopedic Surgery: No - Psycho-Social/Smoking History Smoking Status: No Smoking History: Unknown if ever smoked Have you smoked in the past 12 months: No Number of Cigarettes Smoked Daily: 0 <Layo Gutiérrez - Last Filed: 07/09/20 21:20> <Colin Barber - Last Filed: 07/09/20 21:30> - Medical History Allergies/Adverse Reactions: Allergies Allergy/AdvReac Type Severity Reaction Status Date / Time No Known Allergies Allergy Verified 05/19/20 18:13 Home Medications: Ambulatory Orders Heparin - 5,000 unit SCJ BID 11/27/17 Insulin (LOG) Aspart [NovoLOG -] See Protocol SQ ACHS 11/27/17 Insulin (Levemir) [Levemir Vial] 35 unit SCJ AM 11/27/17 Multivit with Minerals No.55 [Centrum Flavor Burst Adult] 1 tab PO DAILY 11/27/17 Polyethylene Glycol 3350 [Miralax 119 gm Btl -] 17 gm PO BID bottle 12/05/17 Sennosides [Senna -] 2 tab PO HS PRN tablet 12/05/17 Atorvastatin Ca [Lipitor] 1 tablet PO DAILY 05/20/20 Bethanechol Chloride [Urecholine] 50 mg PO TID 05/20/20 Cholecalciferol (Vitamin D3) [Vitamin D3 -] 1,000 unit PO DAILY 05/20/20 Zinc Oxide 20% Topical Oint 1 applic TP PRN PRN 05/20/20 Cefuroxime Axetil [Ceftin -] 500 mg PO Q12H #10 tablet 05/27/20 Insulin Sliding Scale [Novolog Vial Sliding Scale -] 1 vial SQ ACHS units 05/27/20 Mineral Oil/Petrolat,Wht/Water [Eucerin (Small Jar) -] 1 applic TP BID jar 05/27/20 Pantoprazole Sodium [Protonix -] 40 mg PO DAILY #30 tablet.ec 05/27/20 Review of Systems - Review of Systems Able to Perform ROS?: No (nonverbal at baseline) <Layo Gutiérrez - Last Filed: 07/09/20 21:20> *Physical Exam - Physical Exam General Appearance: Yes: Apparent Distress, Moderate Distress (diaphoretic, using accessory muscles to breathe), Other (unresponsive to verbal. Does not track. Responsive to painful stimuli) Neck: positive: Supple, Stridor. negative: Tender Respiratory/Chest: positive: Rhonchi, Stridor. negative: Chest Tender Cardiovascular: positive: Regular Rhythm, Tachycardia Gastrointestinal/Abdominal: positive: Distended, Other (abrasion vs pressure sore in periumbilical area) Musculoskeletal: positive: Other (resists extension/flexion of forearms) Extremity: positive: Coldness. negative: Pedal Edema Integumentary: positive: Pale, Cold, Clammy, Diaphoresis Neurologic: positive: Respond to painful stimul <Layo Gutiérrez - Last Filed: 07/09/20 21:20> - Vital Signs Last Vital Signs Temp Pulse Resp BP Pulse Ox 98.0 F 88 18 138/78 96 07/09/20 18:12 07/09/20 18:12 07/09/20 18:12 07/09/20 18:12 07/09/20 18:12 <Colin Barber - Last Filed: 07/09/20 21:30> Heart Score/ECG Review - ECG Intrepretation Comment:: 07/09/20 14:[address] depression compared to EKG in 05/2020 <Layo Gutiérrez - Last Filed: 07/09/20 21:20> ED Treatment Course - LABORATORY CBC & Chemistry Diagram: 07/09/20 12:42 07/09/20 12:42 Comment: Urine 3+ leukocyte esterase w/ many WBC - RADIOLOGY Chest X-Ray Result: No Infiltrates - Medications Given in the ED: 07/09/20 13:56 1L NS 07/09/20 13:59 10 L O2 -> RA -> 5L NC <Layo Gutiérrez - Last Filed: 07/09/20 21:20> - LABORATORY CBC & Chemistry Diagram: 07/09/20 12:42 07/09/20 20:05 - ADDITIONAL ORDERS Additional order review: Laboratory Results 07/09/20 07/09/20 07/09/20 13:18 12:42 12:42 PT with INR INR PTT (Actin FS) VBG pH 7.220 L POC VBG pCO2 63.8 H POC VBG pO2 27.4 L VBG HCO3 25.5 VBG O2 Sat (Nish) 39.4 L VBG Base Excess -3.7 L Sodium Potassium Chloride Carbon Dioxide Anion Gap BUN Creatinine Est GFR (CKD-EPI)AfAm Est GFR (CKD-EPI)NonAf Random Glucose Lactic Acid 3.0 H* Calcium Total Bilirubin AST ALT Alkaline Phosphatase Troponin I Total Protein Albumin Beta-Hydroxybutyrate Urine Color Dk yellow Urine Appearance Turbid Urine pH 5.5 D Ur Specific [place] 1.019 Urine Protein 2+ H Urine Glucose (UA) Negative Urine Ketones Negative Urine Blood Trace Urine Nitrite Negative Urine Bilirubin Negative Urine Urobilinogen 1.0 Ur Leukocyte Esterase 3+ H Urine WBC (Auto) 3904 Urine RBC (Auto) 43 Urine Casts (Auto) 7 U Pathogenic Cast Auto Non seen U Epithel Cells (Auto) 15 Urine Crystals (Auto) Non seen Urine Bacteria (Auto) 91 07/09/20 07/09/20 07/09/20 12:42 12:42 12:42 PT with INR 13.10 H INR 1.11 H PTT (Actin FS) 24.2 L VBG pH POC VBG pCO2 POC VBG pO2 VBG HCO3 VBG O2 Sat (Nish) VBG Base Excess Sodium 141 Potassium 5.9 H Chloride 107 Carbon Dioxide 22 Anion Gap 12 BUN 27.4 H Creatinine 1.5 H Est GFR (CKD-EPI)AfAm 38.28 Est GFR (CKD-EPI)NonAf 33.02 Random Glucose 274 H Lactic Acid Calcium 9.7 Total Bilirubin 0.8 AST 62 H ALT 27 Alkaline Phosphatase 156 H Troponin I < 0.02 Cancelled Total Protein 8.9 H Albumin 3.2 L Beta-Hydroxybutyrate 2.2 Cancelled Urine Color Urine Appearance Urine pH Ur Specific [place] Urine Protein Urine Glucose (UA) Urine Ketones Urine Blood Urine Nitrite Urine Bilirubin Urine Urobilinogen Ur Leukocyte Esterase Urine WBC (Auto) Urine RBC (Auto) Urine Casts (Auto) U Pathogenic Cast Auto U Epithel Cells (Auto) Urine Crystals (Auto) Urine Bacteria (Auto) 07/09/20 12:42 RBC 5.07 MCV 89.7 MCHC 31.9 L RDW 13.8 MPV 8.9 D Neutrophils % 86.4 H Lymphocytes % 10.6 D Monocytes % 2.2 L Eosinophils % 0.6 Basophils % 0.2 - Medications Given in the ED: ED Medications Discontinued Medications Generic Name Dose Route Start Last Admin Trade Name Freq PRN Reason Stop Dose Admin Calcium Gluconate 1,000 mg 07/09/20 16:20 07/09/20 17:20 Calcium Gluconate 10% - IVPUSH 07/09/20 16:21 1,000 mg ONCE ONE Administration Dextrose 25 gm 07/09/20 16:19 07/09/20 17:20 D50w (Vial) - IVPUSH 07/09/20 16:20 25 gm NOW ONE Administration Vancomycin HCl 1,000 mg/ 250 mls @ 166.667 mls/hr 07/09/20 13:07 07/09/20 14:05 Dextrose IVPB 07/09/20 14:36 166.667 mls/hr ONCE ONE Administration Protocol Meropenem 1 gm/ Dextrose 100 mls @ 200 mls/hr 07/09/20 13:07 09/04/20 13:35 IVPB 07/09/20 13:36 200 mls/hr ONCE ONE Administration Sodium Chloride 1,000 mls @ 1,000 mls/hr 07/09/20 16:28 07/09/20 17:20 Normal Saline - IV 07/09/20 17:27 1,000 mls/hr ASDIR STA Administration Dextrose/Sodium Chloride 1,000 mls @ 75 mls/hr 07/09/20 17:15 07/09/20 18:17 D5-Ns - IV 75 mls/hr ASDIR DAVID Administration Insulin Human Regular 5 units 07/09/20 16:19 07/09/20 17:20 Novolin R Vial *For Ivpush Or Iv Drip Only* IVPUSH 07/09/20 16:20 5 units ONCE ONE Administration <Colin Barber - Last Filed: 07/09/20 21:30> Medical Decision Making - Medical Decision Making 07/09/20 17:02 UA grossly positive -> Started on broad spectrum ABX Hyperkalemic and acidotic -> 1amp D50 + 5U regular insulin + 1g CaGluconate + 1L NSS Admitted to telemetry <Layo Gutiérrez - Last Filed: 07/09/20 21:20> - Critical Care Time Total Critical Care Time (minutes): 45 Critical Care Statement: The care of this patient involved high complexity decision making to prevent further life threatening deterioration of the patient's condition and/or to evaluate & treat vital organ system(s) failure or risk of failure. - Medical Decision Making 07/09/20 20:51 Pt originally admitted for urosepsis, CT noted for fecal retention/impaction, however there is interval development of concentric continous wall thickening in the left colon along the splenic flexuredescending colon consistent with acute colitis, which may be ischemic in nature given distribution - pt lactic acid also elevated to 3 originally - pt received abx - vanc, meropenem originally, flagyl was added. case dw surgery recommended ICU care. will consult ICU case discussed with dr. Parmar - agrees with our management and ICU consultation. No history of hypotension here to explain colitis along watershed area - will start heparin gtt ICU consulted, recommended telemetry for now - they will continue to follow. <Colin Barber - Last Filed: 07/09/20 21:30> Discharge - Discharge Information Problems reviewed: Yes - Admission Yes <Layo Gutiérrez - Last Filed: 07/09/20 21:20> <Colin Barber - Last Filed: 07/09/20 21:30> - Discharge Information Clinical Impression/Diagnosis: Acute hypoxemic respiratory failure, Ischemic colitis, SHERLYN (acute kidney injur y), Elevated lactic acid level UTI (urinary tract infection) Qualifiers: Urinary tract infection type: site unspecified Hematuria presence: with hematuria Qualified Code(s): N39.0 - Urinary tract infection, site not specified; R31.9 - Hematuria, unspecified Altered mental status Qualifiers: Altered mental status type: unspecified Qualified Code(s): R41.82 - Altered mental status, unspecified Condition: Guarded
[2020-07-09 12:38] VITALS: BMI 23.3
[2020-07-09] MEDS ORDERED: MEROPENEM 1 GM in DEXTROSE 5%-WATER 100 ML IVPB ONE ×2 (13:07→20:25)
[2020-07-09] MEDS ORDERED: VANCOMYCIN 1,000 MG in DEXTROSE 5%-WATER - 250 ML IVPB ONE (13:07)
[2020-07-09 13:10] LABS: VENOUS BASE EXCESS -3.7 mmol/L (-2-2); VENOUS O2 SATURATION 39.4 % (70-80); VENOUS PCO2 63.8 mmHg (38-52); VENOUS PH 7.22 (7.310-7.410)
[2020-07-09 13:13] LABS: BASO % 0.2 % (0-2.0); EOS % 0.6 % (0-4.5); HEMATOCRIT 45.5 % (32.4-45.2); HEMOGLOBIN 14.5 GM/dL (10.7-15.3); LYMPH % 10.6 % (8-40); MCH 28.6 pg (25.7-33.7); MCHC 31.9 g/dl (32.0-36.0); MEAN CELL VOLUME 89.7 fl (80-96); MEAN PLT VOLUME 8.9 fl (7.5-11.1); MONO % 2.2 % (3.8-10.2); NEUT % 86.4 % (42.8-82.8); PLATELET COUNT 347 K/MM3 (134-434); RBC 5.07 M/mm3 (3.60-5.2); RDW 13.8 % (11.6-15.6); WHITE BLOOD COUNT 19.7 K/mm3 (4.0-10.0)
[2020-07-09 13:20] LABS: INR 1.11 (0.83-1.09); PROTHROMBIN TIME (PATIENT) 13.1 SEC (9.7-13.0)
[2020-07-09 13:23] LABS: ACTIVATED PTT 24.2 SECONDS (25.2-36.5)
[2020-07-09] MEDS ORDERED: MEROPENEM 1 GM VIAL (RESTRICTED TO ID) IVPB ONE ×2 (13:32→23:06)
[2020-07-09] MEDS ORDERED: VANCOMYCIN 1 GRAM (PRE-DOCKED) 1,000 MG/250 ML BAG IVPB ONE (13:32)
[2020-07-09 13:48] LABS: EPI CELLS 15 /uL (0-25.1); HYALINE CASTS 7 /uL (0-3.1); PH,URINE 5.5 (5.0-8.0); URINE APPEARANCE TURBID; URINE BACTERIA 91 /uL (0-1359); URINE BILIRUBIN NEGATIVE (NEGATIVE); URINE COLOR DK YELLOW; URINE GLUCOSE (UA) NEGATIVE (NEGATIVE); URINE KETONE NEGATIVE (NEGATIVE); URINE LEUK ESTERASE 3+ (NEGATIVE); URINE NITRITE NEGATIVE (NEGATIVE); URINE PROTEIN 2+ (NEGATIVE); URINE RBC 43 /uL (0-23.9); URINE WBC 3904 /uL (0-25.8)
[2020-07-09 14:00] LABS: URINE CRYSTALS NON SEEN /hpf
--- NOTE | 2020-07-09 14:10 | EKG ---
Test Reason : Blood Pressure : / mmHG Vent. Rate : 092 BPM Atrial Rate : 092 BPM P-R Int : 142 ms QRS Dur : 064 ms QT Int : 330 ms P-R-T Axes : 086 039 -70 degrees QTc Int : 408 ms POOR DATA QUALITY, INTERPRETATION MAY BE ADVERSELY AFFECTED NORMAL SINUS RHYTHM NONSPECIFIC ST AND T WAVE ABNORMALITY ABNORMAL ECG Confirmed by PREETHI GORDON MD ([id number]) on 07/09/2020 2:09:54 PM Referred By: Confirmed By:PREETHI GORDON MD
--- NOTE | 2020-07-09 14:18 | PDOC ---
Documentation entered by Anat Gregg SCRIBE, acting as scribe for Cayetano Owens MD. Cayetano Owens MD: This documentation has been prepared by the Marysol lambert Brenda, SCRIBE, under my direction and personally reviewed by me in its entirety. I confirm that the documentation accurately reflects all work, treatment, procedures, and medical decision making performed by me. Attending Attestation - Resident Resident Name: Layo Gutiérrez - ED Attending Attestation I have performed the following: I have examined & evaluated the patient, The case was reviewed & discussed with the resident, I agree w/resident's findings & plan, Exceptions are as noted - HPI HPI: 07/09/20 15:06 The patient is a 80 year old female with a significant PMH of respiratory failure, dementia and DM who presents to the ED from [facility] for evaluation of hypoxia (80%) along with diaphoresis and cold/clammy skin. Per RN, when the patient was found to be 80% she then vomitted yellow fluid with an unsuccessful temperature read. RN notes that she was given 15L of O2 on NRB, which increased her O2 to 90% but she became bradycardic to 41 bpm. Per EMS, she was given 0.5mg of atropine with a HR rise to the 150s. Hx was limited due to patient being nonverbal at baseline. Allergies: NKA - Physicial Exam PE: 07/09/20 15:11 GENERAL: Awake, alert, and fully oriented, in no acute distress HEAD: No signs of trauma EYES: PERRLA, EOMI, sclera anicteric, conjunctiva clear ENT: Auricles normal inspection, hearing grossly normal, nares patent, oropharynx clear without exudates. Moist mucosa NECK: Normal ROM, supple, no lymphadenopathy, JVD, or masses LUNGS: Breath sounds equal, clear to auscultation bilaterally. No wheezes, and no crackles HEART: Regular rate and rhythm, normal S1 and S2, no murmurs, rubs or gallops ABDOMEN: Soft, nontender, normoactive bowel sounds. No guarding, no rebound. No masses EXTREMITIES: Normal range of motion, no edema. No clubbing or cyanosis. No cor ds, erythema, or tenderness BACK: No midline spinal tenderness in cervical/thoracic/lumbar region NEUROLOGICAL: Normal speech, cranial nerves intact, negative pronator drift, 5/5 strength in all 4 extremities, normal sensation to light touch in all 4 extremities, normal cerebellar exam, normal gait, normal reflexes and tone SKIN: Warm, Dry, normal turgor, no rashes or lesions noted. Heart Score/ECG Review #1 07/09/20 14:16 Twelve-lead EKG was performed and reviewed by me. Normal sinus rhythm, rate 92. Normal axis. Wavy baseline but no ST elevations. Diffuse T wave inversions in 2, 3, aVF, V2 through V6. When compared to EKG from May, most of the T wave inversions are new #2 07/09/20 14:17 Twelve-lead EKG was performed and reviewed by me. Normal sinus rhythm, rate 84. Normal axis. No ST elevations. Diffuse T wave inversions again once noted in 2, 3, aVF and V2 through V6. When compared to EKG done a few hours ago, no significant changes. Discharge - Discharge Information Problems reviewed: Yes Clinical Impression/Diagnosis: UTI (urinary tract infection), Altered mental status, Acute hypoxemic respiratory failure Condition: Fair - Follow up/Referral Referrals: Nevin Parmar MD [Primary Care Provider] - - Patient Discharge Instructions - Post Discharge Activity
[2020-07-09 15:18] LABS: BLOOD UREA NITROGEN 27.4 mg/dL (7-18); CALCIUM 9.7 mg/dL (8.5-10.1); CHLORIDE 107 mmol/L (98-107); CO2 22 mmol/L (21-32); CREATININE 1.5 mg/dL (0.55-1.3); GLUCOSE,RANDOM 274 mg/dL (74-106); POTASSIUM 5.9 mmol/L (3.5-5.1); SODIUM 141 mmol/L (136-145); TOT PROT 8.9 g/dl (6.4-8.2)
[2020-07-09 15:19] LABS: ALBUMIN 3.2 g/dl (3.4-5.0); ALK PHOS 156 U/L (45-117); BILIRUBIN,TOTAL 0.8 mg/dL (0.2-1); SGOT/AST 62 U/L (15-37); SGPT/ALT 27 U/L (13-61)
[2020-07-09 15:32] LABS: ARTERIAL BLD GAS O2 SATURATION 95.6 mmHg (95-98); ARTERIAL BLOOD GAS BASE EXCESS -7.2 mmol/L (-2-2); ARTERIAL BLOOD GAS PO2 83.8 mmHg (80-100); ARTERIAL BLOOD GAS pH 7.319 (7.350-7.450)
[2020-07-09 15:42] LABS: ANION GAP 12 MMOL/L (8-16)
[2020-07-09] MEDS ORDERED: DEXTROSE 50%-WATER - 25 GM/50 ML VIAL IVPUSH ONE (16:19)
[2020-07-09] MEDS ORDERED: INSULIN REGULAR HUMAN 100 UNITS/ML *VIAL IVPUSH ONE (16:19)
[2020-07-09] MEDS ORDERED: CALCIUM GLUCONATE 10% - 1,000 MG/10 ML VIAL IVPUSH ONE (16:20)
[2020-07-09] MEDS ORDERED: SODIUM CHLORIDE 1,000 ML IV STA (16:28)
[2020-07-09] MEDS ORDERED: SENNOSIDES 8.6MG TABLET (FP) PO PRN (17:00)
[2020-07-09] MEDS ORDERED: DEXTROSE 50%-WATER 25 GM/50 ML DISP.SYRIN ONE (17:06)
[2020-07-09] MEDS ORDERED: CALCIUM GLUCONATE 10% - 1,000 MG/10 ML VIAL ONE (17:06)
[2020-07-09] MEDS ORDERED: DEXTROSE 5%-NORMAL SALINE 1,000 ML IV SCH ×2 (17:15→20:08)
--- NOTE | 2020-07-09 19:46 | CON.NEP ---
Consult Consult Specialty:: Nephrology Referred by:: Dr. Parmar Reason for Consultation:: Acute kidney injury and hyperkalemia - History of Present Illness Chief Complaint: Hypoxia History of Present Illness: This is a 80 year old woman with history of respiratory failure, dementia, DM who [place] with hypoxia and diaphoresis and found to have possible colitis with SHERLYN and hyperkalemia. Pt seen and examined in the ED. Pt is non- verbal and not able to provide history. s/p Calcium gluconate, insulin and D50 given in the ED. 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 Cardio/Vascular: Yes: HTN, Hyperlipdemia, Other (PSVT) Endocrine: Yes: Diabetes Mellitus - Alcohol/Substance Use Hx Alcohol Use: No - Smoking History Smoking history: Unknown if ever smoked Have you smoked in the past 12 months: No Aproximately how many cigarettes per day: 0 - Social History Usual Living Arrangement: [facility] ADL: Support Services Occupation: unknown History of Recent Travel: No Home Medications - Allergies Allergies/Adverse Reactions: Allergies Allergy/AdvReac Type Severity Reaction Status Date / Time No Known Allergies Allergy Verified 05/19/20 18:13 - Home Medications Home Medications: Ambulatory Orders Heparin - 5,000 unit SCJ BID 11/27/17 Insulin (LOG) Aspart [NovoLOG -] See Protocol SQ ACHS 11/27/17 Insulin (Levemir) [Levemir Vial] 35 unit SCJ AM 11/27/17 Multivit with Minerals No.55 [Centrum Flavor Burst Adult] 1 tab PO DAILY 11/27/17 Polyethylene Glycol 3350 [Miralax 119 gm Btl -] 17 gm PO BID bottle 12/05/17 Sennosides [Senna -] 2 tab PO HS PRN tablet 12/05/17 Atorvastatin Ca [Lipitor] 1 tablet PO DAILY 05/20/20 Bethanechol Chloride [Urecholine] 50 mg PO TID 05/20/20 Cholecalciferol (Vitamin D3) [Vitamin D3 -] 1,000 unit PO DAILY 05/20/20 Zinc Oxide 20% Topical Oint 1 applic TP PRN PRN 05/20/20 Cefuroxime Axetil [Ceftin -] 500 mg PO Q12H #10 tablet 05/27/20 Insulin Sliding Scale [Novolog Vial Sliding Scale -] 1 vial SQ ACHS units 05/27/20 Mineral Oil/Petrolat,Wht/Water [Eucerin (Small Jar) -] 1 applic TP BID jar 05/27/20 Pantoprazole Sodium [Protonix -] 40 mg PO DAILY #30 tablet.ec 05/27/20 Family Medical History Family History: Unable to Obtain Review of Systems Unable to obtain ROS, reason: non-verbal Nephrology Consult - Height Height: 5 ft 3 in - Weight Weight: 59.874 kg - BMI Body Mass Index (BMI): 23.3 - Lab Results CBC,BMP: CBC, BMP 07/09/20 12:42 07/09/20 12:42 Anion Gap: Anion Gap Anion Gap 12 MMOL/L (8-16) 07/09/20 12:42 - Imaging Chest X-ray: Report Reviewed Cat Scan: Report Reviewed - Physical Examination Vital Signs: Vital Signs Temperature 98.0 F 07/09/20 18:12 Pulse Rate 88 07/09/20 18:12 Respiratory Rate 18 07/09/20 18:12 Blood Pressure 138/78 07/09/20 18:12 O2 Sat by Pulse Oximetry (%) 96 07/09/20 18:12 Constitutional: Yes: No Distress Eyes: Yes: Conjunctiva Clear HENT: Yes: Atraumatic Neck: Yes: Supple Cardiovascular: Yes: Regular Rate and Rhythm. No: Murmur Respiratory: Yes: Regular, CTA Bilaterally. No: Rales, Rhonchi Gastrointestinal: Yes: Soft, Tenderness. No: Palpable Mass Renal/: No: Bladder Distention Extremities: No: Cyanosis Edema: No Neurological: Yes: Alert, Other (nonverbal) Assessment/Plan 80 year old woman with history of dementia, DM who [place] with [place] and diaphoresis and found to have possible colitis with SHERLYN and hyperkalemia. 1. Acute kidney injury likely due to volume depletion vs. ATN 2. Hyperkalemia 3. Suspected Colitis 4. Leukocytosis 5. Lactic acidosis 6. Dementia Check urine studies for acute kidney injury. s/p Calcium/Insulin in the ED for hyperkalemia Repeat BMP now. No acute need for dialysis at this time. Continue isotonic saline at 100cc per hour Trend lactic acid to normal Empiric antibiotics as per primary team f/u cultures Thank you Orlin Toledo DO
[2020-07-09 20:49] LABS: BLOOD UREA NITROGEN 26.3 mg/dL (7-18); CALCIUM 8.8 mg/dL (8.5-10.1); CREATININE 1.3 mg/dL (0.55-1.3); POTASSIUM 4.1 mmol/L (3.5-5.1)
[2020-07-09] MEDS ORDERED: HEPARIN NA (PORCINE) 5,000 UNITS/ML 1ML VIAL IVPUSH PRN ×2 (21:18)
[2020-07-09] MEDS ORDERED: METOPROLOL TARTRATE 5 MG/5 ML VIAL IVPUSH PRN ×2 (23:01→23:54)
[2020-07-09] MEDS ORDERED: DEXTROSE 5%-WATER 100 ML IVPB ONE (23:07)
[2020-07-09] MEDS ORDERED: ACETAMINOPHEN 1000 MG/100 ML VIAL (NON FORMULARY) IVPB PRN (23:11)
[2020-07-09] MEDS ORDERED: SODIUM CHLORIDE 0.45% 1,000 ML IV SCH (23:30)
[2020-07-09] MEDS: HEPARIN - 25,000 UNIT in SODIUM CHLORIDE 495 ML IV SCH (23:39)
[2020-07-09] MEDS: INSULIN SLIDING SCALE (NOVOLOG) 1 VIAL SQ SCH (23:40)
--- NOTE | 2020-07-10 07:04 | PN ---
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 (short form) - Note 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: PULMONARY CONSULTATION DICTATED 07/10/20 IMP ACUTE HYPOXEMIC RESPIRATORY FAILURE SEPSIS DM SHERLYN LACTIC ACIDOSIS ACUTE ISCHEMIC COLITIS DEMPSEY SUPPLEMENTAL O2 INHALED BRONCHODILATORS ABX PER ID TREND LACTATE MONITOR LYTES,RENAL FUNCTION AC GI EVALUATION DR MARCANO Problem List - Problems (1) Acute hypoxemic respiratory failure Code(s): J96.01 - ACUTE RESPIRATORY FAILURE WITH HYPOXIA (2) Acute kidney injury Code(s): N17.9 - ACUTE KIDNEY FAILURE, UNSPECIFIED (3) Altered mental status Code(s): R41.82 - ALTERED MENTAL STATUS, UNSPECIFIED Qualifiers: Altered mental status type: unspecified Qualified Code(s): R41.82 - Altered mental status, unspecified (4) Elevated lactic acid level Code(s): R79.89 - OTHER SPECIFIED ABNORMAL FINDINGS OF BLOOD CHEMISTRY (5) Ischemic colitis Code(s): K55.9 - VASCULAR DISORDER OF INTESTINE, UNSPECIFIED (6) Diabetes mellitus type 2 in nonobese Code(s): E11.9 - TYPE 2 DIABETES MELLITUS WITHOUT COMPLICATIONS (7) Hyperkalemia Code(s): E87.5 - HYPERKALEMIA (8) Sepsis Code(s): A41.9 - SEPSIS, UNSPECIFIED ORGANISM Qualifiers: Sepsis type: sepsis due to unspecified organism Qualified Code(s): A41.9 - Sepsis, unspecified organism
[2020-07-10] MEDS: INSULIN SLIDING SCALE (NOVOLOG) 1 VIAL SQ SCH ×4 (07:12→22:06)
[2020-07-10 07:45] LABS: ALBUMIN 2.2 g/dl (3.4-5.0); ALK PHOS 121 U/L (45-117); ANION GAP 10 MMOL/L (8-16); BILIRUBIN,TOTAL 0.4 mg/dL (0.2-1); BLOOD UREA NITROGEN 27.9 mg/dL (7-18); CALCIUM 8.3 mg/dL (8.5-10.1); CHLORIDE 116 mmol/L (98-107); CO2 23 mmol/L (21-32); CREATININE 1.2 mg/dL (0.55-1.3); GLUCOSE,RANDOM 243 mg/dL (74-106); MAGNESIUM 2.1 mg/dL (1.8-2.4); PHOSPHOROUS 3.7 mg/dL (2.5-4.9); POTASSIUM 3.1 mmol/L (3.5-5.1); SGOT/AST 15 U/L (15-37); SGPT/ALT 14 U/L (13-61); SODIUM 148 mmol/L (136-145)
[2020-07-10 07:47] LABS: BASO % 0.3 % (0-2.0); HEMATOCRIT 40.9 % (32.4-45.2); HEMOGLOBIN 13.4 GM/dL (10.7-15.3); LYMPH % 12.1 % (8-40); MCHC 32.7 g/dl (32.0-36.0); MEAN CELL VOLUME 88.5 fl (80-96); MEAN PLT VOLUME 8.9 fl (7.5-11.1); MONO % 6.2 % (3.8-10.2); NEUT % 81.4 % (42.8-82.8); PLATELET COUNT 314 K/MM3 (134-434); RBC 4.62 M/mm3 (3.60-5.2); RDW 13.7 % (11.6-15.6); WHITE BLOOD COUNT 16.8 K/mm3 (4.0-10.0)
--- NOTE | 2020-07-10 09:46 | CONSULT ---
- Consultation REQUESTING PROVIDER: CONSULT REQUEST: We have been asked to surgically evaluate this patient for (specify). Hospitalist:Nevin Parmar HISTORY OF PRESENT ILLNESS: SUDEEP who is a 80 y/o w/female xferred from the retirement for sepsis and lethargy and low BP and pulse. PMHx: PSHx: perforated duodenal ulcer 2011 Home Medications Medication Instructions Recorded Heparin - 5,000 unit SCJ BID 11/27/17 Insulin (LOG) Aspart [NovoLOG -] See Protocol SQ ACHS 11/27/17 Insulin (Levemir) [Levemir Vial] 35 unit SCJ AM 11/27/17 Multivit with Minerals No.55 1 tab PO DAILY 11/27/17 [Centrum Flavor Burst Adult] Polyethylene Glycol 3350 [Miralax 17 gm PO BID bottle 12/05/17 119 gm Btl -] Sennosides [Senna -] 2 tab PO HS PRN tablet 12/05/17 Atorvastatin Ca [Lipitor] 1 tablet PO DAILY 05/20/20 Bethanechol Chloride [Urecholine] 50 mg PO TID 05/20/20 Cholecalciferol (Vitamin D3) 1,000 unit PO DAILY 05/20/20 [Vitamin D3 -] Zinc Oxide 20% Topical Oint 1 applic TP PRN PRN 05/20/20 Cefuroxime Axetil [Ceftin -] 500 mg PO Q12H #10 tablet 05/27/20 Insulin Sliding Scale [Novolog 1 vial SQ ACHS units 05/27/20 Vial Sliding Scale -] Mineral Oil/Petrolat,Wht/Water 1 applic TP BID jar 05/27/20 [Eucerin (Small Jar) -] Pantoprazole Sodium [Protonix -] 40 mg PO DAILY #30 tablet.ec 05/27/20 Allergies Allergy/AdvReac Type Severity Reaction Status Date / Time No Known Allergies Allergy Verified 05/19/20 18:13 REVIEW OF SYSTEMS: CONSTITUTIONAL: Absent: fever, chills, diaphoresis, generalized weakness, malaise, loss of appetite, weight change CARDIOVASCULAR: Absent: chest pain, syncope, palpitations, irregular heart rate, lightheadedness, peripheral edema RESPIRATORY: Absent: cough, shortness of breath, dyspnea with exertion, wheezing, stridor, hemoptysis GASTROINTESTINAL: Absent: abdominal pain, abdominal distension, nausea, vomiting, diarrhea, constipation, melena, hematochezia GENITOURINARY: Absent: dysuria, frequency, urgency, hesitancy, hematuria, flank pain, genital pain MUSCULOSKELETAL: Absent: myalgia, arthralgia, joint swelling, back pain, neck pain SKIN: Absent: rash, itching, pallor HEMATOLOGIC/IMMUNOLOGIC: Absent: easy bleeding, easy bruising, lymphadenopathy NEUROLOGIC: Absent: headache, focal weakness, paresthesias, dizziness, unsteady gait, seizure, mental status changes, bladder or bowel incontinence PSYCHIATRIC: Absent: anxiety, depression, suicidal or homicidal ideation, hallucinations. PHYSICAL EXAM: GENERAL: Awake, alert, and fully oriented, in no acute distress. HEAD: Normal with no signs of trauma. EYES: PERRL, sclera anicteric, conjunctiva clear. NECK: Normal ROM, supple without lymphadenopathy, JVD, or masses. ABDOMEN: Obese; Soft, LLQ tenderness, not distended, sluggish bowel sounds, no guarding, no rebound, no masses. No organomegaly. No hernias; upper midline scar RECTAL: poor sphincter tone; large amount of stool. MUSCULOSKELETAL: Normal ROM at all joints. No bony deformities or tenderness. No CVA tenderness. UPPER EXTREMITIES: 2+ pulses, warm, well-perfused. No cyanosis. Cap refill <2 seconds. No peripheral edema. LOWER EXTREMITIES: 2+ pulses, warm, well-perfused. No calf tenderness. No peripheral edema. NEUROLOGICAL: Normal speech, gait not observed. PSYCH: Cooperative. Good eye contact. Appropriate mood and affect. SKIN: Warm, dry, normal turgor, no rashes or lesions noted. Vital Signs Temperature 98.3 F 07/10/20 09:27 Pulse Rate 98 H 07/10/20 09:27 Respiratory Rate 20 07/10/20 09:27 Blood Pressure 120/79 07/10/20 09:27 O2 Sat by Pulse Oximetry (%) 99 07/10/20 09:27 Lab Results WBC 16.8 K/mm3 (4.0-10.0) H 07/10/20 06:45 RBC 4.62 M/mm3 (3.60-5.2) 07/10/20 06:45 Hgb 13.4 GM/dL (10.7-15.3) 07/10/20 06:45 Hct 40.9 % (32.4-45.2) 07/10/20 06:45 MCV 88.5 fl (80-96) 07/10/20 06:45 MCHC 32.7 g/dl (32.0-36.0) 07/10/20 06:45 RDW 13.7 % (11.6-15.6) 07/10/20 06:45 Plt Count 314 K/MM3 (134-434) 07/10/20 06:45 INR 1.11 (0.83-1.09) H 07/09/20 12:42 Sodium 148 mmol/L (136-145) H 07/10/20 06:45 Potassium 3.1 mmol/L (3.5-5.1) L 07/10/20 06:45 Chloride 116 mmol/L (98-107) H 07/10/20 06:45 Carbon Dioxide 23 mmol/L (21-32) 07/10/20 06:45 Anion Gap 10 MMOL/L (8-16) 07/10/20 06:45 BUN 27.9 mg/dL (7-18) H 07/10/20 06:45 Creatinine 1.2 mg/dL (0.55-1.3) 07/10/20 06:45 Random Glucose 243 mg/dL (74-106) H 07/10/20 06:45 Calcium 8.3 mg/dL (8.5-10.1) L 07/10/20 06:45 CT a/p reviewed IMP:colitis/urosepsis/fecal impaction; no evidence of an acute surgical abdomen. PLAN: NPO/IVF/IVAB's; trend WBC and lactate; will f/u. Francisco Oconnor MD FACS
[2020-07-10] MEDS: PANTOPRAZOLE 40 MG TABLET PO SCH (10:23)
--- NOTE | 2020-07-10 10:28 | HP ---
Admitting History and Physical - Admission History of Present Illness: 80 year old female with a significant PMH of respiratory failure, dementia and DM who presents to the ED from [facility] for evaluation of hypoxia (80%) along with diaphoresis and cold/clammy skin. Per RN, when the patient was found to be 80% she then vomitted yellow fluid with an unsuccessful temperature read. RN notes that she was given 15L of O2 on NRB, which increased her O2 to 90% but she became bradycardic to 41 bpm. Per EMS, she was given 0.5mg of atropine with a HR rise to the 150s. Hx was limited due to patient being nonverbal at baseline. 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 Cardiovascular: Yes: HTN, Hyperlipdemia, Other (PSVT) ...: No Endocrine: Yes: Diabetes Mellitus - Smoking History Smoking history: Unknown if ever smoked Have you smoked in the past 12 months: No Aproximately how many cigarettes per day: 0 - Alcohol/Substance Use Hx Alcohol Use: No - Social History ADL: Support Services Occupation: unknown History of Recent Travel: No Home Medications - Allergies Allergies/Adverse Reactions: Allergies Allergy/AdvReac Type Severity Reaction Status Date / Time No Known Allergies Allergy Verified 05/19/20 18:13 - Home Medications Home Medications: Ambulatory Orders Heparin - 5,000 unit SCJ BID 11/27/17 Insulin (LOG) Aspart [NovoLOG -] See Protocol SQ ACHS 11/27/17 Insulin (Levemir) [Levemir Vial] 35 unit SCJ AM 11/27/17 Multivit with Minerals No.55 [Centrum Flavor Burst Adult] 1 tab PO DAILY 11/27/17 Polyethylene Glycol 3350 [Miralax 119 gm Btl -] 17 gm PO BID bottle 12/05/17 Sennosides [Senna -] 2 tab PO HS PRN tablet 12/05/17 Atorvastatin Ca [Lipitor] 1 tablet PO DAILY 05/20/20 Bethanechol Chloride [Urecholine] 50 mg PO TID 05/20/20 Cholecalciferol (Vitamin D3) [Vitamin D3 -] 1,000 unit PO DAILY 05/20/20 Zinc Oxide 20% Topical Oint 1 applic TP PRN PRN 05/20/20 Cefuroxime Axetil [Ceftin -] 500 mg PO Q12H #10 tablet 05/27/20 Insulin Sliding Scale [Novolog Vial Sliding Scale -] 1 vial SQ ACHS units 05/27/20 Mineral Oil/Petrolat,Wht/Water [Eucerin (Small Jar) -] 1 applic TP BID jar 05/27/20 Pantoprazole Sodium [Protonix -] 40 mg PO DAILY #30 tablet.ec 05/27/20 Family Medical History Family History: Unable to Obtain Physical Examination Vital Signs: Vital Signs Temperature 98.3 F 07/10/20 09:27 Pulse Rate 98 H 07/10/20 09:27 Respiratory Rate 20 07/10/20 09:27 Blood Pressure 120/79 07/10/20 09:27 O2 Sat by Pulse Oximetry (%) 99 07/10/20 09:27 Cardiovascular: Yes: S1, S2 Respiratory: Yes: Regular, CTA Bilaterally Gastrointestinal: Yes: Normal Bowel Sounds, Soft. No: Tenderness Edema: No Labs: CBC, BMP 07/10/20 06:45 07/10/20 06:45 Problem List - Problems (1) Acute hypoxemic respiratory failure Assessment/Plan: supplement O2 pulm on case Code(s): J96.01 - ACUTE RESPIRATORY FAILURE WITH HYPOXIA (2) Acute kidney injury Assessment/Plan: ivf monitor trends renal consult Code(s): N17.9 - ACUTE KIDNEY FAILURE, UNSPECIFIED (3) Elevated lactic acid level Assessment/Plan: iv abx id condult ivf Code(s): R79.89 - OTHER SPECIFIED ABNORMAL FINDINGS OF BLOOD CHEMISTRY (4) Ischemic colitis Assessment/Plan: surgery on board npo ivf iv abx Code(s): K55.9 - VASCULAR DISORDER OF INTESTINE, UNSPECIFIED (5) Diabetes Code(s): E11.9 - TYPE 2 DIABETES MELLITUS WITHOUT COMPLICATIONS (6) Sepsis Assessment/Plan: Microbiology 07/09/20 13:18 Urine - Urine - Catheterized Urine Culture - Preliminary iv abx id Code(s): A41.9 - SEPSIS, UNSPECIFIED ORGANISM Qualifiers: Sepsis type: sepsis due to unspecified organism Qualified Code(s): A41.9 - Sepsis, unspecified organism
--- NOTE | 2020-07-10 11:27 | PN ---
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 (short form) - Note 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: ID consult dictated imp/reccd coitis UTI fecal retention neymar history of ecoli esbl uti 2018 plan meropenem/flagyl f/u cultures IVF Problem List - Problems (1) Ischemic colitis Code(s): K55.9 - VASCULAR DISORDER OF INTESTINE, UNSPECIFIED (2) UTI (urinary tract infection) Code(s): N39.0 - URINARY TRACT INFECTION, SITE NOT SPECIFIED Qualifiers: Urinary tract infection type: site unspecified Hematuria presence: with hematuria Qualified Code(s): N39.0 - Urinary tract infection, site not specified; R31.9 - Hematuria, unspecified (3) Impacted stool in rectum Code(s): K56.41 - FECAL IMPACTION (4) Acute kidney injury Code(s): N17.9 - ACUTE KIDNEY FAILURE, UNSPECIFIED (5) History of ESBL E. coli infection Code(s): Z86.19 - PERSONAL HISTORY OF OTHER INFECTIOUS AND PARASITIC DISEASES
[2020-07-10] MEDS ORDERED: MEROPENEM 500 MG in DEXTROSE 5%-WATER 100 ML IVPB SCH (11:30)
[2020-07-10] MEDS ORDERED: DEXTROSE 5%-WATER 100 ML IVPB ONE ×2 (11:36→23:07)
[2020-07-10] MEDS ORDERED: MEROPENEM 1 GM VIAL (RESTRICTED TO ID) IVPB ONE ×2 (11:36→23:07)
[2020-07-10] MEDS: MEROPENEM 1 GM in DEXTROSE 5%-WATER 100 ML IVPB SCH ×2 (11:38→23:08)
[2020-07-10] MEDS ORDERED: SODIUM CHLORIDE 0.45% 1,000 ML with POTASSIUM CHLORIDE 40 MEQ IVPB SCH (11:57)
[2020-07-10] MEDS ORDERED: POTASSIUM CHLORIDE 40 MEQ in SODIUM CHLORIDE 0.45% 1,000 ML IVPB SCH (11:59)
--- NOTE | 2020-07-10 12:37 | PN ---
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, Physician History of Present Illness: Seen and examined at the bedside lethargic, non-verbal no overnight events making urine - Current Medication List Current Medications: Active Medications Acetaminophen (Ofirmev Injection -) 1,000 mg IVPB Q6H PRN PRN Reason: FEVER Stop: 07/10/20 23:12 Atorvastatin Calcium (Lipitor -) 10 mg PO HS DAVID Heparin Sodium (Porcine) (Heparin -) 1,000 unit IVPUSH PRN PRN PRN Reason: Heparin Heparin Sodium (Porcine) (Heparin -) 5,000 unit IVPUSH PRN PRN PRN Reason: Heparin Heparin Sodium (Porcine) 25, (000 unit/ Sodium Chloride) 500 mls @ 16 mls/hr IV TITR [facility]; Protocol Last Admin: 07/09/20 23:39 Dose: 800 unit/hr, 16 mls/hr Documented by: Metronidazole (Flagyl 500mg Premixed Ivpb -) 500 mg in 100 mls @ 100 mls/hr IVPB Q8H-IV DAVID Last Admin: 07/10/20 12:28 Dose: 100 mls/hr Documented by: Meropenem 1 gm/ Dextrose 100 mls @ 200 mls/hr IVPB Q12H DAVID Last Admin: 07/10/20 11:38 Dose: 200 mls/hr Documented by: Potassium Chloride (Potassium Chloride 10 Meq Premix Ivpb -) 10 meq in 100 mls @ 100 mls/hr IVPB Q60M DAVID Stop: 07/10/20 14:59 Potassium Chloride 40 meq/ (Sodium Chloride) 1,000 mls @ 83 mls/hr IVPB ASDIR [facility] Insulin Aspart (Novolog Vial Sliding Scale -) 1 vial SQ ACHS [facility]; Protocol Last Admin: 07/10/20 11:39 Dose: Not Given Documented by: Metoprolol Tartrate (Lopressor Injection -) 5 mg IVPUSH Q4H PRN PRN Reason: TACHYCARDIA Pantoprazole Sodium (Protonix -) 40 mg PO DAILY [facility] Last Admin: 07/10/20 10:23 Dose: 40 mg Documented by: Senna (Senna -) 2 tab PO HS PRN PRN Reason: CONSTIPATION - Objective Vital Signs: Vital Signs Temperature 98.3 F 07/10/20 09:27 Pulse Rate 98 H 07/10/20 09:27 Respiratory Rate 20 07/10/20 09:27 Blood Pressure 120/79 07/10/20 09:27 O2 Sat by Pulse Oximetry (%) 99 07/10/20 09:27 Constitutional: Yes: No Distress, Calm HENT: Yes: Atraumatic Neck: Yes: Supple Respiratory: Yes: Regular, Diminished Extremities: No: Cyanosis Edema: No Neurological: Yes: Alert Labs: CBC, BMP 07/10/20 06:45 07/10/20 06:45 INR, PTT INR 1.11 (0.83-1.09) H 07/09/20 12:42 Assessment/Plan 80 year old woman with history of dementia, DM who presented from [place] with hypoxia and diaphoresis and found to have possible colitis with SHERLYN and hyperkalemia. 1. Acute kidney injury likely due to volume depletion vs. ATN 2. Hyperkalemia 3. Suspected Colitis 4. Leukocytosis 5. Lactic acidosis 6. Dementia 7. Hypernatremia Renal function improved with IV fluids. Hyperkalemia improved. Agree with change to hypotonic fluids. supplement potassium Empiric antibiotics as per primary team f/u cultures Thank you Orlin Toledo DO
--- NOTE | 2020-07-10 13:59 | CON.CARD ---
Consult Consult Specialty:: cardiology. - History of Present Illness History of Present Illness: This is a 80 year old woman with history of respiratory failure, dementia, DM who presented from [place] with hypoxia and diaphoresis and found to have colitis with SHERLYN and hyperkalemia. Pt is non-verbal and not able to provide history. 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 Cardio/Vascular: Yes: HTN, Hyperlipdemia, Other (PSVT) ...: No Endocrine: Yes: Diabetes Mellitus - Alcohol/Substance Use Hx Alcohol Use: No - Smoking History Smoking history: Unknown if ever smoked Have you smoked in the past 12 months: No Aproximately how many cigarettes per day: 0 - Social History Usual Living Arrangement: Care Home ADL: Support Services Occupation: unknown History of Recent Travel: No Home Medications - Allergies Allergies/Adverse Reactions: Allergies Allergy/AdvReac Type Severity Reaction Status Date / Time No Known Allergies Allergy Verified 05/19/20 18:13 - Home Medications Home Medications: Ambulatory Orders Heparin - 5,000 unit SCJ BID 11/27/17 Insulin (LOG) Aspart [NovoLOG -] See Protocol SQ ACHS 11/27/17 Insulin (Levemir) [Levemir Vial] 35 unit SCJ AM 11/27/17 Multivit with Minerals No.55 [Centrum Flavor Burst Adult] 1 tab PO DAILY 11/27/17 Polyethylene Glycol 3350 [Miralax 119 gm Btl -] 17 gm PO BID bottle 12/05/17 Sennosides [Senna -] 2 tab PO HS PRN tablet 12/05/17 Atorvastatin Ca [Lipitor] 1 tablet PO DAILY 05/20/20 Bethanechol Chloride [Urecholine] 50 mg PO TID 05/20/20 Cholecalciferol (Vitamin D3) [Vitamin D3 -] 1,000 unit PO DAILY 05/20/20 Zinc Oxide 20% Topical Oint 1 applic TP PRN PRN 05/20/20 Cefuroxime Axetil [Ceftin -] 500 mg PO Q12H #10 tablet 05/27/20 Insulin Sliding Scale [Novolog Vial Sliding Scale -] 1 vial SQ ACHS units 05/27/20 Mineral Oil/Petrolat,Wht/Water [Eucerin (Small Jar) -] 1 applic TP BID jar 05/27/20 Pantoprazole Sodium [Protonix -] 40 mg PO DAILY #30 tablet.ec 05/27/20 Family Medical History Family History: Unable to Obtain Review of Systems Unable to obtain ROS, reason: Dementia Vital Signs: Vital Signs Temperature 98.3 F 07/10/20 09:27 Pulse Rate 98 H 07/10/20 09:27 Respiratory Rate 20 07/10/20 09:27 Blood Pressure 120/79 07/10/20 09:27 O2 Sat by Pulse Oximetry (%) 99 07/10/20 09:27 Constitutional: Yes: Well Nourished, No Distress Eyes: Yes: Conjunctiva Clear HENT: Yes: Atraumatic, Normocephalic Neck: Yes: Supple, Trachea Midline Respiratory: Yes: Regular, CTA Bilaterally Gastrointestinal: Yes: Normal Bowel Sounds, Distention Cardiovascular: Yes: Regular Rate and Rhythm Heart Sounds: Yes: S1, S2 Murmur: No: Systolic Murmur, Diastolic Murmur - Other Data Labs, Other Data: CBC, BMP 07/10/20 06:45 07/10/20 06:45 INR, PTT INR 1.11 (0.83-1.09) H 07/09/20 12:42 Troponin, BNP 07/09/20 07/09/20 07/10/20 12:42 12:42 06:45 Troponin I Cancelled < 0.02 < 0.02 Troponin, BNP 07/09/20 07/09/20 07/10/20 12:42 12:42 06:45 Troponin I Cancelled < 0.02 < 0.02 NSR prolonged QT Anteriolateral T wave abnormality. Problem List - Problems (1) Acute hypoxemic respiratory failure Code(s): J96.01 - ACUTE RESPIRATORY FAILURE WITH HYPOXIA Assessment/Plan 80 year old woman with history of respiratory failure, dementia, DM who presented from [place] with hypoxia and diaphoresis and found to have colitis with SHERLYN and hyperkalemia. Telemetry shows NSR without arrhythmia. QT is mildly prolonged in the setting of hypokalemia, No ischemic cardiac injury or heart failure.
[2020-07-10] MEDS: KCL 10 MEQ IVPB 10 MEQ/100 ML INFUS.BAG IVPB SCH ×3 (14:12→15:57)
--- NOTE | 2020-07-10 14:57 | EKG ---
Test Reason : Blood Pressure : / mmHG Vent. Rate : 098 BPM Atrial Rate : 098 BPM P-R Int : 132 ms QRS Dur : 072 ms QT Int : 370 ms P-R-T Axes : 065 039 -50 degrees QTc Int : 472 ms NORMAL SINUS RHYTHM PROLONGED QT ABNORMAL ECG WHEN COMPARED WITH ECG OF 09-JUL-2020 14:13, QT HAS LENGTHENED Confirmed by Abdias Michelle ([id number]) on 07/10/2020 2:56:53 PM Referred By: Lisa ELLIS Confirmed By:Abdias Michelle
--- NOTE | 2020-07-10 14:59 | EKG ---
Test Reason : Blood Pressure : / mmHG Vent. Rate : 084 BPM Atrial Rate : 084 BPM P-R Int : 132 ms QRS Dur : 070 ms QT Int : 344 ms P-R-T Axes : 080 026 -44 degrees QTc Int : 406 ms POOR DATA QUALITY, INTERPRETATION MAY BE ADVERSELY AFFECTED NORMAL SINUS RHYTHM ABNORMAL ECG WHEN COMPARED WITH ECG OF 09-JUL-2020 13:41, NO SIGNIFICANT CHANGE WAS FOUND Confirmed by Abdias Michelle ([id number]) on 07/10/2020 2:59:09 PM Referred By: Confirmed By:Abdias Michelle
[2020-07-10] MEDS ORDERED: KCL 10 MEQ IVPB 10 MEQ/100 ML INFUS.BAG IVPB SCH (16:00)
[2020-07-10] MEDS: HEPARIN - 25,000 UNIT in SODIUM CHLORIDE 495 ML IV SCH ×2 (16:35→23:30)
[2020-07-10] MEDS: ATORVASTATIN CA 10 MG TABLET (FP) PO SCH (22:04)
[2020-07-11 01:06] LABS: URINE APPEARANCE CLOUDY; URINE BILIRUBIN NEGATIVE (NEGATIVE); URINE COLOR YELLOW; URINE GLUCOSE (UA) 2+ (NEGATIVE); URINE KETONE NEGATIVE (NEGATIVE)
[2020-07-11 01:07] LABS: EPI CELLS 4.8 /uL (0-25.1); HYALINE CASTS 1.54 /uL (0-3.1); URINE BACTERIA 105.1 /uL (0-1359); URINE LEUK ESTERASE TRACE (NEGATIVE); URINE NITRITE NEGATIVE (NEGATIVE); URINE PROTEIN 1+ (NEGATIVE); URINE WBC 561.7 /uL (0-25.8)
[2020-07-11 01:09] LABS: URINE RBC 91.9 /uL (0-23.9); YEAST MODERATE (NEGATIVE)
[2020-07-11] MEDS ORDERED: PT OWN MED DRAWER 7, Y5N ONE (03:34)
--- NOTE | 2020-07-11 06:43 | PN ---
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, Physician History of Present Illness: PULMONARY LETHARGIC,NON-VERBAL,-SOB - Current Medication List Current Medications: Active Medications Atorvastatin Calcium (Lipitor -) 10 mg PO HS [facility]ID Last Admin: 07/10/20 22:04 Dose: 10 mg Documented by: Heparin Sodium (Porcine) (Heparin -) 1,000 unit IVPUSH PRN PRN PRN Reason: Heparin Heparin Sodium (Porcine) (Heparin -) 5,000 unit IVPUSH PRN PRN PRN Reason: Heparin Last Admin: 07/10/20 16:35 Dose: 5,000 unit Documented by: Heparin Sodium (Porcine) 25, (000 unit/ Sodium Chloride) 500 mls @ 16 mls/hr IV TITR [facility]ID; Protocol Last Titration: 07/11/20 02:05 Dose: 850 unit/hr, 17 mls/hr Documented by: Metronidazole (Flagyl 500mg Premixed Ivpb -) 500 mg in 100 mls @ 100 mls/hr IVPB Q8H-IV [facility]ID Last Admin: 07/11/20 02:04 Dose: 100 mls/hr Documented by: Meropenem 1 gm/ Dextrose 100 mls @ 200 mls/hr IVPB Q12H [facility] Last Admin: 07/10/20 23:08 Dose: 200 mls/hr Documented by: Potassium Chloride 40 meq/ (Sodium Chloride) 1,000 mls @ 83 mls/hr IVPB ASDIR [facility] Last Admin: 07/10/20 14:11 Dose: 83 mls/hr Documented by: Insulin Aspart (Novolog Vial Sliding Scale -) 1 vial SQ ACHS [facility]; Protocol Last Admin: 07/10/20 22:06 Dose: Not Given Documented by: Metoprolol Tartrate (Lopressor Injection -) 5 mg IVPUSH Q4H PRN PRN Reason: TACHYCARDIA Pantoprazole Sodium (Protonix -) 40 mg PO DAILY [facility] Last Admin: 07/10/20 10:23 Dose: 40 mg Documented by: Senna (Senna -) 2 tab PO HS PRN PRN Reason: CONSTIPATION - Objective Vital Signs: Vital Signs Temperature 97.4 F L 07/11/20 02:00 Pulse Rate 78 07/11/20 02:00 Respiratory Rate 18 07/11/20 02:00 Blood Pressure 110/67 07/11/20 02:00 O2 Sat by Pulse Oximetry (%) 100 07/11/20 02:00 Constitutional: Yes: Well Nourished, Other (LETHARGIC) Eyes: Yes: WNL HENT: Yes: WNL Neck: Yes: WNL Cardiovascular: Yes: Regular Rate and Rhythm, S1, S2 Respiratory: Yes: Diminished (POOR INSPIRATORY EFFORT) Gastrointestinal: Yes: Normal Bowel Sounds, Soft Extremities: Yes: WNL Edema: No Labs: CBC, BMP Problem List - Problems (1) Acute hypoxemic respiratory failure Code(s): J96.01 - ACUTE RESPIRATORY FAILURE WITH HYPOXIA (2) Acute kidney injury Code(s): N17.9 - ACUTE KIDNEY FAILURE, UNSPECIFIED (3) Altered mental status Code(s): R41.82 - ALTERED MENTAL STATUS, UNSPECIFIED Qualifiers: Altered mental status type: unspecified Qualified Code(s): R41.82 - Altered mental status, unspecified (4) Elevated lactic acid level Code(s): R79.89 - OTHER SPECIFIED ABNORMAL FINDINGS OF BLOOD CHEMISTRY (5) Ischemic colitis Code(s): K55.9 - VASCULAR DISORDER OF INTESTINE, UNSPECIFIED (6) Diabetes mellitus type 2 in nonobese Code(s): E11.9 - TYPE 2 DIABETES MELLITUS WITHOUT COMPLICATIONS (7) Hyperkalemia Code(s): E87.5 - HYPERKALEMIA (8) Sepsis Code(s): A41.9 - SEPSIS, UNSPECIFIED ORGANISM Qualifiers: Sepsis type: sepsis due to unspecified organism Qualified Code(s): A41.9 - Sepsis, unspecified organism Assessment/Plan IMP ACUTE HYPOXEMIC RESPIRATORY FAILURE IMPROVED SEPSIS DM SHERLYN LACTIC ACIDOSIS IMPROVED ACUTE ISCHEMIC COLITIS DEMPSEY SUPPLEMENTAL O2 INHALED BRONCHODILATORS ABX PER ID MONITOR AUDREY,RENAL FUNCTION AC DR MARCANO Problem List - Problems (1) Acute hypoxemic respiratory failure Code(s): J96.01 - ACUTE RESPIRATORY FAILURE WITH HYPOXIA (2) Acute kidney injury Code(s): N17.9 - ACUTE KIDNEY FAILURE, UNSPECIFIED (3) Altered mental status Code(s): R41.82 - ALTERED MENTAL STATUS, UNSPECIFIED Qualifiers: Altered mental status type: unspecified Qualified Code(s): R41.82 - Altered mental status, unspecified (4) Elevated lactic acid level Code(s): R79.89 - OTHER SPECIFIED ABNORMAL FINDINGS OF BLOOD CHEMISTRY (5) Ischemic colitis Code(s): K55.9 - VASCULAR DISORDER OF INTESTINE, UNSPECIFIED (6) Diabetes mellitus type 2 in nonobese Code(s): E11.9 - TYPE 2 DIABETES MELLITUS WITHOUT COMPLICATIONS (7) Hyperkalemia Code(s): E87.5 - HYPERKALEMIA (8) Sepsis Code(s): A41.9 - SEPSIS, UNSPECIFIED ORGANISM Qualifiers: Sepsis type: sepsis due to unspecified organism Qualified Code(s): A41.9 - Sepsis, unspecified organism
[2020-07-11] MEDS: INSULIN SLIDING SCALE (NOVOLOG) 1 VIAL SQ SCH ×4 (07:32→21:30)
[2020-07-11 08:41] LABS: BASO % 0.6 % (0-2.0); EOS % 0.9 % (0-4.5); HEMOGLOBIN 11.9 GM/dL (10.7-15.3); LYMPH % 15.2 % (8-40); MCH 29.5 pg (25.7-33.7); MCHC 33.1 g/dl (32.0-36.0); MONO % 4.2 % (3.8-10.2); NEUT % 79.1 % (42.8-82.8); PLATELET COUNT 268 K/MM3 (134-434); RBC 4.04 M/mm3 (3.60-5.2); RDW 13.7 % (11.6-15.6); WHITE BLOOD COUNT 12.1 K/mm3 (4.0-10.0)
[2020-07-11] MEDS: HEPARIN - 25,000 UNIT in SODIUM CHLORIDE 495 ML IV SCH (08:45)
[2020-07-11 09:05] LABS: ALBUMIN 2.2 g/dl (3.4-5.0); BILIRUBIN,TOTAL 0.4 mg/dL (0.2-1); BLOOD UREA NITROGEN 36.7 mg/dL (7-18); CALCIUM 8.2 mg/dL (8.5-10.1); CREATININE 1.2 mg/dL (0.55-1.3); POTASSIUM 4.5 mmol/L (3.5-5.1)
[2020-07-11] MEDS: PANTOPRAZOLE 40 MG TABLET PO SCH ×2 (09:25→09:36)
[2020-07-11] MEDS ORDERED: POTASSIUM CHLORIDE 40 MEQ in SODIUM CHLORIDE 0.45% 1,000 ML IVPB SCH (10:48)
--- NOTE | 2020-07-11 10:53 | PN ---
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, Physician - Current Medication List Current Medications: Active Medications Atorvastatin Calcium (Lipitor -) 10 mg PO HS DAVID Last Admin: 07/10/20 22:04 Dose: 10 mg Documented by: Heparin Sodium (Porcine) (Heparin -) 1,000 unit IVPUSH PRN PRN PRN Reason: Heparin Heparin Sodium (Porcine) (Heparin -) 5,000 unit IVPUSH PRN PRN PRN Reason: Heparin Last Admin: 07/10/20 16:35 Dose: 5,000 unit Documented by: Heparin Sodium (Porcine) 25, (000 unit/ Sodium Chloride) 500 mls @ 16 mls/hr IV TITR [facility]; Protocol Last Admin: 07/11/20 08:45 Dose: 850 unit/hr, 17 mls/hr Documented by: Metronidazole (Flagyl 500mg Premixed Ivpb -) 500 mg in 100 mls @ 100 mls/hr IVPB Q8H-IV DAVID Last Admin: 07/11/20 09:25 Dose: 100 mls/hr Documented by: Meropenem 1 gm/ Dextrose 100 mls @ 200 mls/hr IVPB Q12H [facility] Last Admin: 07/10/20 23:08 Dose: 200 mls/hr Documented by: Potassium Chloride 40 meq/ (Sodium Chloride) 1,000 mls @ 83 mls/hr IVPB Q12H [facility]ID Insulin Aspart (Novolog Vial Sliding Scale -) 1 vial SQ ACHS [facility]; Protocol Last Admin: 07/11/20 07:32 Dose: Not Given Documented by: Metoprolol Tartrate (Lopressor Injection -) 5 mg IVPUSH Q4H PRN PRN Reason: TACHYCARDIA Pantoprazole Sodium (Protonix -) 40 mg PO DAILY [facility] Last Admin: 07/11/20 09:36 Dose: Not Given Documented by: Senna (Senna -) 2 tab PO HS PRN PRN Reason: CONSTIPATION - Objective Vital Signs: Vital Signs Temperature 98.9 F 07/11/20 09:22 Pulse Rate 80 07/11/20 09:22 Respiratory Rate 18 07/11/20 09:22 Blood Pressure 124/63 07/11/20 09:22 O2 Sat by Pulse Oximetry (%) 98 07/11/20 09:22 Cardiovascular: Yes: Regular Rate and Rhythm Respiratory: Yes: Regular, CTA Bilaterally Gastrointestinal: Yes: Normal Bowel Sounds, Soft Edema: No Neurological: Yes: Alert, Confusion Labs: CBC, BMP 07/11/20 07:17 07/11/20 07:17 INR, PTT INR 1.11 (0.83-1.09) H 07/09/20 12:42 Problem List - Problems (1) Acute hypoxemic respiratory failure Assessment/Plan: supplement O2 pulm on case comfortable now Code(s): J96.01 - ACUTE RESPIRATORY FAILURE WITH HYPOXIA (2) Acute kidney injury Assessment/Plan: ivf per renal monitor trends renal consult Code(s): N17.9 - ACUTE KIDNEY FAILURE, UNSPECIFIED (3) Elevated lactic acid level Assessment/Plan: iv abx id consult appreciated ivf normalized Code(s): R79.89 - OTHER SPECIFIED ABNORMAL FINDINGS OF BLOOD CHEMISTRY (4) Ischemic colitis Assessment/Plan: surgery on board npo ivf iv abx heparin--will need surgical follow up Code(s): K55.9 - VASCULAR DISORDER OF INTESTINE, UNSPECIFIED (5) Diabetes Code(s): E11.9 - TYPE 2 DIABETES MELLITUS WITHOUT COMPLICATIONS (6) Sepsis Assessment/Plan: Microbiology 07/09/20 13:18 Urine - Urine - Catheterized Urine Culture - Final Yeast Like Organism 07/09/20 12:42 Blood - Peripheral Venous Blood Culture - Preliminary NO GROWTH OBTAINED AFTER 24 HOURS, INCUBATION TO CONTINUE FOR 4 DAYS. 07/09/20 12:42 Blood - Peripheral Venous Blood Culture - Preliminary NO GROWTH OBTAINED AFTER 24 HOURS, INCUBATION TO CONTINUE FOR 4 DAYS. iv abx id Code(s): A41.9 - SEPSIS, UNSPECIFIED ORGANISM Qualifiers: Sepsis type: sepsis due to unspecified organism Qualified Code(s): A41.9 - Sepsis, unspecified organism
--- NOTE | 2020-07-11 11:10 | PN ---
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 (short form) - Note 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: Attending Surgeon Seen in f/u; more alert; had BM a/t notes; nurse notes difficulty w/UO VSS AF abdo-soft and non tender; o/w negative. WBC and lactate nl yeast growing in urine IMP: doubt ischemic colitis PLAN: advise trial of clear liquids Francisco Oconnor MD FACS
[2020-07-11] MEDS ORDERED: DEXTROSE 5%-WATER 100 ML IVPB ONE ×2 (11:40→22:29)
[2020-07-11] MEDS ORDERED: MEROPENEM 1 GM VIAL (RESTRICTED TO ID) IVPB ONE ×2 (11:40→22:29)
[2020-07-11] MEDS: MEROPENEM 1 GM in DEXTROSE 5%-WATER 100 ML IVPB SCH ×2 (11:43→22:41)
[2020-07-11] MEDS: SODIUM CHLORIDE 0.45% 1,000 ML IV SCH (12:43)
--- NOTE | 2020-07-11 12:49 | PN ---
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, Physician History of Present Illness: Seen and examined at the bedside awake and alert, not talking no overnight events making urine - Current Medication List Current Medications: Active Medications Atorvastatin Calcium (Lipitor -) 10 mg PO HS DAVID Last Admin: 07/10/20 22:04 Dose: 10 mg Documented by: Heparin Sodium (Porcine) (Heparin -) 1,000 unit IVPUSH PRN PRN PRN Reason: Heparin Heparin Sodium (Porcine) (Heparin -) 5,000 unit IVPUSH PRN PRN PRN Reason: Heparin Last Admin: 07/10/20 16:35 Dose: 5,000 unit Documented by: Heparin Sodium (Porcine) 25, (000 unit/ Sodium Chloride) 500 mls @ 16 mls/hr IV TITR [facility]; Protocol Last Admin: 07/11/20 08:45 Dose: 850 unit/hr, 17 mls/hr Documented by: Metronidazole (Flagyl 500mg Premixed Ivpb -) 500 mg in 100 mls @ 100 mls/hr IVPB Q8H-IV [facility]ID Last Admin: 07/11/20 09:25 Dose: 100 mls/hr Documented by: Meropenem 1 gm/ Dextrose 100 mls @ 200 mls/hr IVPB Q12H [facility] Last Admin: 07/11/20 11:43 Dose: 200 mls/hr Documented by: Sodium Chloride (1/2 Normal Saline) 1,000 mls @ 75 mls/hr IV ASDIR [facility] Last Admin: 07/11/20 12:43 Dose: 75 mls/hr Documented by: Insulin Aspart (Novolog Vial Sliding Scale -) 1 vial SQ ACHS [facility]; Protocol Last Admin: 07/11/20 11:38 Dose: Not Given Documented by: Metoprolol Tartrate (Lopressor Injection -) 5 mg IVPUSH Q4H PRN PRN Reason: TACHYCARDIA Pantoprazole Sodium (Protonix -) 40 mg PO DAILY [facility] Last Admin: 07/11/20 09:36 Dose: Not Given Documented by: Senna (Senna -) 2 tab PO HS PRN PRN Reason: CONSTIPATION - Objective Vital Signs: Vital Signs Temperature 98.9 F 07/11/20 09:22 Pulse Rate 80 07/11/20 09:22 Respiratory Rate 18 07/11/20 09:22 Blood Pressure 124/63 07/11/20 09:22 O2 Sat by Pulse Oximetry (%) 98 07/11/20 09:22 Constitutional: Yes: No Distress HENT: Yes: Atraumatic Neck: Yes: Supple Cardiovascular: Yes: Regular Rate and Rhythm Respiratory: Yes: Regular, Diminished. No: Rales, Rhonchi Gastrointestinal: Yes: Soft. No: Tenderness Extremities: No: Cyanosis Edema: No Labs: CBC, BMP 07/11/20 07:17 07/11/20 07:17 INR, PTT INR 1.11 (0.83-1.09) H 07/09/20 12:42 Assessment/Plan 80 year old woman with history of dementia, DM who presented from [place] with hypoxia and diaphoresis and found to have possible colitis with SHERLYN and hyperk alemia. 1. Acute kidney injury likely due to volume depletion vs. ATN 2. Hyperkalemia 3. Suspected Colitis 4. Leukocytosis 5. Lactic acidosis 6. Dementia 7. Hypernatremia Renal function improved with IV fluids. Hyperkalemia improved. Continue 1/2 NS w/o KCL advance diet as per surgery Empiric antibiotics as per primary team f/u cultures Thank you Orlin Toledo DO
[2020-07-11] MEDS: ATORVASTATIN CA 10 MG TABLET (FP) PO SCH (21:30)
[2020-07-12] MEDS: SODIUM CHLORIDE 0.45% 1,000 ML IV SCH (04:10)
[2020-07-12] MEDS: INSULIN SLIDING SCALE (NOVOLOG) 1 VIAL SQ SCH ×4 (06:13→21:38)
--- NOTE | 2020-07-12 07:09 | PN ---
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, Physician History of Present Illness: PULMONARY AWAKE,ALERT,NON-VERBAL,-SOB - Current Medication List Current Medications: Active Medications Atorvastatin Calcium (Lipitor -) 10 mg PO HS [facility] Last Admin: 07/11/20 21:30 Dose: 10 mg Documented by: Metronidazole (Flagyl 500mg Premixed Ivpb -) 500 mg in 100 mls @ 100 mls/hr IVPB Q8H-IV DAVID Last Admin: 07/12/20 01:34 Dose: 100 mls/hr Documented by: Meropenem 1 gm/ Dextrose 100 mls @ 200 mls/hr IVPB Q12H [facility] Last Admin: 07/11/20 22:41 Dose: 200 mls/hr Documented by: Sodium Chloride (1/2 Normal Saline) 1,000 mls @ 75 mls/hr IV ASDIR [facility] Last Admin: 07/12/20 04:10 Dose: 75 mls/hr Documented by: Insulin Aspart (Novolog Vial Sliding Scale -) 1 vial SQ ACHS [facility]; Protocol Last Admin: 07/12/20 06:13 Dose: Not Given Documented by: Metoprolol Tartrate (Lopressor Injection -) 5 mg IVPUSH Q4H PRN PRN Reason: TACHYCARDIA Pantoprazole Sodium (Protonix -) 40 mg PO DAILY [facility] Last Admin: 07/11/20 09:36 Dose: Not Given Documented by: Senna (Senna -) 2 tab PO HS PRN PRN Reason: CONSTIPATION - Objective Vital Signs: Vital Signs Temperature 97.5 F L 07/12/20 02:00 Pulse Rate 74 07/12/20 02:00 Respiratory Rate 18 07/12/20 02:00 Blood Pressure 135/65 07/12/20 02:00 O2 Sat by Pulse Oximetry (%) 100 07/12/20 02:00 Constitutional: Yes: Calm, Thin Eyes: Yes: WNL HENT: Yes: WNL Neck: Yes: WNL Cardiovascular: Yes: Regular Rate and Rhythm, S1, S2 Respiratory: Yes: Diminished Gastrointestinal: Yes: Normal Bowel Sounds, Soft Extremities: Yes: WNL Edema: No Labs: CBC, BMP Problem List - Problems (1) Acute hypoxemic respiratory failure Code(s): J96.01 - ACUTE RESPIRATORY FAILURE WITH HYPOXIA (2) Acute kidney injury Code(s): N17.9 - ACUTE KIDNEY FAILURE, UNSPECIFIED (3) Altered mental status Code(s): R41.82 - ALTERED MENTAL STATUS, UNSPECIFIED Qualifiers: Altered mental status type: unspecified Qualified Code(s): R41.82 - Altered mental status, unspecified (4) Elevated lactic acid level Code(s): R79.89 - OTHER SPECIFIED ABNORMAL FINDINGS OF BLOOD CHEMISTRY (5) Ischemic colitis Code(s): K55.9 - VASCULAR DISORDER OF INTESTINE, UNSPECIFIED (6) Diabetes mellitus type 2 in nonobese Code(s): E11.9 - TYPE 2 DIABETES MELLITUS WITHOUT COMPLICATIONS (7) Hyperkalemia Code(s): E87.5 - HYPERKALEMIA (8) Sepsis Code(s): A41.9 - SEPSIS, UNSPECIFIED ORGANISM Qualifiers: Sepsis type: sepsis due to unspecified organism Qualified Code(s): A41.9 - Sepsis, unspecified organism Assessment/Plan IMP ACUTE HYPOXEMIC RESPIRATORY FAILURE IMPROVED SEPSIS DM SHERLYN LACTIC ACIDOSIS IMPROVED ACUTE ISCHEMIC COLITIS DEMPSEY SUPPLEMENTAL O2 INHALED BRONCHODILATORS ABX PER ID MONITOR LYCK,RENAL FUNCTION IVF DR MARCANO Problem List - Problems (1) Acute hypoxemic respiratory failure Code(s): J96.01 - ACUTE RESPIRATORY FAILURE WITH HYPOXIA (2) Acute kidney injury Code(s): N17.9 - ACUTE KIDNEY FAILURE, UNSPECIFIED (3) Altered mental status Code(s): R41.82 - ALTERED MENTAL STATUS, UNSPECIFIED Qualifiers: Altered mental status type: unspecified Qualified Code(s): R41.82 - Altered mental status, unspecified (4) Elevated lactic acid level Code(s): R79.89 - OTHER SPECIFIED ABNORMAL FINDINGS OF BLOOD CHEMISTRY (5) Ischemic colitis Code(s): K55.9 - VASCULAR DISORDER OF INTESTINE, UNSPECIFIED (6) Diabetes mellitus type 2 in nonobese Code(s): E11.9 - TYPE 2 DIABETES MELLITUS WITHOUT COMPLICATIONS (7) Hyperkalemia Code(s): E87.5 - HYPERKALEMIA (8) Sepsis Code(s): A41.9 - SEPSIS, UNSPECIFIED ORGANISM Qualifiers: Sepsis type: sepsis due to unspecified organism Qualified Code(s): A41.9 - Sepsis, unspecified organism
[2020-07-12 07:53] LABS: BASO % 0.4 % (0-2.0); EOS % 2.1 % (0-4.5); HEMATOCRIT 33.3 % (32.4-45.2); LYMPH % 18.1 % (8-40); MEAN CELL VOLUME 87.9 fl (80-96); MEAN PLT VOLUME 8.2 fl (7.5-11.1); NEUT % 74.4 % (42.8-82.8); PLATELET COUNT 247 K/MM3 (134-434); RBC 3.79 M/mm3 (3.60-5.2); RDW 13.6 % (11.6-15.6)
[2020-07-12 08:17] LABS: ALBUMIN 2.2 g/dl (3.4-5.0); BILIRUBIN,TOTAL 0.4 mg/dL (0.2-1); BLOOD UREA NITROGEN 25.4 mg/dL (7-18); CALCIUM 8.2 mg/dL (8.5-10.1); CREATININE 0.8 mg/dL (0.55-1.3); POTASSIUM 3.7 mmol/L (3.5-5.1); TOT PROT 5.6 g/dl (6.4-8.2)
[2020-07-12] MEDS: PANTOPRAZOLE 40 MG TABLET PO SCH (09:48)
--- NOTE | 2020-07-12 10:12 | PN ---
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 (short form) - Note 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: awake now on clears Vital Signs Period Temp Pulse Resp BP Sys/Bob Pulse Ox Last 24 Hr 97.5 F-98.6 F 74-92 18-18 101-148/48-113 97-100 cor-rrr lungs decreased bs at bases abd- distended, firm nt +bs ext no edema CBC, BMP 07/12/20 06:45 07/12/20 06:45 Microbiology 07/09/20 12:42 Blood - Peripheral Venous Blood Culture - Preliminary NO GROWTH OBTAINED AFTER 48 HOURS, INCUBATION TO CONTINUE FOR 3 DAYS. 07/09/20 12:42 Blood - Peripheral Venous Blood Culture - Preliminary NO GROWTH OBTAINED AFTER 48 HOURS, INCUBATION TO CONTINUE FOR 3 DAYS. 07/09/20 13:18 Urine - Urine - Catheterized Urine Culture - Final Yeast Like Organism imp/reccd coitis UTI fecal retention neymar history of ecoli esbl uti 2018 plan meropenem/flagyl f/u cultures IVF
--- NOTE | 2020-07-12 10:57 | PN ---
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, Physician History of Present Illness: Seen and examined at the bedside awake and alert, not talking no overnight events making urine tolerating oral diet - Current Medication List Current Medications: Active Medications Atorvastatin Calcium (Lipitor -) 10 mg PO HS DAVID Last Admin: 07/11/20 21:30 Dose: 10 mg Documented by: Metronidazole (Flagyl 500mg Premixed Ivpb -) 500 mg in 100 mls @ 100 mls/hr IVPB Q8H-IV DAVID Last Admin: 07/12/20 09:48 Dose: 100 mls/hr Documented by: Sodium Chloride (1/2 Normal Saline) 1,000 mls @ 75 mls/hr IV ASDIR [facility] Last Admin: 07/12/20 04:10 Dose: 75 mls/hr Documented by: Piperacillin Sod/Tazobactam (Sod 3.375 gm/ Dextrose) 50 mls @ 100 mls/hr IVPB Q8H-IV DAVID; Protocol Insulin Aspart (Novolog Vial Sliding Scale -) 1 vial SQ ACHS [facility]; Protocol Last Admin: 07/12/20 06:13 Dose: Not Given Documented by: Metoprolol Tartrate (Lopressor Injection -) 5 mg IVPUSH Q4H PRN PRN Reason: TACHYCARDIA Pantoprazole Sodium (Protonix -) 40 mg PO DAILY [facility] Last Admin: 07/12/20 09:48 Dose: 40 mg Documented by: Senna (Senna -) 2 tab PO HS PRN PRN Reason: CONSTIPATION - Objective Vital Signs: Vital Signs Temperature 97 F L 07/12/20 10:00 Pulse Rate 66 07/12/20 10:00 Respiratory Rate 18 07/12/20 10:00 Blood Pressure 133/52 L 07/12/20 10:00 O2 Sat by Pulse Oximetry (%) 100 07/12/20 10:00 Constitutional: Yes: No Distress HENT: Yes: Atraumatic Neck: Yes: Supple Cardiovascular: Yes: Regular Rate and Rhythm Respiratory: Yes: Regular, Diminished. No: Rales, Rhonchi Gastrointestinal: Yes: Soft. No: Tenderness Extremities: No: Cyanosis Edema: No Neurological: Yes: Alert Labs: CBC, BMP 07/12/20 06:45 07/12/20 06:45 INR, PTT INR 1.11 (0.83-1.09) H 07/09/20 12:42 Assessment/Plan 80 year old woman with history of dementia, DM who presented from [place] with hypoxia and diaphoresis and found to have possible colitis with SHERLYN and hyperkalemia. 1. Acute kidney injury likely due to volume depletion vs. ATN 2. Hyperkalemia 3. Suspected Colitis 4. Leukocytosis 5. Lactic acidosis 6. Dementia 7. Hypernatremia Renal function now improved to near baseline Hyperkalemia improved. Decrease rate of IVF, will add some KCL advance diet as per surgery antibiotics as per ID Trend renal function and electrolytes daily Thank you Orlin Toledo DO
--- NOTE | 2020-07-12 10:58 | PN ---
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 (short form) - Note 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: Attending Surgeon Seen in f/u; more alert; had BM a/t notes and tolerating clear liquid diet; nurse notes difficulty w/UO VSS AF abdo-soft and non tender; o/w negative. yeast growing in urine IMP: again doubt ischemic colitis PLAN: advise advance diet as tolerated and prn surgical f/u. Francisco Oconnor MD FACS
[2020-07-12] MEDS: PIPERACILLIN/TAZOB 3.375 GM 3.375 GM in DEXTROSE 5%-WATER - 50 ML IVPB SCH ×2 (11:00→17:45)
[2020-07-12] MEDS ORDERED: PIPERACILLIN/TAZOBACTAM 3.375 GM VIAL IVPB ONE ×2 (11:19→17:24)
[2020-07-12] MEDS ORDERED: DEXTROSE 5%-WATER - 50 ML IVPB ONE ×2 (11:19→17:25)
--- NOTE | 2020-07-12 11:31 | PN ---
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, Physician - Current Medication List Current Medications: Active Medications Atorvastatin Calcium (Lipitor -) 10 mg PO HS [facility] Last Admin: 07/11/20 21:30 Dose: 10 mg Documented by: Metronidazole (Flagyl 500mg Premixed Ivpb -) 500 mg in 100 mls @ 100 mls/hr IVPB Q8H-IV [facility]ID Last Admin: 07/12/20 09:48 Dose: 100 mls/hr Documented by: Piperacillin Sod/Tazobactam (Sod 3.375 gm/ Dextrose) 50 mls @ 100 mls/hr IVPB Q8H-IV [facility]ID; Protocol Potassium Chloride 40 meq/ (Sodium Chloride) 1,020 mls @ 42 mls/hr IVPB Q24H [facility] Insulin Aspart (Novolog Vial Sliding Scale -) 1 vial SQ ACHS [facility]; Protocol Last Admin: 07/12/20 06:13 Dose: Not Given Documented by: Metoprolol Tartrate (Lopressor Injection -) 5 mg IVPUSH Q4H PRN PRN Reason: TACHYCARDIA Pantoprazole Sodium (Protonix -) 40 mg PO DAILY [facility] Last Admin: 07/12/20 09:48 Dose: 40 mg Documented by: Senna (Senna -) 2 tab PO HS PRN PRN Reason: CONSTIPATION - Objective Vital Signs: Vital Signs Temperature 97 F L 07/12/20 10:00 Pulse Rate 66 07/12/20 10:00 Respiratory Rate 18 07/12/20 10:00 Blood Pressure 133/52 L 07/12/20 10:00 O2 Sat by Pulse Oximetry (%) 100 07/12/20 10:00 Cardiovascular: Yes: S1, S2 Respiratory: Yes: Regular, CTA Bilaterally Gastrointestinal: Yes: Normal Bowel Sounds, Soft. No: Tenderness Labs: CBC, BMP 07/12/20 06:45 07/12/20 06:45 INR, PTT INR 1.11 (0.83-1.09) H 07/09/20 12:42 Problem List - Problems (1) Acute hypoxemic respiratory failure Assessment/Plan: supplement O2 pulm on case comfortable now Code(s): J96.01 - ACUTE RESPIRATORY FAILURE WITH HYPOXIA (2) Acute kidney injury Assessment/Plan: ivf per renal monitor trends renal consult Code(s): N17.9 - ACUTE KIDNEY FAILURE, UNSPECIFIED (3) Elevated lactic acid level Code(s): R79.89 - OTHER SPECIFIED ABNORMAL FINDINGS OF BLOOD CHEMISTRY (4) Ischemic colitis Assessment/Plan: surgery on board--appreciated--not likely ischemic advance diet ivf iv abx heparin--will need surgical follow up--now off Code(s): K55.9 - VASCULAR DISORDER OF INTESTINE, UNSPECIFIED (5) Diabetes Code(s): E11.9 - TYPE 2 DIABETES MELLITUS WITHOUT COMPLICATIONS (6) Sepsis Assessment/Plan: Microbiology 07/09/20 13:18 Urine - Urine - Catheterized Urine Culture - Final Yeast Like Organism 07/09/20 12:42 Blood - Peripheral Venous Blood Culture - Preliminary NO GROWTH OBTAINED AFTER 24 HOURS, INCUBATION TO CONTINUE FOR 4 DAYS. 07/09/20 12:42 Blood - Peripheral Venous Blood Culture - Preliminary NO GROWTH OBTAINED AFTER 24 HOURS, INCUBATION TO CONTINUE FOR 4 DAYS. iv abx id Code(s): A41.9 - SEPSIS, UNSPECIFIED ORGANISM Qualifiers: Sepsis type: sepsis due to unspecified organism Qualified Code(s): A41.9 - Sepsis, unspecified organism
[2020-07-12] MEDS: HEPARIN NA (PORCINE) 5,000 UNITS/ML 1ML VIAL SQ SCH ×2 (12:25→21:38)
[2020-07-12] MEDS ORDERED: PT OWN MED DRAWER 7, Y5N ONE (15:17)
[2020-07-12] MEDS: POTASSIUM CHLORIDE 40 MEQ in SODIUM CHLORIDE 0.45% 1,000 ML IVPB SCH (15:18)
[2020-07-12] MEDS: ATORVASTATIN CA 10 MG TABLET (FP) PO SCH (21:38)
[2020-07-13] MEDS ORDERED: PIPERACILLIN/TAZOBACTAM 3.375 GM VIAL IVPB ONE ×3 (01:05→16:45)
[2020-07-13] MEDS ORDERED: DEXTROSE 5%-WATER - 50 ML IVPB ONE ×3 (01:05→16:45)
[2020-07-13] MEDS: PIPERACILLIN/TAZOB 3.375 GM 3.375 GM in DEXTROSE 5%-WATER - 50 ML IVPB SCH ×3 (01:14→17:14)
[2020-07-13] MEDS: INSULIN SLIDING SCALE (NOVOLOG) 1 VIAL SQ SCH ×4 (06:30→22:24)
[2020-07-13 06:47] LABS: HEMATOCRIT 36.2 % (32.4-45.2); MCH 28.6 pg (25.7-33.7); MCHC 33.1 g/dl (32.0-36.0); MEAN CELL VOLUME 86.5 fl (80-96); MEAN PLT VOLUME 8.4 fl (7.5-11.1); PLATELET COUNT 295 K/MM3 (134-434); RBC 4.19 M/mm3 (3.60-5.2); RDW 13.3 % (11.6-15.6); WHITE BLOOD COUNT 7.1 K/mm3 (4.0-10.0)
[2020-07-13 07:28] LABS: BLOOD UREA NITROGEN 14.6 mg/dL (7-18); CALCIUM 8.1 mg/dL (8.5-10.1); CREATININE 0.7 mg/dL (0.55-1.3); MAGNESIUM 1.6 mg/dL (1.8-2.4); PHOSPHOROUS 1.5 mg/dL (2.5-4.9); POTASSIUM 3.8 mmol/L (3.5-5.1)
--- NOTE | 2020-07-13 08:34 | CONS ---
DATE OF CONSULTATION: 07/10/2020 PULMONARY CONSULTATION REFERRING PHYSICIAN: Nevin Parmar MD HISTORY OF PRESENT ILLNESS: The history is obtained from the medical record. Patient is nonverbal. Patient is a 80-year-old female with past medical history of respiratory failure, dementia, diabetes, admitted to [facility] secondary to hypoxemia, diaphoresis and cold clammy skin. The patient apparently at the care home was found to have O2 saturations in the 80s, and she vomited yellow fluid. She was given 15 mL of nasal O2 on nonrebreather, but she was noted to become bradycardic. EMS was called. Patient was given 0.5 mg of atropine with increased heart rate. Patient was admitted with the above. On admission she underwent a CAT scan of the chest. There was no evidence of pulmonary embolism evidence of mild pleural effusions and revealed bibasilar atelectasis, no change from previous exam May 19, 2020. CT of the abdomen was performed which revealed acute left-sided colitis. Patient was admitted. She was on supplemental O2 as well as IV fluids and antibiotics and anticoagulation for possible ischemic colitis. No further history is available at this time. PAST MEDICAL HISTORY: Again, includes respiratory failure, dementia, diabetes. CURRENT MEDICATIONS: Include heparin, Senna, Lipitor, Novolog, pantoprazole, normal saline. REVIEW OF SYSTEMS: Unable to be obtained; patient nonverbal. PHYSICAL EXAMINATION: General: Patient is an elderly female, awake and alert, nonverbal, in no acute distress. Vital Signs: She is afebrile, blood pressure is 120/79, respiratory rate is 20, O2 saturation is 99% on 3 L nasal cannula. HEENT: Head is normocephalic, atraumatic. Neck: Supple. Heart: Regular, S1-S2. Chest: Clear. Abdomen: Soft. Extremities: No cyanosis or edema. LABORATORIES: Potassium 3.1, BUN 27, creatinine 1.2. Lactate level was initially 5.1, repeat 2.4. WBC 16.8, hemoglobin 13.4, hematocrit 40.9, with a platelet count of 314,000. Chest CT as noted earlier. IMPRESSION: 1. Acute hypoxemic respiratory failure secondary to possible sepsis. 2. R/O Ischemic colitis. 3. Diabetes. 4. Acute kidney injury. 5. Lactic acidosis. PLAN: Supplemental O2. Inhaled bronchodilators. Antibiotics as per Infectious Disease. Trend lactate level. Monitor electrolytes, renal function, anticoagulation. GI evaluation. ROJELIO MARCANO M.D. WILL/[id number] MTDD
[2020-07-13] MEDS: HEPARIN NA (PORCINE) 5,000 UNITS/ML 1ML VIAL SQ SCH ×2 (10:08→22:21)
[2020-07-13] MEDS: PANTOPRAZOLE 40 MG TABLET PO SCH (10:08)
--- NOTE | 2020-07-13 11:54 | EKG ---
Test Reason : Blood Pressure : / mmHG Vent. Rate : 092 BPM Atrial Rate : 092 BPM P-R Int : 142 ms QRS Dur : 064 ms QT Int : 330 ms P-R-T Axes : 086 039 -70 degrees QTc Int : 408 ms POOR DATA QUALITY, INTERPRETATION MAY BE ADVERSELY AFFECTED NORMAL SINUS RHYTHM ABNORMAL ECG Confirmed by MD MEKHI, ROB ([id number]) on 07/13/2020 11:53:53 AM Referred By: Confirmed By:ROB GAMING MD
--- NOTE | 2020-07-13 12:25 | PN ---
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, Physician History of Present Illness: pulmonary awake,non-verbal,-resp distress - Current Medication List Current Medications: Active Medications Atorvastatin Calcium (Lipitor -) 10 mg PO HS [facility] Last Admin: 07/12/20 21:38 Dose: 10 mg Documented by: Heparin Sodium (Porcine) (Heparin -) 5,000 unit SQ BID [facility] Last Admin: 07/13/20 10:08 Dose: 5,000 unit Documented by: Metronidazole (Flagyl 500mg Premixed Ivpb -) 500 mg in 100 mls @ 100 mls/hr IVPB Q8H-IV [facility] Last Admin: 07/13/20 10:45 Dose: 100 mls/hr Documented by: Piperacillin Sod/Tazobactam (Sod 3.375 gm/ Dextrose) 50 mls @ 100 mls/hr IVPB Q8H-IV [facility]ID; Protocol Last Admin: 07/13/20 09:42 Dose: 100 mls/hr Documented by: Potassium Chloride 40 meq/ (Sodium Chloride) 1,020 mls @ 42 mls/hr IVPB Q24H [facility] Last Admin: 07/12/20 15:18 Dose: 42 mls/hr Documented by: Insulin Aspart (Novolog Vial Sliding Scale -) 1 vial SQ ACHS [facility]; Protocol Last Admin: 07/13/20 11:55 Dose: 5 unit Documented by: Metoprolol Tartrate (Lopressor Injection -) 5 mg IVPUSH Q4H PRN PRN Reason: TACHYCARDIA Pantoprazole Sodium (Protonix -) 40 mg PO DAILY [facility] Last Admin: 07/13/20 10:08 Dose: 40 mg Documented by: Senna (Senna -) 2 tab PO HS PRN PRN Reason: CONSTIPATION - Objective Vital Signs: Vital Signs Temperature 98.2 F 07/13/20 09:41 Pulse Rate 77 07/13/20 09:41 Respiratory Rate 19 07/13/20 09:41 Blood Pressure 158/78 07/13/20 09:41 O2 Sat by Pulse Oximetry (%) 96 07/13/20 09:41 Constitutional: Yes: Well Nourished, Calm Eyes: Yes: WNL HENT: Yes: WNL Neck: Yes: WNL Cardiovascular: Yes: Regular Rate and Rhythm, S1, S2 Respiratory: Yes: Diminished (poor inspiratory effort) Gastrointestinal: Yes: Normal Bowel Sounds, Soft Extremities: Yes: WNL Edema: No Labs: CBC, BMP 07/13/20 05:50 07/13/20 05:50 INR, PTT INR 1.11 (0.83-1.09) H 07/09/20 12:42 Problem List - Problems (1) Acute hypoxemic respiratory failure Code(s): J96.01 - ACUTE RESPIRATORY FAILURE WITH HYPOXIA (2) Acute kidney injury Code(s): N17.9 - ACUTE KIDNEY FAILURE, UNSPECIFIED (3) Altered mental status Code(s): R41.82 - ALTERED MENTAL STATUS, UNSPECIFIED Qualifiers: Altered mental status type: unspecified Qualified Code(s): R41.82 - Altered mental status, unspecified (4) Elevated lactic acid level Code(s): R79.89 - OTHER SPECIFIED ABNORMAL FINDINGS OF BLOOD CHEMISTRY (5) Ischemic colitis Code(s): K55.9 - VASCULAR DISORDER OF INTESTINE, UNSPECIFIED (6) Diabetes mellitus type 2 in nonobese Code(s): E11.9 - TYPE 2 DIABETES MELLITUS WITHOUT COMPLICATIONS (7) Hyperkalemia Code(s): E87.5 - HYPERKALEMIA (8) Sepsis Code(s): A41.9 - SEPSIS, UNSPECIFIED ORGANISM Qualifiers: Sepsis type: sepsis due to unspecified organism Qualified Code(s): A41.9 - Sepsis, unspecified organism Assessment/Plan IMP ACUTE HYPOXEMIC RESPIRATORY FAILURE IMPROVED SEPSIS DM SHERLYN LACTIC ACIDOSIS IMPROVED DEMPSEY SUPPLEMENTAL O2 INHALED BRONCHODILATORS ABX PER ID MONITOR LYTES,RENAL FUNCTION IVF DR MARCANO Problem List - Problems (1) Acute hypoxemic respiratory failure Code(s): J96.01 - ACUTE RESPIRATORY FAILURE WITH HYPOXIA (2) Acute kidney injury Code(s): N17.9 - ACUTE KIDNEY FAILURE, UNSPECIFIED (3) Altered mental status Code(s): R41.82 - ALTERED MENTAL STATUS, UNSPECIFIED Qualifiers: Altered mental status type: unspecified Qualified Code(s): R41.82 - Altered mental status, unspecified (4) Elevated lactic acid level Code(s): R79.89 - OTHER SPECIFIED ABNORMAL FINDINGS OF BLOOD CHEMISTRY (5) Ischemic colitis Code(s): K55.9 - VASCULAR DISORDER OF INTESTINE, UNSPECIFIED (6) Diabetes mellitus type 2 in nonobese Code(s): E11.9 - TYPE 2 DIABETES MELLITUS WITHOUT COMPLICATIONS (7) Hyperkalemia Code(s): E87.5 - HYPERKALEMIA (8) Sepsis Code(s): A41.9 - SEPSIS, UNSPECIFIED ORGANISM Qualifiers: Sepsis type: sepsis due to unspecified organism Qualified Code(s): A41.9 - Sepsis, unspecified organism
[2020-07-13] MEDS: POTASSIUM CHLORIDE 40 MEQ in SODIUM CHLORIDE 0.45% 1,000 ML IVPB SCH ×2 (13:25→22:54)
[2020-07-13] MEDS ORDERED: MAGNESIUM SULF 50% (8.12 MEQ/2 ML-1 GM VIAL) IVPB ONE (14:08)
[2020-07-13] MEDS ORDERED: MAGNESIUM 2GM/50ML STERILE WATER IVPB IVPB ONE (14:15)
--- NOTE | 2020-07-13 14:15 | PN ---
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, Physician Chief Complaint: Colitis Hypoxia SHERLYN Hypomagnesemia Fecal retention History of Present Illness: 80 year old woman with history of dementia, DM who presented from [place] with hypoxia and diaphoresis and found to have possible colitis with SHERLYN and hyperkalemia. NAD Seen by Surgery Tolerating clear liquid diet Cultures negative - Current Medication List Current Medications: Active Medications Atorvastatin Calcium (Lipitor -) 10 mg PO HS [facility] Last Admin: 07/12/20 21:38 Dose: 10 mg Documented by: Heparin Sodium (Porcine) (Heparin -) 5,000 unit SQ BID [facility] Last Admin: 07/13/20 10:08 Dose: 5,000 unit Documented by: Metronidazole (Flagyl 500mg Premixed Ivpb -) 500 mg in 100 mls @ 100 mls/hr IVPB Q8H-IV [facility] Last Admin: 07/13/20 10:45 Dose: 100 mls/hr Documented by: Piperacillin Sod/Tazobactam (Sod 3.375 gm/ Dextrose) 50 mls @ 100 mls/hr IVPB Q8H-IV [facility]; Protocol Last Admin: 07/13/20 09:42 Dose: 100 mls/hr Documented by: Potassium Chloride 40 meq/ (Sodium Chloride) 1,020 mls @ 42 mls/hr IVPB Q24H [facility] Last Admin: 07/13/20 13:25 Dose: Not Given Documented by: Insulin Aspart (Novolog Vial Sliding Scale -) 1 vial SQ ACHS [facility]; Protocol Last Admin: 07/13/20 11:55 Dose: 5 unit Documented by: Losartan Potassium (Cozaar -) 50 mg PO DAILY [facility] Magnesium Sulfate (Magnesium Sulf 2 G/50 Ml Bag) 2 gm IVPB ONCE ONE Stop: 07/13/20 14:16 Pantoprazole Sodium (Protonix -) 40 mg PO DAILY [facility] Last Admin: 07/13/20 10:08 Dose: 40 mg Documented by: Senna (Senna -) 2 tab PO HS PRN PRN Reason: CONSTIPATION - Objective Vital Signs: Vital Signs Temperature 98.3 F 07/13/20 13:46 Pulse Rate 80 07/13/20 13:46 Respiratory Rate 18 07/13/20 13:46 Blood Pressure 159/95 07/13/20 13:46 O2 Sat by Pulse Oximetry (%) 96 07/13/20 09:41 Constitutional: Yes: Well Nourished, No Distress, Calm Cardiovascular: Yes: Regular Rate and Rhythm Respiratory: Yes: Regular, CTA Bilaterally Gastrointestinal: Yes: Normal Bowel Sounds, Soft Genitourinary: Yes: Incontinence Musculoskeletal: Yes: Muscle Weakness Extremities: Yes: WNL Edema: No Peripheral Pulses WNL: Yes Neurological: Yes: Alert, Confusion, Pre-Existing Deficit Psychiatric: Yes: Alert Labs: CBC, BMP 07/13/20 05:50 07/13/20 05:50 INR, PTT INR 1.11 (0.83-1.09) H 07/09/20 12:42 Problem List - Problems (1) Acute hypoxemic respiratory failure Assessment/Plan: -Seen by pulmonary -CXR unremarkable Problems reviewed: Yes Code(s): J96.01 - ACUTE RESPIRATORY FAILURE WITH HYPOXIA (2) Acute kidney injury Assessment/Plan: -Seen by Nephrology -D/C Gentle IVF once po intake is adequate -Cr at baseline -monitor trend Problems reviewed: Yes Code(s): N17.9 - ACUTE KIDNEY FAILURE, UNSPECIFIED (3) Altered mental status Assessment/Plan: -CT head unremarkable -Cultures negative -Check B12 and thyroid profile Problems reviewed: Yes Code(s): R41.82 - ALTERED MENTAL STATUS, UNSPECIFIED Qualifiers: Altered mental status type: unspecified Qualified Code(s): R41.82 - Altered mental status, unspecified (4) Ischemic colitis Assessment/Plan: -CTAP reviewed -AXR this AM unremarkable -Seen by Surgery -On IV flagyl + Zosyn -Tolerating clear liquid diet -advance to low sodium diabetic soft diet Problems reviewed: Yes Code(s): K55.9 - VASCULAR DISORDER OF INTESTINE, UNSPECIFIED (5) UTI (urinary tract infection) Assessment/Plan: -UC negative -ID on board -afebrile Problems reviewed: Yes Code(s): N39.0 - URINARY TRACT INFECTION, SITE NOT SPECIFIED Qualifiers: Urinary tract infection type: site unspecified Hematuria presence: with hematuria Qualified Code(s): N39.0 - Urinary tract infection, site not specified; R31.9 - Hematuria, unspecified (6) Constipation Assessment/Plan: -Bowel regimen -Miralax daily -Senna 2 tabs HS Problems reviewed: Yes Code(s): K59.00 - CONSTIPATION, UNSPECIFIED (7) Diabetes Assessment/Plan: -Rechedk A1c -BGM AC HS -ISS -Clear liquid diabetic low sodium diet Problems reviewed: Yes Code(s): E11.9 - TYPE 2 DIABETES MELLITUS WITHOUT COMPLICATIONS Assessment/Plan See problem list PT rashidaal
[2020-07-13] MEDS: LOSARTAN POTASSIUM 50 MG TABLET (FP) PO SCH (14:40)
[2020-07-13] MEDS: NYSTATIN POWDER 100,000 UNITS/GM - 15 GM TOPICAL POWDER TP SCH (18:19)
[2020-07-13] MEDS ORDERED: PT OWN MED DRAWER 7, Y5N ONE (21:54)
[2020-07-13] MEDS: ATORVASTATIN CA 10 MG TABLET (FP) PO SCH (22:21)
[2020-07-14] MEDS ORDERED: PIPERACILLIN/TAZOBACTAM 3.375 GM VIAL IVPB ONE ×3 (00:55→09:26)
[2020-07-14] MEDS ORDERED: DEXTROSE 5%-WATER - 50 ML IVPB ONE ×3 (00:56→09:26)
[2020-07-14] MEDS: PIPERACILLIN/TAZOB 3.375 GM 3.375 GM in DEXTROSE 5%-WATER - 50 ML IVPB SCH ×2 (01:13→09:42)
[2020-07-14] MEDS: INSULIN SLIDING SCALE (NOVOLOG) 1 VIAL SQ SCH ×4 (06:56→21:17)
--- NOTE | 2020-07-14 07:29 | PN ---
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, Physician History of Present Illness: pulmonary awake,non-verbal,-resp distress - Current Medication List Current Medications: Active Medications Atorvastatin Calcium (Lipitor -) 10 mg PO HS [facility] Last Admin: 07/13/20 22:21 Dose: 10 mg Documented by: Heparin Sodium (Porcine) (Heparin -) 5,000 unit SQ BID DAVID Last Admin: 07/13/20 22:21 Dose: 5,000 unit Documented by: Metronidazole (Flagyl 500mg Premixed Ivpb -) 500 mg in 100 mls @ 100 mls/hr IVPB Q8H-IV [facility] Last Admin: 07/14/20 02:20 Dose: 100 mls/hr Documented by: Piperacillin Sod/Tazobactam (Sod 3.375 gm/ Dextrose) 50 mls @ 100 mls/hr IVPB Q8H-IV [facility]; Protocol Last Admin: 07/14/20 01:13 Dose: 100 mls/hr Documented by: Potassium Chloride 40 meq/ (Sodium Chloride) 1,020 mls @ 42 mls/hr IVPB Q24H [facility] Last Admin: 07/13/20 22:54 Dose: 42 mls/hr Documented by: Insulin Aspart (Novolog Vial Sliding Scale -) 1 vial SQ ACHS [facility]; Protocol Last Admin: 07/14/20 06:56 Dose: Not Given Documented by: Losartan Potassium (Cozaar -) 50 mg PO DAILY [facility] Last Admin: 07/13/20 14:40 Dose: 50 mg Documented by: Nystatin (Nystop Powder -) 1 applic TP DAILY [facility] Last Admin: 07/13/20 18:19 Dose: 1 applic Documented by: Pantoprazole Sodium (Protonix -) 40 mg PO DAILY [facility] Last Admin: 07/13/20 10:08 Dose: 40 mg Documented by: Senna (Senna -) 2 tab PO HS PRN PRN Reason: CONSTIPATION - Objective Vital Signs: Vital Signs Temperature 98.4 F 07/14/20 05:00 Pulse Rate 75 07/14/20 05:00 Respiratory Rate 16 07/14/20 05:00 Blood Pressure 123/72 07/14/20 05:00 O2 Sat by Pulse Oximetry (%) 97 07/14/20 05:00 Constitutional: Yes: Well Nourished, Calm Eyes: Yes: WNL HENT: Yes: WNL Neck: Yes: WNL Cardiovascular: Yes: Regular Rate and Rhythm, S1, S2 Respiratory: Yes: Diminished (poor inspiratory effort) Gastrointestinal: Yes: Normal Bowel Sounds, Soft Extremities: Yes: WNL Edema: No Labs: CBC, BMP 07/13/20 05:50 Laboratory Tests 07/14/20 07/14/20 06:06 06:06 WBC 7.6 Hgb 11.7 Hct 36.1 BUN 10.4 Creatinine 0.8 Problem List - Problems (1) Acute hypoxemic respiratory failure Code(s): J96.01 - ACUTE RESPIRATORY FAILURE WITH HYPOXIA (2) Acute kidney injury Code(s): N17.9 - ACUTE KIDNEY FAILURE, UNSPECIFIED (3) Altered mental status Code(s): R41.82 - ALTERED MENTAL STATUS, UNSPECIFIED Qualifiers: Altered mental status type: unspecified Qualified Code(s): R41.82 - Altered mental status, unspecified (4) Elevated lactic acid level Code(s): R79.89 - OTHER SPECIFIED ABNORMAL FINDINGS OF BLOOD CHEMISTRY (5) Ischemic colitis Code(s): K55.9 - VASCULAR DISORDER OF INTESTINE, UNSPECIFIED (6) Diabetes mellitus type 2 in nonobese Code(s): E11.9 - TYPE 2 DIABETES MELLITUS WITHOUT COMPLICATIONS (7) Hyperkalemia Code(s): E87.5 - HYPERKALEMIA (8) Sepsis Code(s): A41.9 - SEPSIS, UNSPECIFIED ORGANISM Qualifiers: Sepsis type: sepsis due to unspecified organism Qualified Code(s): A41.9 - Sepsis, unspecified organism Assessment/Plan IMP ACUTE HYPOXEMIC RESPIRATORY FAILURE IMPROVED SEPSIS DM SHERLYN improved LACTIC ACIDOSIS IMPROVED DEMPSEY SUPPLEMENTAL O2 INHALED BRONCHODILATORS ABX PER ID MONITOR AUDREY,RENAL FUNCTION IVF DR MARCANO Problem List - Problems (1) Acute hypoxemic respiratory failure Code(s): J96.01 - ACUTE RESPIRATORY FAILURE WITH HYPOXIA (2) Acute kidney injury Code(s): N17.9 - ACUTE KIDNEY FAILURE, UNSPECIFIED (3) Altered mental status Code(s): R41.82 - ALTERED MENTAL STATUS, UNSPECIFIED Qualifiers: Altered mental status type: unspecified Qualified Code(s): R41.82 - Altered mental status, unspecified (4) Elevated lactic acid level Code(s): R79.89 - OTHER SPECIFIED ABNORMAL FINDINGS OF BLOOD CHEMISTRY (5) Ischemic colitis Code(s): K55.9 - VASCULAR DISORDER OF INTESTINE, UNSPECIFIED (6) Diabetes mellitus type 2 in nonobese Code(s): E11.9 - TYPE 2 DIABETES MELLITUS WITHOUT COMPLICATIONS (7) Hyperkalemia Code(s): E87.5 - HYPERKALEMIA (8) Sepsis Code(s): A41.9 - SEPSIS, UNSPECIFIED ORGANISM Qualifiers: Sepsis type: sepsis due to unspecified organism Qualified Code(s): A41.9 - Sepsis, unspecified organism
[2020-07-14 08:16] LABS: HEMATOCRIT 36.1 % (32.4-45.2); HEMOGLOBIN 11.7 GM/dL (10.7-15.3); MCH 28.4 pg (25.7-33.7); MCHC 32.5 g/dl (32.0-36.0); MEAN CELL VOLUME 87.3 fl (80-96); MEAN PLT VOLUME 8.4 fl (7.5-11.1); PLATELET COUNT 286 K/MM3 (134-434); RBC 4.13 M/mm3 (3.60-5.2); RDW 13.6 % (11.6-15.6); WHITE BLOOD COUNT 7.6 K/mm3 (4.0-10.0)
[2020-07-14 08:19] LABS: ALBUMIN 2.3 g/dl (3.4-5.0); BILIRUBIN,TOTAL 0.4 mg/dL (0.2-1); BLOOD UREA NITROGEN 10.4 mg/dL (7-18); CALCIUM 8.1 mg/dL (8.5-10.1); CREATININE 0.8 mg/dL (0.55-1.3); POTASSIUM 3.7 mmol/L (3.5-5.1); TOT PROT 5.8 g/dl (6.4-8.2)
[2020-07-14] MEDS ORDERED: PT OWN MED DRAWER 7, Y5N ONE (09:19)
[2020-07-14] MEDS: HEPARIN NA (PORCINE) 5,000 UNITS/ML 1ML VIAL SQ SCH ×2 (09:42→21:08)
[2020-07-14] MEDS: LOSARTAN POTASSIUM 50 MG TABLET (FP) PO SCH (09:42)
[2020-07-14] MEDS: PANTOPRAZOLE 40 MG TABLET PO SCH (09:42)
[2020-07-14] MEDS: NYSTATIN POWDER 100,000 UNITS/GM - 15 GM TOPICAL POWDER TP SCH (09:44)
--- NOTE | 2020-07-14 10:59 | PN ---
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, Physician Chief Complaint: Colitis Hypoxia SHERLYN Hypomagnesemia Fecal retention History of Present Illness: 80 year old woman with history of dementia, DM who [place] with hypoxia and diaphoresis and found to have possible colitis with SHERLYN and hyperkalemia. NAD Seen by Surgery Tolerating soft diet with poor appetite Cultures negative - Current Medication List Current Medications: Active Medications Atorvastatin Calcium (Lipitor -) 10 mg PO HS [facility] Last Admin: 07/13/20 22:21 Dose: 10 mg Documented by: Heparin Sodium (Porcine) (Heparin -) 5,000 unit SQ BID [facility] Last Admin: 07/14/20 09:42 Dose: 5,000 unit Documented by: Metronidazole (Flagyl 500mg Premixed Ivpb -) 500 mg in 100 mls @ 100 mls/hr IVPB Q8H-IV [facility] Last Admin: 07/14/20 09:43 Dose: 100 mls/hr Documented by: Piperacillin Sod/Tazobactam (Sod 3.375 gm/ Dextrose) 50 mls @ 100 mls/hr IVPB Q8H-IV [facility]; Protocol Last Admin: 07/14/20 09:42 Dose: 100 mls/hr Documented by: Potassium Chloride 40 meq/ (Sodium Chloride) 1,020 mls @ 42 mls/hr IVPB Q24H [facility] Last Admin: 07/13/20 22:54 Dose: 42 mls/hr Documented by: Insulin Aspart (Novolog Vial Sliding Scale -) 1 vial SQ ACHS [facility]; Protocol Last Admin: 07/14/20 06:56 Dose: Not Given Documented by: Losartan Potassium (Cozaar -) 50 mg PO DAILY [facility] Last Admin: 07/14/20 09:42 Dose: 50 mg Documented by: Nystatin (Nystop Powder -) 1 applic TP DAILY [facility] Last Admin: 07/14/20 09:44 Dose: 1 applic Documented by: Pantoprazole Sodium (Protonix -) 40 mg PO DAILY [facility] Last Admin: 07/14/20 09:42 Dose: 40 mg Documented by: Senna (Senna -) 2 tab PO HS PRN PRN Reason: CONSTIPATION - Objective Vital Signs: Vital Signs Temperature 98.4 F 07/14/20 05:00 Pulse Rate 75 07/14/20 05:00 Respiratory Rate 16 07/14/20 05:00 Blood Pressure 123/72 07/14/20 05:00 O2 Sat by Pulse Oximetry (%) 97 07/14/20 05:00 Constitutional: Yes: Well Nourished, No Distress, Calm Cardiovascular: Yes: Regular Rate and Rhythm Respiratory: Yes: Regular, CTA Bilaterally Gastrointestinal: Yes: Normal Bowel Sounds, Soft Genitourinary: Yes: Incontinence Musculoskeletal: Yes: Muscle Weakness Extremities: Yes: Other (generalized atrophy) Edema: No Peripheral Pulses WNL: Yes Neurological: Yes: Alert, Confusion Psychiatric: Yes: Alert Labs: CBC, BMP 07/14/20 06:06 07/14/20 06:06 INR, PTT INR 1.11 (0.83-1.09) H 07/09/20 12:42 Problem List - Problems (1) Acute hypoxemic respiratory failure Assessment/Plan: -Seen by pulmonary -CXR unremarkable Problems reviewed: Yes Code(s): J96.01 - ACUTE RESPIRATORY FAILURE WITH HYPOXIA (2) Acute kidney injury Assessment/Plan: -Seen by Nephrology -D/C Gentle IVF once po intake is adequate -Cr at baseline -monitor trend Problems reviewed: Yes Code(s): N17.9 - ACUTE KIDNEY FAILURE, UNSPECIFIED (3) Altered mental status Assessment/Plan: -CT head unremarkable -Cultures negative -B12 and thyroid profile normal Problems reviewed: Yes Code(s): R41.82 - ALTERED MENTAL STATUS, UNSPECIFIED Qualifiers: Altered mental status type: unspecified Qualified Code(s): R41.82 - Altered mental status, unspecified (4) Ischemic colitis Assessment/Plan: -CTAP reviewed -Last AXR unremarkable -Seen by Surgery -On IV flagyl + Zosyn day 6 -Tolerating low sodium diabetic soft diet with poor oral intake Problems reviewed: Yes Code(s): K55.9 - VASCULAR DISORDER OF INTESTINE, UNSPECIFIED (5) UTI (urinary tract infection) Assessment/Plan: -UC negative -ID on board -afebrile Problems reviewed: Yes Code(s): N39.0 - URINARY TRACT INFECTION, SITE NOT SPECIFIED Qualifiers: Urinary tract infection type: site unspecified Hematuria presence: with hematuria Qualified Code(s): N39.0 - Urinary tract infection, site not specified; R31.9 - Hematuria, unspecified (6) Constipation Assessment/Plan: -Bowel regimen -Miralax daily -Senna 2 tabs HS Problems reviewed: Yes Code(s): K59.00 - CONSTIPATION, UNSPECIFIED (7) Diabetes Assessment/Plan: -A1c at 7.7 -BGM AC HS -ISS -Soft diabetic low sodium diet -Start Januvia 25 mg po daily Problems reviewed: Yes Code(s): E11.9 - TYPE 2 DIABETES MELLITUS WITHOUT COMPLICATIONS Assessment/Plan See problem list PT eval
--- NOTE | 2020-07-14 13:07 | PN ---
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, Physician History of Present Illness: Seen and examined at the bedside sleeping but arouseable not talking no overnight events poor oral intake as per floor nurse making urine - Current Medication List Current Medications: Active Medications Atorvastatin Calcium (Lipitor -) 10 mg PO HS [facility] Last Admin: 07/13/20 22:21 Dose: 10 mg Documented by: Heparin Sodium (Porcine) (Heparin -) 5,000 unit SQ BID [facility] Last Admin: 07/14/20 09:42 Dose: 5,000 unit Documented by: Metronidazole (Flagyl 500mg Premixed Ivpb -) 500 mg in 100 mls @ 100 mls/hr IVPB Q8H-IV [facility] Last Admin: 07/14/20 09:43 Dose: 100 mls/hr Documented by: Piperacillin Sod/Tazobactam (Sod 3.375 gm/ Dextrose) 50 mls @ 100 mls/hr IVPB Q8H-IV [facility]; Protocol Last Admin: 07/14/20 09:42 Dose: 100 mls/hr Documented by: Potassium Chloride 40 meq/ (Sodium Chloride) 1,020 mls @ 42 mls/hr IVPB Q24H [facility] Last Admin: 07/13/20 22:54 Dose: 42 mls/hr Documented by: Insulin Aspart (Novolog Vial Sliding Scale -) 1 vial SQ ACHS [facility]; Protocol Last Admin: 07/14/20 12:11 Dose: Not Given Documented by: Losartan Potassium (Cozaar -) 50 mg PO DAILY [facility] Last Admin: 07/14/20 09:42 Dose: 50 mg Documented by: Nystatin (Nystop Powder -) 1 applic TP DAILY [facility] Last Admin: 07/14/20 09:44 Dose: 1 applic Documented by: Pantoprazole Sodium (Protonix -) 40 mg PO DAILY [facility] Last Admin: 07/14/20 09:42 Dose: 40 mg Documented by: Senna (Senna -) 2 tab PO HS PRN PRN Reason: CONSTIPATION - Objective Vital Signs: Vital Signs Temperature 97.5 F L 07/14/20 09:00 Pulse Rate 72 07/14/20 09:00 Respiratory Rate 18 07/14/20 09:00 Blood Pressure 113/71 07/14/20 09:00 O2 Sat by Pulse Oximetry (%) 100 07/14/20 09:00 Constitutional: Yes: No Distress HENT: Yes: Atraumatic Neck: Yes: Supple Cardiovascular: Yes: Regular Rate and Rhythm Respiratory: Yes: Regular Gastrointestinal: Yes: Soft Genitourinary: No: Bladder Distention Edema: No Neurological: Yes: Alert Labs: CBC, BMP 07/14/20 06:06 07/14/20 06:06 INR, PTT INR 1.11 (0.83-1.09) H 07/09/20 12:42 Assessment/Plan 80 year old woman with history of dementia, DM who [place] and diaphoresis and found to have possible colitis with SHERLYN and hyperkalemia. 1. Acute kidney injury likely due to volume depletion vs. ATN 2. Hyperkalemia 3. Suspected Colitis 4. Leukocytosis 5. Lactic acidosis 6. Dementia 7. Hypernatremia Renal function improved and stable. no overt electrolyte or acid/base disturbances noted Continue 1L of hypotonic saline with KCL daily as pt has poor oral intake. oral intake as tolerated antibiotics as per ID Trend renal function and electrolytes daily Thank you Orlin Toledo DO
--- NOTE | 2020-07-14 13:12 | PN ---
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 (short form) - Note 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: awake nonverbal Vital Signs Period Temp Pulse Resp BP Sys/Bob Pulse Ox Last 24 Hr 97.5 F-98.4 F 72-94 16-18 113-159/70-95 97-100 cor-rrr lungs clear abd soft,nt ext no edema CBC, BMP 07/14/20 06:06 07/14/20 06:06 Microbiology 07/09/20 12:42 Blood - Peripheral Venous Blood Culture - Final NO GROWTH AFTER 5 DAYS INCUBATION 07/09/20 12:42 Blood - Peripheral Venous Blood Culture - Final NO GROWTH AFTER 5 DAYS INCUBATION 07/09/20 13:18 Urine - Urine - Catheterized Urine Culture - Final Yeast Like Organism imp/reccd coitis-?ischemic- wbc now normal for several days= day #6 antibiotics, will d/c and observe fecal retention neymar history of ecoli esbl uti 2018 d/w hospitalist please call back if needed
[2020-07-14] MEDS: POTASSIUM CHLORIDE 40 MEQ in SODIUM CHLORIDE 0.45% 1,000 ML IVPB SCH ×2 (13:14→16:52)
[2020-07-14] MEDS: ATORVASTATIN CA 10 MG TABLET (FP) PO SCH (21:09)
[2020-07-14] MEDS ORDERED: MIRTAZAPINE 15 MG TABLET (FP) PO SCH (22:08)
[2020-07-14] MEDS ORDERED: SENNOSIDES 8.6MG TABLET (FP) PO SCH (22:15)
[2020-07-15] MEDS: INSULIN SLIDING SCALE (NOVOLOG) 1 VIAL SQ SCH ×3 (06:23→16:37)
[2020-07-15 06:48] LABS: ALBUMIN 2.3 g/dl (3.4-5.0); BILIRUBIN,TOTAL 0.4 mg/dL (0.2-1); BLOOD UREA NITROGEN 7.6 mg/dL (7-18); CALCIUM 8.1 mg/dL (8.5-10.1); CREATININE 0.7 mg/dL (0.55-1.3); MAGNESIUM 1.9 mg/dL (1.8-2.4); PHOSPHOROUS 2.4 mg/dL (2.5-4.9); POTASSIUM 3.9 mmol/L (3.5-5.1); TOT PROT 6.1 g/dl (6.4-8.2)
--- NOTE | 2020-07-15 07:24 | PN ---
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, Physician History of Present Illness: PULMONARY DROWSY,COMFORTABLE,NON-VERBAL,-RESP DISTRESS - Current Medication List Current Medications: Active Medications Atorvastatin Calcium (Lipitor -) 10 mg PO HS [facility] Last Admin: 07/14/20 21:09 Dose: 10 mg Documented by: Heparin Sodium (Porcine) (Heparin -) 5,000 unit SQ BID [facility] Last Admin: 07/14/20 21:08 Dose: 5,000 unit Documented by: Potassium Chloride 40 meq/ (Sodium Chloride) 1,020 mls @ 42 mls/hr IVPB Q24H [facility] Last Admin: 07/14/20 16:52 Dose: 42 mls/hr Documented by: Insulin Aspart (Novolog Vial Sliding Scale -) 1 vial SQ ACHS [facility]; Protocol Last Admin: 07/15/20 06:23 Dose: Not Given Documented by: Losartan Potassium (Cozaar -) 50 mg PO DAILY [facility] Last Admin: 07/14/20 09:42 Dose: 50 mg Documented by: Mirtazapine (Remeron -) 7.5 mg PO [facility] Last Admin: 07/14/20 23:37 Dose: 7.5 mg Documented by: Multivitamins/Minerals/Vitamin C (Tab-A-Vit -) 1 tab PO DAILY [facility] Nystatin (Nystop Powder -) 1 applic TP DAILY [facility] Last Admin: 07/14/20 09:44 Dose: 1 applic Documented by: Pantoprazole Sodium (Protonix -) 40 mg PO DAILY [facility] Last Admin: 07/14/20 09:42 Dose: 40 mg Documented by: Polyethylene Glycol (Miralax (For Daily Use) -) 17 gm PO DAILY [facility] Senna (Senna -) 2 tab PO [facility] Last Admin: 07/14/20 23:37 Dose: 2 tab Documented by: Sitagliptin Phosphate (Januvia -) 25 mg PO DAILY@0700 [facility] Last Admin: 07/15/20 06:23 Dose: 25 mg Documented by: - Objective Vital Signs: Vital Signs Temperature 97.5 F L 07/15/20 05:00 Pulse Rate 71 07/15/20 05:00 Respiratory Rate 18 07/15/20 05:00 Blood Pressure 153/69 07/15/20 05:00 O2 Sat by Pulse Oximetry (%) 99 07/15/20 05:00 Constitutional: Yes: Well Nourished, Other (DROWSY) Eyes: Yes: WNL HENT: Yes: WNL Neck: Yes: WNL Cardiovascular: Yes: Regular Rate and Rhythm, S1, S2 Respiratory: Yes: Diminished (POOR INSPIRATORY EFFORT) Gastrointestinal: Yes: Normal Bowel Sounds, Soft Extremities: Yes: WNL Edema: No Labs: CBC, BMP 07/15/20 05:38 INR, PTT INR 1.11 (0.83-1.09) H 07/09/20 12:42 Problem List - Problems (1) Acute hypoxemic respiratory failure Code(s): J96.01 - ACUTE RESPIRATORY FAILURE WITH HYPOXIA (2) Acute kidney injury Code(s): N17.9 - ACUTE KIDNEY FAILURE, UNSPECIFIED (3) Altered mental status Code(s): R41.82 - ALTERED MENTAL STATUS, UNSPECIFIED Qualifiers: Altered mental status type: unspecified Qualified Code(s): R41.82 - Altered mental status, unspecified (4) Elevated lactic acid level Code(s): R79.89 - OTHER SPECIFIED ABNORMAL FINDINGS OF BLOOD CHEMISTRY (5) Ischemic colitis Code(s): K55.9 - VASCULAR DISORDER OF INTESTINE, UNSPECIFIED (6) Diabetes mellitus type 2 in nonobese Code(s): E11.9 - TYPE 2 DIABETES MELLITUS WITHOUT COMPLICATIONS (7) Hyperkalemia Code(s): E87.5 - HYPERKALEMIA (8) Sepsis Code(s): A41.9 - SEPSIS, UNSPECIFIED ORGANISM Qualifiers: Sepsis type: sepsis due to unspecified organism Qualified Code(s): A41.9 - Sepsis, unspecified organism Assessment/Plan IMP ACUTE HYPOXEMIC RESPIRATORY FAILURE IMPROVED SEPSIS IMPROVED DM SHERLYN improved LACTIC ACIDOSIS IMPROVED DEMPSEY O2 NEEDED INHALED BRONCHODILATORS DR MARCANO Problem List - Problems (1) Acute hypoxemic respiratory failure Code(s): J96.01 - ACUTE RESPIRATORY FAILURE WITH HYPOXIA (2) Acute kidney injury Code(s): N17.9 - ACUTE KIDNEY FAILURE, UNSPECIFIED (3) Altered mental status Code(s): R41.82 - ALTERED MENTAL STATUS, UNSPECIFIED Qualifiers: Altered mental status type: unspecified Qualified Code(s): R41.82 - Altered mental status, unspecified (4) Elevated lactic acid level Code(s): R79.89 - OTHER SPECIFIED ABNORMAL FINDINGS OF BLOOD CHEMISTRY (5) Ischemic colitis Code(s): K55.9 - VASCULAR DISORDER OF INTESTINE, UNSPECIFIED (6) Diabetes mellitus type 2 in nonobese Code(s): E11.9 - TYPE 2 DIABETES MELLITUS WITHOUT COMPLICATIONS (7) Hyperkalemia Code(s): E87.5 - HYPERKALEMIA (8) Sepsis Code(s): A41.9 - SEPSIS, UNSPECIFIED ORGANISM Qualifiers: Sepsis type: sepsis due to unspecified organism Qualified Code(s): A41.9 - Sepsis, unspecified organism
[2020-07-15] MEDS ORDERED: PT OWN MED DRAWER 7, Y5N ONE (09:18)
[2020-07-15] MEDS: LOSARTAN POTASSIUM 50 MG TABLET (FP) PO SCH (09:24)
[2020-07-15] MEDS: HEPARIN NA (PORCINE) 5,000 UNITS/ML 1ML VIAL SQ SCH (09:24)
[2020-07-15] MEDS: NYSTATIN POWDER 100,000 UNITS/GM - 15 GM TOPICAL POWDER TP SCH (09:24)
[2020-07-15] MEDS: PANTOPRAZOLE 40 MG TABLET PO SCH (09:24)
[2020-07-15] MEDS ORDERED: MULTIVITAMINS (DAILY MVI) TABLET (FP) PO SCH (10:00)
[2020-07-15] MEDS ORDERED: POLYETHYLENE GLYCOL 3350 119 GM BTL PO SCH (10:00)
--- NOTE | 2020-07-15 11:25 | DS ---
Physical Examination Vital Signs: Vital Signs Temperature 97.5 F L 07/15/20 05:00 Pulse Rate 71 07/15/20 05:00 Respiratory Rate 18 07/15/20 05:00 Blood Pressure 153/69 07/15/20 05:00 O2 Sat by Pulse Oximetry (%) 99 07/15/20 05:00 Findings/Remarks: 80 year old female with a significant PMH of respiratory failure, dementia and DM who presented [facility] ER from [facility] for hypoxia and diaphoresis. Upon evaluation pt was found to have Colitis and presumed UTI. During the course of the hospital pt was treated with IV Flgyl and Zosyn. Pt's BC + UC were negative for any growth. Pt was evaluated by ID, GI and surgery, who opted for conservative care. Since then pt has been afebrile, asymptomatic. Repeat AXR was unremarkable. Pt has poor appetite, was started on multiviamin and mirtazapine. (1) Acute hypoxemic respiratory failure Assessment/Plan: -Seen by pulmonary -CXR unremarkable Problems reviewed: Yes Code(s): J96.01 - ACUTE RESPIRATORY FAILURE WITH HYPOXIA (2) Acute kidney injury Assessment/Plan: -Seen by Nephrology -D/C Gentle IVF once po intake is adequate -Cr at baseline -monitor trend Problems reviewed: Yes Code(s): N17.9 - ACUTE KIDNEY FAILURE, UNSPECIFIED (3) Altered mental status Assessment/Plan: -CT head unremarkable -Cultures negative -B12 and thyroid profile normal Problems reviewed: Yes Code(s): R41.82 - ALTERED MENTAL STATUS, UNSPECIFIED Qualifiers: Altered mental status type: unspecified Qualified Code(s): R41.82 - Altered mental status, unspecified (4) Ischemic colitis Assessment/Plan: -CTAP reviewed -Last AXR unremarkable -Seen by Surgery -On IV flagyl + Zosyn day 6 -Tolerating low sodium diabetic soft diet with poor oral intake Problems reviewed: Yes Code(s): K55.9 - VASCULAR DISORDER OF INTESTINE, UNSPECIFIED (5) UTI (urinary tract infection) Assessment/Plan: -UC negative -ID on board -afebrile Problems reviewed: Yes Code(s): N39.0 - URINARY TRACT INFECTION, SITE NOT SPECIFIED Qualifiers: Urinary tract infection type: site unspecified Hematuria presence: with hematuria Qualified Code(s): N39.0 - Urinary tract infection, site not specified; R31.9 - Hematuria, unspecified (6) Constipation Assessment/Plan: -Bowel regimen -Miralax daily -Senna 2 tabs HS Problems reviewed: Yes Code(s): K59.00 - CONSTIPATION, UNSPECIFIED (7) Diabetes Assessment/Plan: -A1c at 7.7 -BGM AC HS -ISS -Soft diabetic low sodium diet -Started Januvia 25 mg po daily Problems reviewed: Yes Code(s): E11.9 - TYPE 2 DIABETES MELLITUS WITHOUT COMPLICATIONS Assessment/Plan See problem list PT eval Constitutional: Yes: Well Nourished, No Distress, Calm Cardiovascular: Yes: Regular Rate and Rhythm Respiratory: Yes: Regular, CTA Bilaterally Gastrointestinal: Yes: Normal Bowel Sounds, Soft Renal/: Yes: Incontinence Musculoskeletal: Yes: Muscle Weakness Extremities: Yes: WNL Edema: No Peripheral Pulses WNL: Yes Neurological: Yes: Alert, Confusion Labs: CBC, BMP 07/14/20 06:06 07/15/20 05:38 Discharge Summary Problems reviewed: Yes Reason For Visit: UTI Current Active Problems Acute hypoxemic respiratory failure (Acute) Acute kidney injury (Acute) Altered mental status (Acute) Elevated lactic acid level (Acute) History of ESBL E. coli infection (Acute) Ischemic colitis (Acute) UTI (urinary tract infection) (Acute) Condition: Stable - Instructions Referrals: Nevin Parmar MD [Primary Care Provider] - Disposition: [facility] - Home Medications Comprehensive Discharge Medication List: Ambulatory Orders Heparin - 5,000 unit SCJ BID 11/27/17 Multivit with Minerals No.55 [Centrum Flavor Burst Adult] 1 tab PO DAILY 11/27/17 Sennosides [Senna -] 2 tab PO HS PRN tablet 12/05/17 Atorvastatin Ca [Lipitor] 1 tablet PO DAILY 05/20/20 Cholecalciferol (Vitamin D3) [Vitamin D3 -] 1,000 unit PO DAILY 05/20/20 Zinc Oxide 20% Topical Oint 1 applic TP PRN PRN 05/20/20 Mineral Oil/Petrolat,Wht/Water [Eucerin (Small Jar) -] 1 applic TP BID jar 05/27/20 Pantoprazole Sodium [Protonix -] 40 mg PO DAILY #30 tablet.ec 05/27/20 Heparin - 5,000 unit SQ BID vial 07/14/20 Losartan Potassium [Cozaar -] 50 mg PO DAILY tablet 07/14/20 Mirtazapine [Remeron -] 7.5 mg PO HS tablet 07/14/20 Multivitamins [Multivit ([facility] Form[facility])] 1 tab PO DAILY tab 07/14/20 Nystatin Powder [Nystop Powder -] 1 applic TP DAILY applic 07/14/20 Polyethylene Glycol 3350 [Miralax 119 gm Btl -] 17 gm PO DAILY bottle 07/14/20 Sitagliptin Phosphate [Januvia -] 25 mg PO DAILY@0700 tab 07/14/20 Prescription Drug Monitoring Program (I-STOP) results: I-STOP reviewed and no issues identified
[2020-07-15] MEDS: POTASSIUM CHLORIDE 40 MEQ in SODIUM CHLORIDE 0.45% 1,000 ML IVPB SCH (12:40)
[2020-07-15] MEDS ORDERED: NAPH,MB-DB/K PH,MBDB POWDER PACKET PO ONE (12:41)
--- NOTE | 2020-07-15 12:43 | PN ---
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, Physician History of Present Illness: Seen and examined at the bedside sleeping but arousable no overnight events tolerating puree diet as per nurse making urine possible discharge today - Current Medication List Current Medications: Active Medications Atorvastatin Calcium (Lipitor -) 10 mg PO HS [facility] Last Admin: 07/14/20 21:09 Dose: 10 mg Documented by: Heparin Sodium (Porcine) (Heparin -) 5,000 unit SQ BID [facility] Last Admin: 07/15/20 09:24 Dose: 5,000 unit Documented by: Potassium Chloride 40 meq/ (Sodium Chloride) 1,020 mls @ 42 mls/hr IVPB Q24H [facility] Last Admin: 07/15/20 12:40 Dose: Not Given Documented by: Insulin Aspart (Novolog Vial Sliding Scale -) 1 vial SQ ACHS [facility]; Protocol Last Admin: 07/15/20 12:34 Dose: 7 unit Documented by: Losartan Potassium (Cozaar -) 50 mg PO DAILY [facility] Last Admin: 07/15/20 09:24 Dose: 50 mg Documented by: Mirtazapine (Remeron -) 7.5 mg PO HS [facility] Last Admin: 07/14/20 23:37 Dose: 7.5 mg Documented by: Multivitamins/Minerals/Vitamin C (Tab-A-Vit -) 1 tab PO DAILY [facility] Last Admin: 07/15/20 09:24 Dose: 1 tab Documented by: Nystatin (Nystop Powder -) 1 applic TP DAILY [facility] Last Admin: 07/15/20 09:24 Dose: 1 applic Documented by: Pantoprazole Sodium (Protonix -) 40 mg PO DAILY [facility] Last Admin: 07/15/20 09:24 Dose: 40 mg Documented by: Polyethylene Glycol (Miralax (For Daily Use) -) 17 gm PO DAILY [facility] Last Admin: 07/15/20 09:28 Dose: 17 gm Documented by: Senna (Senna -) 2 tab PO HS [facility] Last Admin: 07/14/20 23:37 Dose: 2 tab Documented by: Sitagliptin Phosphate (Januvia -) 25 mg PO DAILY@0700 [facility] Last Admin: 07/15/20 06:23 Dose: 25 mg Documented by: - Objective Vital Signs: Vital Signs Temperature 97.9 F 07/15/20 09:00 Pulse Rate 68 07/15/20 09:00 Respiratory Rate 18 07/15/20 09:00 Blood Pressure 146/90 09/10/20 09:00 O2 Sat by Pulse Oximetry (%) 99 07/15/20 09:00 Constitutional: Yes: No Distress, Calm HENT: Yes: Atraumatic Neck: Yes: Supple Cardiovascular: Yes: Regular Rate and Rhythm Respiratory: Yes: Regular, Diminished. No: Rales, Rhonchi, SOB Gastrointestinal: Yes: Soft. No: Tenderness Genitourinary: No: Bladder Distention Extremities: No: Cold, Cool, Cyanosis Edema: Yes Edema: LLE: Trace, RLE: Trace Neurological: Yes: Alert Labs: CBC, BMP 07/14/20 06:06 07/15/20 05:38 INR, PTT INR 1.11 (0.83-1.09) H 07/09/20 12:42 Assessment/Plan 80 year old woman with history of dementia, DM who presented from [place] with hypoxia and diaphoresis and found to have possible colitis with SHERLYN and hyperkalemia. 1. Acute kidney injury likely due to volume depletion vs. ATN 2. Hyperkalemia 3. Suspected Colitis 4. Leukocytosis 5. Lactic acidosis 6. Dementia 7. Hypernatremia Renal function improved and stable. no overt electrolyte or acid/base disturbances noted Can discontinue IVF today. oral intake as tolerated antibiotics as per ID Trend renal function and electrolytes daily stable for discharge form renal perspective. Thank you Orlin Toledo DO
[2020-07-15 19:47] VITALS: BP 150/66; PULSE 76; TEMP 99
== END 2020-07-15 19:37 | DRG 871 ==
LOC: JER 12:15 → JERBED 13:54 → J4S 23:52
PROVIDERS: ADMIT Family Medicine; ATTEND Family Medicine
DX: A41.89 Other specified sepsis (principal); J96.01 Acute respiratory failure with hypoxia; N17.9 Acute kidney failure, unspecified; N39.0 Urinary tract infection, site not specified; E87.0 Hyperosmolality and hypernatremia; E87.2 Acidosis; E87.5 Hyperkalemia; R31.9 Hematuria, unspecified; G30.9 Alzheimer's disease, unspecified; F02.80 Dementia in other diseases classified elsewhere, unspecified severity, without behavioral disturbance, psychotic disturbance, mood disturbance, and anxiety; E11.9 Type 2 diabetes mellitus without complications; D72.829 Elevated white blood cell count, unspecified; R79.89 Other specified abnormal findings of blood chemistry; R33.9 Retention of urine, unspecified; Z86.19 Personal history of other infectious and parasitic diseases
CPT/HCPCS: 36415; 36600; 70450-TC; 71045-TC-FY; 71260-TC; 72193-TC; 74018-TC-FY; 74160-TC; 80048; 80053; 81003; 82010; 82272; 82550; 82565; 82607; 82803; 82962; 83036; 83605; 83735; 84100; 84156; 84300; 84439; 84443; 84484; 85025; 85027; 85610; 85730; 86850; 86900; 86901; 87040; 87086; 93005; 93010; 97161-GP; 99291; J1644; U0003

== ENCOUNTER 2020-10-31 12:56 | Emergency (ER) | payer OTHER ==
[2020-10-31 13:18] VITALS: BP 0/0; PULSE 0; BMI 23.3
== END 2020-10-31 13:50 | disposition expired ==
LOC: JER 12:56
DX: I46.9 Cardiac arrest, cause unspecified (principal)
CPT/HCPCS: 82962; 99285-25; C9803; U0003